=== PATIENT | female | born 1940 | race Caucasian/White ===

== ENCOUNTER 2017-03-20 12:05 | Inpatient (IN) | payer MEDICARE ==
[2017-03-20] MEDS ORDERED: Sodium Chloride 0.9% 1,000 ML IV ONE (12:59)
[2017-03-20] MEDS ORDERED: Albuterol/Ipratropium 3.0-0.5 MG/3 ML Neb Soln NEB ONE ×2 (13:05→16:12)
--- NOTE | 2017-03-20 13:38 | EDM.PDOC ---
ED HPI GENERAL MEDICAL PROBLEM - General Chief Complaint: Respiratory Problem Stated Complaint: SHORTNESS OF BREATH Time Seen by Provider: 03/20/17 12:21 Source of Information: Reports: Patient, Family History Limitations: Reports: No Limitations - History of Present Illness INITIAL COMMENTS - FREE TEXT/NARRATIVE: HISTORY AND PHYSICAL: History of present illness: 76-year-old female with a history of advanced COPD after a long history of tobacco abuse, baseline for the half liters of home oxygen use daily, now presents emergency department complaining of exertional intolerance and feeling generally weak. Patient states she is getting more short of breath than usual with activity. She states this typically happens when she gets very anemic. Patient has a history of iron deficiency anemia for which she takes iron supplementation and for which she has previously been transfused twice, most recently a year ago. Patient states that she does not have a productive cough other than her chronic nonproductive cough. Denies fevers chills sweats or shaking chills. She does not feel that she is wheezing but as mentioned she does have exertional shortness of breath beyond her baseline. Patient denies any chest pain. No abdominal pain vomiting or diarrhea. Normal bowel and bladder habits. Patient has no history of congestive heart failure and she has not had any leg swelling or edema. Review of systems: As per history of present illness and below otherwise all systems reviewed and negative. Past medical history: As per history of present illness and as reviewed below otherwise noncontributory. Surgical history: As per history of present illness and as reviewed below otherwise noncontributory. Social history: No reported history of drug or alcohol abuse. Family history: As per history of present illness and as reviewed below otherwise noncontributory. Physical exam: Alert well-appearing female no acute distress no tachypnea. Patient does have some pallor. No tachycardia. Prolonged expirations bilaterally but no angela wheezing. No rhonchi rails or rubs. Dental exam is benign and extremities are normal with no edema HEENT: Atraumatic, normocephalic, pupils reactive, positive conjunctival pallor , no scleral icterus, mucous membranes moist, throat clear, neck supple, nontender, trachea midline. Lungs: Clear to auscultation, breath sounds equal bilaterally, chest nontender. Heart: S1S2, regular, negative for clicks, rubs, or JVD. Abdomen: Soft, nondistended, nontender. Negative for masses or hepatosplenomegaly. Negative for costovertebral tenderness. Pelvis: Stable nontender. Genitourinary: Deferred. Rectal: Deferred. Extremities: Atraumatic, negative for cords or calf pain. Neurovascular unremarkable. Neuro: Awake, alert, oriented. Cranial nerves grossly unremarkable. Cerebellum unremarkable. Motor and sensory unremarkable throughout. Exam nonfocal. Diagnostics: [EKG] Chest x-ray Therapeutics: [DuoNeb administered as well as IV fluid bolus] Impression: [] Plan: [Patient with generalized weakness and exertional intolerance. History of intermittent severe anemia requiring transfusion. Prolonged expirations bilaterally but no angela bronchospasm and findings not consistent with significant COPD exacerbation. Full workup pending] Patient's hemoglobin consistent with mild anemia at 9.0. Chest x-ray and EKG unremarkable. On reevaluation patient with increased shortness of breath with wheezing. Additional DuoNeb ordered and IV steroids will be administered. Ordered ABG to rule out significant hypercarbia. Given patient's persistent symptoms and exertional intolerance will do inpatient admission for further workup and treatment as needed. Case discussed with Dr. Anil Mosley hospitalist switchboard receptionist who is aware of history and findings and agrees with inpatient admission to his service. Definitive disposition and diagnosis as appropriate pending reevaluation and review of above. - Related Data Allergies Allergy/AdvReac Type Severity Reaction Status Date / Time codeine Allergy Rash Verified 03/20/17 12:48 morphine Allergy Rash Verified 03/20/17 12:48 Sulfa (Sulfonamide Allergy Rash Verified 03/20/17 12:48 Antibiotics) Home Meds: Home Meds LORazepam 0.5 mg PO DAILY PRN 03/20/17 [History] Losartan Potassium 25 mg PO DAILY 03/20/17 [History] guaiFENesin [Mucinex] 0 mg PO Q12HR 03/20/17 [History] Past Medical History HEENT History: Reports: Impaired Vision Other HEENT History: wears glasses Cardiovascular History: Reports: High Cholesterol, Hypertension Respiratory History: Reports: COPD, Other (See Below) Other Respiratory History: empysema Gastrointestinal History: Reports: GERD CONCR[employer]E [employer] History: Reports: Psychiatric History: Reports: Anxiety, Depression - Past Surgical History GI Surgical History: Reports: Hernia, Abdominal Social & Family History - Family History Family Medical History: Noncontributory - Tobacco Use Smoking Status *Q: Current Every Day Smoker Years of Tobacco use: 40 Packs/Tins Daily: 1 - Caffeine Use Caffeine Use: Reports: Coffee - Recreational Drug Use Recreational Drug Use: No ED ROS GENERAL - Review of Systems Review Of Systems: See Below (Per history of present illness) ED EXAM, GENERAL - Physical Exam Exam: See Below (Per history of present illness) Course - Vital Signs Last Recorded V/S: Last Vital Signs Temp 36.1 C 03/20/17 12:22 Pulse 109 H 03/20/17 12:22 Resp 28 H 03/20/17 12:22 BP 143/59 H 03/20/17 12:22 Pulse Ox 92 L 03/20/17 12:22 - Orders/Labs/Meds Orders: Active Orders 24 hr Category Date Time Status Admission Status [Patient Status] [ADT] Stat ADT 03/20/17 16:11 Ordered EKG Documentation Completion [RC] STAT Care 03/20/17 12:59 Active Peripheral IV Care [RC] . DIRECTED Care 03/20/17 12:59 Active RT Aerosol Therapy [RC] ASDIRECTED Care 03/20/17 13:05 Active RT Aerosol Therapy [RC] ASDIRECTED Care 03/20/17 16:12 Active Chest 1V Frontal [CR] Stat Exams 03/20/17 12:59 Taken ABG [BLOOD GAS ARTERIAL] [BG] Stat Lab 03/20/17 16:05 Ordered UA W/MICROSCOPIC [URIN] Stat Lab 03/20/17 14:34 Ordered Peripheral IV Insertion Adult [OM.PC] Stat Oth 03/20/17 12:59 Ordered Labs: Laboratory Tests 03/20/17 03/20/17 03/20/17 Range/Units 13:20 13:20 13:20 WBC 6.94 (4.0-11.0) K/uL RBC 3.13 L (4.30-5.90) M/uL Hgb 9.0 L (12.0-16.0) g/dL Hct 29.8 L (36.0-46.0) % MCV 95.2 (80.0-98.0) fL MCH 28.8 (27.0-32.0) pg MCHC 30.2 L (31.0-37.0) g/dL RDW Std Deviation 44.3 (28.0-62.0) fl RDW Coeff of Marck 13 (11.0-15.0) % Plt Count 186 (150-400) K/uL MPV 9.60 (7.40-12.00) fL Neut % (Auto) 78.9 (48.0-80.0) % Lymph % (Auto) 10.7 L (16.0-40.0) % [place] % (Auto) 9.5 (0.0-15.0) % Eos % (Auto) 0.6 (0.0-7.0) % Baso % (Auto) 0.3 (0.0-1.5) % Neut # (Auto) 5.5 (1.4-5.7) K/uL Lymph # (Auto) 0.7 (0.6-2.4) K/uL [place] # (Auto) 0.7 (0.0-0.8) K/uL Eos # (Auto) 0.0 (0.0-0.7) K/uL Baso # (Auto) 0.0 (0.0-0.1) K/uL Nucleated RBC % 0.0 /100WBC Nucleated RBCs # 0 K/uL Sodium 137 (136-146) mmol/L Potassium 4.6 (3.5-5.1) mmol/L Chloride 86 L (98-110) mmol/L Carbon Dioxide 42 H (21-31) mmol/L BUN 9 (6.0-23.0) mg/dL Creatinine 0.6 (0.6-1.5) mg/dL Est Cr Clr Drug Dosing TNP Estimated GFR (MDRD) > 60.0 ml/min Glucose 96 (60-110) mg/dL Calcium 9.4 (8.8-10.8) mg/dL Total Bilirubin 0.6 (0.1-1.5) mg/dL AST 15 (5-40) IU/L ALT 9 (8-54) IU/L Alkaline Phosphatase 74 (40-150) Troponin I < 0.10 (0.0-0.29) NG/ML Total Protein 6.9 (6.0-8.0) g/dL Albumin 3.5 (3.4-4.8) g/dL Globulin 3.4 (2.0-3.5) g/dL Albumin/Globulin Ratio 1.0 L (1.3-2.8) TSH 3rd Generation 1.14 (0.47-5.0) uIU/mL Meds: Medications Discontinued Medications Generic Name Dose Route Start Last Admin Trade Name Simon PRN Reason Stop Dose Admin Albuterol/Ipratropium 3 ml 03/20/17 13:05 03/20/17 13:13 Duoneb 3.0-0.5 Mg/3 Ml NEB 03/20/17 13:06 3 ml ONETIME ONE Administration Albuterol/Ipratropium 3 ml 03/20/17 16:12 Duoneb 3.0-0.5 Mg/3 Ml NEB 03/20/17 16:13 ONETIME ONE Sodium Chloride 1,000 mls @ 999 mls/hr 03/20/17 12:59 03/20/17 13:22 Normal Saline IV 03/20/17 13:59 999 mls/hr .Bolus ONE Administration Methylprednisolone Sodium Succinate 125 mg 03/20/17 16:06 Solu-Medrol IVPUSH 03/20/17 16:07 ONETIME ONE Departure - Departure Time of Disposition: 16:02 Disposition: Admitted As Inpatient 65 Condition: Fair Clinical Impression: COPD exacerbation, Anemia, Acute dyspnea, Hypoxia - Discharge Information Referrals: Fernando Garcia MD [Primary Care Provider] - Forms: ED Department Discharge - My Orders Last 24 Hours: My Active Orders 03/20/17 12:59 EKG Documentation Completion [RC] STAT Peripheral IV Care [RC] . DIRECTED Chest 1V Frontal [CR] Stat Peripheral IV Insertion Adult [OM.PC] Stat 03/20/17 14:34 UA W/MICROSCOPIC [URIN] Stat 03/20/17 16:05 ABG [BLOOD GAS ARTERIAL] [BG] Stat 03/20/17 16:11 Admission Status [Patient Status] [ADT] Stat 03/20/17 16:12 RT Aerosol Therapy [RC] ASDIRECTED - Assessment/Plan Last 24 Hours: My Active Orders 03/20/17 12:59 EKG Documentation Completion [RC] STAT Peripheral IV Care [RC] . DIRECTED Chest 1V Frontal [CR] Stat Peripheral IV Insertion Adult [OM.PC] Stat 03/20/17 14:34 UA W/MICROSCOPIC [URIN] Stat 03/20/17 16:05 ABG [BLOOD GAS ARTERIAL] [BG] Stat 03/20/17 16:11 Admission Status [Patient Status] [ADT] Stat 03/20/17 16:12 RT Aerosol Therapy [RC] ASDIRECTED
[2017-03-20 14:02] LABS: CHLORIDE,CL 86 mmol/L (98-110); SODIUM,NA 137 mmol/L (136-146)
[2017-03-20] MEDS ORDERED: methylPREDNISolone Sodium Succinate 125 MG/2 ML SDV IVPUSH ONE (16:06)
[2017-03-20] MEDS ORDERED: Ondansetron 4 MG/2 ML SDV IVPUSH ONE (16:38)
[2017-03-20] MEDS ORDERED: Iopamidol 755 MG/ML 500 ML Multipack Bottle IVPUSH STA (17:13)
[2017-03-20] MEDS ORDERED: cefTRIAXone 1 GM in Premix Bag 1 BAG IV ONE (17:25)
[2017-03-20] MEDS ORDERED: Sodium Chloride 0.9% 1,000 ML IV SCH (17:45)
[2017-03-20] MEDS ORDERED: Acetaminophen 325 MG Tab PO PRN (19:19)
--- NOTE | 2017-03-20 19:43 | PCM.HP ---
H&P History of Present Illness - General Admit Problem/Dx: Admission Diagnosis/Problem Admission Diagnosis/Problem COPD, Moderate chronic obstructive pulmonary disease - History of Present Illness Initial Comments - Free Text/Narative: 76 yo female with pmh of oxygen dependent COPD and anxiety who presents with shortness of breath. Patient reports over past few days increase in her exertional dyspnea. She has chronic stable cough. Denies any fever or chest pain. She believes she feels ill due to a worsening of her COPD. In the ED she has a CT scan which was negative for PE, bibasilar atelectasis, bronchiectasis, emphysematous changes, and ground glass opacification of the lung parenchyma. - Related Data Allergies/Adverse Reactions: Allergies Allergy/AdvReac Type Severity Reaction Status Date / Time codeine Allergy Rash Verified 03/23/17 07:39 morphine Allergy Rash Verified 03/23/17 07:39 Sulfa (Sulfonamide Allergy Rash Verified 03/23/17 07:39 Antibiotics) lisinopril Allergy Cough Uncoded 03/23/17 07:39 Home Medications: Home Meds Aspirin 81 mg PO DAILY 03/20/17 [History] Cetirizine [ZyrTEC] 0 mg PO DAILY 03/20/17 [History] Cholecalciferol (Vitamin D3) [Vitamin D] 2,000 unit PO DAILY 03/20/17 [History] [facility] Iron 03/20/17 [History] Fluticasone/Salmeterol [Advair Diskus 500-50] 1 puff INH BID 03/20/17 [History] LORazepam 0.5 mg PO DAILY PRN 03/20/17 [History] Lactobacillus Combo No.11 [Probiotic] 1 each PO DAILY 03/20/17 [History] Losartan Potassium 25 mg PO DAILY 03/20/17 [History] Pantoprazole Sodium [Protonix] 20 mg PO DAILY 03/20/17 [History] Pravastatin Sodium 20 mg PO DAILY 03/20/17 [History] Roflumilast [Daliresp] 500 mcg PO DAILY 03/20/17 [History] Tiotropium [place] [Spiriva Respimat] 2 mcg IH DAILY 03/20/17 [History] Ubidecarenone/Vitamin E Mixed [[id number] E 200 mg-20 Unit Sfg] 1 tab PO DAILY [History] guaiFENesin [Mucinex] 0 mg PO Q12HR 03/20/17 [History] Escitalopram [Lexapro] 10 mg PO DAILY 03/21/17 [History] Albuterol/Ipratropium [DuoNeb 3.0-0.5 MG/3 ML] 3 ml NEB Q6HRRT neb 03/22/17 [Rx ] Levofloxacin [Levaquin] 500 mg PO Q24H 7 Days 03/22/17 [Rx] Ondansetron [Zofran] 4 mg PO Q4H PRN #14 tab 03/22/17 [Rx] Prednisone [IMW: predniSONE] 40 mg PO WITHBREAKFAST #10 tab 03/22/17 [Rx] Past Medical History HEENT History: Reports: Impaired Vision Other HEENT History: wears glasses Cardiovascular History: Reports: High Cholesterol, Hypertension Respiratory History: Reports: Bronchitis, Recurrent, COPD, Pneumonia, Recurrent , Other (See Below) Other Respiratory History: empysema Gastrointestinal History: Reports: GERD, Hiatal Hernia Other Gastrointestinal History: Hiatal hernia since X "2-3 years ago" 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: Musculoskeletal History: Reports: Arthritis Other Musculoskeletal History: Right knee arthritis Psychiatric History: Reports: Anxiety, Depression Hematologic History: Reports: Anemia Other Hematologic History: Blood transfusion X one year ago Dermatologic History: Reports: Eczema - Past Surgical History Other Cardiovascular Surgeries/Procedures: Femoral artery stent placed to left Respiratory Surgical History: Reports: None GI Surgical History: Reports: Hernia, Inguinal Musculoskeletal Surgical History: Reports: None Social & Family History - Family History Family Medical History: Noncontributory - Tobacco Use Smoking Status *Q: Former Smoker Years of Tobacco use: 40 Packs/Tins Daily: 1 Used Tobacco, but Quit: Yes Month Tobacco Last Used: 2005 Second Hand Smoke Exposure: No - Caffeine Use Caffeine Use: Reports: Coffee, Soda, Tea - Recreational Drug Use Recreational Drug Use: No H&P Review of Systems - Review of Systems: Review Of Systems: ROS reveals no pertinent complaints other than HPI. Exam - Exam Exam: See Below - Vital Signs Vital Signs: Last Vital Signs Temp 35.9 C 03/20/17 17:45 Pulse 116 H 03/20/17 17:45 Resp 16 03/20/17 17:45 BP 131/58 L 03/20/17 17:45 Pulse Ox 100 03/20/17 17:45 Weight: 84.1 kg - Exam General: Alert, Oriented, 4 HEENT: Mucosa Moist & [place] Lungs: Normal Respiratory Effort, Decreased Breath Sounds, Rhonchi Cardiovascular: Regular Rhythm, Tachycardia GI/Abdominal Exam: Normal Bowel Sounds, Soft, Non-Tender, No Organomegaly, No Distention, No Abnormal Bruit, No Mass, Pelvis Stable Back Exam: Normal Inspection, Full Range of Motion, NT Extremities: No Pedal Edema Skin: Warm, Dry, Intact - Patient Data Lab Results Last 24 hrs: Laboratory Results - last 24 hr 03/20/17 03/20/17 Range/Units 16:20 16:48 ABG pH 7.372 (7.35-7.45) ABG pCO2 73 H (35-45) mmHG ABG pO2 36 L* (75-100) mmHG ABG HCO3 42 H (22-26) mEq/L ABG Total CO2 40.7 ABG Base Excess 15.8 H (-2.0-2.0) Urine Color YELLOW Urine Appearance CLOUDY Urine pH 6.0 (5.0-8.0) Ur Specific [place] 1.015 (1.001-1.035) Urine Protein 30 (NEGATIVE) mg/dL Urine Glucose (UA) NEGATIVE (NEGATIVE) mg/dL Urine Ketones 40 H (NEGATIVE) mg/dL Urine Occult Blood LARGE H (NEGATIVE) Urine Nitrite NEGATIVE (NEGATIVE) Urine Bilirubin NEGATIVE (NEGATIVE) Urine Urobilinogen 0.2 (<2.0) EU/dL Ur Leukocyte Esterase LARGE (NEGATIVE) Urine RBC 15-20 (0-2/HPF) Urine WBC 10-15 (0-5/HPF) Ur Epithelial Cells RARE (NONE-FEW) Urine Bacteria FEW (NEGATIVE) Result Diagrams: 03/22/17 04:36 03/22/17 04:36 *Q Meaningful Use (ADM) - VTE *Q VTE Criteria *Q: - Stroke *Q Stroke Criteria *Q: - AMI *Q AMI Criteria *Q: Problem List Initiated/Reviewed/Updated: Yes Orders Last 24hrs: Active Orders 24 hr Category Date Time Status Antiembolic Devices [RC] PER UNIT ROUTINE Care 03/20/17 19:20 Active BIPAP Adult [RT BiPAP/CPAP] [RC] ASDIRECTED Care 03/20/17 17:31 Active Intake and Output [RC] QSHIFT Care 03/20/17 19:19 Active Oxygen Therapy [RC] PRN Care 03/20/17 19:19 Active Pulse Oximetry [RC] CONTINUOUS Care 03/20/17 19:19 Active RT Aerosol Therapy [RC] ASDIRECTED Care 03/20/17 19:35 Ordered Up ad Yvette [RC] ASDIRECTED Care 03/20/17 19:19 Active VTE/DVT Education [RC] PER UNIT ROUTINE Care 03/20/17 19:19 Active Vital Signs [RC] Q4H Care 03/20/17 19:19 Active Regular Diet [DIET] Diet 03/20/17 Breakfast Active CTA Chest W WO Contrast [Ang Chest] [CT] Stat Exams 03/20/17 16:24 Taken BASIC METABOLIC PANEL,BMP [CHEM] AM Lab 03/21/17 05:11 Ordered BASIC METABOLIC PANEL,BMP [CHEM] AM Lab 03/22/17 05:11 Ordered CBC WITH AUTO DIFF [HEME] AM Lab 03/21/17 05:11 Ordered CBC WITH AUTO DIFF [HEME] AM Lab 03/22/17 05:11 Ordered CULTURE URINE [RM] Routine Lab 03/20/17 16:48 Received Acetaminophen [Tylenol] Med 03/20/17 19:19 Active 650 mg PO Q4H PRN Albuterol/Ipratropium [DuoNeb 3.0-0.5 MG/3 ML] Med 03/21/17 00:00 Ordered 3 ml NEB Q6HRRT Aspirin Med 03/21/17 09:00 Ordered 81 mg PO DAILY Enoxaparin [Lovenox] Med 03/21/17 09:00 Active 40 mg SUBCUT DAILY Fluticasone/Salmeterol [Advair Diskus 500-50] Med 03/20/17 21:00 Ordered 1 puff INH BID Losartan Potassium Med 03/21/17 09:00 Ordered 25 mg PO DAILY Ondansetron [Zofran] Med 03/20/17 19:19 Active 4 mg IVPUSH Q4H PRN Pantoprazole Sodium [Protonix] Med 03/21/17 09:00 Ordered 20 mg PO DAILY Pravastatin Sodium Med 03/21/17 09:00 Ordered 20 mg PO DAILY Roflumilast Med 03/21/17 09:00 Ordered 500 mcg PO DAILY Sodium Chloride 0.9% [Normal Saline] 1,000 ml Med 03/20/17 17:45 Active IV ASDIRECTED Tiotropium [place] [Spiriva Respimat] Med 03/21/17 09:00 Ordered 2 mcg IH DAILY cefTRIAXone [Rocephin] Med 03/20/17 19:45 Ordered 1,000 mg IVPUSH Q24H methylPREDNISolone Sod Succ [Solu-MEDROL] Med 03/20/17 19:45 Ordered 125 mg IVPUSH Q8H Sequential Compression Device [OM.PC] Per Unit Routine Oth 03/20/17 19:19 Ordered Resuscitation Status Routine Resus Stat 03/20/17 19:19 Ordered Medication Orders Acetaminophen (Tylenol) 650 mg PO Q4H PRN PRN Reason: Pain (Mild 1-3)/fever Albuterol/Ipratropium (Duoneb 3.0-0.5 Mg/3 Ml) 3 ml NEB Q6HRRT [facility] Aspirin (Aspirin) 81 mg PO DAILY [place] Ceftriaxone Sodium (Rocephin) 1,000 mg IVPUSH Q24H [place] Enoxaparin Sodium (Lovenox) 40 mg SUBCUT DAILY [facility] Sodium Chloride (Normal Saline) 1,000 mls @ 125 mls/hr IV ASDIRECTED [facility] Last Admin: 03/20/17 17:45 Dose: 125 mls/hr Methylprednisolone Sodium Succinate (Solu-Medrol) 125 mg IVPUSH Q8H [facility] Non-Formulary Medication (Losartan Potassium) 25 mg PO DAILY [facility] Non-Formulary Medication (Pantoprazole Sodium [Protonix]) 20 mg PO DAILY [facility] Non-Formulary Medication (Pravastatin Sodium) 20 mg PO DAILY [facility] Non-Formulary Medication (Roflumilast) 500 mcg PO DAILY [facility] Non-Formulary Medication (Tiotropium [place] [Spiriva Respimat]) 2 mcg IH DAILY [place] Ondansetron HCl (Zofran) 4 mg IVPUSH Q4H PRN PRN Reason: Nausea Fluticasone/Salmeterol (Advair Diskus 500-50) 1 puff INH BID [facility] Assessment/Plan Comment:: 76 yo female admitted for COPD exacerbation with UTI. Treating with solumedrol , dounebs, and Rocephin.
[2017-03-20] MEDS: Fluticasone/Salmeterol 500-50 MCG Inhalation Powder 14/Diskus INH SCH (21:08)
[2017-03-20] MEDS: Ondansetron 4 MG/2 ML SDV IVPUSH PRN (21:46)
[2017-03-20] MEDS: Albuterol/Ipratropium 3.0-0.5 MG/3 ML Neb Soln NEB SCH (23:46)
[2017-03-20] MEDS: methylPREDNISolone Sodium Succinate 125 MG/2 ML SDV IVPUSH SCH (23:46)
[2017-03-21 05:16] LABS: CHLORIDE,CL 89 mmol/L (98-110); SODIUM,NA 135 mmol/L (136-146)
[2017-03-21] MEDS: Albuterol/Ipratropium 3.0-0.5 MG/3 ML Neb Soln NEB SCH ×3 (05:47→18:15)
[2017-03-21] MEDS: Fluticasone/Salmeterol 500-50 MCG Inhalation Powder 14/Diskus INH SCH ×2 (08:04→21:02)
[2017-03-21] MEDS: Losartan 50 MG Tab PO SCH (08:04)
[2017-03-21] MEDS: Pravastatin 40 MG Tab PO SCH (08:08)
[2017-03-21] MEDS: Pantoprazole 40 MG Tab.CR PO SCH (08:10)
[2017-03-21] MEDS: methylPREDNISolone Sodium Succinate 125 MG/2 ML SDV IVPUSH SCH ×2 (08:11→16:18)
[2017-03-21] MEDS: Ondansetron 4 MG/2 ML SDV IVPUSH PRN (08:43)
[2017-03-21] MEDS: ROFLUMILAST 500 MCG PO SCH ×2 (09:43→19:12)
[2017-03-21] MEDS: TIOTROPIUM INH SCH ×2 (09:43→11:18)
[2017-03-21] MEDS ORDERED: Magnesium Sulfate/Water 2 GM in Premix Bag 1 BAG IV ONE (10:15)
[2017-03-21] MEDS: Aspirin 81 MG Tab.Chew PO SCH (10:53)
[2017-03-21] MEDS: Enoxaparin 40 MG/0.4 ML Syringe SUBCUT SCH (10:53)
--- NOTE | 2017-03-21 11:16 | PCM.PN ---
- Review of Systems Systems Review Comment:: reports nausea, slow improvement in breathing. - Patient Data Vitals - Most Recent: Last Vital Signs Temp 36.1 C 03/21/17 08:00 Pulse 120 H 03/21/17 08:00 Resp 24 H 03/21/17 08:00 BP 160/73 H 03/21/17 08:04 Pulse Ox 96 03/21/17 08:00 Weight - Most Recent: 84.1 kg I&O - Last 24 Hours: Intake & Output 03/20/17 03/21/17 03/21/17 22:59 06:59 14:59 Intake Total 468 300 Output Total 350 Balance 468 -50 Lab Results Last 24 Hours: Laboratory Results - last 24 hr 03/20/17 03/20/17 03/21/17 Range/Units 16:20 16:48 04:55 WBC 3.29 L (4.0-11.0) K/uL RBC 3.02 L (4.30-5.90) M/uL Hgb 8.6 L (12.0-16.0) g/dL Hct 28.9 L (36.0-46.0) % MCV 95.7 (80.0-98.0) fL MCH 28.5 (27.0-32.0) pg MCHC 29.8 L (31.0-37.0) g/dL RDW Std Deviation 44.4 (28.0-62.0) fl RDW Coeff of Marck 13 (11.0-15.0) % Plt Count 164 (150-400) K/uL MPV 9.30 (7.40-12.00) fL Neut % (Auto) 93.6 H (48.0-80.0) % Lymph % (Auto) 5.8 L (16.0-40.0) % [place] % (Auto) 0.6 (0.0-15.0) % Eos % (Auto) 0.0 (0.0-7.0) % Baso % (Auto) 0.0 (0.0-1.5) % Neut # (Auto) 3.1 (1.4-5.7) K/uL Lymph # (Auto) 0.2 L (0.6-2.4) K/uL [place] # (Auto) 0.0 (0.0-0.8) K/uL Eos # (Auto) 0.0 (0.0-0.7) K/uL Baso # (Auto) 0.0 (0.0-0.1) K/uL Nucleated RBC % 0.0 /100WBC Nucleated RBCs # 0 K/uL ABG pH 7.372 (7.35-7.45) ABG pCO2 73 H (35-45) mmHG ABG pO2 36 L* (75-100) mmHG ABG HCO3 42 H (22-26) mEq/L ABG Total CO2 40.7 ABG Base Excess 15.8 H (-2.0-2.0) Sodium (136-146) mmol/L Potassium (3.5-5.1) mmol/L Chloride (98-110) mmol/L Carbon Dioxide (21-31) mmol/L BUN (6.0-23.0) mg/dL Creatinine (0.6-1.5) mg/dL Est Cr Clr Drug Dosing mL/min Estimated GFR (MDRD) ml/min Glucose (60-110) mg/dL Calcium (8.8-10.8) mg/dL Magnesium (1.5-2.3) mEq/L Urine Color YELLOW Urine Appearance CLOUDY Urine pH 6.0 (5.0-8.0) Ur Specific [place] 1.015 (1.001-1.035) Urine Protein 30 (NEGATIVE) mg/dL Urine Glucose (UA) NEGATIVE (NEGATIVE) mg/dL Urine Ketones 40 H (NEGATIVE) mg/dL Urine Occult Blood LARGE H (NEGATIVE) Urine Nitrite NEGATIVE (NEGATIVE) Urine Bilirubin NEGATIVE (NEGATIVE) Urine Urobilinogen 0.2 (<2.0) EU/dL Ur Leukocyte Esterase LARGE (NEGATIVE) Urine RBC 15-20 (0-2/HPF) Urine WBC 10-15 (0-5/HPF) Ur Epithelial Cells RARE (NONE-FEW) Urine Bacteria FEW (NEGATIVE) 03/21/17 03/21/17 Range/Units 04:55 04:55 WBC (4.0-11.0) K/uL RBC (4.30-5.90) M/uL Hgb (12.0-16.0) g/dL Hct (36.0-46.0) % MCV (80.0-98.0) fL MCH (27.0-32.0) pg MCHC (31.0-37.0) g/dL RDW Std Deviation (28.0-62.0) fl RDW Coeff of Marck (11.0-15.0) % Plt Count (150-400) K/uL MPV (7.40-12.00) fL Neut % (Auto) (48.0-80.0) % Lymph % (Auto) (16.0-40.0) % [place] % (Auto) (0.0-15.0) % Eos % (Auto) (0.0-7.0) % Baso % (Auto) (0.0-1.5) % Neut # (Auto) (1.4-5.7) K/uL Lymph # (Auto) (0.6-2.4) K/uL [place] # (Auto) (0.0-0.8) K/uL Eos # (Auto) (0.0-0.7) K/uL Baso # (Auto) (0.0-0.1) K/uL Nucleated RBC % /100WBC Nucleated RBCs # K/uL ABG pH (7.35-7.45) ABG pCO2 (35-45) mmHG ABG pO2 (75-100) mmHG ABG HCO3 (22-26) mEq/L ABG Total CO2 ABG Base Excess (-2.0-2.0) Sodium 135 L (136-146) mmol/L Potassium 4.7 (3.5-5.1) mmol/L Chloride 89 L (98-110) mmol/L Carbon Dioxide 40 H (21-31) mmol/L BUN 8 (6.0-23.0) mg/dL Creatinine 0.6 (0.6-1.5) mg/dL Est Cr Clr Drug Dosing 73.51 mL/min Estimated GFR (MDRD) > 60.0 ml/min Glucose 161 H (60-110) mg/dL Calcium 8.8 (8.8-10.8) mg/dL Magnesium 1.3 L (1.5-2.3) mEq/L Urine Color Urine Appearance Urine pH (5.0-8.0) Ur Specific [place] (1.001-1.035) Urine Protein (NEGATIVE) mg/dL Urine Glucose (UA) (NEGATIVE) mg/dL Urine Ketones (NEGATIVE) mg/dL Urine Occult Blood (NEGATIVE) Urine Nitrite (NEGATIVE) Urine Bilirubin (NEGATIVE) Urine Urobilinogen (<2.0) EU/dL Ur Leukocyte Esterase (NEGATIVE) Urine RBC (0-2/HPF) Urine WBC (0-5/HPF) Ur Epithelial Cells (NONE-FEW) Urine Bacteria (NEGATIVE) Med Orders - Current: Current Medications Acetaminophen (Tylenol) 650 mg PO Q4H PRN PRN Reason: Pain (Mild 1-3)/fever Albuterol/Ipratropium (Duoneb 3.0-0.5 Mg/3 Ml) 3 ml NEB Q6HRRT [facility] Last Admin: 03/21/17 05:47 Dose: 3 ml Aspirin (Aspirin) 81 mg PO DAILY [facility] Last Admin: 03/21/17 10:53 Dose: 81 mg Enoxaparin Sodium (Lovenox) 40 mg SUBCUT DAILY [facility] Last Admin: 03/21/17 10:53 Dose: 40 mg Ceftriaxone Sodium/Dextrose 1 (gm/ Premix) 50 mls @ 100 mls/hr IV Q24H [facility] Magnesium Sulfate 2 gm/ Premix 50 mls @ 50 mls/hr IV ONETIME ONE Stop: 03/21/17 11:14 Last Admin: 03/21/17 10:57 Dose: 50 mls/hr Losartan Potassium (Cozaar) 25 mg PO DAILY [facility] Last Admin: 03/21/17 08:04 Dose: 25 mg Methylprednisolone Sodium Succinate (Solu-Medrol) 125 mg IVPUSH Q8H [facility] Last Admin: 03/21/17 08:11 Dose: 125 mg Ondansetron HCl (Zofran) 4 mg IVPUSH Q4H PRN PRN Reason: Nausea Last Admin: 03/21/17 08:43 Dose: 4 mg Pantoprazole Sodium (Protonix) 40 mg PO DAILY [facility] Last Admin: 03/21/17 08:10 Dose: 40 mg Roflumilast 500mcg 1 each PO DAILY [facility] Last Admin: 03/21/17 09:43 Dose: Not Given Tiotropium [place] [ Spiriva Respimat] 2mcg 1 each INH DAILY [facility] Pravastatin Sodium (Pravachol) 20 mg PO DAILY [facility] Last Admin: 03/21/17 08:08 Dose: 20 mg Fluticasone/Salmeterol (Advair Diskus 500-50) 1 puff INH BID [place] Last Admin: 03/21/17 08:04 Dose: 1 puff Discontinued Medications Albuterol/Ipratropium (Duoneb 3.0-0.5 Mg/3 Ml) 3 ml NEB ONETIME ONE Stop: 03/20/17 13:06 Last Admin: 03/20/17 13:13 Dose: 3 ml Albuterol/Ipratropium (Duoneb 3.0-0.5 Mg/3 Ml) 3 ml NEB ONETIME ONE Stop: 03/20/17 16:13 Last Admin: 03/20/17 16:30 Dose: 3 ml Ceftriaxone Sodium (Rocephin) 1,000 mg IVPUSH Q24H [place] Sodium Chloride (Normal Saline) 1,000 mls @ 999 mls/hr IV .Bolus ONE Stop: 03/20/17 13:59 Last Admin: 03/20/17 13:22 Dose: 999 mls/hr Ceftriaxone Sodium/Dextrose 1 (gm/ Premix) 50 mls @ 100 mls/hr IV ONETIME ONE Stop: 03/20/17 17:54 Last Admin: 03/20/17 17:45 Dose: 100 mls/hr Sodium Chloride (Normal Saline) 1,000 mls @ 125 mls/hr IV ASDIRECTED [facility] Last Admin: 03/20/17 17:45 Dose: 125 mls/hr Iopamidol (Isovue Multipack-370 (76%)) 50 ml IVPUSH ONETIME STA Stop: 03/20/17 17:14 Last Admin: 03/20/17 17:14 Dose: 50 ml Methylprednisolone Sodium Succinate (Solu-Medrol) 125 mg IVPUSH ONETIME ONE Stop: 03/20/17 16:07 Last Admin: 03/20/17 17:35 Dose: 125 mg Ondansetron HCl (Zofran) 4 mg IVPUSH ONETIME ONE Stop: 03/20/17 16:39 Last Admin: 03/20/17 16:49 Dose: 4 mg - Exam General: Alert, Oriented Lungs: Normal Respiratory Effort, Rhonchi Cardiovascular: Regular Rhythm, Tachycardia GI/Abdominal Exam: Normal Bowel Sounds, Soft, Non-Tender, No Organomegaly, No Distention, No Abnormal Bruit, No Mass, Pelvis Stable Extremities: Normal Inspection, Non-Tender, No Pedal Edema, Normal Capillary Refill Skin: Warm, Dry, Intact - Problem List Review Problem List Initiated/Reviewed/Updated: Yes - My Orders Last 24 Hours: My Active Orders 03/20/17 16:22 Telemetry Monitoring [Cardiac Monitoring] [RC] . DIRECTED 03/20/17 19:19 Intake and Output [RC] Q12H Oxygen Therapy [RC] PRN Pulse Oximetry [RC] CONTINUOUS Up ad Yvette [RC] ASDIRECTED VTE/DVT Education [RC] PER UNIT ROUTINE Vital Signs [RC] Q4H Acetaminophen [Tylenol] 650 mg PO Q4H PRN Ondansetron [Zofran] 4 mg IVPUSH Q4H PRN Sequential Compression Device [OM.PC] Per Unit Routine Resuscitation Status Routine 03/20/17 19:20 Antiembolic Devices [RC] PER UNIT ROUTINE 03/20/17 19:35 RT Aerosol Therapy [RC] ASDIRECTED 03/20/17 21:00 Fluticasone/Salmeterol [Advair Diskus 500-50] 1 puff INH BID 03/21/17 00:00 Albuterol/Ipratropium [DuoNeb 3.0-0.5 MG/3 ML] 3 ml NEB Q6HRRT methylPREDNISolone Sod Succ [Solu-MEDROL] 125 mg IVPUSH Q8H 03/21/17 09:00 Aspirin 81 mg PO DAILY Enoxaparin [Lovenox] 40 mg SUBCUT DAILY Losartan [Cozaar] 25 mg PO DAILY Pantoprazole [ProTONIX] 40 mg PO DAILY Patient's Own Medication [Ptom] 1 each INH DAILY Patient's Own Medication [Ptom] 1 each PO DAILY Pravastatin [Pravachol] 20 mg PO DAILY 03/21/17 10:15 Magnesium Sulfate/Water [Magnesium Sulfate 2 GM in Water 50 ML] 2 gm Premix Bag 1 bag IV ONETIME 03/21/17 11:14 Hemoccult [Fecal Occult Blood Collection] [RC] ASDIRECTED Hemoccult [OCCULT BLOOD DIAGNOSTIC] [OP] Routine 03/21/17 17:00 cefTRIAXone [Rocephin in Dextrose,Iso-Osm 1 GM/50 ML] 1 gm Premix Bag 1 bag IV Q24H 03/22/17 05:11 BASIC METABOLIC PANEL,BMP [CHEM] AM CBC WITH AUTO DIFF [HEME] AM - Plan Plan:: 76 yo female admitted for COPD exacerbation with UTI. COPD: continue solumedrol, dounebs, UTI: continue Rocephin. Dispo: possible discharge home tomorrow.
[2017-03-21] MEDS: Escitalopram 10 MG Tab PO SCH (16:16)
[2017-03-21] MEDS ORDERED: cefTRIAXone 1 GM in Premix Bag 1 BAG IV SCH (17:00)
[2017-03-21] MEDS ORDERED: cefTRIAXone 1,000 MG VIAL IVPUSH SCH (17:00)
[2017-03-22] MEDS: Albuterol/Ipratropium 3.0-0.5 MG/3 ML Neb Soln NEB SCH ×3 (00:17→11:13)
[2017-03-22] MEDS: methylPREDNISolone Sodium Succinate 125 MG/2 ML SDV IVPUSH SCH ×3 (00:18→16:42)
[2017-03-22 05:18] LABS: CHLORIDE,CL 86 mmol/L (98-110); SODIUM,NA 131 mmol/L (136-146)
[2017-03-22] MEDS: Ondansetron 4 MG/2 ML SDV IVPUSH PRN ×2 (06:05→12:41)
[2017-03-22] MEDS: Pravastatin 40 MG Tab PO SCH (08:17)
[2017-03-22] MEDS: Pantoprazole 40 MG Tab.CR PO SCH (08:17)
[2017-03-22] MEDS: Escitalopram 10 MG Tab PO SCH (08:17)
[2017-03-22] MEDS: Aspirin 81 MG Tab.Chew PO SCH (08:17)
[2017-03-22] MEDS: Losartan 50 MG Tab PO SCH (08:18)
[2017-03-22] MEDS: Enoxaparin 40 MG/0.4 ML Syringe SUBCUT SCH (08:19)
[2017-03-22] MEDS: ROFLUMILAST 500 MCG PO SCH (08:20)
[2017-03-22] MEDS: Fluticasone/Salmeterol 500-50 MCG Inhalation Powder 14/Diskus INH SCH (09:07)
[2017-03-22] MEDS: TIOTROPIUM INH SCH (09:08)
--- NOTE | 2017-03-22 11:35 | CR ---
EXAM DATE: 03/20/17 PATIENT'S AGE: 76 Patient: GRACIELA SHIN Facility: [place], [place] Site . Site : [id number] Study: XRay Chest [id number]/29/2017 1:42:37 PM Ordering Physician: Torres Harrison Final Report: INDICATION: Chest evaluation. Technique: Single-view chest. Findings: Heart and mediastinum are normal in size. Pulmonary vessels normal. Lungs are clear. No pleural fluid. No acute bony abnormality. Impression: No acute chest disease. Dictated by Betty Olsen MD @ Mar 20 2017 2:17PM (Electronic Signature) Report Signed by Proxy. [facility] [place]
[2017-03-22 12:02] VITALS: BP 139/71
--- NOTE | 2017-03-22 13:07 | PCM.DCSUM1 ---
Addendum entered and electronically signed by Doug Glaser MD 03/22/17 19:40 : Discharge Summary - Hospital Course Free Text/Narrative:: For home health: #1 homebound: Patient is able to ambulate less than 20 feet before becoming short of breath and needing to stop for a rest break. #2. Need for skilled services: Physical therapy: Strengthening due to weakness from recent hospitalization deconditioning due to COPD disease process gait instability and high fall risk. Occupational therapy: Home safety evaluation for functional safety in home, assess/initiate plan for improvement of cognition issues. RN to monitor medications effectiveness of medications and assessment and education for patient's exacerbation of COPD symptoms. #3. Primary M.D. who will be following the client at home is Dr. Garcia who well continue to follow the client for home health once DC'd from the hospital. - Discharge Data Discharge Date: 03/22/17 Discharge Disposition: Home, W Home Health Agency 06 Condition: Stable - Discharge Diagnosis/Problem(s) (1) Acute dyspnea SNOMED Code(s): 055228735 ICD Code: R06.00 - DYSPNEA, UNSPECIFIED Status: Acute Priority: High (2) Anemia SNOMED Code(s): 998935184 ICD Code: D64.9 - ANEMIA, UNSPECIFIED Status: Acute Priority: High Qualifiers: Anemia type: iron deficiency Iron deficiency anemia type: inadequate dietary iron intake Qualified Code(s): D50.8 - Other iron deficiency anemias (3) COPD exacerbation SNOMED Code(s): 590179651, 409410804 ICD Code: J44.1 - CHRONIC OBSTRUCTIVE PULMONARY DISEASE W (ACUTE) EXACERBATION Status: Acute Priority: High (4) Hypoxia SNOMED Code(s): 024652376, 634229838 ICD Code: R09.02 - HYPOXEMIA Status: Acute Priority: High - Patient Summary/Data Consults: Consultations 03/22/17 14:07 Consult to Home Health [CONS] Routine - Patient Instructions Diet: Heart Healthy Diet Activity: As Tolerated, No Lifting Over 25 Pounds Driving: Do Not Drive Showering/Bathing: May Shower Notify Provider of: Fever, Increased Pain, Swelling and Redness, Nausea and/or Vomiting Other/Special Instructions: Please make your followup appt with Naeem Respiratory specialist - Discharge Plan Prescriptions/Med Rec: Levofloxacin [Levaquin] 500 mg PO Q24H 7 Days Ondansetron [Zofran] 4 mg PO Q4H PRN #14 tab PRN Reason: Nausea/Vomiting Prednisone [IMW: predniSONE] 40 mg PO WITHBREAKFAST #10 tab Home Medications: Home Meds Aspirin 81 mg PO DAILY 03/20/17 [History] Cetirizine [ZyrTEC] 0 mg PO DAILY 03/20/17 [History] Cholecalciferol (Vitamin D3) [Vitamin D] 2,000 unit PO DAILY 03/20/17 [History] [facility] 03/20/17 [History] Fluticasone/Salmeterol [Advair Diskus 500-50] 1 puff INH BID 03/20/17 [History] LORazepam 0.5 mg PO DAILY PRN 03/20/17 [History] Lactobacillus Combo No.11 [Probiotic] 1 each PO DAILY 03/20/17 [History] Losartan Potassium 25 mg PO DAILY 03/20/17 [History] Pantoprazole Sodium [Protonix] 20 mg PO DAILY 03/20/17 [History] Pravastatin Sodium 20 mg PO DAILY 03/20/17 [History] Roflumilast [Daliresp] 500 mcg PO DAILY 03/20/17 [History] Tiotropium Brooks [Spiriva Respimat] 2 mcg IH DAILY 03/20/17 [History] Ubidecarenone/Vitamin E Mixed [Rza71-Lcf E 200 mg-20 Unit Sfg] 1 tab PO DAILY [History] guaiFENesin [Mucinex] 0 mg PO Q12HR 03/20/17 [History] Escitalopram [Lexapro] 10 mg PO DAILY 03/21/17 [History] Albuterol/Ipratropium [DuoNeb 3.0-0.5 MG/3 ML] 3 ml NEB Q6HRRT neb 03/22/17 [Rx ] Levofloxacin [Levaquin] 500 mg PO Q24H 7 Days 03/22/17 [Rx] Ondansetron [Zofran] 4 mg PO Q4H PRN #14 tab 03/22/17 [Rx] Prednisone [IMW: predniSONE] 40 mg PO WITHBREAKFAST #10 tab 03/22/17 [Rx] Patient Handouts: Chronic Obstructive Pulmonary Disease Exacerbation, Easy-to- Read, Ondansetron tablets, Levofloxacin tablets, Prednisone tablets Referrals: Fernando Garcia MD [Primary Care Provider] - 03/30/17 8:30 am - Patient Data Vitals - Most Recent: Last Vital Signs Temp 36.2 C 03/22/17 12:00 Pulse 122 H 03/22/17 12:00 Resp 20 03/22/17 12:00 BP 139/71 03/22/17 12:00 Pulse Ox 94 L 03/22/17 12:00 Weight - Most Recent: 85.502 kg I&O - Last 24 hours: Intake & Output 03/22/17 03/22/17 03/22/17 06:59 14:59 22:59 Intake Total 750 980 Output Total 900 1100 Balance -150 -120 Lab Results - Last 24 hrs: Laboratory Results - last 24 hr 03/22/17 03/22/17 Range/Units 04:36 04:36 WBC 5.37 (4.0-11.0) K/uL RBC 2.94 L (4.30-5.90) M/uL Hgb 8.5 L (12.0-16.0) g/dL Hct 28.0 L (36.0-46.0) % MCV 95.2 (80.0-98.0) fL MCH 28.9 (27.0-32.0) pg MCHC 30.4 L (31.0-37.0) g/dL RDW Std Deviation 44.5 (28.0-62.0) fl RDW Coeff of Marck 13 (11.0-15.0) % Plt Count 171 (150-400) K/uL MPV 10.00 (7.40-12.00) fL Neut % (Auto) 94.0 H (48.0-80.0) % Lymph % (Auto) 4.3 L (16.0-40.0) % [place] % (Auto) 1.7 (0.0-15.0) % Eos % (Auto) 0.0 (0.0-7.0) % Baso % (Auto) 0.0 (0.0-1.5) % Neut # (Auto) 5.1 (1.4-5.7) K/uL Lymph # (Auto) 0.2 L (0.6-2.4) K/uL [place] # (Auto) 0.1 (0.0-0.8) K/uL Eos # (Auto) 0.0 (0.0-0.7) K/uL Baso # (Auto) 0.0 (0.0-0.1) K/uL Nucleated RBC % 0.0 /100WBC Nucleated RBCs # 0 K/uL Sodium 131 L (136-146) mmol/L Potassium 5.2 H (3.5-5.1) mmol/L Chloride 86 L (98-110) mmol/L Carbon Dioxide 42 H (21-31) mmol/L BUN 13 (6.0-23.0) mg/dL Creatinine 0.7 (0.6-1.5) mg/dL Est Cr Clr Drug Dosing 63.01 mL/min Estimated GFR (MDRD) > 60.0 ml/min Glucose 155 H (60-110) mg/dL Calcium 8.7 L (8.8-10.8) mg/dL REX Results - Last 24 hrs: Microbiology 03/20/17 16:48 Urine Culture - Final Urine, Clean Catch MIXED MARIA D >100,000 CFU/ML 03/22/17 07:00 Stool Occult Blood (REX) - Final Stool / Feces Med Orders - Current: Current Medications Discontinued Medications Acetaminophen (Tylenol) 650 mg PO Q4H PRN PRN Reason: Pain (Mild 1-3)/fever Albuterol/Ipratropium (Duoneb 3.0-0.5 Mg/3 Ml) 3 ml NEB ONETIME ONE Stop: 03/20/17 13:06 Last Admin: 03/20/17 13:13 Dose: 3 ml Albuterol/Ipratropium (Duoneb 3.0-0.5 Mg/3 Ml) 3 ml NEB ONETIME ONE Stop: 03/20/17 16:13 Last Admin: 03/20/17 16:30 Dose: 3 ml Albuterol/Ipratropium (Duoneb 3.0-0.5 Mg/3 Ml) 3 ml NEB Q6HRRT [facility] Last Admin: 03/22/17 11:13 Dose: 3 ml Aspirin (Aspirin) 81 mg PO DAILY [facility] Last Admin: 03/22/17 08:17 Dose: 81 mg Ceftriaxone Sodium (Rocephin) 1,000 mg IVPUSH Q24H [facility] Enoxaparin Sodium (Lovenox) 40 mg SUBCUT DAILY [facility] Last Admin: 03/22/17 08:19 Dose: 40 mg Escitalopram Oxalate (Lexapro) 10 mg PO DAILY [facility] Last Admin: 03/22/17 08:17 Dose: 10 mg Sodium Chloride (Normal Saline) 1,000 mls @ 999 mls/hr IV .Bolus ONE Stop: 03/20/17 13:59 Last Admin: 03/20/17 13:22 Dose: 999 mls/hr Ceftriaxone Sodium/Dextrose 1 (gm/ Premix) 50 mls @ 100 mls/hr IV ONETIME ONE Stop: 03/20/17 17:54 Last Admin: 03/20/17 17:45 Dose: 100 mls/hr Sodium Chloride (Normal Saline) 1,000 mls @ 125 mls/hr IV ASDIRECTED [facility] Last Admin: 03/20/17 17:45 Dose: 125 mls/hr Ceftriaxone Sodium/Dextrose 1 (gm/ Premix) 50 mls @ 100 mls/hr IV Q24H [facility] Last Admin: 03/21/17 16:25 Dose: 100 mls/hr Magnesium Sulfate 2 gm/ Premix 50 mls @ 50 mls/hr IV ONETIME ONE Stop: 03/21/17 11:14 Last Admin: 03/21/17 10:57 Dose: 50 mls/hr Iopamidol (Isovue Multipack-370 (76%)) 50 ml IVPUSH ONETIME STA Stop: 03/20/17 17:14 Last Admin: 03/20/17 17:14 Dose: 50 ml Losartan Potassium (Cozaar) 25 mg PO DAILY [facility] Last Admin: 03/22/17 08:18 Dose: 25 mg Methylprednisolone Sodium Succinate (Solu-Medrol) 125 mg IVPUSH ONETIME ONE Stop: 03/20/17 16:07 Last Admin: 03/20/17 17:35 Dose: 125 mg Methylprednisolone Sodium Succinate (Solu-Medrol) 125 mg IVPUSH Q8H [facility] Last Admin: 03/22/17 16:42 Dose: Not Given Ondansetron HCl (Zofran) 4 mg IVPUSH ONETIME ONE Stop: 03/20/17 16:39 Last Admin: 03/20/17 16:49 Dose: 4 mg Ondansetron HCl (Zofran) 4 mg IVPUSH Q4H PRN PRN Reason: Nausea Last Admin: 03/22/17 12:41 Dose: 4 mg Pantoprazole Sodium (Protonix) 40 mg PO DAILY [facility] Last Admin: 03/22/17 08:17 Dose: 40 mg Roflumilast 500mcg 1 each PO DAILY [facility] Last Admin: 03/22/17 08:20 Dose: 1 each Tiotropium Brooks [ Spiriva Respimat] 2mcg 1 each INH DAILY [facility] Last Admin: 03/22/17 09:08 Dose: 1 each Pravastatin Sodium (Pravachol) 20 mg PO DAILY [facility] Last Admin: 03/22/17 08:17 Dose: 20 mg Fluticasone/Salmeterol (Advair Diskus 500-50) 1 puff INH BID [facility] Last Admin: 03/22/17 09:07 Dose: 1 puff Original Note: Discharge Summary - Hospital Course Free Text/Narrative:: Admitting diagnosis: #1. 76-year-old female with pmhx of oxygen dependent COPD exacerbation here secondary to hypoxia and shortness of breath secondary to acute COPD exacerbation. #2 febrile secondary to UTI. Discharge diagnoses: #1. 76-year-old female with hypercapnic hypoxic respiratory insufficiency secondary to acute COPD exacerbation now resolved. #2. O2 dependent end stage COPD #3. Chronic iron deficiency anemia #4. Mild hyponatremia and mild hyperkalemia resolving. #5. Mild hypocalcemia Consultations: None Procedures: None Hospitalization course: Patient was admitted to inpatient status secondary to hypoxemia hypercapnia acute shortness of breath all secondary to acute COPD exacerbation. The patient was right away put on dual nebs along with methylprednisolone. Patient continued to still feel unwell A UA revealed that the patient also had a likely UTI as such the patient was also started on Rocephin for treatment of her UTI. Patient was continued to be monitored over the course of her hospitalization began to do better with the IV steroids duo nebs and antibiotics that were given. Patient's oxygenation requirement also came down to baseline of between 3-4 L nasal cannula. Patient did start to develop some constipation related issues however by 03/22/2017 the patient did have a bowel movement and as such did not require any intervention from a constipation standpoint. On 03/22/2017 after discussing with the patient and explaining to the patient that she was likely heading towards end-stage COPD there was not much in terms of intervention that we can do during this inpatient stay. And that the patient would be sent home on oral prednisone along with Levaquin and with the recommendation of seeing her primary care physician along with her respiratory physician in [place]. The decision was then made to send the patient home with a home health consultation. Condition on discharge: Patient was afebrile and normotensive, mildly tachycardic secondary to anxiety. Able to ambulate appropriately and able to take an appropriate by mouth and did not have any further constipation or urinary related issues. Disposition on discharge: Patient was discharged home with home health consult. Medications on discharge: #1 prednisone 40 mg for 5 days #2. Levaquin 500 mg every 24 hours for 7 days #3. Zofran 4 mg by mouth when necessary as needed for nausea/vomiting #4. Continuation of home medication Follow-up instructions: Patient was told to follow-up with her primary care physician as well as her respiratory physician in [place]. Discharge instructions: Patient was told to either see her primary care physician right away or go to the walk-in clinic or to an ER if she continued to have any further fevers/chills, shortness of breath or other systemic findings. - Discharge Data Discharge Date: 03/22/17 Discharge Disposition: Home, W Home Health Agency 06 Condition: Stable - Discharge Diagnosis/Problem(s) (1) Acute dyspnea SNOMED Code(s): 876523637 ICD Code: R06.00 - DYSPNEA, UNSPECIFIED Status: Acute Priority: High (2) Anemia SNOMED Code(s): 212793695 ICD Code: D64.9 - ANEMIA, UNSPECIFIED Status: Acute Priority: High Qualifiers: Anemia type: iron deficiency Iron deficiency anemia type: inadequate dietary iron intake Qualified Code(s): D50.8 - Other iron deficiency anemias (3) COPD exacerbation SNOMED Code(s): 594759041, 744337048 ICD Code: J44.1 - CHRONIC OBSTRUCTIVE PULMONARY DISEASE W (ACUTE) EXACERBATION Status: Acute Priority: High (4) Hypoxia SNOMED Code(s): 587144451, 849018062 ICD Code: R09.02 - HYPOXEMIA Status: Acute Priority: High - Patient Instructions Diet: Heart Healthy Diet Activity: As Tolerated, No Lifting Over 25 Pounds Driving: Do Not Drive Showering/Bathing: May Shower Notify Provider of: Fever, Increased Pain, Swelling and Redness, Nausea and/or Vomiting Other/Special Instructions: Please make your followup appt with Naeem Respiratory specialist - Discharge Plan Prescriptions/Med Rec: Levofloxacin [Levaquin] 500 mg PO Q24H 7 Days Ondansetron [Zofran] 4 mg PO Q4H PRN #14 tab PRN Reason: Nausea/Vomiting Prednisone [IMW: predniSONE] 40 mg PO WITHBREAKFAST #10 tab Home Medications: Home Meds Aspirin 81 mg PO DAILY 03/20/17 [History] Cetirizine [ZyrTEC] 0 mg PO DAILY 03/20/17 [History] Cholecalciferol (Vitamin D3) [Vitamin D] 2,000 unit PO DAILY 03/20/17 [History] [facility] Iron 03/20/17 [History] Fluticasone/Salmeterol [Advair Diskus 500-50] 1 puff INH BID 03/20/17 [History] LORazepam 0.5 mg PO DAILY PRN 03/20/17 [History] Lactobacillus Combo No.11 [Probiotic] 1 each PO DAILY 03/20/17 [History] Losartan Potassium 25 mg PO DAILY 03/20/17 [History] Pantoprazole Sodium [Protonix] 20 mg PO DAILY 03/20/17 [History] Pravastatin Sodium 20 mg PO DAILY 03/20/17 [History] Roflumilast [Daliresp] 500 mcg PO DAILY 03/20/17 [History] Tiotropium Brooks [Spiriva Respimat] 2 mcg IH DAILY 03/20/17 [History] Ubidecarenone/Vitamin E Mixed [Tdu54-Ijm E 200 mg-20 Unit Sfg] 1 tab PO DAILY [History] guaiFENesin [Mucinex] 0 mg PO Q12HR 03/20/17 [History] Escitalopram [Lexapro] 10 mg PO DAILY 03/21/17 [History] Albuterol/Ipratropium [DuoNeb 3.0-0.5 MG/3 ML] 3 ml NEB Q6HRRT neb 03/22/17 [Rx ] Levofloxacin [Levaquin] 500 mg PO Q24H 7 Days 03/22/17 [Rx] Ondansetron [Zofran] 4 mg PO Q4H PRN #14 tab 03/22/17 [Rx] Prednisone [IMW: predniSONE] 40 mg PO WITHBREAKFAST #10 tab 03/22/17 [Rx] Patient Handouts: Chronic Obstructive Pulmonary Disease Exacerbation, Easy-to- Read, Ondansetron tablets, Levofloxacin tablets, Prednisone tablets Referrals: Fernando Garcia MD [Primary Care Provider] - 03/30/17 8:30 am - Discharge Summary/Plan Comment DC Time >30 min.: No - Patient Data Vitals - Most Recent: Last Vital Signs Temp 36.2 C 03/22/17 12:00 Pulse 122 H 03/22/17 12:00 Resp 20 03/22/17 12:00 BP 139/71 03/22/17 12:00 Pulse Ox 94 L 03/22/17 12:00 Weight - Most Recent: 85.502 kg I&O - Last 24 hours: Intake & Output 03/21/17 03/22/17 03/22/17 22:59 06:59 14:59 Intake Total 770 750 Output Total 680 900 Balance 90 -150 Lab Results - Last 24 hrs: Laboratory Results - last 24 hr 03/22/17 03/22/17 Range/Units 04:36 04:36 WBC 5.37 (4.0-11.0) K/uL RBC 2.94 L (4.30-5.90) M/uL Hgb 8.5 L (12.0-16.0) g/dL Hct 28.0 L (36.0-46.0) % MCV 95.2 (80.0-98.0) fL MCH 28.9 (27.0-32.0) pg MCHC 30.4 L (31.0-37.0) g/dL RDW Std Deviation 44.5 (28.0-62.0) fl RDW Coeff of Marck 13 (11.0-15.0) % Plt Count 171 (150-400) K/uL MPV 10.00 (7.40-12.00) fL Neut % (Auto) 94.0 H (48.0-80.0) % Lymph % (Auto) 4.3 L (16.0-40.0) % [place] % (Auto) 1.7 (0.0-15.0) % Eos % (Auto) 0.0 (0.0-7.0) % Baso % (Auto) 0.0 (0.0-1.5) % Neut # (Auto) 5.1 (1.4-5.7) K/uL Lymph # (Auto) 0.2 L (0.6-2.4) K/uL [place] # (Auto) 0.1 (0.0-0.8) K/uL Eos # (Auto) 0.0 (0.0-0.7) K/uL Baso # (Auto) 0.0 (0.0-0.1) K/uL Nucleated RBC % 0.0 /100WBC Nucleated RBCs # 0 K/uL Sodium 131 L (136-146) mmol/L Potassium 5.2 H (3.5-5.1) mmol/L Chloride 86 L (98-110) mmol/L Carbon Dioxide 42 H (21-31) mmol/L BUN 13 (6.0-23.0) mg/dL Creatinine 0.7 (0.6-1.5) mg/dL Est Cr Clr Drug Dosing 63.01 mL/min Estimated GFR (MDRD) > 60.0 ml/min Glucose 155 H (60-110) mg/dL Calcium 8.7 L (8.8-10.8) mg/dL REX Results - Last 24 hrs: Microbiology 03/20/17 16:48 Urine Culture - Final Urine, Clean Catch MIXED MARIA D >100,000 CFU/ML 03/22/17 07:00 Stool Occult Blood (REX) - Final Stool / Feces Med Orders - Current: Current Medications Acetaminophen (Tylenol) 650 mg PO Q4H PRN PRN Reason: Pain (Mild 1-3)/fever Albuterol/Ipratropium (Duoneb 3.0-0.5 Mg/3 Ml) 3 ml NEB Q6HRRT [facility] Last Admin: 03/22/17 11:13 Dose: 3 ml Aspirin (Aspirin) 81 mg PO DAILY [facility] Last Admin: 03/22/17 08:17 Dose: 81 mg Enoxaparin Sodium (Lovenox) 40 mg SUBCUT DAILY [facility] Last Admin: 03/22/17 08:19 Dose: 40 mg Escitalopram Oxalate (Lexapro) 10 mg PO DAILY [facility] Last Admin: 03/22/17 08:17 Dose: 10 mg Ceftriaxone Sodium/Dextrose 1 (gm/ Premix) 50 mls @ 100 mls/hr IV Q24H [facility] Last Admin: 03/21/17 16:25 Dose: 100 mls/hr Losartan Potassium (Cozaar) 25 mg PO DAILY [facility] Last Admin: 03/22/17 08:18 Dose: 25 mg Methylprednisolone Sodium Succinate (Solu-Medrol) 125 mg IVPUSH Q8H [facility] Last Admin: 03/22/17 08:18 Dose: 125 mg Ondansetron HCl (Zofran) 4 mg IVPUSH Q4H PRN PRN Reason: Nausea Last Admin: 03/22/17 12:41 Dose: 4 mg Pantoprazole Sodium (Protonix) 40 mg PO DAILY [facility] Last Admin: 03/22/17 08:17 Dose: 40 mg Roflumilast 500mcg 1 each PO DAILY [facility] Last Admin: 03/22/17 08:20 Dose: 1 each Tiotropium Brooks [ Spiriva Respimat] 2mcg 1 each INH DAILY [facility] Last Admin: 03/22/17 09:08 Dose: 1 each Pravastatin Sodium (Pravachol) 20 mg PO DAILY [facility] Last Admin: 03/22/17 08:17 Dose: 20 mg Fluticasone/Salmeterol (Advair Diskus 500-50) 1 puff INH BID [facility] Last Admin: 03/22/17 09:07 Dose: 1 puff Discontinued Medications Albuterol/Ipratropium (Duoneb 3.0-0.5 Mg/3 Ml) 3 ml NEB ONETIME ONE Stop: 03/20/17 13:06 Last Admin: 03/20/17 13:13 Dose: 3 ml Albuterol/Ipratropium (Duoneb 3.0-0.5 Mg/3 Ml) 3 ml NEB ONETIME ONE Stop: 03/20/17 16:13 Last Admin: 03/20/17 16:30 Dose: 3 ml Ceftriaxone Sodium (Rocephin) 1,000 mg IVPUSH Q24H [facility] Sodium Chloride (Normal Saline) 1,000 mls @ 999 mls/hr IV .Bolus ONE Stop: 03/20/17 13:59 Last Admin: 03/20/17 13:22 Dose: 999 mls/hr Ceftriaxone Sodium/Dextrose 1 (gm/ Premix) 50 mls @ 100 mls/hr IV ONETIME ONE Stop: 03/20/17 17:54 Last Admin: 03/20/17 17:45 Dose: 100 mls/hr Sodium Chloride (Normal Saline) 1,000 mls @ 125 mls/hr IV ASDIRECTED [facility] Last Admin: 03/20/17 17:45 Dose: 125 mls/hr Magnesium Sulfate 2 gm/ Premix 50 mls @ 50 mls/hr IV ONETIME ONE Stop: 03/21/17 11:14 Last Admin: 03/21/17 10:57 Dose: 50 mls/hr Iopamidol (Isovue Multipack-370 (76%)) 50 ml IVPUSH ONETIME STA Stop: 03/20/17 17:14 Last Admin: 03/20/17 17:14 Dose: 50 ml Methylprednisolone Sodium Succinate (Solu-Medrol) 125 mg IVPUSH ONETIME ONE Stop: 03/20/17 16:07 Last Admin: 03/20/17 17:35 Dose: 125 mg Ondansetron HCl (Zofran) 4 mg IVPUSH ONETIME ONE Stop: 03/20/17 16:39 Last Admin: 03/20/17 16:49 Dose: 4 mg *Q Meaningful Use (DIS) - VTE *Q VTE Criteria *Q: - Stroke *Q Stroke Criteria *Q: - AMI *Q AMI Criteria *Q:
--- NOTE | 2017-03-22 13:25 | CT ---
EXAM DATE: 03/20/17 PATIENT'S AGE: 76 Patient: GRACIELA SHIN Facility: [place], [place] Site . Site : [id number] Study: CT Chest Angio [id number]/29/2017 5:30:37 PM Ordering Physician: Dimitri Ma Final Report: INDICATION: Shortness of breath. Technique: CT pulmonary angiogram following administration of 50 mL Isovue-370 intravenous contrast. Multiplanar reconstruction. Findings: The study is technically adequate. There are no pulmonary emboli. The thoracic lymph nodes are normal by size criteria. Changes of atherosclerosis in the thoracic aorta. The vessel is normal in caliber. Trachea and mainstem bronchi are patent. Cystic emphysematous changes are identified in both lungs. The lungs are mildly hyperaerated. Mild bronchiectasis in the lower lobes bilaterally. Bibasilar atelectasis. Areas of ground-glass opacification of the lung parenchyma reflect a nonspecific inflammatory process. No focal airspace consolidation, nodules, or masses. Small bilateral pleural effusions. No abnormal pericardial fluid. Thoracic spondylosis. Impression: 1. Examination is negative for pulmonary emboli. 2. Emphysematous changes and hyperaeration. 3. Bibasilar atelectasis and small bilateral pleural effusions. Bronchiectasis in both lower lobes. 4. Ground glass opacification of the lung parenchyma reflects a nonspecific inflammatory processes. Please note that all CT scans at this facility use dose modulation, iterative reconstruction, and/or weight-based dosing when appropriate to reduce radiation dose to as low as reasonably achievable. Dictated by Betty Olsen MD @ Mar 20 2017 5:47PM (Electronic Signature) Report Signed by Proxy. [facility]rick
== END 2017-03-22 16:00 | disposition home health service (06) | DRG 191 ==
LOC: MW.ED 12:05 → MW.MS 16:13
PROVIDERS: ADMIT Internal Medicine; ATTEND Internal Medicine
DX: J44.1 Chronic obstructive pulmonary disease with (acute) exacerbation (principal); N39.0 Urinary tract infection, site not specified; D64.9 Anemia, unspecified; E87.1 Hypo-osmolality and hyponatremia; R09.02 Hypoxemia; R06.00 Dyspnea, unspecified; D50.8 Other iron deficiency anemias; E87.5 Hyperkalemia; E83.51 Hypocalcemia; F17.200 Nicotine dependence, unspecified, uncomplicated; F41.8 Other specified anxiety disorders; E78.00 Pure hypercholesterolemia, unspecified; I10 Essential (primary) hypertension; K21.9 Gastro-esophageal reflux disease without esophagitis; Z99.81 Dependence on supplemental oxygen; Z79.899 Other long term (current) drug therapy; Z88.8 Allergy status to other drugs, medicaments and biological substances
CPT/HCPCS: 36415; 36600; 71010; 80053; 84443; 84484; 85025; 94664; 96361; 99285; J7040; 71275; 71275-26; 80048; 81001; 82272; 82803; 83735; 87086; 93005; 94640; 96360; 96374; 96375; 99284; A9270-GY; J0696; J1650; J2405; J2930; J3475; Q9967

== ENCOUNTER 2017-03-23 07:26 | Inpatient (IN) | payer MEDICARE ==
[2017-03-23] MEDS ORDERED: LORazepam 2 MG/ML MDV IVPUSH ONE (07:43)
[2017-03-23 08:20] LABS: CHLORIDE,CL 83 mmol/L (98-110); SODIUM,NA 127 mmol/L (136-146)
[2017-03-23] MEDS ORDERED: Sodium Chloride 0.9% 1,000 ML IV ONE (08:24)
--- NOTE | 2017-03-23 08:27 | EDM.PDOC ---
ED HPI GENERAL MEDICAL PROBLEM - General Chief Complaint: Respiratory Problem Stated Complaint: SHORTNESS OF BREATH Time Seen by Provider: 03/23/17 07:36 Source of Information: Reports: EMS, Family History Limitations: Reports: No Limitations - History of Present Illness INITIAL COMMENTS - FREE TEXT/NARRATIVE: steroids IVHISTORY AND PHYSICAL: History of present illness: 76-year-old female with a history of end-stage COPD daughter states 15% lung function, just discharged from the hospital after refusing BiPAP during her stay , now returns to the emergency department because of intermittent mild confusion and worsening shortness of breath. Patient without fevers chills sweats or shaking chills. She's been compliant with her for a half liters of baseline home O2 however she does not use any positive pressure ventilation at home. Her PCO2 was 75 in the hospital upon my previous evaluation in the emergency department. CPAP was initiated in the ED however patient subsequently refused it on the floor as she was too anxious to tolerate it by her daughter's description. No productive cough or chest pain. Brought in by EMS having received a DuoNeb in route as well as IV Solu-Medrol. Daughter feels a DNR status is appropriate at this point and is interested in hospice status. Review of systems: As per history of present illness and below otherwise all systems reviewed and negative. Past medical history: As per history of present illness and as reviewed below otherwise noncontributory. Surgical history: As per history of present illness and as reviewed below otherwise noncontributory. Social history: No reported history of drug or alcohol abuse. Family history: As per history of present illness and as reviewed below otherwise noncontributory. Physical exam: Chronically weak and fatigued appearing confused mild tachypnea and mild bilateral wheezing. No rhonchi or asymmetry. Patient is 95% pulse ox on 4 and half liters home O2 HEENT: Atraumatic, normocephalic, pupils reactive, negative for conjunctival pallor or scleral icterus, mucous membranes moist, throat clear, neck supple, nontender, trachea midline. Lungs: Bilateral wheezing, breath sounds equal bilaterally, chest nontender. Heart: S1S2, regular, negative for clicks, rubs, or JVD. Abdomen: Soft, nondistended, nontender. Negative for masses or hepatosplenomegaly. Negative for costovertebral tenderness. Pelvis: Stable nontender. Genitourinary: Deferred. Rectal: Deferred. Extremities: Atraumatic, negative for cords or calf pain. Neurovascular unremarkable. Neuro: Awake, alert, oriented. Cranial nerves grossly unremarkable. Cerebellum unremarkable. Motor and sensory unremarkable throughout. Exam nonfocal. Diagnostics: [ABG with PCO2 greater than 100 and consistent with respiratory acidosis, interpreted by me Chest x-ray interpreted by me cannot rule out infiltrate left base otherwise chronic changes EKG with normal sinus tachycardia at 139 normal axis no STEMI interpreted by me Therapeutics: [IV Solu-Medrol and DuoNeb given in route. IV fluids administered in ED to address presumed significant insensible losses from persistent tachypnea times many hours with decreased by mouth intake.] Impression: [Severe COPD exacerbation Hypoxia Hypercarbia Respiratory acidosis Altered mental status Pneumonia] Plan: [Signs and symptoms consistent with COPD exacerbation in an elderly patient with end-stage pulmonary disease on 4-1/2 L baseline home O2. Previously patient has been too anxious to tolerate BiPAP given her history of anxiety and depression. She was alert and communicative but confused. After Ativan administration she is more confused however she is able to tolerate BiPAP administration. Daughter feels that her mother and her family would want a DNR status at this point and she is interested in establishing hospice care but that 's not currently in place. Severe hypertension on arrival improved on reevaluation at 217/95. Will follow closely given anxiety lysis achieved with Ativan administration and administer further treatment as needed. Suspect extensive insensible fluid losses from patient's persistent tachypnea for days. IV fluids being administered. Chest x-ray with infiltrate left base. Patient's white blood cell count 5.37 yesterday now 20.79 today. Blood cultures will be drawn as well as lactic acid. And by treatment for HCHP initiated. ABG consistent with severe respiratory acidosis with PCO2 greater than 108 and pH 7.15. Case discussed with Dr. Anil Mosley, hospitalist precision agriculture technician, who is aware of history and findings and agrees with inpatient admission to the ICU to his service. Critical care 75 minutes Definitive disposition and diagnosis as appropriate pending reevaluation and review of above. - Related Data Allergies Allergy/AdvReac Type Severity Reaction Status Date / Time codeine Allergy Rash Verified 03/23/17 07:39 morphine Allergy Rash Verified 03/23/17 07:39 Sulfa (Sulfonamide Allergy Rash Verified 03/23/17 07:39 Antibiotics) lisinopril Allergy Cough Uncoded 03/23/17 07:39 Home Meds: Home Meds Aspirin 81 mg PO DAILY 03/20/17 [History] Cetirizine [ZyrTEC] 0 mg PO DAILY 03/20/17 [History] Cholecalciferol (Vitamin D3) [Vitamin D] 2,000 unit PO DAILY 03/20/17 [History] Cvs Iron 03/20/17 [History] Fluticasone/Salmeterol [Advair Diskus 500-50] 1 puff INH BID 03/20/17 [History] LORazepam 0.5 mg PO DAILY PRN 03/20/17 [History] Lactobacillus Combo No.11 [Probiotic] 1 each PO DAILY 03/20/17 [History] Losartan Potassium 25 mg PO DAILY 03/20/17 [History] Pantoprazole Sodium [Protonix] 20 mg PO DAILY 03/20/17 [History] Pravastatin Sodium 20 mg PO DAILY 03/20/17 [History] Roflumilast [Daliresp] 500 mcg PO DAILY 03/20/17 [History] Tiotropium [place] [Spiriva Respimat] 2 mcg IH DAILY 03/20/17 [History] Ubidecarenone/Vitamin E Mixed [Rzj22-Jug E 200 mg-20 Unit Sfg] 1 tab PO DAILY [History] guaiFENesin [Mucinex] 0 mg PO Q12HR 03/20/17 [History] Escitalopram [Lexapro] 10 mg PO DAILY 03/21/17 [History] Albuterol/Ipratropium [DuoNeb 3.0-0.5 MG/3 ML] 3 ml NEB Q6HRRT neb 03/22/17 [Rx ] Levofloxacin [Levaquin] 500 mg PO Q24H 7 Days 03/22/17 [Rx] Ondansetron [Zofran] 4 mg PO Q4H PRN #14 tab 03/22/17 [Rx] Prednisone [IMW: predniSONE] 40 mg PO WITHBREAKFAST #10 tab 03/22/17 [Rx] Past Medical History HEENT History: Reports: Impaired Vision Other HEENT History: wears glasses Cardiovascular History: Reports: High Cholesterol, Hypertension Respiratory History: Reports: Bronchitis, Recurrent, COPD, Pneumonia, Recurrent , Other (See Below) Other Respiratory History: empysema Gastrointestinal History: Reports: GERD, Hiatal Hernia Other Gastrointestinal History: Hiatal hernia since X "2-3 years ago" Genitourinary History: Reports: UTI, Recurrent 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: Musculoskeletal History: Reports: Arthritis Other Musculoskeletal History: Right knee arthritis Psychiatric History: Reports: Anxiety, Depression Hematologic History: Reports: Anemia Other Hematologic History: Blood transfusion X one year ago Dermatologic History: Reports: Eczema - Past Surgical History Other Cardiovascular Surgeries/Procedures: Femoral artery stent placed to left Respiratory Surgical History: Reports: None GI Surgical History: Reports: Hernia, Inguinal Musculoskeletal Surgical History: Reports: None Social & Family History - Family History Family Medical History: Noncontributory - Tobacco Use Smoking Status *Q: Current Every Day Smoker Years of Tobacco use: 40 Packs/Tins Daily: 1 Used Tobacco, but Quit: Yes Month Tobacco Last Used: 2005 Second Hand Smoke Exposure: No - Caffeine Use Caffeine Use: Reports: Coffee Caffeine Use Comment: 2 cups daily - Recreational Drug Use Recreational Drug Use: No ED ROS GENERAL - Review of Systems Review Of Systems: See Below (History of present illness) ED EXAM, GENERAL - Physical Exam Exam: See Below (History of present illness) Course - Vital Signs Last Recorded V/S: Last Vital Signs Temp 36.1 C 03/23/17 07:30 Pulse 120 H 03/23/17 08:45 Resp 24 H 03/23/17 08:45 BP 172/64 H 03/23/17 08:45 Pulse Ox 98 03/23/17 08:45 - Orders/Labs/Meds Orders: Active Orders 24 hr Category Date Time Status Admission Status [Patient Status] [ADT] Stat ADT 03/23/17 08:50 Ordered EKG Documentation Completion [RC] STAT Care 03/23/17 08:01 Active Oxygen Therapy [RC] ASDIRECTED Care 03/23/17 08:01 Active RT BiPAP/CPAP [RC] ASDIRECTED Care 03/23/17 08:15 Active CULTURE BLOOD [BC] Stat Lab 03/23/17 08:54 Ordered CULTURE BLOOD [BC] Stat Lab 03/23/17 08:54 Ordered LACTIC ACID,WHOLE BLOOD [BG] Stat Lab 03/23/17 08:54 Ordered Cefepime [Maxipime in D5W 1 GM/50 ML] 1 gm Med 03/23/17 08:55 Ordered Premix Bag 1 bag IV ONETIME Sodium Chloride 0.9% [Normal Saline] 1,000 ml Med 03/23/17 08:24 Active IV .Bolus Vancomycin [Vancocin] 1 gm Med 03/23/17 08:55 Ordered Sodium Chloride 0.9% [Normal Saline] 250 ml IV ONETIME Blood Culture x2 Reflex Set [OM.PC] Stat Oth 03/23/17 08:53 Ordered Medication Orders Sodium Chloride (Normal Saline) 1,000 mls @ 999 mls/hr IV .Bolus ONE Stop: 03/23/17 09:24 Last Admin: 03/23/17 08:25 Dose: 999 mls/hr Cefepime HCl 1 gm/ Premix 50 mls @ 100 mls/hr IV ONETIME ONE Stop: 03/23/17 09:24 Vancomycin HCl 1 gm/ Sodium (Chloride) 250 mls @ 250 mls/hr IV ONETIME ONE Stop: 03/23/17 09:54 Labs: Laboratory Tests 03/23/17 03/23/17 03/23/17 Range/Units 07:37 07:37 07:37 WBC 20.79 H (4.0-11.0) K/uL RBC 3.46 L (4.30-5.90) M/uL Hgb 9.8 L (12.0-16.0) g/dL Hct 33.2 L (36.0-46.0) % MCV 96.0 (80.0-98.0) fL MCH 28.3 (27.0-32.0) pg MCHC 29.5 L (31.0-37.0) g/dL RDW Std Deviation 46.1 (28.0-62.0) fl RDW Coeff of Marck 13 (11.0-15.0) % Plt Count 348 (150-400) K/uL MPV 10.20 (7.40-12.00) fL Add Manual Diff YES Neutrophils % (Manual) 75 (48.0-80.0) % Band Neutrophils % 6 % Lymphocytes % (Manual) 12 L (16.0-40.0) % Monocytes % (Manual) 6 (0.0-15.0) % Metamyelocytes % 1 % Nucleated RBC % 0.2 /100WBC Absolute Seg Neuts 15.6 Band Neutrophils # 1.2 Lymphocytes # (Manual) 2.5 Monocytes # (Manual) 1.2 Absolute Metamyelocyte 0.2 Nucleated RBCs # 0 K/uL ABG pH (7.35-7.45) ABG pCO2 (35-45) mmHG ABG pO2 (75-100) mmHG ABG HCO3 (22-26) mEq/L ABG Total CO2 ABG Base Excess (-2.0-2.0) Sodium 127 L (136-146) mmol/L Potassium 4.8 (3.5-5.1) mmol/L Chloride 83 L (98-110) mmol/L Carbon Dioxide 37 H (21-31) mmol/L BUN 20 (6.0-23.0) mg/dL Creatinine 0.8 (0.6-1.5) mg/dL Est Cr Clr Drug Dosing 55.13 mL/min Estimated GFR (MDRD) > 60.0 ml/min Glucose 295 H (60-110) mg/dL Calcium 9.2 (8.8-10.8) mg/dL Total Bilirubin 0.5 (0.1-1.5) mg/dL AST 23 (5-40) IU/L ALT 15 (8-54) IU/L Alkaline Phosphatase 71 (40-150) Troponin I < 0.10 (0.0-0.29) NG/ML Total Protein 7.4 (6.0-8.0) g/dL Albumin 3.9 (3.4-4.8) g/dL Globulin 3.5 (2.0-3.5) g/dL Albumin/Globulin Ratio 1.1 L (1.3-2.8) 03/23/17 Range/Units 08:11 WBC (4.0-11.0) K/uL RBC (4.30-5.90) M/uL Hgb (12.0-16.0) g/dL Hct (36.0-46.0) % MCV (80.0-98.0) fL MCH (27.0-32.0) pg MCHC (31.0-37.0) g/dL RDW Std Deviation (28.0-62.0) fl RDW Coeff of Marck (11.0-15.0) % Plt Count (150-400) K/uL MPV (7.40-12.00) fL Add Manual Diff Neutrophils % (Manual) (48.0-80.0) % Band Neutrophils % % Lymphocytes % (Manual) (16.0-40.0) % Monocytes % (Manual) (0.0-15.0) % Metamyelocytes % % Nucleated RBC % /100WBC Absolute Seg Neuts Band Neutrophils # Lymphocytes # (Manual) Monocytes # (Manual) Absolute Metamyelocyte Nucleated RBCs # K/uL ABG pH 7.156 L* (7.35-7.45) ABG pCO2 > 108 H (35-45) mmHG ABG pO2 79 (75-100) mmHG ABG HCO3 (22-26) mEq/L ABG Total CO2 ABG Base Excess (-2.0-2.0) Sodium (136-146) mmol/L Potassium (3.5-5.1) mmol/L Chloride (98-110) mmol/L Carbon Dioxide (21-31) mmol/L BUN (6.0-23.0) mg/dL Creatinine (0.6-1.5) mg/dL Est Cr Clr Drug Dosing mL/min Estimated GFR (MDRD) ml/min Glucose (60-110) mg/dL Calcium (8.8-10.8) mg/dL Total Bilirubin (0.1-1.5) mg/dL AST (5-40) IU/L ALT (8-54) IU/L Alkaline Phosphatase (40-150) Troponin I (0.0-0.29) NG/ML Total Protein (6.0-8.0) g/dL Albumin (3.4-4.8) g/dL Globulin (2.0-3.5) g/dL Albumin/Globulin Ratio (1.3-2.8) Meds: Medications Generic Name Dose Route Start Last Admin Trade Name Freq PRN Reason Stop Dose Admin Sodium Chloride 1,000 mls @ 999 mls/hr 03/23/17 08:24 03/23/17 08:25 Normal Saline IV 03/23/17 09:24 999 mls/hr .Bolus ONE Administration Cefepime HCl 1 gm/ Premix 50 mls @ 100 mls/hr 03/23/17 08:55 IV 03/23/17 09:24 ONETIME ONE Vancomycin HCl 1 gm/ Sodium 250 mls @ 250 mls/hr 03/23/17 08:55 Chloride IV 03/23/17 09:54 ONETIME ONE Discontinued Medications Generic Name Dose Route Start Last Admin Trade Name Freq PRN Reason Stop Dose Admin Lorazepam 1 mg 03/23/17 07:43 03/23/17 07:49 Ativan IVPUSH 03/23/17 07:44 1 mg ONETIME ONE Administration Departure - Departure Time of Disposition: 08:27 Disposition: Admitted As Inpatient 65 Condition: Critical Clinical Impression: COPD exacerbation, Hypercarbia, Altered mental status, Uncontrolled hypertension, Respiratory acidosis, SIRS (systemic inflammatory response syndrome), Sepsis - Discharge Information Referrals: Fernando Garcia MD [Primary Care Provider] - - My Orders Last 24 Hours: My Active Orders 03/23/17 08:01 EKG Documentation Completion [RC] STAT Oxygen Therapy [RC] ASDIRECTED 03/23/17 08:15 RT BiPAP/CPAP [RC] ASDIRECTED 03/23/17 08:24 Sodium Chloride 0.9% [Normal Saline] 1,000 ml IV .Bolus 03/23/17 08:50 Admission Status [Patient Status] [ADT] Stat 03/23/17 08:53 Blood Culture x2 Reflex Set [OM.PC] Stat 03/23/17 08:54 CULTURE BLOOD [BC] Stat CULTURE BLOOD [BC] Stat LACTIC ACID,WHOLE BLOOD [BG] Stat 03/23/17 08:55 Cefepime [Maxipime in D5W 1 GM/50 ML] 1 gm Premix Bag 1 bag IV ONETIME Vancomycin [Vancocin] 1 gm Sodium Chloride 0.9% [Normal Saline] 250 ml IV ONETIME - Assessment/Plan Last 24 Hours: My Active Orders 03/23/17 08:01 EKG Documentation Completion [RC] STAT Oxygen Therapy [RC] ASDIRECTED 03/23/17 08:15 RT BiPAP/CPAP [RC] ASDIRECTED 03/23/17 08:24 Sodium Chloride 0.9% [Normal Saline] 1,000 ml IV .Bolus 03/23/17 08:50 Admission Status [Patient Status] [ADT] Stat 03/23/17 08:53 Blood Culture x2 Reflex Set [OM.PC] Stat 03/23/17 08:54 CULTURE BLOOD [BC] Stat CULTURE BLOOD [BC] Stat LACTIC ACID,WHOLE BLOOD [BG] Stat 03/23/17 08:55 Cefepime [Maxipime in D5W 1 GM/50 ML] 1 gm Premix Bag 1 bag IV ONETIME Vancomycin [Vancocin] 1 gm Sodium Chloride 0.9% [Normal Saline] 250 ml IV ONETIME
[2017-03-23] MEDS ORDERED: Cefepime 1 GM in Premix Bag 1 BAG IV ONE (08:55)
--- NOTE | 2017-03-23 08:58 | CR ---
EXAMINATION: Portable chest radiograph. HISTORY: COPD. FINDINGS: The trachea is midline. Motion artifact is noted. The cardiomediastinal silhouette is within normal limits. There is a chronic interstitial prominence and biapical scarring. Osseous structures appear unremarkable. IMPRESSION: No acute cardiopulmonary process.
[2017-03-23] MEDS ORDERED: Piperacillin/Tazobactam 4.5 GM in Sodium Chloride 0.9% 100 ML IV SCH (10:45)
[2017-03-23] MEDS: Sodium Chloride 0.9% 1,000 ML IV SCH (10:55)
[2017-03-23] MEDS: Levofloxacin/Dextrose 5%-Water 750 MG in Premix Bag 1 BAG IV SCH (10:58)
[2017-03-23] MEDS: Enoxaparin 40 MG/0.4 ML Syringe SUBCUT SCH (10:59)
--- NOTE | 2017-03-23 11:10 | PCM.HP ---
H&P History of Present Illness - General Date of Service: 03/23/17 Admit Problem/Dx: Admission Diagnosis/Problem Admission Diagnosis/Problem Pneumonia Source of Information: Provider, Other (daughter) History Limitations: Reports: Other (Patient on BiPAP secondary to respiratory failure and is unable to answer questions and has diminished capacity to answer questions.) - History of Present Illness Initial Comments - Free Text/Narative: 76-year-old female that is being admitted with a severe COPD exacerbation and possible left lower lobe pneumonia. Patient was discharged from the hospital yesterday after being treated over a number of days for a COPD exacerbation and a urinary tract infection. Patient was on IV antibiotics and also receiving IV steroids and at the time of discharge had returned to her baseline oxygen requirement of 4.5L via nasal cannula. Patient was discharged home on a five- day course of prednisone as well as Levaquin and Zofran. According to the patient's daughter, upon returning home the patient became very anxious and worried about her breathing. The daughter stayed with the patient overnight and frequently checked on the patient and noted that she was sitting on the edge of her bed with shallow breathing and somewhat increased anxiety for most of the night. She did use her Proventil inhaler but saw no improvement in her breathing. The daughter became concerned as the patient became confused and disoriented and continued to have increased work of breathing. She subsequently called EMS who brought the patient to the emergency room. While in the emergency room an ABG was done showing a pH of 7.1 and a CO2 level of 103. Patient was given a one-time dose of IV Solu-Medrol, a DuoNeb treatment and IV fluids. She was also started on BiPAP while in the emergency room. EKG showed normal sinus rhythm with tachycardia of 139 but no evidence of a STEMI. Her white blood cell count is elevated at 20.81 while 6at discharge yesterday was 5.37. She also has hyponatremia with a sodium level of 127 and a bicarbonate level of 37. Troponins are negative. Chest x-ray was read as negative but upon looking at it it seems as though she might have a consolidation at the lower portion of the left lung. The daughter of the patient states that she has not noted any cough in the patient and the patient was not complaining of any chest pain after discharge or prior to being brought to the emergency room. The emergency room physician made note that the daughter that accompanied the patient to the emergency room made mention of having the patient be a DO NOT RESUSCITATE/DO NOT INTUBATE. She is unsure if she wants to make this the patient 's status and is waiting for her sister to arrive from [place] Before making that decision. - Related Data Allergies/Adverse Reactions: Allergies Allergy/AdvReac Type Severity Reaction Status Date / Time codeine Allergy Rash Verified 03/23/17 07:39 morphine Allergy Rash Verified 03/23/17 07:39 Sulfa (Sulfonamide Allergy Rash Verified 03/23/17 07:39 Antibiotics) lisinopril Allergy Cough Uncoded 03/23/17 07:39 Home Medications: Home Meds Aspirin 81 mg PO DAILY 03/20/17 [History] Cetirizine [ZyrTEC] 0 mg PO DAILY 03/20/17 [History] Cholecalciferol (Vitamin D3) [Vitamin D] 2,000 unit PO DAILY 03/20/17 [History] [facility] Iron 03/20/17 [History] Fluticasone/Salmeterol [Advair Diskus 500-50] 1 puff INH BID 03/20/17 [History] LORazepam 0.5 mg PO DAILY PRN 03/20/17 [History] Lactobacillus Combo No.11 [Probiotic] 1 each PO DAILY 03/20/17 [History] Losartan Potassium 25 mg PO DAILY 03/20/17 [History] Pantoprazole Sodium [Protonix] 20 mg PO DAILY 03/20/17 [History] Pravastatin Sodium 20 mg PO DAILY 03/20/17 [History] Roflumilast [Daliresp] 500 mcg PO DAILY 03/20/17 [History] Tiotropium [place] [Spiriva Respimat] 2 mcg IH DAILY 03/20/17 [History] Ubidecarenone/Vitamin E Mixed [Srk58-Mhc E 200 mg-20 Unit Sfg] 1 tab PO DAILY [History] guaiFENesin [Mucinex] 0 mg PO Q12HR 03/20/17 [History] Escitalopram [Lexapro] 10 mg PO DAILY 03/21/17 [History] Albuterol/Ipratropium [DuoNeb 3.0-0.5 MG/3 ML] 3 ml NEB Q6HRRT neb 03/22/17 [Rx ] Levofloxacin [Levaquin] 500 mg PO Q24H 7 Days 03/22/17 [Rx] Ondansetron [Zofran] 4 mg PO Q4H PRN #14 tab 03/22/17 [Rx] Prednisone [IMW: predniSONE] 40 mg PO WITHBREAKFAST #10 tab 03/22/17 [Rx] Past Medical History HEENT History: Reports: Impaired Vision Other HEENT History: wears glasses Cardiovascular History: Reports: High Cholesterol, Hypertension Respiratory History: Reports: Bronchitis, Recurrent, COPD, Pneumonia, Recurrent , Other (See Below) Other Respiratory History: empysema Gastrointestinal History: Reports: GERD, Hiatal Hernia Other Gastrointestinal History: Hiatal hernia since X "2-3 years ago" Genitourinary History: Reports: UTI, Recurrent [employer] History: Reports: Musculoskeletal History: Reports: Arthritis Other Musculoskeletal History: Right knee arthritis Psychiatric History: Reports: Anxiety, Depression Hematologic History: Reports: Anemia Other Hematologic History: Blood transfusion X one year ago Dermatologic History: Reports: Eczema - Past Surgical History Other Cardiovascular Surgeries/Procedures: Femoral artery stent placed to left Respiratory Surgical History: Reports: None GI Surgical History: Reports: Hernia, Inguinal Musculoskeletal Surgical History: Reports: None Social & Family History - Family History Family Medical History: Noncontributory - Tobacco Use Smoking Status *Q: Current Every Day Smoker Years of Tobacco use: 40 Packs/Tins Daily: 1 Used Tobacco, but Quit: Yes Month Tobacco Last Used: 2005 Second Hand Smoke Exposure: No - Caffeine Use Caffeine Use: Reports: Coffee Caffeine Use Comment: 2 cups daily - Recreational Drug Use Recreational Drug Use: No H&P Review of Systems - Review of Systems: Review Of Systems: See Below Free Text/Narrative: Patient is unable to answer questions but does respond when asked to open her eyes or squeeze her fingers. She is currently on BiPAP. Some of the information for review of systems is provided by the patient's daughter. Pulmonary: Reports: Shortness of Breath Psychiatric: Reports: Confusion, Anxiety Neurological: Reports: Confusion Exam - Exam Exam: See Below - Vital Signs Vital Signs: Last Vital Signs Temp 97 F 03/23/17 07:30 Pulse 113 H 03/23/17 09:50 Resp 24 H 03/23/17 09:50 BP 149/69 H 03/23/17 09:50 Pulse Ox 100 03/23/17 09:50 Weight: 188 lb 7.924 oz - Exam Quality Assessment: Supplemental Oxygen (BiPAP that is being managed by respiratory therapy), Urinary Catheter, DVT Prophylaxis (SCD's, Lovenox) General: Alert (Patient will open her eyes when asked and seizure fingers when asked.), Moderate Distress HEENT: Conjunctiva Clear, Hearing Intact Neck: Supple, Trachea Midline, 2 Lungs: Clear to Auscultation, Other (Increased respiratory effort requiring BiPAP. Patient is to tachypneic) Cardiovascular: Regular Rhythm, Tachycardia GI/Abdominal Exam: Normal Bowel Sounds, Soft, Non-Tender, No Organomegaly, No Distention, No Abnormal Bruit, No Mass Extremities: Normal Inspection, Non-Tender, No Pedal Edema, Normal Capillary Refill Peripheral Pulses: 2+: Radial (L), Radial (R), Posterior Tibial (L), Posterior Tibial (R) Skin: Warm, Dry, Intact Neuro Extensive - Mental Status: Opens Eyes to Commands Neuro Extensive - Motor, Sensory, Reflexes: Normal Reflexes - Patient Data Lab Results Last 24 hrs: Laboratory Results - last 24 hr 03/23/17 03/23/17 Range/Units 09:17 10:33 ABG pH 7.217 L (7.35-7.45) ABG pCO2 102 H (35-45) mmHG ABG pO2 88 (75-100) mmHG ABG HCO3 42 H (22-26) mEq/L ABG Total CO2 40.5 ABG Base Excess 12.6 H (-2.0-2.0) Lactate 1.2 (0.20-2.00) mmol/L Result Diagrams: 03/23/17 07:37 03/23/17 07:37 *Q Meaningful Use (ADM) - VTE *Q VTE Criteria *Q: - Stroke *Q Stroke Criteria *Q: - AMI *Q AMI Criteria *Q: - Problem List (1) Hyponatremia SNOMED Code(s): 03161882 ICD Code: E87.1 - HYPO-OSMOLALITY AND HYPONATREMIA Status: Acute Current Visit: Yes (2) COPD exacerbation SNOMED Code(s): 832046868, 419374470 ICD Code: J44.1 - CHRONIC OBSTRUCTIVE PULMONARY DISEASE W (ACUTE) EXACERBATION Status: Acute Current Visit: Yes (3) Hypercarbia SNOMED Code(s): 41449743 ICD Code: R06.89 - OTHER ABNORMALITIES OF BREATHING Status: Acute Current Visit: Yes (4) Respiratory acidosis SNOMED Code(s): 89699759 ICD Code: E87.2 - ACIDOSIS Status: Acute Current Visit: Yes (5) Hypoxia SNOMED Code(s): 724268239, 447834466 ICD Code: R09.02 - HYPOXEMIA Status: Acute Priority: High Current Visit : No Problem List Initiated/Reviewed/Updated: Yes Orders Last 24hrs: Active Orders 24 hr Category Date Time Status Patient Status [ADT] Routine ADT 03/23/17 10:31 Ordered Antiembolic Devices [RC] PER UNIT ROUTINE Care 03/23/17 10:38 Ordered Cardiac Monitoring [RC] CONTINUOUS Care 03/23/17 10:36 Ordered Height and Weight [RC] DAILY Care 03/23/17 10:31 Ordered Insert Urinary Catheter [OM.PC] Q24H Care 03/23/17 11:00 Ordered Intake and Output [RC] QSHIFT Care 03/23/17 10:36 Ordered Notify Provider Vital Signs [RC] ASDIRECTED Care 03/23/17 10:36 Ordered Oxygen Therapy [RC] PRN Care 03/23/17 10:31 Ordered Pulse Oximetry [RC] CONTINUOUS Care 03/23/17 10:36 Ordered RT Aerosol Therapy [RC] ASDIRECTED Care 03/23/17 10:41 Ordered Urinary Catheter Assessment [RC] ASDIRECTED Care 03/23/17 10:48 Ordered VTE/DVT Education [RC] PER UNIT ROUTINE Care 03/23/17 10:31 Ordered Vital Signs [RC] Q4H Care 03/23/17 10:31 Ordered CBC WITH AUTO DIFF [HEME] AM Lab 03/24/17 05:11 Ordered CBC WITH AUTO DIFF [HEME] AM Lab 03/25/17 05:11 Ordered CBC WITH AUTO DIFF [HEME] AM Lab 03/26/17 05:11 Ordered CULTURE BLOOD [BC] Stat Lab 03/23/17 09:06 Received CULTURE BLOOD [BC] Stat Lab 03/23/17 09:17 Received VANCOMYCIN TROUGH [CHEM] Routine Lab 03/24/17 20:00 Ordered Albuterol/Ipratropium [DuoNeb 3.0-0.5 MG/3 ML] Med 03/23/17 14:00 Ordered 3 ml NEB Q4HRRT Enoxaparin [Lovenox] Med 03/23/17 11:00 Ordered 40 mg SUBCUT Q24H Levofloxacin/Dextrose 5%-Water [Levaquin in D5W 750 MG/ Med 03/23/17 10:45 Ordered 150 ML] 750 mg Premix Bag 1 bag IV Q24H Ondansetron [Zofran] Med 03/23/17 10:31 Ordered 4 mg IVPUSH Q4H PRN Piperacillin/Tazobactam [Piperacil-Tazobact] 4.5 gm Med 03/23/17 12:30 Active Sodium Chloride 0.9% [Normal Saline] 100 ml IV Q6H Sodium Chloride 0.9% [Normal Saline] 1,000 ml Med 03/23/17 10:45 Ordered IV ASDIRECTED Vancomycin Pharmacy to Dose [Pharmacy to Dose - Med 03/23/17 11:00 Ordered Vancomycin] 1 dose .XX ASDIRECTED Vancomycin [Vancocin] 1 gm Med 03/23/17 21:00 Active Sodium Chloride 0.9% [Normal Saline] 250 ml IV Q12H methylPREDNISolone Sod Succ [Solu-MEDROL] Med 03/23/17 11:00 Ordered 125 mg IVPUSH Q6H Blood Culture x2 Reflex Set [OM.PC] Stat Oth 03/23/17 08:53 Ordered Sequential Compression Device [OM.PC] Per Unit Routine Oth 03/23/17 10:37 Ordered Medication Orders Albuterol/Ipratropium (Duoneb 3.0-0.5 Mg/3 Ml) 3 ml NEB Q4HRRT COUNT INCLUDES THE [facility] Enoxaparin Sodium (Lovenox) 40 mg SUBCUT Q24H COUNT INCLUDES THE [facility] Last Admin: 03/23/17 10:59 Dose: 40 mg Sodium Chloride (Normal Saline) 1,000 mls @ 75 mls/hr IV ASDIRECTED [place] Last Admin: 03/23/17 10:55 Dose: 75 mls/hr Levofloxacin/Dextrose 750 mg/ (Premix) 150 mls @ 100 mls/hr IV Q24H COUNT INCLUDES THE [facility] Last Admin: 03/23/17 10:58 Dose: 100 mls/hr Piperacillin Sod/Tazobactam (Sod 4.5 gm/ Sodium Chloride) 100 mls @ 100 mls/hr IV Q6H COUNT INCLUDES THE [facility] Vancomycin HCl 1 gm/ Sodium (Chloride) 250 mls @ 166.667 mls/hr IV Q12H COUNT INCLUDES THE [facility] Methylprednisolone Sodium Succinate (Solu-Medrol) 125 mg IVPUSH Q6H COUNT INCLUDES THE [facility] Ondansetron HCl (Zofran) 4 mg IVPUSH Q4H PRN PRN Reason: Nausea Vancomycin HCl (Pharmacy To Dose - Vancomycin) 1 dose .XX ASDIRECTED COUNT INCLUDES THE [facility] Assessment/Plan Comment:: 76-year-old female admitted with a severe COPD exacerbation as well as left lower lobe pneumonia with resultant respiratory acidosis requiring BIPAP. #1. COPD exacerbation with resultant respiratory acidosis and hypoxia requiring BiPAP: -Patient started on broad-spectrum antibiotics including vancomycin, Levaquin, Zosyn. -Patient will receive DuoNeb treatment every 4 hours scheduled -Patient received IV Solu-Medrol every 6 hours. -Patient currently on BiPAP. Being managed by respiratory therapy. -Initial ABG showed pH of 7.1 and CO2 of 103. Repeat ABG is pending. #2. Left lower lobe pneumonia: -Patient start on broad-spectrum antibiotics -White blood cell count is 20.8. #3. Hyponatremia: -Sodium is 127. Patient started on normal saline at 75 cc/hour. Daughter is at bedside with the patient. She is waiting for her sister to arrive from [place] before deciding upon CODE STATUS of the patient. We did explain that if the patient does need intubation that she'll most likely need to be transferred to another facility for a higher level of care.
[2017-03-23] MEDS: methylPREDNISolone Sodium Succinate 125 MG/2 ML SDV IVPUSH SCH ×3 (11:55→22:45)
[2017-03-23] MEDS ORDERED: Albuterol/Ipratropium 3.0-0.5 MG/3 ML Neb Soln NEB SCH (12:00)
[2017-03-23] MEDS: Piperacillin/Tazobactam 4.5 GM in Sodium Chloride 0.9% 100 ML IV SCH ×3 (12:32→23:55)
[2017-03-23] MEDS: Albuterol/Ipratropium 3.0-0.5 MG/3 ML Neb Soln NEB SCH ×3 (14:19→21:58)
[2017-03-23] MEDS: Famotidine 20 MG/2 ML SDV IVPUSH SCH (15:39)
[2017-03-23] MEDS ORDERED: Lidocaine 2% 5 ML SDV ONE (17:46)
--- NOTE | 2017-03-23 18:36 | PCM.SN ---
- Free Text/Narrative Note: requested artline for serial ABGs. Patient and family gives verbal consent. Right radial artery palpated 2% lidocaine skin wheel. Sterile technique 20 ga arrow catheter placed x 1 attempt with appropriate waveform. Dressing applied and secured with tape. Artline zeroed at phlebostatic axis.
[2017-03-24] MEDS: Albuterol/Ipratropium 3.0-0.5 MG/3 ML Neb Soln NEB SCH ×6 (01:45→21:44)
[2017-03-24] MEDS: Sodium Chloride 0.9% 1,000 ML IV SCH ×2 (01:45→19:24)
[2017-03-24] MEDS: methylPREDNISolone Sodium Succinate 125 MG/2 ML SDV IVPUSH SCH ×3 (05:23→16:38)
[2017-03-24] MEDS: Piperacillin/Tazobactam 4.5 GM in Sodium Chloride 0.9% 100 ML IV SCH ×3 (06:31→17:30)
[2017-03-24 06:37] LABS: CHLORIDE,CL 88 mmol/L (98-110); SODIUM,NA 133 mmol/L (136-146)
[2017-03-24] MEDS: Famotidine 20 MG/2 ML SDV IVPUSH SCH (08:29)
[2017-03-24] MEDS: Losartan 50 MG Tab PO SCH (10:45)
[2017-03-24] MEDS: Enoxaparin 40 MG/0.4 ML Syringe SUBCUT SCH (10:46)
[2017-03-24] MEDS: Levofloxacin/Dextrose 5%-Water 750 MG in Premix Bag 1 BAG IV SCH (10:46)
--- NOTE | 2017-03-24 12:29 | PCM.PN ---
- General Info Date of Service: 03/24/17 Subjective Update: Neema has improved significantly since being admitted to the ICU initially. She was taken off her BiPAP around 5 AM this morning and has been on 3 L nasal cannula oxygen humidified without any further compromise. Exercise she was quite hungry this morning and wanted to eat. She is fully alert coherent still complaining a little bit of difficulty in terms of being able to take a full breath. And minimal complaints of pain along the insertion sites of the IV. No dominant pain or any other concerns at the present moment. No headaches no dizziness. There is still some concern for hypertension and she is quite hypertensive and does have an elevated heart rate. - Review of Systems General: Reports: Weakness HEENT: Reports: No Symptoms Pulmonary: Reports: Shortness of Breath, Other (difficulty taking a full breath) Cardiovascular: Reports: Palpitations Gastrointestinal: Reports: No Symptoms Genitourinary: Reports: No Symptoms Musculoskeletal: Reports: No Symptoms, Arm Pain Skin: Reports: No Symptoms Neurological: Reports: No Symptoms Psychiatric: Reports: No Symptoms - Patient Data Vitals - Most Recent: Last Vital Signs Temp 36.8 C 03/24/17 08:00 Pulse 113 H 03/23/17 09:50 Resp 21 H 03/24/17 11:00 BP 174/66 H 03/24/17 11:00 Pulse Ox 98 03/24/17 11:00 Weight - Most Recent: 89.3 kg I&O - Last 24 Hours: Intake & Output 03/23/17 03/24/17 03/24/17 22:59 06:59 14:59 Intake Total 400 170 100 Output Total 650 1200 Balance -250 -1030 100 Lab Results Last 24 Hours: Laboratory Results - last 24 hr 03/23/17 03/23/17 03/23/17 Range/Units 11:58 18:08 21:39 WBC (4.0-11.0) K/uL RBC (4.30-5.90) M/uL Hgb (12.0-16.0) g/dL Hct (36.0-46.0) % MCV (80.0-98.0) fL MCH (27.0-32.0) pg MCHC (31.0-37.0) g/dL RDW Std Deviation (28.0-62.0) fl RDW Coeff of [place] (11.0-15.0) % Plt Count (150-400) K/uL MPV (7.40-12.00) fL Neut % (Auto) (48.0-80.0) % Lymph % (Auto) (16.0-40.0) % [place] % (Auto) (0.0-15.0) % Eos % (Auto) (0.0-7.0) % Baso % (Auto) (0.0-1.5) % Neut # (Auto) (1.4-5.7) K/uL Lymph # (Auto) (0.6-2.4) K/uL [place] # (Auto) (0.0-0.8) K/uL Eos # (Auto) (0.0-0.7) K/uL Baso # (Auto) (0.0-0.1) K/uL Nucleated RBC % /100WBC Nucleated RBCs # K/uL ABG pH 7.336 L 7.296 L (7.35-7.45) ABG pCO2 73 H 84 H (35-45) mmHG ABG pO2 109 H 98 (75-100) mmHG ABG HCO3 39 H 41 H (22-26) mEq/L ABG Total CO2 37.7 39.8 ABG Base Excess 12.4 H 13.4 H (-2.0-2.0) Sodium (136-146) mmol/L Potassium (3.5-5.1) mmol/L Chloride (98-110) mmol/L Carbon Dioxide (21-31) mmol/L BUN (6.0-23.0) mg/dL Creatinine (0.6-1.5) mg/dL Est Cr Clr Drug Dosing mL/min Estimated GFR (MDRD) ml/min Glucose (60-110) mg/dL Calcium (8.8-10.8) mg/dL Urine Color YELLOW Urine Appearance CLEAR Urine pH 6.0 (5.0-8.0) Ur Specific [place] 1.025 (1.001-1.035) Urine Protein 100 (NEGATIVE) mg/dL Urine Glucose (UA) NEGATIVE (NEGATIVE) mg/dL Urine Ketones NEGATIVE (NEGATIVE) mg/dL Urine Occult Blood LARGE H (NEGATIVE) Urine Nitrite NEGATIVE (NEGATIVE) Urine Bilirubin NEGATIVE (NEGATIVE) Urine Urobilinogen 0.2 (<2.0) EU/dL Ur Leukocyte Esterase NEGATIVE (NEGATIVE) Urine RBC 12-15 (0-2/HPF) Urine WBC 0-1 (0-5/HPF) Ur Epithelial Cells RARE (NONE-FEW) Urine Bacteria FEW (NEGATIVE) 03/24/17 03/24/17 03/24/17 Range/Units 05:08 06:12 06:12 WBC 3.61 L (4.0-11.0) K/uL RBC 2.87 L (4.30-5.90) M/uL Hgb 8.2 L (12.0-16.0) g/dL Hct 27.2 L (36.0-46.0) % MCV 94.8 (80.0-98.0) fL MCH 28.6 (27.0-32.0) pg MCHC 30.1 L (31.0-37.0) g/dL RDW Std Deviation 44.8 (28.0-62.0) fl RDW Coeff of [place] 13 (11.0-15.0) % Plt Count 139 L (150-400) K/uL MPV 9.70 (7.40-12.00) fL Neut % (Auto) 91.2 H (48.0-80.0) % Lymph % (Auto) 5.5 L (16.0-40.0) % [place] % (Auto) 3.3 (0.0-15.0) % Eos % (Auto) 0.0 (0.0-7.0) % Baso % (Auto) 0.0 (0.0-1.5) % Neut # (Auto) 3.3 (1.4-5.7) K/uL Lymph # (Auto) 0.2 L (0.6-2.4) K/uL [place] # (Auto) 0.1 (0.0-0.8) K/uL Eos # (Auto) 0.0 (0.0-0.7) K/uL Baso # (Auto) 0.0 (0.0-0.1) K/uL Nucleated RBC % 0.0 /100WBC Nucleated RBCs # 0 K/uL ABG pH 7.369 (7.35-7.45) ABG pCO2 67 H (35-45) mmHG ABG pO2 73 L (75-100) mmHG ABG HCO3 39 H (22-26) mEq/L ABG Total CO2 37.4 ABG Base Excess 12.5 H (-2.0-2.0) Sodium 133 L (136-146) mmol/L Potassium 4.6 (3.5-5.1) mmol/L Chloride 88 L (98-110) mmol/L Carbon Dioxide 38 H (21-31) mmol/L BUN 16 (6.0-23.0) mg/dL Creatinine 0.7 (0.6-1.5) mg/dL Est Cr Clr Drug Dosing 63.35 mL/min Estimated GFR (MDRD) > 60.0 ml/min Glucose 129 H (60-110) mg/dL Calcium 8.7 L (8.8-10.8) mg/dL Urine Color Urine Appearance Urine pH (5.0-8.0) Ur Specific [place] (1.001-1.035) Urine Protein (NEGATIVE) mg/dL Urine Glucose (UA) (NEGATIVE) mg/dL Urine Ketones (NEGATIVE) mg/dL Urine Occult Blood (NEGATIVE) Urine Nitrite (NEGATIVE) Urine Bilirubin (NEGATIVE) Urine Urobilinogen (<2.0) EU/dL Ur Leukocyte Esterase (NEGATIVE) Urine RBC (0-2/HPF) Urine WBC (0-5/HPF) Ur Epithelial Cells (NONE-FEW) Urine Bacteria (NEGATIVE) [place] Results Last 24 Hours: Microbiology 03/24/17 10:00 Streptococcus pneumoniae Ag Screen - Final Urine - Indwelling Catheter 03/24/17 10:00 Legionella Antigen - Final Urine, Nunez Cath (Indwelling) 03/23/17 09:17 Aerobic Blood Culture - Preliminary Blood - Venous - Lab Draw NO GROWTH AFTER 1 DAY Anaerobic Blood Culture - Preliminary NO GROWTH AFTER 1 DAY 03/23/17 09:06 Aerobic Blood Culture - Preliminary Blood - Venous NO GROWTH AFTER 1 DAY Anaerobic Blood Culture - Preliminary NO GROWTH AFTER 1 DAY Med Orders - Current: Current Medications Acetaminophen (Tylenol) 650 mg PO Q4H PRN PRN Reason: Pain Albuterol/Ipratropium (Duoneb 3.0-0.5 Mg/3 Ml) 3 ml NEB Q4HRRT [facility] Last Admin: 03/24/17 10:49 Dose: 3 ml Enoxaparin Sodium (Lovenox) 40 mg SUBCUT Q24H [facility] Last Admin: 03/24/17 10:46 Dose: 40 mg Famotidine (Pepcid) 20 mg IVPUSH DAILY [facility] Last Admin: 03/24/17 08:29 Dose: 20 mg Sodium Chloride (Normal Saline) 1,000 mls @ 75 mls/hr IV ASDIRECTED [facility] Last Admin: 03/24/17 01:45 Dose: 75 mls/hr Levofloxacin/Dextrose 750 mg/ (Premix) 150 mls @ 100 mls/hr IV Q24H [facility] Last Admin: 03/24/17 10:46 Dose: 100 mls/hr Piperacillin Sod/Tazobactam (Sod 4.5 gm/ Sodium Chloride) 100 mls @ 100 mls/hr IV Q6H [facility] Last Admin: 03/24/17 06:31 Dose: 100 mls/hr Vancomycin HCl 1 gm/ Sodium (Chloride) 250 mls @ 166.667 mls/hr IV Q12H [facility] Last Admin: 03/24/17 08:27 Dose: 166.667 mls/hr Losartan Potassium (Cozaar) 25 mg PO DAILY [facility] Last Admin: 03/24/17 10:45 Dose: 25 mg Methylprednisolone Sodium Succinate (Solu-Medrol) 125 mg IVPUSH Q6H [facility] Last Admin: 03/24/17 10:47 Dose: 125 mg Metoprolol Tartrate (Lopressor) 25 mg PO Q12HR [facility] Ondansetron HCl (Zofran) 4 mg IVPUSH Q4H PRN PRN Reason: Nausea Fluticasone/Salmeterol (Advair Diskus 500-50) 1 puff INH BID [facility] Sodium Chloride ([place] Nasal [place]) 0 ml SIGIFREDO Q2H PRN PRN Reason: Congestion Vancomycin HCl (Pharmacy To Dose - Vancomycin) 1 dose .XX ASDIRECTED [facility] Discontinued Medications Albuterol/Ipratropium (Duoneb 3.0-0.5 Mg/3 Ml) 3 ml NEB Q6HRRT [facility] Sodium Chloride (Normal Saline) 1,000 mls @ 999 mls/hr IV .[place] ONE Stop: 03/23/17 09:24 Last Admin: 03/23/17 08:25 Dose: 999 mls/hr Cefepime HCl 1 gm/ Premix 50 mls @ 100 mls/hr IV ONETIME ONE Stop: 03/23/17 09:24 Last Admin: 03/23/17 09:07 Dose: 100 mls/hr Vancomycin HCl 1 gm/ Sodium (Chloride) 250 mls @ 250 mls/hr IV ONETIME ONE Stop: 03/23/17 09:54 Last Admin: 03/23/17 09:07 Dose: 250 mls/hr Piperacillin Sod/Tazobactam (Sod 4.5 gm/ Sodium Chloride) 100 mls @ 100 mls/hr IV Q6H [place] Last Admin: 03/23/17 11:26 Dose: Not Given Lidocaine (Xylocaine-Mpf 2%) Confirm Administered Dose 5 ml .ROUTE .STK-MED ONE Stop: 03/23/17 17:47 Last Admin: 03/23/17 19:23 Dose: Not Given Lorazepam (Ativan) 1 mg IVPUSH ONETIME ONE Stop: 03/23/17 07:44 Last Admin: 03/23/17 07:49 Dose: 1 mg - Exam Quality Assessment: Supplemental Oxygen General: Alert, Oriented, Cooperative HEENT: Pupils Equal Neck: Supple Lungs: Clear to Auscultation, Decreased Breath Sounds, Other Cardiovascular: Regular Rhythm, Tachycardia. No: Regular Rate GI/Abdominal Exam: Normal Bowel Sounds, No Distention Skin: Warm Psy/Mental Status: Alert, Normal Affect - Problem List Review Problem List Initiated/Reviewed/Updated: Yes - My Orders Last 24 Hours: My Active Orders 03/24/17 09:36 CULTURE SPUTUM + SMEAR [RM] Routine 03/24/17 09:38 STREP PNEUMONIAE ANTIGEN [MREF] Routine 03/24/17 10:25 RT Post Treatment Assessment [RC] Click To Edit RT Pre-Treatment Assessment [RC] Click To Edit 03/24/17 10:30 Losartan [Cozaar] 25 mg PO DAILY 03/24/17 10:53 Incentive Spirometry [RT Incentive Spirometry] [RC] ASDIRECTED 03/24/17 12:14 Sodium Chloride 0.65% [[place] Nasal [place]] See Dose Instructions SIGIFREDO Q2H PRN 03/24/17 21:00 Fluticasone/Salmeterol [Advair Diskus 500-50] 1 puff INH BID 03/24/17 Lunch Advance Diet Instructions [DIET] - Plan Plan:: 76-year-old female admitted with a severe COPD exacerbation as well as left lower lobe pneumonia with resultant respiratory acidosis requiring BIPAP. #1. acute on chronic hypoxemic hypercapnic respiratory failure in the setting of acute COPD exacerbationwhich is now improving patient no longer requiring BiPAP: -we shall continue the patient on broad-spectrum antibiotics including vancomycin, Levaquin, Zosyn. -Patient will receive DuoNeb treatment every 4 hours scheduled -Patient received IV Solu-Medrol every 6 hours. -Patient currently on nasal cannula humidified 3 L.if required we can put her back on the BiPAP. Likely she will need to go back on BiPAP during the night -Initial ABG showed pH of 7.1 and CO2 of 103. Repeat ABG is shows improvement in terms of her pH which is now within normal reference range improvement of her PCO2 it is still however high. She is also considering with an increase in her bicarbonate. 2. Left lower lobe pneumonia: -Patient started on broad-specum antibiotics; Her WBC count has come down. we should get a sputum culture a urine Legionella antigen and a urine strep antigen. And then decide upon narrowing her broad-spectrum antibiotic as needed. #3. Hyponatremia -Sodium is now improving still mild hyponatremia likely secondary to dilution; Patient still on normal saline at 75 cc/hour. #4. anxiety - Wishes start the patient's home medication of Advair. #5. Advance diet as tolerated
[2017-03-24] MEDS: Sodium Chloride 0.65% Nasal Spray 45 ML Bottle NAS PRN ×2 (12:36→19:26)
[2017-03-24] MEDS: Ondansetron 4 MG/2 ML SDV IVPUSH PRN ×2 (16:38→22:04)
[2017-03-24] MEDS ORDERED: Metoprolol Tartrate 5 MG/5 ML SDV IVPUSH ONE (17:12)
[2017-03-24] MEDS: Metoprolol Tartrate 25 MG Tab PO SCH (20:16)
[2017-03-24] MEDS ORDERED: Hydrocolloid Dressing 4x4 Bandage ONE (20:51)
[2017-03-24] MEDS: Fluticasone/Salmeterol 500-50 MCG Inhalation Powder 14/Diskus INH SCH (21:41)
[2017-03-24] MEDS ORDERED: LORazepam 2 MG/ML MDV IVPUSH PRN (22:04)
[2017-03-25] MEDS: Piperacillin/Tazobactam 4.5 GM in Sodium Chloride 0.9% 100 ML IV SCH ×5 (00:04→23:54)
[2017-03-25] MEDS: Albuterol/Ipratropium 3.0-0.5 MG/3 ML Neb Soln NEB SCH ×6 (02:30→22:00)
[2017-03-25 05:29] LABS: CHLORIDE,CL 94 mmol/L (98-110); SODIUM,NA 134 mmol/L (136-146)
[2017-03-25] MEDS: Losartan 50 MG Tab PO SCH (08:20)
[2017-03-25] MEDS: predniSONE 20 MG Tab PO SCH (08:20)
[2017-03-25] MEDS: Metoprolol Tartrate 25 MG Tab PO SCH ×2 (08:21→20:33)
[2017-03-25] MEDS: Escitalopram 10 MG Tab PO SCH (08:21)
[2017-03-25] MEDS: Famotidine 20 MG/2 ML SDV IVPUSH SCH (08:22)
[2017-03-25] MEDS: Sodium Chloride 0.65% Nasal Spray 45 ML Bottle NAS PRN ×2 (08:23→19:10)
[2017-03-25] MEDS: Fluticasone/Salmeterol 500-50 MCG Inhalation Powder 14/Diskus INH SCH ×2 (09:39→21:06)
[2017-03-25] MEDS ORDERED: Levofloxacin/Dextrose 5%-Water 150 ML IV ONE (10:10)
[2017-03-25] MEDS: Levofloxacin/Dextrose 5%-Water 750 MG in Premix Bag 1 BAG IV SCH (10:12)
[2017-03-25] MEDS: Enoxaparin 40 MG/0.4 ML Syringe SUBCUT SCH (11:02)
[2017-03-25] MEDS ORDERED: Pantoprazole 40 MG in Sodium Chloride 0.9% 10 ML IVPUSH SCH (13:00)
[2017-03-25] MEDS: Acetaminophen 325 MG Tab PO PRN (18:45)
--- NOTE | 2017-03-25 18:54 | PCM.PN ---
- General Info Date of Service: 03/25/17 Subjective Update: Patient has done well overnight she tolerated her BiPAP that her than she did previously. Also requiring less supportive terms of her BiPAP machine. Patient was sitting up when I saw her on her bed still tachypneic and tachycardic. She was able to tolerate solid food with slight nausea and vomiting. We will have PT work with the patient today to make sure that she gets up and walking. She is right now on nasal cannula 3 L and doing fairly well. Functional Status: Reports: Pain Controlled - Review of Systems General: Reports: No Symptoms, Weakness, Fatigue Pulmonary: Reports: Shortness of Breath Cardiovascular: Reports: Dyspnea on Exertion Musculoskeletal: Reports: No Symptoms - Patient Data Vitals - Most Recent: Last Vital Signs Temp 36.7 C 03/25/17 16:00 Pulse 117 H 03/25/17 08:21 Resp 20 03/25/17 18:00 BP 131/54 L 03/25/17 18:00 Pulse Ox 98 03/25/17 18:00 Weight - Most Recent: 88.4 kg I&O - Last 24 Hours: Intake & Output 03/25/17 03/25/17 03/25/17 06:59 14:59 22:59 Intake Total 300 600 Output Total 850 Balance -550 600 Lab Results Last 24 Hours: Laboratory Results - last 24 hr 03/24/17 03/25/17 03/25/17 Range/Units 19:52 04:53 04:53 WBC 3.82 L (4.0-11.0) K/uL RBC 2.76 L (4.30-5.90) M/uL Hgb 7.8 L (12.0-16.0) g/dL Hct 26.3 L (36.0-46.0) % MCV 95.3 (80.0-98.0) fL MCH 28.3 (27.0-32.0) pg MCHC 29.7 L (31.0-37.0) g/dL RDW Std Deviation 46.0 (28.0-62.0) fl RDW Coeff of Marck 13 (11.0-15.0) % Plt Count 142 L (150-400) K/uL MPV 8.70 (7.40-12.00) fL Neut % (Auto) 89.0 H (48.0-80.0) % Lymph % (Auto) 5.8 L (16.0-40.0) % Hinds % (Auto) 5.2 (0.0-15.0) % Eos % (Auto) 0.0 (0.0-7.0) % Baso % (Auto) 0.0 (0.0-1.5) % Neut # (Auto) 3.4 (1.4-5.7) K/uL Lymph # (Auto) 0.2 L (0.6-2.4) K/uL Hinds # (Auto) 0.2 (0.0-0.8) K/uL Eos # (Auto) 0.0 (0.0-0.7) K/uL Baso # (Auto) 0.0 (0.0-0.1) K/uL Nucleated RBC % 0.0 /100WBC Nucleated RBCs # 0 K/uL Absolute Retic (20-80) K/uL Percent Retic (0.5-1.5) % Immature Retic Fraction % Sodium 134 L (136-146) mmol/L Potassium 4.5 (3.5-5.1) mmol/L Chloride 94 L (98-110) mmol/L Carbon Dioxide 36 H (21-31) mmol/L BUN 13 (6.0-23.0) mg/dL Creatinine 0.7 (0.6-1.5) mg/dL Est Cr Clr Drug Dosing 63.35 mL/min Estimated GFR (MDRD) > 60.0 ml/min Glucose 141 H (60-110) mg/dL Calcium 8.1 L (8.8-10.8) mg/dL Iron (50-170) ug/dL TIBC (273-456) ug/dL % Saturation (20-55) % Vancomycin Trough 10.3 (5-15) ug/mL 03/25/17 03/25/17 03/25/17 Range/Units 04:53 12:26 12:26 WBC (4.0-11.0) K/uL RBC (4.30-5.90) M/uL Hgb 8.3 L (12.0-16.0) g/dL Hct 27.5 L (36.0-46.0) % MCV (80.0-98.0) fL MCH (27.0-32.0) pg MCHC (31.0-37.0) g/dL RDW Std Deviation (28.0-62.0) fl RDW Coeff of Marck (11.0-15.0) % Plt Count (150-400) K/uL MPV (7.40-12.00) fL Neut % (Auto) (48.0-80.0) % Lymph % (Auto) (16.0-40.0) % Hinds % (Auto) (0.0-15.0) % Eos % (Auto) (0.0-7.0) % Baso % (Auto) (0.0-1.5) % Neut # (Auto) (1.4-5.7) K/uL Lymph # (Auto) (0.6-2.4) K/uL Hinds # (Auto) (0.0-0.8) K/uL Eos # (Auto) (0.0-0.7) K/uL Baso # (Auto) (0.0-0.1) K/uL Nucleated RBC % /100WBC Nucleated RBCs # K/uL Absolute Retic (20-80) K/uL Percent Retic (0.5-1.5) % Immature Retic Fraction % Sodium (136-146) mmol/L Potassium (3.5-5.1) mmol/L Chloride (98-110) mmol/L Carbon Dioxide (21-31) mmol/L BUN (6.0-23.0) mg/dL Creatinine (0.6-1.5) mg/dL Est Cr Clr Drug Dosing mL/min Estimated GFR (MDRD) ml/min Glucose (60-110) mg/dL Calcium (8.8-10.8) mg/dL Iron 30 L 37 L (50-170) ug/dL TIBC 255 L 271 L (273-456) ug/dL % Saturation 11.76 L 13.65 L (20-55) % Vancomycin Trough (5-15) ug/mL 03/25/17 Range/Units 12:26 WBC (4.0-11.0) K/uL RBC 2.87 L (4.30-5.90) M/uL Hgb (12.0-16.0) g/dL Hct (36.0-46.0) % MCV (80.0-98.0) fL MCH (27.0-32.0) pg MCHC (31.0-37.0) g/dL RDW Std Deviation (28.0-62.0) fl RDW Coeff of Marck (11.0-15.0) % Plt Count (150-400) K/uL MPV (7.40-12.00) fL Neut % (Auto) (48.0-80.0) % Lymph % (Auto) (16.0-40.0) % Hinds % (Auto) (0.0-15.0) % Eos % (Auto) (0.0-7.0) % Baso % (Auto) (0.0-1.5) % Neut # (Auto) (1.4-5.7) K/uL Lymph # (Auto) (0.6-2.4) K/uL Hinds # (Auto) (0.0-0.8) K/uL Eos # (Auto) (0.0-0.7) K/uL Baso # (Auto) (0.0-0.1) K/uL Nucleated RBC % /100WBC Nucleated RBCs # K/uL Absolute Retic 46.50 (20-80) K/uL Percent Retic 1.6 H (0.5-1.5) % Immature Retic Fraction 12 % Sodium (136-146) mmol/L Potassium (3.5-5.1) mmol/L Chloride (98-110) mmol/L Carbon Dioxide (21-31) mmol/L BUN (6.0-23.0) mg/dL Creatinine (0.6-1.5) mg/dL Est Cr Clr Drug Dosing mL/min Estimated GFR (MDRD) ml/min Glucose (60-110) mg/dL Calcium (8.8-10.8) mg/dL Iron (50-170) ug/dL TIBC (273-456) ug/dL % Saturation (20-55) % Vancomycin Trough (5-15) ug/mL [facility] Results Last 24 Hours: Microbiology 03/23/17 15:24 Aerobic Blood Culture - Preliminary Blood - Venous - Lab Draw NO GROWTH AFTER 2 DAYS Anaerobic Blood Culture - Preliminary NO GROWTH AFTER 1 DAY 03/23/17 15:17 Aerobic Blood Culture - Preliminary Blood - Venous NO GROWTH AFTER 2 DAYS Anaerobic Blood Culture - Preliminary NO GROWTH AFTER 2 DAYS 03/25/17 11:20 Stool Occult Blood (BOAZ) - Final Stool / Feces - Stool, Formed 03/23/17 09:17 Aerobic Blood Culture - Preliminary Blood - Venous - Lab Draw NO GROWTH AFTER 2 DAYS Anaerobic Blood Culture - Preliminary NO GROWTH AFTER 2 DAYS 03/23/17 09:06 Aerobic Blood Culture - Preliminary Blood - Venous NO GROWTH AFTER 2 DAYS Anaerobic Blood Culture - Preliminary NO GROWTH AFTER 2 DAYS 03/24/17 13:30 Gram Stain - Final Sputum - Expectorated Med Orders - Current: Current Medications Acetaminophen (Tylenol) 650 mg PO Q4H PRN PRN Reason: Pain Last Admin: 03/25/17 18:45 Dose: 650 mg Albuterol/Ipratropium (Duoneb 3.0-0.5 Mg/3 Ml) 3 ml NEB Q4HRRT [facility] Last Admin: 03/25/17 18:37 Dose: 3 ml Escitalopram Oxalate (Lexapro) 10 mg PO DAILY [facility] Last Admin: 03/25/17 08:21 Dose: 10 mg Famotidine (Pepcid) 20 mg IVPUSH DAILY [facility] Last Admin: 03/25/17 08:22 Dose: 20 mg Levofloxacin/Dextrose 750 mg/ (Premix) 150 mls @ 100 mls/hr IV Q24H [facility] Last Admin: 03/25/17 10:12 Dose: 100 mls/hr Piperacillin Sod/Tazobactam (Sod 4.5 gm/ Sodium Chloride) 100 mls @ 100 mls/hr IV Q6H [facility] Last Admin: 03/25/17 18:36 Dose: 100 mls/hr Vancomycin HCl 1 gm/ Sodium (Chloride) 250 mls @ 166.667 mls/hr IV Q12H [facility] Last Admin: 03/25/17 08:22 Dose: 166.667 mls/hr Pantoprazole Sodium 40 mg/ (Sodium Chloride) 10 mls @ 300 mls/hr IVPUSH DAILY [facility] Last Admin: 03/25/17 13:29 Dose: 300 mls/hr Lorazepam (Ativan) 0.5 mg IVPUSH Q8H PRN PRN Reason: Anxiety Last Admin: 03/24/17 22:27 Dose: 0.5 mg Losartan Potassium (Cozaar) 25 mg PO DAILY [facility] Last Admin: 03/25/17 08:20 Dose: 25 mg Metoprolol Tartrate (Lopressor) 25 mg PO Q12HR [facility] Last Admin: 03/25/17 08:21 Dose: 25 mg Ondansetron HCl (Zofran) 4 mg IVPUSH Q4H PRN PRN Reason: Nausea Last Admin: 03/24/17 22:04 Dose: 4 mg Prednisone (Prednisone) 40 mg PO WITHBREAKFAST [facility] Stop: 03/28/17 23:59 Last Admin: 03/25/17 08:20 Dose: 40 mg Fluticasone/Salmeterol (Advair Diskus 500-50) 1 puff INH BID [facility] Last Admin: 03/25/17 09:39 Dose: 1 puff Sodium Chloride ([place] Nasal [place]) 0 ml SIGIFREDO Q2H PRN PRN Reason: Congestion Last Admin: 03/25/17 08:23 Dose: 1 spray Vancomycin HCl (Pharmacy To Dose - Vancomycin) 1 dose .XX ASDIRECTED [facility] Discontinued Medications Albuterol/Ipratropium (Duoneb 3.0-0.5 Mg/3 Ml) 3 ml NEB Q6HRRT [facility] Enoxaparin Sodium (Lovenox) 40 mg SUBCUT Q24H [facility] Last Admin: 03/25/17 11:02 Dose: 40 mg Sodium Chloride (Normal Saline) 1,000 mls @ 999 mls/hr IV .Bolus ONE Stop: 03/23/17 09:24 Last Admin: 03/23/17 08:25 Dose: 999 mls/hr Cefepime HCl 1 gm/ Premix 50 mls @ 100 mls/hr IV ONETIME ONE Stop: 03/23/17 09:24 Last Admin: 03/23/17 09:07 Dose: 100 mls/hr Vancomycin HCl 1 gm/ Sodium (Chloride) 250 mls @ 250 mls/hr IV ONETIME ONE Stop: 03/23/17 09:54 Last Admin: 03/23/17 09:07 Dose: 250 mls/hr Sodium Chloride (Normal Saline) 1,000 mls @ 75 mls/hr IV ASDIRECTED [facility] Last Admin: 03/24/17 19:24 Dose: 75 mls/hr Piperacillin Sod/Tazobactam (Sod 4.5 gm/ Sodium Chloride) 100 mls @ 100 mls/hr IV Q6H [facility] Last Admin: 03/23/17 11:26 Dose: Not Given Levofloxacin/Dextrose (Levaquin In D5w 750 Mg/150 Ml) Confirm Administered Dose 150 mls @ as directed IV .STK-MED ONE Stop: 03/25/17 10:11 Last Admin: 03/25/17 10:18 Dose: Not Given Lidocaine (Xylocaine-Mpf 2%) Confirm Administered Dose 5 ml .ROUTE .STK-MED ONE Stop: 03/23/17 17:47 Last Admin: 03/23/17 19:23 Dose: Not Given Lorazepam (Ativan) 1 mg IVPUSH ONETIME ONE Stop: 03/23/17 07:44 Last Admin: 03/23/17 07:49 Dose: 1 mg Methylprednisolone Sodium Succinate (Solu-Medrol) 125 mg IVPUSH Q6H [place] Last Admin: 03/24/17 16:38 Dose: 125 mg Metoprolol Tartrate (Lopressor) 5 mg IVPUSH ONETIME ONE Stop: 03/24/17 17:13 Last Admin: 03/24/17 17:21 Dose: 5 mg Wound Care/Dressing Products (Duoderm Cgf) Confirm Administered Dose 1 each .ROUTE .STK-MED ONE Stop: 03/24/17 20:52 Last Admin: 03/24/17 22:10 Dose: 1 each - Exam General: Alert, Oriented, Cooperative HEENT: Pupils Equal Neck: Supple Lungs: Decreased Breath Sounds Cardiovascular: Regular Rhythm, No Murmurs, Tachycardia GI/Abdominal Exam: Normal Bowel Sounds Skin: Warm, Dry, Intact - Problem List Review Problem List Initiated/Reviewed/Updated: Yes - My Orders Last 24 Hours: My Active Orders 03/24/17 21:00 Fluticasone/Salmeterol [Advair Diskus 500-50] 1 puff INH BID 03/25/17 09:00 Escitalopram [Lexapro] 10 mg PO DAILY 03/25/17 10:08 Urinary Catheter Removal [RC] Per Unit Routine PT Evaluation and Treatment [CONS] Routine Echo Comp wo Cont [US] Urgent 03/25/17 Lunch Regular Diet [DIET] - Plan Plan:: 76-year-old female admitted with a severe COPD exacerbation as well as left lower lobe pneumonia with resultant respiratory acidosis requiring BIPAP. #1. acute on chronic hypoxemic hypercapnic respiratory failure in the setting of acute COPD exacerbationwhich is now improving patient no longer requiring BiPAP: -we shall continue the patient on broad-spectrum antibiotics including vancomycin, Levaquin, Zosyn. -Patient will receive DuoNeb treatment every 4 hours scheduled -Patient has been switched over to prednisone 40 mg by mouth -Patient currently on nasal cannula humidified 3 L.if required we can put her back on the BiPAP. Likely she will need to go back on BiPAP during the night 2. Left lower lobe pneumonia: -Patient started on broad-specum antibiotics; Her WBC count has come down. we should get a sputum culture a urine Legionella antigen and a urine strep antigen. And then decide upon narrowing her broad-spectrum antibiotic as needed. 3. Hyponatremia -Sodium is now improving still mild hyponatremia likely secondary to dilution; Patient still on normal saline at 75 cc/hour. 4. Anemia with a hemoglobin of 7.8 - We'll be getting a repeat H&H in the afternoon to see if the patient requires a transfusion as well getting a stool occult, and iron studies. 5. anxiety - Wishes start the patient's home medication of Advair. 6. Advance diet as tolerated 7. Tachycardia -Patient shall get an echo
[2017-03-26] MEDS: Albuterol/Ipratropium 3.0-0.5 MG/3 ML Neb Soln NEB SCH ×6 (01:59→21:29)
[2017-03-26] MEDS: Piperacillin/Tazobactam 4.5 GM in Sodium Chloride 0.9% 100 ML IV SCH ×3 (05:49→18:32)
[2017-03-26 06:00] LABS: CHLORIDE,CL 96 mmol/L (98-110); SODIUM,NA 137 mmol/L (136-146)
[2017-03-26] MEDS: Metoprolol Tartrate 25 MG Tab PO SCH ×2 (09:13→20:35)
[2017-03-26] MEDS: Losartan 50 MG Tab PO SCH ×2 (09:20→20:35)
[2017-03-26] MEDS: Famotidine 20 MG/2 ML SDV IVPUSH SCH (09:20)
[2017-03-26] MEDS: predniSONE 20 MG Tab PO SCH (09:20)
[2017-03-26] MEDS: Escitalopram 10 MG Tab PO SCH (09:21)
[2017-03-26] MEDS: Fluticasone/Salmeterol 500-50 MCG Inhalation Powder 14/Diskus INH SCH ×2 (09:39→21:28)
[2017-03-26] MEDS: Levofloxacin/Dextrose 5%-Water 750 MG in Premix Bag 1 BAG IV SCH (11:52)
[2017-03-26] MEDS: Iron Polysaccharides Complex 150 MG Cap PO SCH (12:19)
--- NOTE | 2017-03-26 18:50 | PCM.PN ---
- General Info Date of Service: 03/26/17 Subjective Update: Overall Neema has been doing quite well from the standpoint of her COPD excerbation. Patient did not require Bipap over night. She is presently on 3 L nasal cannula. She is having shortness of breath in particular with exertion. However overall quite stable. She is on oral prednisone at the moment along with broad spectrum antibiotics. She is taking adequate amount of by mouth as well as appropriately urinating and having normal bowel movements. Present surgery of any headaches nausea, vomiting, diarrhea, constipation. Functional Status: Reports: Pain Controlled - Review of Systems General: Reports: Weakness, Fatigue HEENT: Reports: No Symptoms Pulmonary: Reports: Shortness of Breath Cardiovascular: Reports: No Symptoms Gastrointestinal: Reports: No Symptoms Musculoskeletal: Reports: No Symptoms Skin: Reports: No Symptoms, Cyanosis - Patient Data Vitals - Most Recent: Last Vital Signs Temp 36.9 C 03/26/17 18:26 Pulse 105 H 03/26/17 18:26 Resp 18 03/26/17 18:26 BP 174/80 H 03/26/17 18:35 Pulse Ox 99 03/26/17 18:26 Weight - Most Recent: 89.9 kg I&O - Last 24 Hours: Intake & Output 03/26/17 03/26/17 03/26/17 06:59 14:59 22:59 Intake Total 900 250 866 Output Total 750 600 Balance 150 250 266 Lab Results Last 24 Hours: Laboratory Results - last 24 hr 03/25/17 03/25/17 03/26/17 Range/Units 12:26 22:00 05:28 WBC 6.17 (4.0-11.0) K/uL RBC 2.83 L (4.30-5.90) M/uL Hgb 8.1 L (12.0-16.0) g/dL Hct 27.2 L (36.0-46.0) % MCV 96.1 (80.0-98.0) fL MCH 28.6 (27.0-32.0) pg MCHC 29.8 L (31.0-37.0) g/dL RDW Std Deviation 47.2 (28.0-62.0) fl RDW Coeff of Marck 14 (11.0-15.0) % Plt Count 150 (150-400) K/uL MPV 9.00 (7.40-12.00) fL Neut % (Auto) 71.6 (48.0-80.0) % Lymph % (Auto) 14.3 L (16.0-40.0) % [place] % (Auto) 13.9 (0.0-15.0) % Eos % (Auto) 0.2 (0.0-7.0) % Baso % (Auto) 0.0 (0.0-1.5) % Neut # (Auto) 4.4 (1.4-5.7) K/uL Lymph # (Auto) 0.9 (0.6-2.4) K/uL [place] # (Auto) 0.9 H (0.0-0.8) K/uL Eos # (Auto) 0.0 (0.0-0.7) K/uL Baso # (Auto) 0.0 (0.0-0.1) K/uL Nucleated RBC % 0.0 /100WBC Nucleated RBCs # 0 K/uL ABG pH 7.337 L (7.35-7.45) ABG pCO2 68 H (35-45) mmHG ABG pO2 105 H (75-100) mmHG ABG HCO3 36 H (22-26) mEq/L ABG Total CO2 34.9 ABG Base Excess 9.6 H (-2.0-2.0) Sodium (136-146) mmol/L Potassium (3.5-5.1) mmol/L Chloride (98-110) mmol/L Carbon Dioxide (21-31) mmol/L BUN (6.0-23.0) mg/dL Creatinine (0.6-1.5) mg/dL Est Cr Clr Drug Dosing mL/min Estimated GFR (MDRD) ml/min Glucose (60-110) mg/dL Calcium (8.8-10.8) mg/dL Ferritin 64 (11-307) ng/mL Vancomycin Trough (5-15) ug/mL Blood Type Antibody Screen Crossmatch 03/26/17 03/26/17 03/26/17 Range/Units 05:28 08:05 12:13 WBC (4.0-11.0) K/uL RBC (4.30-5.90) M/uL Hgb (12.0-16.0) g/dL Hct (36.0-46.0) % MCV (80.0-98.0) fL MCH (27.0-32.0) pg MCHC (31.0-37.0) g/dL RDW Std Deviation (28.0-62.0) fl RDW Coeff of Marck (11.0-15.0) % Plt Count (150-400) K/uL MPV (7.40-12.00) fL Neut % (Auto) (48.0-80.0) % Lymph % (Auto) (16.0-40.0) % [place] % (Auto) (0.0-15.0) % Eos % (Auto) (0.0-7.0) % Baso % (Auto) (0.0-1.5) % Neut # (Auto) (1.4-5.7) K/uL Lymph # (Auto) (0.6-2.4) K/uL [place] # (Auto) (0.0-0.8) K/uL Eos # (Auto) (0.0-0.7) K/uL Baso # (Auto) (0.0-0.1) K/uL Nucleated RBC % /100WBC Nucleated RBCs # K/uL ABG pH (7.35-7.45) ABG pCO2 (35-45) mmHG ABG pO2 (75-100) mmHG ABG HCO3 (22-26) mEq/L ABG Total CO2 ABG Base Excess (-2.0-2.0) Sodium 137 (136-146) mmol/L Potassium 3.9 (3.5-5.1) mmol/L Chloride 96 L (98-110) mmol/L Carbon Dioxide 36 H (21-31) mmol/L BUN 12 (6.0-23.0) mg/dL Creatinine 0.7 (0.6-1.5) mg/dL Est Cr Clr Drug Dosing 63.35 mL/min Estimated GFR (MDRD) > 60.0 ml/min Glucose 94 (60-110) mg/dL Calcium 8.2 L (8.8-10.8) mg/dL Ferritin (11-307) ng/mL Vancomycin Trough 12.2 (5-15) ug/mL Blood Type O POSITIVE Antibody Screen NEGATIVE Crossmatch See Detail [facility] Results Last 24 Hours: Microbiology 03/23/17 15:24 Aerobic Blood Culture - Preliminary Blood - Venous - Lab Draw NO GROWTH AFTER 3 DAYS Anaerobic Blood Culture - Preliminary NO GROWTH AFTER 3 DAYS 03/23/17 15:17 Aerobic Blood Culture - Preliminary Blood - Venous NO GROWTH AFTER 3 DAYS Anaerobic Blood Culture - Preliminary NO GROWTH AFTER 3 DAYS 03/24/17 13:30 Gram Stain - Final Sputum - Expectorated Sputum Culture - Final Normal Respiratory [place] 03/23/17 09:17 Aerobic Blood Culture - Preliminary Blood - Venous - Lab Draw NO GROWTH AFTER 3 DAYS Anaerobic Blood Culture - Preliminary NO GROWTH AFTER 3 DAYS 03/23/17 09:06 Aerobic Blood Culture - Preliminary Blood - Venous NO GROWTH AFTER 3 DAYS Anaerobic Blood Culture - Preliminary NO GROWTH AFTER 3 DAYS Med Orders - Current: Current Medications Acetaminophen (Tylenol) 650 mg PO Q4H PRN PRN Reason: Pain Last Admin: 03/25/17 18:45 Dose: 650 mg Albuterol/Ipratropium (Duoneb 3.0-0.5 Mg/3 Ml) 3 ml NEB Q4HRRT [facility] Last Admin: 03/26/17 18:13 Dose: 3 ml Escitalopram Oxalate (Lexapro) 10 mg PO DAILY [facility] Last Admin: 03/26/17 09:21 Dose: 10 mg Famotidine (Pepcid) 20 mg IVPUSH DAILY [facility] Last Admin: 03/26/17 09:20 Dose: 20 mg Levofloxacin/Dextrose 750 mg/ (Premix) 150 mls @ 100 mls/hr IV Q24H [facility] Last Admin: 03/26/17 11:52 Dose: 100 mls/hr Piperacillin Sod/Tazobactam (Sod 4.5 gm/ Sodium Chloride) 100 mls @ 100 mls/hr IV Q6H [facility] Last Admin: 03/26/17 18:32 Dose: 100 mls/hr Vancomycin HCl 1 gm/ Sodium (Chloride) 250 mls @ 166.667 mls/hr IV Q12H [facility] Last Admin: 03/26/17 09:27 Dose: 166.667 mls/hr Lorazepam (Ativan) 0.5 mg IVPUSH Q8H PRN PRN Reason: Anxiety Last Admin: 03/24/17 22:27 Dose: 0.5 mg Losartan Potassium (Cozaar) 25 mg PO DAILY [facility] Last Admin: 03/26/17 09:20 Dose: 25 mg Metoprolol Tartrate (Lopressor) 25 mg PO Q12HR [facility] Last Admin: 03/26/17 09:13 Dose: 25 mg Ondansetron HCl (Zofran) 4 mg IVPUSH Q4H PRN PRN Reason: Nausea Last Admin: 03/24/17 22:04 Dose: 4 mg Polysaccharide Iron Complex (Ferrex 150) 150 mg PO DAILY [facility] Last Admin: 03/26/17 12:19 Dose: 150 mg Prednisone (Prednisone) 40 mg PO WITHBREAKFAST [facility] Stop: 03/28/17 23:59 Last Admin: 03/26/17 09:20 Dose: 40 mg Fluticasone/Salmeterol (Advair Diskus 500-50) 1 puff INH BID [facility] Last Admin: 03/26/17 09:39 Dose: 1 puff Sodium Chloride ([place] Nasal [place]) 0 ml SIGIFREDO Q2H PRN PRN Reason: Congestion Last Admin: 03/25/17 19:10 Dose: 1 spray Vancomycin HCl (Pharmacy To Dose - Vancomycin) 1 dose .XX ASDIRECTED [facility] Discontinued Medications Albuterol/Ipratropium (Duoneb 3.0-0.5 Mg/3 Ml) 3 ml NEB Q6HRRT [facility] Enoxaparin Sodium (Lovenox) 40 mg SUBCUT Q24H [facility] Last Admin: 03/25/17 11:02 Dose: 40 mg Sodium Chloride (Normal Saline) 1,000 mls @ 999 mls/hr IV .Bolus ONE Stop: 03/23/17 09:24 Last Admin: 03/23/17 08:25 Dose: 999 mls/hr Cefepime HCl 1 gm/ Premix 50 mls @ 100 mls/hr IV ONETIME ONE Stop: 03/23/17 09:24 Last Admin: 03/23/17 09:07 Dose: 100 mls/hr Vancomycin HCl 1 gm/ Sodium (Chloride) 250 mls @ 250 mls/hr IV ONETIME ONE Stop: 03/23/17 09:54 Last Admin: 03/23/17 09:07 Dose: 250 mls/hr Sodium Chloride (Normal Saline) 1,000 mls @ 75 mls/hr IV ASDIRECTED [facility] Last Admin: 03/24/17 19:24 Dose: 75 mls/hr Piperacillin Sod/Tazobactam (Sod 4.5 gm/ Sodium Chloride) 100 mls @ 100 mls/hr IV Q6H [facility] Last Admin: 03/23/17 11:26 Dose: Not Given Levofloxacin/Dextrose (Levaquin In D5w 750 Mg/150 Ml) Confirm Administered Dose 150 mls @ as directed IV .STK-MED ONE Stop: 03/25/17 10:11 Last Admin: 03/25/17 10:18 Dose: Not Given Pantoprazole Sodium 40 mg/ (Sodium Chloride) 10 mls @ 300 mls/hr IVPUSH DAILY [facility] Last Admin: 03/25/17 13:29 Dose: 300 mls/hr Lidocaine (Xylocaine-Mpf 2%) Confirm Administered Dose 5 ml .ROUTE .STK-MED ONE Stop: 03/23/17 17:47 Last Admin: 03/23/17 19:23 Dose: Not Given Lorazepam (Ativan) 1 mg IVPUSH ONETIME ONE Stop: 03/23/17 07:44 Last Admin: 03/23/17 07:49 Dose: 1 mg Methylprednisolone Sodium Succinate (Solu-Medrol) 125 mg IVPUSH Q6H [facility] Last Admin: 03/24/17 16:38 Dose: 125 mg Metoprolol Tartrate (Lopressor) 5 mg IVPUSH ONETIME ONE Stop: 03/24/17 17:13 Last Admin: 03/24/17 17:21 Dose: 5 mg Wound Care/Dressing Products (Duoderm Cgf) Confirm Administered Dose 1 each .ROUTE .STK-MED ONE Stop: 03/24/17 20:52 Last Admin: 03/24/17 22:10 Dose: 1 each - Exam General: Alert, Oriented, Cooperative HEENT: Pupils Equal, Pupils Reactive Neck: Supple, Trachea Midline Lungs: Decreased Breath Sounds Cardiovascular: Regular Rhythm, No Murmurs GI/Abdominal Exam: Normal Bowel Sounds, Soft Extremities: Normal Inspection, No Pedal Edema Skin: Warm, Dry Psy/Mental Status: Alert, Normal Affect - Problem List Review Problem List Initiated/Reviewed/Updated: Yes - My Orders Last 24 Hours: My Active Orders 03/26/17 11:59 Transfuse Red Blood Cells [COMM] Routine 03/26/17 12:15 Iron Polysaccharides Complex [Ferrex 150] 150 mg PO DAILY - Plan Plan:: Impressions :76-year-old female admitted with a acute hypoxemic hypercapnic respiratory failure in the setting acute COPD exacerbation as well as left lower lobe pneumonia with resultant respiratory acidosis initially requiring noninvasive mechanical support now doing well on nasal cannula, prednisone, broad-spectrum antibiotics. #1. acute on chronic hypoxemic hypercapnic respiratory failure in the setting of acute COPD exacerbationwhich is now improving patient no longer requiring BiPAP: -we shall continue the patient on broad-spectrum antibiotics including vancomycin, Levaquin, Zosyn. -Patient will receive DuoNeb treatment every 4 hours scheduled -Patient has been switched over to prednisone 40 mg by mouth -Patient currently on nasal cannula humidified 3 L. If required we can put her back on the BiPAP. Patient did not require BiPAP overnight not likely to require BiPAP tonight. - Sensory respiratory status has improved we shall move the patient to the general floor. As well as removing the art line and should reduce possible infections 2. Left lower lobe pneumonia: -Patient started on broad-specum antibiotics; Her WBC count has come down. we should get a sputum culture a urine Legionella antigen and a urine strep antigen. And then decide upon narrowing her broad-spectrum antibiotic as needed. 3. Hyponatremia -Sodium is now improving still mild hyponatremia likely secondary to dilution; Patient still on normal saline at 75 cc/hour. 4. Anemia with a hemoglobin of 8.1 - Patient to receive 1 unit of red blood cells because the patient is beginning to dip once again with her hemoglobin, her past recent medical history the patient did require blood transfusion, the patient still is tachycardic likely secondary to the anemia, and with her sepsis/infectious-type picture the blood transfusion is deemed to be beneficial for this patient at this point in time. - We'll be getting a repeat H&H in the morning to see if the patient improved status post transfusion. 5. anxiety - Wishes start the patient's home medication of Advair. 6. Advance diet as tolerated 7. Hypertension -We will restart losartan 25 mg by mouth daily.
[2017-03-26] MEDS ORDERED: Losartan 50 MG Tab PO SCH (19:22)
[2017-03-26] MEDS ORDERED: Furosemide 40 MG/4 ML VIAL IVPUSH ONE (20:22)
[2017-03-26] MEDS ORDERED: Furosemide 40 MG/4 ML VIAL ONE (20:30)
[2017-03-27] MEDS: Piperacillin/Tazobactam 4.5 GM in Sodium Chloride 0.9% 100 ML IV SCH ×4 (00:48→18:13)
[2017-03-27] MEDS: Albuterol/Ipratropium 3.0-0.5 MG/3 ML Neb Soln NEB SCH ×6 (02:22→21:19)
[2017-03-27 07:01] LABS: CHLORIDE,CL 86 mmol/L (98-110); SODIUM,NA 139 mmol/L (136-146)
[2017-03-27] MEDS: Famotidine 20 MG/2 ML SDV IVPUSH SCH (08:53)
[2017-03-27] MEDS: predniSONE 20 MG Tab PO SCH (08:58)
[2017-03-27] MEDS: Escitalopram 10 MG Tab PO SCH (08:58)
[2017-03-27] MEDS: Potassium Chloride 20 MEQ Tab.ER PO SCH (08:58)
[2017-03-27] MEDS: Losartan 50 MG Tab PO SCH (08:59)
[2017-03-27] MEDS: Iron Polysaccharides Complex 150 MG Cap PO SCH (08:59)
[2017-03-27] MEDS: Metoprolol Tartrate 25 MG Tab PO SCH ×2 (09:00→21:12)
[2017-03-27] MEDS: Fluticasone/Salmeterol 500-50 MCG Inhalation Powder 14/Diskus INH SCH ×2 (09:24→21:17)
[2017-03-27] MEDS: Levofloxacin/Dextrose 5%-Water 750 MG in Premix Bag 1 BAG IV SCH (10:31)
--- NOTE | 2017-03-27 11:38 | PCM.PN ---
<Carlitos Bonilla - Last Filed: 03/27/17 11:29> - General Info Date of Service: 03/27/17 Admission Dx/Problem (Free Text): Admission Diagnosis/Problem Admission Diagnosis/Problem Pneumonia Subjective Update: Neema continues to do well. She tolerated the one unit red blood cell transfusion yesterday which was followed by a dose of Lasix. She states that she has been urinating a lot since receiving the Lasix. She also notes a dark stool this morning but attributes this to the home medication of iron that was restarted yesterday. She had no pain with her bowel movement. Patient denies any active bleeding noted elsewhere. Although the patient is significantly improved from admission, she continues to be quite anxious about her lung capacity and overall health. She is receiving constant reassurance from nursing and hospital staff. She is back to her baseline of 3 L nasal cannula with her O2 saturation being greater than 90%. Patient has been up ambulating with nursing staff and is doing well. She denies any acute concerns including headaches, dizziness, chest pain, palpitations, cough, wheezing, abdominal pain , nausea, vomiting, constipation, diarrhea. Functional Status: Reports: Tolerating Diet, Ambulating, Urinating - Review of Systems General: Reports: Weakness, Fatigue HEENT: Reports: No Symptoms Pulmonary: Reports: Shortness of Breath Cardiovascular: Reports: No Symptoms Gastrointestinal: Reports: Other (Dark stool) Genitourinary: Reports: No Symptoms Musculoskeletal: Reports: No Symptoms Skin: Reports: No Symptoms Neurological: Reports: No Symptoms Psychiatric: Reports: Anxiety - Patient Data Vitals - Most Recent: Last Vital Signs Temp 97.6 F 03/27/17 09:35 Pulse 107 H 03/27/17 09:35 Resp 20 03/27/17 09:35 BP 138/73 03/27/17 09:35 Pulse Ox 99 03/27/17 09:35 Weight - Most Recent: 87 kg I&O - Last 24 Hours: Intake & Output 03/26/17 03/27/17 03/27/17 22:59 06:59 14:59 Intake Total 1116 700 Output Total 600 5750 Balance 516 -9430 Lab Results Last 24 Hours: Laboratory Results - last 24 hr 03/26/17 03/26/17 03/27/17 Range/Units 12:13 20:37 05:55 WBC 8.39 (4.0-11.0) K/uL RBC 3.48 L (4.30-5.90) M/uL Hgb 10.3 L 10.2 L (12.0-16.0) g/dL Hct 33.7 L 32.6 L (36.0-46.0) % MCV 93.7 (80.0-98.0) fL MCH 29.3 (27.0-32.0) pg MCHC 31.3 (31.0-37.0) g/dL RDW Std Deviation 50.6 (28.0-62.0) fl RDW Coeff of Marck 15 (11.0-15.0) % Plt Count 191 (150-400) K/uL MPV 9.60 (7.40-12.00) fL Neut % (Auto) 68.5 (48.0-80.0) % Lymph % (Auto) 15.3 L (16.0-40.0) % Mclennan % (Auto) 15.5 H (0.0-15.0) % Eos % (Auto) 0.6 (0.0-7.0) % Baso % (Auto) 0.1 (0.0-1.5) % Neut # (Auto) 5.8 H (1.4-5.7) K/uL Lymph # (Auto) 1.3 (0.6-2.4) K/uL Mclennan # (Auto) 1.3 H (0.0-0.8) K/uL Eos # (Auto) 0.1 (0.0-0.7) K/uL Baso # (Auto) 0.0 (0.0-0.1) K/uL Nucleated RBC % 0.0 /100WBC Nucleated RBCs # 0 K/uL Sodium (136-146) mmol/L Potassium (3.5-5.1) mmol/L Chloride (98-110) mmol/L Carbon Dioxide (21-31) mmol/L BUN (6.0-23.0) mg/dL Creatinine (0.6-1.5) mg/dL Est Cr Clr Drug Dosing mL/min Estimated GFR (MDRD) ml/min Glucose (60-110) mg/dL Calcium (8.8-10.8) mg/dL Blood Type O POSITIVE Antibody Screen NEGATIVE Crossmatch See Detail 03/27/17 Range/Units 05:55 WBC (4.0-11.0) K/uL RBC (4.30-5.90) M/uL Hgb (12.0-16.0) g/dL Hct (36.0-46.0) % MCV (80.0-98.0) fL MCH (27.0-32.0) pg MCHC (31.0-37.0) g/dL RDW Std Deviation (28.0-62.0) fl RDW Coeff of Marck (11.0-15.0) % Plt Count (150-400) K/uL MPV (7.40-12.00) fL Neut % (Auto) (48.0-80.0) % Lymph % (Auto) (16.0-40.0) % Mclennan % (Auto) (0.0-15.0) % Eos % (Auto) (0.0-7.0) % Baso % (Auto) (0.0-1.5) % Neut # (Auto) (1.4-5.7) K/uL Lymph # (Auto) (0.6-2.4) K/uL Mclennan # (Auto) (0.0-0.8) K/uL Eos # (Auto) (0.0-0.7) K/uL Baso # (Auto) (0.0-0.1) K/uL Nucleated RBC % /100WBC Nucleated RBCs # K/uL Sodium 139 (136-146) mmol/L Potassium 3.2 L (3.5-5.1) mmol/L Chloride 86 L (98-110) mmol/L Carbon Dioxide 47 H (21-31) mmol/L BUN 8 (6.0-23.0) mg/dL Creatinine 0.8 (0.6-1.5) mg/dL Est Cr Clr Drug Dosing 55.43 mL/min Estimated GFR (MDRD) > 60.0 ml/min Glucose 90 (60-110) mg/dL Calcium 8.5 L (8.8-10.8) mg/dL Blood Type Antibody Screen Crossmatch Boaz Results Last 24 Hours: Microbiology 03/23/17 09:17 Aerobic Blood Culture - Preliminary Blood - Venous - Lab Draw NO GROWTH AFTER 4 DAYS Anaerobic Blood Culture - Preliminary NO GROWTH AFTER 4 DAYS 03/23/17 09:06 Aerobic Blood Culture - Preliminary Blood - Venous NO GROWTH AFTER 4 DAYS Anaerobic Blood Culture - Preliminary NO GROWTH AFTER 4 DAYS 03/23/17 15:24 Aerobic Blood Culture - Preliminary Blood - Venous - Lab Draw NO GROWTH AFTER 3 DAYS Anaerobic Blood Culture - Preliminary NO GROWTH AFTER 3 DAYS 03/23/17 15:17 Aerobic Blood Culture - Preliminary Blood - Venous NO GROWTH AFTER 3 DAYS Anaerobic Blood Culture - Preliminary NO GROWTH AFTER 3 DAYS 03/24/17 13:30 Gram Stain - Final Sputum - Expectorated Sputum Culture - Final Normal Respiratory Amanda Med Orders - Current: Current Medications Acetaminophen (Tylenol) 650 mg PO Q4H PRN PRN Reason: Pain Last Admin: 03/25/17 18:45 Dose: 650 mg Albuterol/Ipratropium (Duoneb 3.0-0.5 Mg/3 Ml) 3 ml NEB Q4HRRT [facility] Last Admin: 03/27/17 09:24 Dose: 3 ml Escitalopram Oxalate (Lexapro) 10 mg PO DAILY [facility] Last Admin: 03/27/17 08:58 Dose: 10 mg Famotidine (Pepcid) 20 mg IVPUSH DAILY [facility] Last Admin: 03/27/17 08:53 Dose: 20 mg Levofloxacin/Dextrose 750 mg/ (Premix) 150 mls @ 100 mls/hr IV Q24H [facility] Last Admin: 03/27/17 10:31 Dose: 100 mls/hr Piperacillin Sod/Tazobactam (Sod 4.5 gm/ Sodium Chloride) 100 mls @ 100 mls/hr IV Q6H [facility] Last Admin: 03/27/17 06:40 Dose: 100 mls/hr Vancomycin HCl 1 gm/ Sodium (Chloride) 250 mls @ 166.667 mls/hr IV Q12H [facility] Last Admin: 03/27/17 08:53 Dose: 166.667 mls/hr Lorazepam (Ativan) 0.25 mg PO Q8H PRN PRN Reason: Anxiety Losartan Potassium (Cozaar) 25 mg PO DAILY [facility] Last Admin: 03/27/17 08:59 Dose: 25 mg Metoprolol Tartrate (Lopressor) 25 mg PO Q12HR [facility] Last Admin: 03/27/17 09:00 Dose: 25 mg Ondansetron HCl (Zofran) 4 mg IVPUSH Q4H PRN PRN Reason: Nausea Last Admin: 03/24/17 22:04 Dose: 4 mg Polysaccharide Iron Complex (Ferrex 150) 150 mg PO DAILY [facility] Last Admin: 03/27/17 08:59 Dose: 150 mg Potassium Chloride (Klor-Con M20) 40 meq PO DAILY [facility] Last Admin: 03/27/17 08:58 Dose: 40 meq Prednisone (Prednisone) 40 mg PO WITHBREAKFAST [facility] Stop: 03/28/17 23:59 Last Admin: 03/27/17 08:58 Dose: 40 mg Fluticasone/Salmeterol (Advair Diskus 500-50) 1 puff INH BID [facility] Last Admin: 03/27/17 09:24 Dose: 1 puff Sodium Chloride ([place] Nasal [employer]) 0 ml SIGIFREDO Q2H PRN PRN Reason: Congestion Last Admin: 03/25/17 19:10 Dose: 1 spray Vancomycin HCl (Pharmacy To Dose - Vancomycin) 1 dose .XX ASDIRECTED [facility] Discontinued Medications Albuterol/Ipratropium (Duoneb 3.0-0.5 Mg/3 Ml) 3 ml NEB Q6HRRT [facility] Enoxaparin Sodium (Lovenox) 40 mg SUBCUT Q24H [facility] Last Admin: 03/25/17 11:02 Dose: 40 mg Furosemide (Lasix) 40 mg IVPUSH ONETIME ONE Stop: 03/26/17 20:23 Last Admin: 03/26/17 20:36 Dose: 40 mg Furosemide (Lasix) Confirm Administered Dose 40 mg .ROUTE .STK-MED ONE Stop: 03/26/17 20:31 Last Admin: 03/26/17 20:37 Dose: Not Given Sodium Chloride (Normal Saline) 1,000 mls @ 999 mls/hr IV .Bolus ONE Stop: 03/23/17 09:24 Last Admin: 03/23/17 08:25 Dose: 999 mls/hr Cefepime HCl 1 gm/ Premix 50 mls @ 100 mls/hr IV ONETIME ONE Stop: 03/23/17 09:24 Last Admin: 03/23/17 09:07 Dose: 100 mls/hr Vancomycin HCl 1 gm/ Sodium (Chloride) 250 mls @ 250 mls/hr IV ONETIME ONE Stop: 03/23/17 09:54 Last Admin: 03/23/17 09:07 Dose: 250 mls/hr Sodium Chloride (Normal Saline) 1,000 mls @ 75 mls/hr IV ASDIRECTED [facility] Last Admin: 03/24/17 19:24 Dose: 75 mls/hr Piperacillin Sod/Tazobactam (Sod 4.5 gm/ Sodium Chloride) 100 mls @ 100 mls/hr IV Q6H [facility] Last Admin: 03/23/17 11:26 Dose: Not Given Levofloxacin/Dextrose (Levaquin In D5w 750 Mg/150 Ml) Confirm Administered Dose 150 mls @ as directed IV .STK-MED ONE Stop: 03/25/17 10:11 Last Admin: 03/25/17 10:18 Dose: Not Given Pantoprazole Sodium 40 mg/ (Sodium Chloride) 10 mls @ 300 mls/hr IVPUSH DAILY [facility] Last Admin: 03/25/17 13:29 Dose: 300 mls/hr Lidocaine (Xylocaine-Mpf 2%) Confirm Administered Dose 5 ml .ROUTE .STK-MED ONE Stop: 03/23/17 17:47 Last Admin: 03/23/17 19:23 Dose: Not Given Lorazepam (Ativan) 1 mg IVPUSH ONETIME ONE Stop: 03/23/17 07:44 Last Admin: 03/23/17 07:49 Dose: 1 mg Lorazepam (Ativan) 0.5 mg IVPUSH Q8H PRN PRN Reason: Anxiety Last Admin: 03/24/17 22:27 Dose: 0.5 mg Losartan Potassium (Cozaar) 25 mg PO DAILY [facility] Last Admin: 03/26/17 09:20 Dose: 25 mg Losartan Potassium (Cozaar) 25 mg PO DAILY [facility] Methylprednisolone Sodium Succinate (Solu-Medrol) 125 mg IVPUSH Q6H [facility] Last Admin: 03/24/17 16:38 Dose: 125 mg Metoprolol Tartrate (Lopressor) 5 mg IVPUSH ONETIME ONE Stop: 03/24/17 17:13 Last Admin: 03/24/17 17:21 Dose: 5 mg Wound Care/Dressing Products (Duoderm Cgf) Confirm Administered Dose 1 each .ROUTE .STK-MED ONE Stop: 03/24/17 20:52 Last Admin: 03/24/17 22:10 Dose: 1 each - Exam Quality Assessment: Supplemental Oxygen (scds), DVT Prophylaxis General: Alert, Oriented, Cooperative, Other (Patient is anxious) Neck: Supple, Trachea Midline Lungs: Clear to Auscultation, Normal Respiratory Effort Cardiovascular: Regular Rate, Regular Rhythm GI/Abdominal Exam: Normal Bowel Sounds, Soft, Non-Tender, No Organomegaly, No Distention, No Abnormal Bruit, No Mass, Pelvis Stable Extremities: Normal Inspection, Normal Range of Motion, Non-Tender, Normal Capillary Refill, Pedal Edema (+1 pitting edema in the lower extremities bilaterally.) Peripheral Pulses: 2+: Radial (L), Radial (R), Posterior Tibial (L), Posterior Tibial (R) Skin: Warm, Dry, Intact Wound/Incisions: Healing Well Neurological: No New Focal Deficit Psy/Mental Status: Alert, Anxious - Problem List & Annotations (1) Hyponatremia SNOMED Code(s): 84469699 Code(s): E87.1 - HYPO-OSMOLALITY AND HYPONATREMIA Status: Acute Current Visit: Yes (2) COPD exacerbation SNOMED Code(s): 528281465, 149871247 Code(s): J44.1 - CHRONIC OBSTRUCTIVE PULMONARY DISEASE W (ACUTE) EXACERBATION Status: Acute Current Visit: Yes (3) Hypercarbia SNOMED Code(s): 51349549 Code(s): R06.89 - OTHER ABNORMALITIES OF BREATHING Status: Acute Current Visit: Yes (4) Respiratory acidosis SNOMED Code(s): 43998825 Code(s): E87.2 - ACIDOSIS Status: Acute Current Visit: Yes (5) Hypoxia SNOMED Code(s): 287359770, 232943884 Code(s): R09.02 - HYPOXEMIA Status: Acute Priority: High Current Visit : No - Problem List Review Problem List Initiated/Reviewed/Updated: Yes - My Orders Last 24 Hours: My Active Orders 03/27/17 09:00 Potassium Chloride [Klor-Con M20] 40 meq PO DAILY 03/27/17 11:20 LORazepam [Ativan] 0.25 mg PO Q8H PRN 03/28/17 05:11 BASIC METABOLIC PANEL,BMP [CHEM] AM CBC WITH AUTO DIFF [HEME] AM 03/29/17 05:11 BASIC METABOLIC PANEL,BMP [CHEM] AM CBC WITH AUTO DIFF [HEME] AM - Plan Plan:: Impressions :76-year-old female admitted with a acute hypoxemic hypercapnic respiratory failure in the setting acute COPD exacerbation as well as left lower lobe pneumonia with resultant respiratory acidosis initially requiring noninvasive mechanical support now doing well on nasal cannula, prednisone, broad-spectrum antibiotics. #1. acute on chronic hypoxemic hypercapnic respiratory failure in the setting of acute COPD exacerbation which is now improving patient no longer requiring BiPAP: -Continue broad-spectrum antibiotics. Sputum culture showed normal respiratory amanda and blood cultures are negative x3 days. Consider transitioning over to by mouth Levaquin tomorrow. -Continue scheduled duo nebs treatment for shortness of breath -Continue by mouth prednisone 2. Left lower lobe pneumonia: -Continue broad-spectrum antibiotics. Consider switching patient over to by mouth Levaquin tomorrow. 3. Hyponatremia -Sodium is within normal limits. IV fluids have been discontinued as the patient is tolerating oral intake. 4. anemia most likely secondary to chronic disease - Hemoglobin is 10.2 after receiving one unit of packed red blood cells yesterday. Previous hemoglobin was 8.1. Patient tolerated transfusion well. 5. anxiety -Patient typically takes Ativan at home but there is concern that this will depress her respiratory status. I will give her one dose of 0.25 mg Ativan to see how she responds and we can consider discharging her home on this dose. 7. Hypertension -Continue losartan 25 mg daily. Blood pressure is better controlled and within normal limits. #8 Hypokalemia: -Patient started on 40 mEq of potassium chloride by mouth daily. Potassium today was 3.2. We will recheck this in the morning. Daughter of the patient is inquiring about having the patient start on BiPAP after being discharged. We will have social work look into this on Wednesday. <Alvaro Ramsey - Last Filed: 03/27/17 13:09> - Patient Data Vitals - Most Recent: Last Vital Signs Temp 36.4 C 03/27/17 09:35 Pulse 107 H 03/27/17 09:35 Resp 20 03/27/17 09:35 BP 138/73 03/27/17 09:35 Pulse Ox 99 03/27/17 09:35 I&O - Last 24 Hours: Intake & Output 03/26/17 03/27/17 03/27/17 22:59 06:59 14:59 Intake Total 1116 700 Output Total 600 5750 Balance 516 -0530 Lab Results Last 24 Hours: Laboratory Results - last 24 hr 03/26/17 03/26/17 03/27/17 Range/Units 12:13 20:37 05:55 WBC 8.39 (4.0-11.0) K/uL RBC 3.48 L (4.30-5.90) M/uL Hgb 10.3 L 10.2 L (12.0-16.0) g/dL Hct 33.7 L 32.6 L (36.0-46.0) % MCV 93.7 (80.0-98.0) fL MCH 29.3 (27.0-32.0) pg MCHC 31.3 (31.0-37.0) g/dL RDW Std Deviation 50.6 (28.0-62.0) fl RDW Coeff of Marck 15 (11.0-15.0) % Plt Count 191 (150-400) K/uL MPV 9.60 (7.40-12.00) fL Neut % (Auto) 68.5 (48.0-80.0) % Lymph % (Auto) 15.3 L (16.0-40.0) % Mclennan % (Auto) 15.5 H (0.0-15.0) % Eos % (Auto) 0.6 (0.0-7.0) % Baso % (Auto) 0.1 (0.0-1.5) % Neut # (Auto) 5.8 H (1.4-5.7) K/uL Lymph # (Auto) 1.3 (0.6-2.4) K/uL Mclennan # (Auto) 1.3 H (0.0-0.8) K/uL Eos # (Auto) 0.1 (0.0-0.7) K/uL Baso # (Auto) 0.0 (0.0-0.1) K/uL Nucleated RBC % 0.0 /100WBC Nucleated RBCs # 0 K/uL Sodium (136-146) mmol/L Potassium (3.5-5.1) mmol/L Chloride (98-110) mmol/L Carbon Dioxide (21-31) mmol/L BUN (6.0-23.0) mg/dL Creatinine (0.6-1.5) mg/dL Est Cr Clr Drug Dosing mL/min Estimated GFR (MDRD) ml/min Glucose (60-110) mg/dL Calcium (8.8-10.8) mg/dL Blood Type O POSITIVE Antibody Screen NEGATIVE Crossmatch See Detail 03/27/17 Range/Units 05:55 WBC (4.0-11.0) K/uL RBC (4.30-5.90) M/uL Hgb (12.0-16.0) g/dL Hct (36.0-46.0) % MCV (80.0-98.0) fL MCH (27.0-32.0) pg MCHC (31.0-37.0) g/dL RDW Std Deviation (28.0-62.0) fl RDW Coeff of Marck (11.0-15.0) % Plt Count (150-400) K/uL MPV (7.40-12.00) fL Neut % (Auto) (48.0-80.0) % Lymph % (Auto) (16.0-40.0) % Mclennan % (Auto) (0.0-15.0) % Eos % (Auto) (0.0-7.0) % Baso % (Auto) (0.0-1.5) % Neut # (Auto) (1.4-5.7) K/uL Lymph # (Auto) (0.6-2.4) K/uL Mclennan # (Auto) (0.0-0.8) K/uL Eos # (Auto) (0.0-0.7) K/uL Baso # (Auto) (0.0-0.1) K/uL Nucleated RBC % /100WBC Nucleated RBCs # K/uL Sodium 139 (136-146) mmol/L Potassium 3.2 L (3.5-5.1) mmol/L Chloride 86 L (98-110) mmol/L Carbon Dioxide 47 H (21-31) mmol/L BUN 8 (6.0-23.0) mg/dL Creatinine 0.8 (0.6-1.5) mg/dL Est Cr Clr Drug Dosing 55.43 mL/min Estimated GFR (MDRD) > 60.0 ml/min Glucose 90 (60-110) mg/dL Calcium 8.5 L (8.8-10.8) mg/dL Blood Type Antibody Screen Crossmatch Boaz Results Last 24 Hours: Microbiology 03/23/17 09:17 Aerobic Blood Culture - Preliminary Blood - Venous - Lab Draw NO GROWTH AFTER 4 DAYS Anaerobic Blood Culture - Preliminary NO GROWTH AFTER 4 DAYS 03/23/17 09:06 Aerobic Blood Culture - Preliminary Blood - Venous NO GROWTH AFTER 4 DAYS Anaerobic Blood Culture - Preliminary NO GROWTH AFTER 4 DAYS 03/23/17 15:24 Aerobic Blood Culture - Preliminary Blood - Venous - Lab Draw NO GROWTH AFTER 3 DAYS Anaerobic Blood Culture - Preliminary NO GROWTH AFTER 3 DAYS 03/23/17 15:17 Aerobic Blood Culture - Preliminary Blood - Venous NO GROWTH AFTER 3 DAYS Anaerobic Blood Culture - Preliminary NO GROWTH AFTER 3 DAYS 03/24/17 13:30 Gram Stain - Final Sputum - Expectorated Sputum Culture - Final Normal Respiratory Amanda Med Orders - Current: Current Medications Acetaminophen (Tylenol) 650 mg PO Q4H PRN PRN Reason: Pain Last Admin: 03/25/17 18:45 Dose: 650 mg Albuterol/Ipratropium (Duoneb 3.0-0.5 Mg/3 Ml) 3 ml NEB Q4HRRT [facility] Last Admin: 03/27/17 09:24 Dose: 3 ml Escitalopram Oxalate (Lexapro) 10 mg PO DAILY [facility] Last Admin: 03/27/17 08:58 Dose: 10 mg Famotidine (Pepcid) 20 mg IVPUSH DAILY [facility] Last Admin: 03/27/17 08:53 Dose: 20 mg Levofloxacin/Dextrose 750 mg/ (Premix) 150 mls @ 100 mls/hr IV Q24H [facility] Last Admin: 03/27/17 10:31 Dose: 100 mls/hr Piperacillin Sod/Tazobactam (Sod 4.5 gm/ Sodium Chloride) 100 mls @ 100 mls/hr IV Q6H [facility] Last Admin: 03/27/17 12:20 Dose: 100 mls/hr Vancomycin HCl 1 gm/ Sodium (Chloride) 250 mls @ 166.667 mls/hr IV Q12H [facility] Last Admin: 03/27/17 08:53 Dose: 166.667 mls/hr Lorazepam (Ativan) 0.25 mg PO Q8H PRN PRN Reason: Anxiety Last Admin: 03/27/17 12:20 Dose: 0.25 mg Losartan Potassium (Cozaar) 25 mg PO DAILY [facility] Last Admin: 03/27/17 08:59 Dose: 25 mg Metoprolol Tartrate (Lopressor) 25 mg PO Q12HR [facility] Last Admin: 03/27/17 09:00 Dose: 25 mg Ondansetron HCl (Zofran) 4 mg IVPUSH Q4H PRN PRN Reason: Nausea Last Admin: 03/24/17 22:04 Dose: 4 mg Polysaccharide Iron Complex (Ferrex 150) 150 mg PO DAILY [facility] Last Admin: 03/27/17 08:59 Dose: 150 mg Potassium Chloride (Klor-Con M20) 40 meq PO DAILY [facility] Last Admin: 03/27/17 08:58 Dose: 40 meq Prednisone (Prednisone) 40 mg PO WITHBREAKFAST [facility] Stop: 03/28/17 23:59 Last Admin: 03/27/17 08:58 Dose: 40 mg Fluticasone/Salmeterol (Advair Diskus 500-50) 1 puff INH BID [facility] Last Admin: 03/27/17 09:24 Dose: 1 puff Sodium Chloride ([place] Nasal [employer]) 0 ml SIGIFREDO Q2H PRN PRN Reason: Congestion Last Admin: 03/25/17 19:10 Dose: 1 spray Vancomycin HCl (Pharmacy To Dose - Vancomycin) 1 dose .XX ASDIRECTED [facility] Discontinued Medications Albuterol/Ipratropium (Duoneb 3.0-0.5 Mg/3 Ml) 3 ml NEB Q6HRRT [facility] Enoxaparin Sodium (Lovenox) 40 mg SUBCUT Q24H [facility] Last Admin: 03/25/17 11:02 Dose: 40 mg Furosemide (Lasix) 40 mg IVPUSH ONETIME ONE Stop: 03/26/17 20:23 Last Admin: 03/26/17 20:36 Dose: 40 mg Furosemide (Lasix) Confirm Administered Dose 40 mg .ROUTE .STK-MED ONE Stop: 03/26/17 20:31 Last Admin: 03/26/17 20:37 Dose: Not Given Sodium Chloride (Normal Saline) 1,000 mls @ 999 mls/hr IV .Bolus ONE Stop: 03/23/17 09:24 Last Admin: 03/23/17 08:25 Dose: 999 mls/hr Cefepime HCl 1 gm/ Premix 50 mls @ 100 mls/hr IV ONETIME ONE Stop: 03/23/17 09:24 Last Admin: 03/23/17 09:07 Dose: 100 mls/hr Vancomycin HCl 1 gm/ Sodium (Chloride) 250 mls @ 250 mls/hr IV ONETIME ONE Stop: 03/23/17 09:54 Last Admin: 03/23/17 09:07 Dose: 250 mls/hr Sodium Chloride (Normal Saline) 1,000 mls @ 75 mls/hr IV ASDIRECTED [facility] Last Admin: 03/24/17 19:24 Dose: 75 mls/hr Piperacillin Sod/Tazobactam (Sod 4.5 gm/ Sodium Chloride) 100 mls @ 100 mls/hr IV Q6H [facility] Last Admin: 03/23/17 11:26 Dose: Not Given Levofloxacin/Dextrose (Levaquin In D5w 750 Mg/150 Ml) Confirm Administered Dose 150 mls @ as directed IV .STK-MED ONE Stop: 03/25/17 10:11 Last Admin: 03/25/17 10:18 Dose: Not Given Pantoprazole Sodium 40 mg/ (Sodium Chloride) 10 mls @ 300 mls/hr IVPUSH DAILY [facility] Last Admin: 03/25/17 13:29 Dose: 300 mls/hr Lidocaine (Xylocaine-Mpf 2%) Confirm Administered Dose 5 ml .ROUTE .STK-MED ONE Stop: 03/23/17 17:47 Last Admin: 03/23/17 19:23 Dose: Not Given Lorazepam (Ativan) 1 mg IVPUSH ONETIME ONE Stop: 03/23/17 07:44 Last Admin: 03/23/17 07:49 Dose: 1 mg Lorazepam (Ativan) 0.5 mg IVPUSH Q8H PRN PRN Reason: Anxiety Last Admin: 03/24/17 22:27 Dose: 0.5 mg Losartan Potassium (Cozaar) 25 mg PO DAILY [facility] Last Admin: 03/26/17 09:20 Dose: 25 mg Losartan Potassium (Cozaar) 25 mg PO DAILY [facility] Methylprednisolone Sodium Succinate (Solu-Medrol) 125 mg IVPUSH Q6H [facility] Last Admin: 03/24/17 16:38 Dose: 125 mg Metoprolol Tartrate (Lopressor) 5 mg IVPUSH ONETIME ONE Stop: 03/24/17 17:13 Last Admin: 03/24/17 17:21 Dose: 5 mg Wound Care/Dressing Products (Duoderm Cgf) Confirm Administered Dose 1 each .ROUTE .STK-MED ONE Stop: 03/24/17 20:52 Last Admin: 03/24/17 22:10 Dose: 1 each
[2017-03-27] MEDS: LORazepam 0.5 MG Tab PO PRN ×2 (12:20→21:13)
[2017-03-28] MEDS: Piperacillin/Tazobactam 4.5 GM in Sodium Chloride 0.9% 100 ML IV SCH ×5 (00:18→23:40)
[2017-03-28] MEDS: Albuterol/Ipratropium 3.0-0.5 MG/3 ML Neb Soln NEB SCH ×6 (01:27→21:24)
[2017-03-28 06:28] LABS: CHLORIDE,CL 87 mmol/L (98-110); SODIUM,NA 139 mmol/L (136-146)
[2017-03-28] MEDS: Metoprolol Tartrate 25 MG Tab PO SCH ×2 (08:22→21:43)
[2017-03-28] MEDS: Losartan 50 MG Tab PO SCH (08:23)
[2017-03-28] MEDS: Escitalopram 10 MG Tab PO SCH (08:23)
[2017-03-28] MEDS: predniSONE 20 MG Tab PO SCH (08:23)
[2017-03-28] MEDS: Potassium Chloride 20 MEQ Tab.ER PO SCH (08:23)
[2017-03-28] MEDS: Famotidine 20 MG/2 ML SDV IVPUSH SCH (08:24)
[2017-03-28] MEDS: Iron Polysaccharides Complex 150 MG Cap PO SCH (08:24)
[2017-03-28] MEDS: Fluticasone/Salmeterol 500-50 MCG Inhalation Powder 14/Diskus INH SCH ×2 (09:27→21:24)
[2017-03-28] MEDS: Levofloxacin/Dextrose 5%-Water 750 MG in Premix Bag 1 BAG IV SCH (10:22)
[2017-03-28] MEDS: Acetaminophen 325 MG Tab PO PRN (12:30)
--- NOTE | 2017-03-28 17:07 | PCM.PN ---
<Doug Glaser Z - Last Filed: 03/28/17 17:02> - General Info Date of Service: 03/28/17 Admission Dx/Problem (Free Text): Neema had a fairly good night overnight she looks significantly better than when I saw her on Wednesday. She is only on 3 L in terms of her nasal cannula, not requiring any non-invasive mechanical ventilatory support. No nausea no vomiting she is tolerating oral feeds well. Afebrile no diarrhea or constipation , difficulty better terms of shortness of breath. - Review of Systems General: Reports: Fatigue Pulmonary: Reports: Shortness of Breath (minimal shortness of breath) Skin: Reports: Cyanosis - Patient Data Vitals - Most Recent: Last Vital Signs Temp 36.8 C 03/28/17 16:00 Pulse 105 H 03/28/17 16:00 Resp 24 H 03/28/17 16:00 BP 163/68 H 03/28/17 16:00 Pulse Ox 97 03/28/17 16:00 Weight - Most Recent: 86.8 kg I&O - Last 24 Hours: Intake & Output 03/28/17 03/28/17 03/28/17 06:59 14:59 22:59 Intake Total 695 350 Output Total 530 Balance 165 350 Lab Results Last 24 Hours: Laboratory Results - last 24 hr 03/28/17 03/28/17 Range/Units 05:48 05:48 WBC 8.13 (4.0-11.0) K/uL RBC 3.42 L (4.30-5.90) M/uL Hgb 9.8 L (12.0-16.0) g/dL Hct 32.4 L (36.0-46.0) % MCV 94.7 (80.0-98.0) fL MCH 28.7 (27.0-32.0) pg MCHC 30.2 L (31.0-37.0) g/dL RDW Std Deviation 50.0 (28.0-62.0) fl RDW Coeff of Marck 15 (11.0-15.0) % Plt Count 176 (150-400) K/uL MPV 9.00 (7.40-12.00) fL Neut % (Auto) 70.9 (48.0-80.0) % Lymph % (Auto) 15.5 L (16.0-40.0) % [place] % (Auto) 12.1 (0.0-15.0) % Eos % (Auto) 1.5 (0.0-7.0) % Baso % (Auto) 0.0 (0.0-1.5) % Neut # (Auto) 5.8 H (1.4-5.7) K/uL Lymph # (Auto) 1.3 (0.6-2.4) K/uL [place] # (Auto) 1.0 H (0.0-0.8) K/uL Eos # (Auto) 0.1 (0.0-0.7) K/uL Baso # (Auto) 0.0 (0.0-0.1) K/uL Nucleated RBC % 0.0 /100WBC Nucleated RBCs # 0 K/uL Sodium 139 (136-146) mmol/L Potassium 3.5 (3.5-5.1) mmol/L Chloride 87 L (98-110) mmol/L Carbon Dioxide 46 H (21-31) mmol/L BUN 7 (6.0-23.0) mg/dL Creatinine 0.7 (0.6-1.5) mg/dL Est Cr Clr Drug Dosing 63.35 mL/min Estimated GFR (MDRD) > 60.0 ml/min Glucose 93 (60-110) mg/dL Calcium 8.4 L (8.8-10.8) mg/dL Boaz Results Last 24 Hours: Microbiology 03/23/17 15:24 Aerobic Blood Culture - Final Blood - Venous - Lab Draw NO GROWTH AFTER 5 DAYS Anaerobic Blood Culture - Final NO GROWTH AFTER 5 DAYS 03/23/17 15:17 Aerobic Blood Culture - Final Blood - Venous NO GROWTH AFTER 5 DAYS Anaerobic Blood Culture - Final NO GROWTH AFTER 5 DAYS 03/23/17 09:17 Aerobic Blood Culture - Final Blood - Venous - Lab Draw NO GROWTH AFTER 5 DAYS Anaerobic Blood Culture - Final NO GROWTH AFTER 5 DAYS 03/23/17 09:06 Aerobic Blood Culture - Final Blood - Venous NO GROWTH AFTER 5 DAYS Anaerobic Blood Culture - Final NO GROWTH AFTER 5 DAYS Med Orders - Current: Current Medications Acetaminophen (Tylenol) 650 mg PO Q4H PRN PRN Reason: Pain Last Admin: 03/28/17 12:30 Dose: 650 mg Albuterol/Ipratropium (Duoneb 3.0-0.5 Mg/3 Ml) 3 ml NEB Q4HRRT [facility] Last Admin: 03/28/17 13:31 Dose: 3 ml Escitalopram Oxalate (Lexapro) 10 mg PO DAILY [facility] Last Admin: 03/28/17 08:23 Dose: 10 mg Famotidine (Pepcid) 20 mg IVPUSH DAILY [facility] Last Admin: 03/28/17 08:24 Dose: 20 mg Levofloxacin/Dextrose 750 mg/ (Premix) 150 mls @ 100 mls/hr IV Q24H [facility] Last Admin: 03/28/17 10:22 Dose: 100 mls/hr Piperacillin Sod/Tazobactam (Sod 4.5 gm/ Sodium Chloride) 100 mls @ 100 mls/hr IV Q6H [facility] Last Admin: 03/28/17 11:59 Dose: 100 mls/hr Vancomycin HCl 1 gm/ Sodium (Chloride) 250 mls @ 166.667 mls/hr IV Q12H [facility] Last Admin: 03/28/17 08:27 Dose: 166.667 mls/hr Lorazepam (Ativan) 0.25 mg PO Q8H PRN PRN Reason: Anxiety Last Admin: 03/27/17 21:13 Dose: 0.25 mg Losartan Potassium (Cozaar) 25 mg PO DAILY [facility] Last Admin: 03/28/17 08:23 Dose: 25 mg Metoprolol Tartrate (Lopressor) 25 mg PO Q12HR [facility] Last Admin: 03/28/17 08:22 Dose: 25 mg Ondansetron HCl (Zofran) 4 mg IVPUSH Q4H PRN PRN Reason: Nausea Last Admin: 03/24/17 22:04 Dose: 4 mg Polysaccharide Iron Complex (Ferrex 150) 150 mg PO DAILY [facility] Last Admin: 03/28/17 08:24 Dose: 150 mg Potassium Chloride (Klor-Con M20) 40 meq PO DAILY [facility] Last Admin: 03/28/17 08:23 Dose: 40 meq Prednisone (Prednisone) 40 mg PO WITHBREAKFAST [facility] Stop: 03/28/17 23:59 Last Admin: 03/28/17 08:23 Dose: 40 mg Fluticasone/Salmeterol (Advair Diskus 500-50) 1 puff INH BID [facility] Last Admin: 03/28/17 09:27 Dose: 1 ampule Sodium Chloride ([place] Nasal [place]) 0 ml SIGIFREDO Q2H PRN PRN Reason: Congestion Last Admin: 03/25/17 19:10 Dose: 1 spray Vancomycin HCl (Pharmacy To Dose - Vancomycin) 1 dose .XX ASDIRECTED [facility] Discontinued Medications Albuterol/Ipratropium (Duoneb 3.0-0.5 Mg/3 Ml) 3 ml NEB Q6HRRT [facility] Enoxaparin Sodium (Lovenox) 40 mg SUBCUT Q24H [facility] Last Admin: 03/25/17 11:02 Dose: 40 mg Furosemide (Lasix) 40 mg IVPUSH ONETIME ONE Stop: 03/26/17 20:23 Last Admin: 03/26/17 20:36 Dose: 40 mg Furosemide (Lasix) Confirm Administered Dose 40 mg .ROUTE .STK-MED ONE Stop: 03/26/17 20:31 Last Admin: 03/26/17 20:37 Dose: Not Given Sodium Chloride (Normal Saline) 1,000 mls @ 999 mls/hr IV .Bolus ONE Stop: 03/23/17 09:24 Last Admin: 03/23/17 08:25 Dose: 999 mls/hr Cefepime HCl 1 gm/ Premix 50 mls @ 100 mls/hr IV ONETIME ONE Stop: 03/23/17 09:24 Last Admin: 03/23/17 09:07 Dose: 100 mls/hr Vancomycin HCl 1 gm/ Sodium (Chloride) 250 mls @ 250 mls/hr IV ONETIME ONE Stop: 03/23/17 09:54 Last Admin: 03/23/17 09:07 Dose: 250 mls/hr Sodium Chloride (Normal Saline) 1,000 mls @ 75 mls/hr IV ASDIRECTED [facility] Last Admin: 03/24/17 19:24 Dose: 75 mls/hr Piperacillin Sod/Tazobactam (Sod 4.5 gm/ Sodium Chloride) 100 mls @ 100 mls/hr IV Q6H [facility] Last Admin: 03/23/17 11:26 Dose: Not Given Levofloxacin/Dextrose (Levaquin In D5w 750 Mg/150 Ml) Confirm Administered Dose 150 mls @ as directed IV .STK-MED ONE Stop: 03/25/17 10:11 Last Admin: 03/25/17 10:18 Dose: Not Given Pantoprazole Sodium 40 mg/ (Sodium Chloride) 10 mls @ 300 mls/hr IVPUSH DAILY [facility] Last Admin: 03/25/17 13:29 Dose: 300 mls/hr Lidocaine (Xylocaine-Mpf 2%) Confirm Administered Dose 5 ml .ROUTE .STK-MED ONE Stop: 03/23/17 17:47 Last Admin: 03/23/17 19:23 Dose: Not Given Lorazepam (Ativan) 1 mg IVPUSH ONETIME ONE Stop: 03/23/17 07:44 Last Admin: 03/23/17 07:49 Dose: 1 mg Lorazepam (Ativan) 0.5 mg IVPUSH Q8H PRN PRN Reason: Anxiety Last Admin: 03/24/17 22:27 Dose: 0.5 mg Losartan Potassium (Cozaar) 25 mg PO DAILY [facility] Last Admin: 03/26/17 09:20 Dose: 25 mg Losartan Potassium (Cozaar) 25 mg PO DAILY [facility] Methylprednisolone Sodium Succinate (Solu-Medrol) 125 mg IVPUSH Q6H [facility] Last Admin: 03/24/17 16:38 Dose: 125 mg Metoprolol Tartrate (Lopressor) 5 mg IVPUSH ONETIME ONE Stop: 03/24/17 17:13 Last Admin: 03/24/17 17:21 Dose: 5 mg Wound Care/Dressing Products (Duoderm Cgf) Confirm Administered Dose 1 each .ROUTE .STK-MED ONE Stop: 03/24/17 20:52 Last Admin: 03/24/17 22:10 Dose: 1 each - Exam Quality Assessment: Supplemental Oxygen General: Alert, Oriented HEENT: Pupils Equal Neck: Supple Lungs: Clear to Auscultation, Decreased Breath Sounds Cardiovascular: Regular Rate GI/Abdominal Exam: Normal Bowel Sounds Extremities: Normal Inspection - Problem List Review Problem List Initiated/Reviewed/Updated: Yes - Plan Plan:: Impressions :76-year-old female admitted with a acute hypoxemic hypercapnic respiratory failure in the setting acute COPD exacerbation as well as left lower lobe pneumonia with resultant respiratory acidosis initially requiring noninvasive mechanical support now doing well on nasal cannula, prednisone, broad-spectrum antibiotics. #1. acute on chronic hypoxemic hypercapnic respiratory failure in the setting of acute COPD exacerbation which is now improving patient no longer requiring BiPAP: -Continue broad-spectrum antibiotics. Sputum culture showed normal respiratory amanda and blood cultures are negative x3 days. Consider transitioning over to by mouth Levaquin tomorrow. -Continue scheduled duo nebs treatment for shortness of breath -Continue by mouth prednisone 2. Left lower lobe pneumonia: -Continue broad-spectrum antibiotics. Consider switching patient over to by mouth Levaquin tomorrow. 3. Hyponatremia -Sodium is within normal limits. IV fluids have been discontinued as the patient is tolerating oral intake. 4. anemia most likely secondary to chronic disease - Hemoglobin is stable after receiving one unit of packed red blood cells yesterday. Previous hemoglobin was 8.1. Patient tolerated transfusion well. 5. anxiety -Patient typically takes Ativan at home but there is concern that this will depress her respiratory status. I will give her one dose of 0.25 mg Ativan to see how she responds and we can consider discharging her home on this dose. 7. Hypertension -Continue losartan 25 mg daily. Blood pressure is better controlled and within normal limits. #8 Hypokalemia: -Patient started on 40 mEq of potassium chloride by mouth daily. Potassium today was 3.2. We will recheck this in the morning. Daughter of the patient is inquiring about having the patient start on BiPAP after being discharged. We will have social work look into this on Wednesday, likely the patient is currently require a sleep study prior to being able to receive BiPAP. Which may take an extensive period of time. <Alvaro Ramsey - Last Filed: 03/28/17 17:24> - Patient Data Vitals - Most Recent: Last Vital Signs Temp 36.8 C 03/28/17 16:00 Pulse 105 H 03/28/17 16:00 Resp 24 H 03/28/17 16:00 BP 163/68 H 03/28/17 16:00 Pulse Ox 97 03/28/17 16:00 I&O - Last 24 Hours: Intake & Output 03/28/17 03/28/17 03/28/17 06:59 14:59 22:59 Intake Total 695 350 Output Total 530 Balance 165 350 Lab Results Last 24 Hours: Laboratory Results - last 24 hr 03/28/17 03/28/17 Range/Units 05:48 05:48 WBC 8.13 (4.0-11.0) K/uL RBC 3.42 L (4.30-5.90) M/uL Hgb 9.8 L (12.0-16.0) g/dL Hct 32.4 L (36.0-46.0) % MCV 94.7 (80.0-98.0) fL MCH 28.7 (27.0-32.0) pg MCHC 30.2 L (31.0-37.0) g/dL RDW Std Deviation 50.0 (28.0-62.0) fl RDW Coeff of Marck 15 (11.0-15.0) % Plt Count 176 (150-400) K/uL MPV 9.00 (7.40-12.00) fL Neut % (Auto) 70.9 (48.0-80.0) % Lymph % (Auto) 15.5 L (16.0-40.0) % [place] % (Auto) 12.1 (0.0-15.0) % Eos % (Auto) 1.5 (0.0-7.0) % Baso % (Auto) 0.0 (0.0-1.5) % Neut # (Auto) 5.8 H (1.4-5.7) K/uL Lymph # (Auto) 1.3 (0.6-2.4) K/uL [place] # (Auto) 1.0 H (0.0-0.8) K/uL Eos # (Auto) 0.1 (0.0-0.7) K/uL Baso # (Auto) 0.0 (0.0-0.1) K/uL Nucleated RBC % 0.0 /100WBC Nucleated RBCs # 0 K/uL Sodium 139 (136-146) mmol/L Potassium 3.5 (3.5-5.1) mmol/L Chloride 87 L (98-110) mmol/L Carbon Dioxide 46 H (21-31) mmol/L BUN 7 (6.0-23.0) mg/dL Creatinine 0.7 (0.6-1.5) mg/dL Est Cr Clr Drug Dosing 63.35 mL/min Estimated GFR (MDRD) > 60.0 ml/min Glucose 93 (60-110) mg/dL Calcium 8.4 L (8.8-10.8) mg/dL Boaz Results Last 24 Hours: Microbiology 03/23/17 15:24 Aerobic Blood Culture - Final Blood - Venous - Lab Draw NO GROWTH AFTER 5 DAYS Anaerobic Blood Culture - Final NO GROWTH AFTER 5 DAYS 03/23/17 15:17 Aerobic Blood Culture - Final Blood - Venous NO GROWTH AFTER 5 DAYS Anaerobic Blood Culture - Final NO GROWTH AFTER 5 DAYS 03/23/17 09:17 Aerobic Blood Culture - Final Blood - Venous - Lab Draw NO GROWTH AFTER 5 DAYS Anaerobic Blood Culture - Final NO GROWTH AFTER 5 DAYS 03/23/17 09:06 Aerobic Blood Culture - Final Blood - Venous NO GROWTH AFTER 5 DAYS Anaerobic Blood Culture - Final NO GROWTH AFTER 5 DAYS Med Orders - Current: Current Medications Acetaminophen (Tylenol) 650 mg PO Q4H PRN PRN Reason: Pain Last Admin: 03/28/17 12:30 Dose: 650 mg Albuterol/Ipratropium (Duoneb 3.0-0.5 Mg/3 Ml) 3 ml NEB Q4HRRT [facility] Last Admin: 03/28/17 13:31 Dose: 3 ml Escitalopram Oxalate (Lexapro) 10 mg PO DAILY [facility] Last Admin: 03/28/17 08:23 Dose: 10 mg Famotidine (Pepcid) 20 mg IVPUSH DAILY [facility] Last Admin: 03/28/17 08:24 Dose: 20 mg Levofloxacin/Dextrose 750 mg/ (Premix) 150 mls @ 100 mls/hr IV Q24H [facility] Last Admin: 03/28/17 10:22 Dose: 100 mls/hr Piperacillin Sod/Tazobactam (Sod 4.5 gm/ Sodium Chloride) 100 mls @ 100 mls/hr IV Q6H [facility] Last Admin: 03/28/17 11:59 Dose: 100 mls/hr Vancomycin HCl 1 gm/ Sodium (Chloride) 250 mls @ 166.667 mls/hr IV Q12H [facility] Last Admin: 03/28/17 08:27 Dose: 166.667 mls/hr Lorazepam (Ativan) 0.25 mg PO Q8H PRN PRN Reason: Anxiety Last Admin: 03/27/17 21:13 Dose: 0.25 mg Losartan Potassium (Cozaar) 25 mg PO DAILY [facility] Last Admin: 03/28/17 08:23 Dose: 25 mg Metoprolol Tartrate (Lopressor) 25 mg PO Q12HR [facility] Last Admin: 03/28/17 08:22 Dose: 25 mg Ondansetron HCl (Zofran) 4 mg IVPUSH Q4H PRN PRN Reason: Nausea Last Admin: 03/24/17 22:04 Dose: 4 mg Polysaccharide Iron Complex (Ferrex 150) 150 mg PO DAILY [facility] Last Admin: 03/28/17 08:24 Dose: 150 mg Potassium Chloride (Klor-Con M20) 40 meq PO DAILY [facility] Last Admin: 03/28/17 08:23 Dose: 40 meq Prednisone (Prednisone) 40 mg PO WITHBREAKFAST [facility] Stop: 03/28/17 23:59 Last Admin: 03/28/17 08:23 Dose: 40 mg Fluticasone/Salmeterol (Advair Diskus 500-50) 1 puff INH BID [facility] Last Admin: 03/28/17 09:27 Dose: 1 ampule Sodium Chloride ([place] Nasal [place]) 0 ml SIGIFREDO Q2H PRN PRN Reason: Congestion Last Admin: 03/25/17 19:10 Dose: 1 spray Vancomycin HCl (Pharmacy To Dose - Vancomycin) 1 dose .XX ASDIRECTED [facility] Discontinued Medications Albuterol/Ipratropium (Duoneb 3.0-0.5 Mg/3 Ml) 3 ml NEB Q6HRRT [facility] Enoxaparin Sodium (Lovenox) 40 mg SUBCUT Q24H [facility] Last Admin: 03/25/17 11:02 Dose: 40 mg Furosemide (Lasix) 40 mg IVPUSH ONETIME ONE Stop: 03/26/17 20:23 Last Admin: 03/26/17 20:36 Dose: 40 mg Furosemide (Lasix) Confirm Administered Dose 40 mg .ROUTE .STK-MED ONE Stop: 03/26/17 20:31 Last Admin: 03/26/17 20:37 Dose: Not Given Sodium Chloride (Normal Saline) 1,000 mls @ 999 mls/hr IV .Bolus ONE Stop: 03/23/17 09:24 Last Admin: 03/23/17 08:25 Dose: 999 mls/hr Cefepime HCl 1 gm/ Premix 50 mls @ 100 mls/hr IV ONETIME ONE Stop: 03/23/17 09:24 Last Admin: 03/23/17 09:07 Dose: 100 mls/hr Vancomycin HCl 1 gm/ Sodium (Chloride) 250 mls @ 250 mls/hr IV ONETIME ONE Stop: 03/23/17 09:54 Last Admin: 03/23/17 09:07 Dose: 250 mls/hr Sodium Chloride (Normal Saline) 1,000 mls @ 75 mls/hr IV ASDIRECTED [facility] Last Admin: 03/24/17 19:24 Dose: 75 mls/hr Piperacillin Sod/Tazobactam (Sod 4.5 gm/ Sodium Chloride) 100 mls @ 100 mls/hr IV Q6H [facility] Last Admin: 03/23/17 11:26 Dose: Not Given Levofloxacin/Dextrose (Levaquin In D5w 750 Mg/150 Ml) Confirm Administered Dose 150 mls @ as directed IV .STK-MED ONE Stop: 03/25/17 10:11 Last Admin: 03/25/17 10:18 Dose: Not Given Pantoprazole Sodium 40 mg/ (Sodium Chloride) 10 mls @ 300 mls/hr IVPUSH DAILY [facility] Last Admin: 03/25/17 13:29 Dose: 300 mls/hr Lidocaine (Xylocaine-Mpf 2%) Confirm Administered Dose 5 ml .ROUTE .STK-MED ONE Stop: 03/23/17 17:47 Last Admin: 03/23/17 19:23 Dose: Not Given Lorazepam (Ativan) 1 mg IVPUSH ONETIME ONE Stop: 03/23/17 07:44 Last Admin: 03/23/17 07:49 Dose: 1 mg Lorazepam (Ativan) 0.5 mg IVPUSH Q8H PRN PRN Reason: Anxiety Last Admin: 03/24/17 22:27 Dose: 0.5 mg Losartan Potassium (Cozaar) 25 mg PO DAILY [facility] Last Admin: 03/26/17 09:20 Dose: 25 mg Losartan Potassium (Cozaar) 25 mg PO DAILY [facility] Methylprednisolone Sodium Succinate (Solu-Medrol) 125 mg IVPUSH Q6H [facility] Last Admin: 03/24/17 16:38 Dose: 125 mg Metoprolol Tartrate (Lopressor) 5 mg IVPUSH ONETIME ONE Stop: 03/24/17 17:13 Last Admin: 03/24/17 17:21 Dose: 5 mg Wound Care/Dressing Products (Duoderm Cgf) Confirm Administered Dose 1 each .ROUTE .STK-MED ONE Stop: 03/24/17 20:52 Last Admin: 03/24/17 22:10 Dose: 1 each - Free Text/Narrative Note: Dr. Wilfredo Ramsey MD notes: I have examined this patient today. We have had a long discussion with her also. I have evaluated her data, I have discussed her in detail with Dr. Glaser. I agree with his assessment and his plan for her care.
[2017-03-28] MEDS: LORazepam 0.5 MG Tab PO PRN (21:38)
[2017-03-29] MEDS: Albuterol/Ipratropium 3.0-0.5 MG/3 ML Neb Soln NEB SCH ×4 (01:51→15:11)
[2017-03-29 05:26] LABS: CHLORIDE,CL 88 mmol/L (98-110); SODIUM,NA 137 mmol/L (136-146)
[2017-03-29] MEDS: Piperacillin/Tazobactam 4.5 GM in Sodium Chloride 0.9% 100 ML IV SCH ×2 (06:01→11:49)
[2017-03-29 08:17] VITALS: BP 165/79
[2017-03-29] MEDS: Iron Polysaccharides Complex 150 MG Cap PO SCH (08:17)
[2017-03-29] MEDS: Losartan 50 MG Tab PO SCH (08:17)
[2017-03-29] MEDS: Potassium Chloride 20 MEQ Tab.ER PO SCH (08:17)
[2017-03-29] MEDS: Metoprolol Tartrate 25 MG Tab PO SCH (08:18)
[2017-03-29] MEDS: Famotidine 20 MG/2 ML SDV IVPUSH SCH (08:18)
[2017-03-29] MEDS: Escitalopram 10 MG Tab PO SCH (08:18)
[2017-03-29] MEDS: Fluticasone/Salmeterol 500-50 MCG Inhalation Powder 14/Diskus INH SCH (09:40)
[2017-03-29] MEDS: Levofloxacin/Dextrose 5%-Water 750 MG in Premix Bag 1 BAG IV SCH (10:08)
--- NOTE | 2017-03-30 14:19 | ECHO ---
EXAM DATE: 03/23/17 PATIENT'S AGE: 76 The echocardiogram report can be seen in this patient's EMR (Electronic Medical Record) in the Reports section. The report has also been scanned into PACS. [facility]
--- NOTE | 2017-04-01 19:12 | PCM.DCSUM1 ---
Discharge Summary - Hospital Course Free Text/Narrative:: Discharge Summary Date of admission: 03/23/2017 Date of discharge: 03/29/2017 Admitting diagnosis: #1. Acute hypercapnic hypoxic respiratory failure secondary to acute COPD exacerbation requiring BiPAP #2. Left lower lobe pneumonia secondary to community-acquired pneumonia versus hospital-acquired pneumonia #3. Hyponatremia #4. Leukocytosis with WBC of 20.8 #5. Discharge diagnoses: #1. Acute hypercapnic hypoxic respiratory failure in the setting of acute COPD exacerbation now resolved patient on oxygen #2. Left lower lobe pneumonia secondary to community-acquired pneumonia now resolved sent home on Levaquin by mouth #3. Leukocytosis now resolved #4. Anemia requiring RBC and iron now improving #5. Anxiety Consultations: None Procedures: None Hospitalization course: Patient was readmitted on 03/23/2017 secondary to being discharged the day prior due to her low pneumonia. Patient came in with respiratory failure due to acute hypercapnic hypoxic respiratory failure secondary to her acute COPD exacerbation. Upon initially discussing with patient 's daughter there was a consideration of putting the patient on BiPAP up until the patient's other daughter from [place] came in at which point in time the decision would be made to put the patient on hospice. As such the patient was a DO NOT RESUSCITATE but intubation allowed. Patient was put on BiPAP broad- spectrum antibiotics were started IV prednisone along with dual nebs were started and patient was given fluid resuscitation. Over the course of the next couple of days the patient responded quite well recovering a lot of her respiratory dysfunction that she initially presented with requiring BiPAP less and less to the point in which the patient only required BiPAP at night and near the end of her hospitalization course the patient no longer required BiPAP. The patient was towards the end of her hospitalization on oxygen 3 L which is how much oxygen requirement she required at home. Patient was maintained on broad-spectrum antibiotics due to her sepsis picture that she had initially presented with with an elevated lactate acid level. However upon discharge the patient's broad-spectrum IV antibiotics including Levaquin and Zosyn and vancomycin were de-escalated to Levaquin for 7 days at home. The patient's IV prednisone was switched over to oral prednisone and the patient went discharge at home was sent home on a long-term prednisone taper which was 40 mg for 5 days then 30 mg for 5 days then 20 mg for 5 days then 10 mg for 10 days. Patient was to then follow-up with her primary care physician. Patient was also sent home on continuation of home home medications along with dual nebs. She did have an echocardiogram which showed an ejection fraction of about 60%. Patient was made aware that she is end stage COPD with pulmonary function less than 15% and that the likelihood of her being readmitted was to increase. Disposition on discharge: Home Condition on discharge: On oxygen stable afebrile normotensive with regular respiratory rate and heart rate. Discharge medications: Prednisone taper, continuation of home medication, Levaquin oral 7 days Follow-up instructions: Patient was told to follow-up with her primary care physician within the next couple of days. - Discharge Data Discharge Date: 03/29/17 Discharge Disposition: Home, Self-Care 01 Condition: Stable - Discharge Diagnosis/Problem(s) (1) COPD exacerbation SNOMED Code(s): 966221561, 849097074 ICD Code: J44.1 - CHRONIC OBSTRUCTIVE PULMONARY DISEASE W (ACUTE) EXACERBATION Status: Acute Priority: High (2) COPD exacerbation SNOMED Code(s): 264917601, [id number] ICD Code: J44.1 - CHRONIC OBSTRUCTIVE PULMONARY DISEASE W (ACUTE) EXACERBATION Status: Acute Priority: High (3) Hypoxia SNOMED Code(s): 616371036, 298957144 ICD Code: R09.02 - HYPOXEMIA Status: Acute Priority: High - Patient Summary/Data Consults: Consultations 03/25/17 10:08 PT Evaluation and Treatment [CONS] Routine - Patient Instructions Diet: Usual Diet as Tolerated Activity: As Tolerated, Rest and Relax Today Driving: Do Not Drive Showering/Bathing: May Shower Notify Provider of: Fever, Increased Pain, Swelling and Redness, Drainage, Nausea and/or Vomiting - Discharge Plan Prescriptions/Med Rec: Albuterol/Ipratropium [DuoNeb 3.0-0.5 MG/3 ML] 3 ml NEB Q4HRRT #1 box Levofloxacin [Levaquin] 500 mg PO Q24H #7 tablet Potassium Chloride [Klor-Con M20] 40 meq PO DAILY #30 tab.er predniSONE [Prednisone] 20 mg PO DAILY #30 tablet Home Medications: Home Meds Aspirin 81 mg PO DAILY 03/20/17 [History] Cetirizine [ZyrTEC] 0 mg PO DAILY 03/20/17 [History] Cholecalciferol (Vitamin D3) [Vitamin D] 2,000 unit PO DAILY 03/20/17 [History] [facility] Iron 03/20/17 [History] Fluticasone/Salmeterol [Advair Diskus 500-50] 1 puff INH BID 03/20/17 [History] LORazepam 0.5 mg PO DAILY PRN 03/20/17 [History] Lactobacillus Combo No.11 [Probiotic] 1 each PO DAILY 03/20/17 [History] Losartan Potassium 25 mg PO DAILY 03/20/17 [History] Pantoprazole Sodium [Protonix] 20 mg PO DAILY 03/20/17 [History] Pravastatin Sodium 20 mg PO DAILY 03/20/17 [History] Roflumilast [Daliresp] 500 mcg PO DAILY 03/20/17 [History] Tiotropium [place] [Spiriva Respimat] 2 mcg IH DAILY 03/20/17 [History] Ubidecarenone/Vitamin E Mixed [Agi64-Nzb E 200 mg-20 Unit Sfg] 1 tab PO DAILY [History] guaiFENesin [Mucinex] 0 mg PO Q12HR 03/20/17 [History] Escitalopram [Lexapro] 10 mg PO DAILY 03/21/17 [History] Albuterol/Ipratropium [DuoNeb 3.0-0.5 MG/3 ML] 3 ml NEB Q6HRRT neb 03/22/17 [Rx ] Ondansetron [Zofran] 4 mg PO Q4H PRN #14 tab 03/22/17 [Rx] Albuterol/Ipratropium [DuoNeb 3.0-0.5 MG/3 ML] 3 ml NEB Q4HRRT #1 box 03/29/17 [ Rx] Fluticasone/Salmeterol [Advair Diskus 500-50] 1 puff INH BID diskus 03/29/17 [ Rx] Iron Polysaccharides Complex [Ferrex 150] 150 mg PO DAILY cap 03/29/17 [Rx] Levofloxacin [Levaquin] 500 mg PO Q24H #7 tablet 03/29/17 [Rx] Potassium Chloride [Klor-Con M20] 40 meq PO DAILY #30 tab.er 03/29/17 [Rx] predniSONE [Prednisone] 20 mg PO DAILY #30 tablet 03/29/17 [Rx] Patient Handouts: Levofloxacin tablets, Potassium phosphate; Sodium Phosphate oral tablet, Prednisone tablets, Community-Acquired Pneumonia, Adult, Easy-to- Read Referrals: Fernando Garcia MD [Primary Care Provider] - 03/30/17 8:30 am - Patient Data Vitals - Most Recent: Last Vital Signs Temp 36.6 C 03/29/17 12:00 Pulse 99 03/29/17 12:00 Resp 20 03/29/17 12:00 BP 165/79 H 03/29/17 08:18 Pulse Ox 97 03/29/17 12:00 Weight - Most Recent: 87.5 kg Med Orders - Current: Current Medications Discontinued Medications Acetaminophen (Tylenol) 650 mg PO Q4H PRN PRN Reason: Pain Last Admin: 03/28/17 12:30 Dose: 650 mg Albuterol/Ipratropium (Duoneb 3.0-0.5 Mg/3 Ml) 3 ml NEB Q4HRRT [facility] Last Admin: 03/29/17 15:11 Dose: 3 ml Albuterol/Ipratropium (Duoneb 3.0-0.5 Mg/3 Ml) 3 ml NEB Q6HRRT [facility] Enoxaparin Sodium (Lovenox) 40 mg SUBCUT Q24H [facility] Last Admin: 03/25/17 11:02 Dose: 40 mg Escitalopram Oxalate (Lexapro) 10 mg PO DAILY [facility] Last Admin: 03/29/17 08:18 Dose: 10 mg Famotidine (Pepcid) 20 mg IVPUSH DAILY [facility] Last Admin: 03/29/17 08:18 Dose: 20 mg Furosemide (Lasix) 40 mg IVPUSH ONETIME ONE Stop: 03/26/17 20:23 Last Admin: 03/26/17 20:36 Dose: 40 mg Furosemide (Lasix) Confirm Administered Dose 40 mg .ROUTE .STK-MED ONE Stop: 03/26/17 20:31 Last Admin: 03/26/17 20:37 Dose: Not Given Sodium Chloride (Normal Saline) 1,000 mls @ 999 mls/hr IV .Bolus ONE Stop: 03/23/17 09:24 Last Admin: 03/23/17 08:25 Dose: 999 mls/hr Cefepime HCl 1 gm/ Premix 50 mls @ 100 mls/hr IV ONETIME ONE Stop: 03/23/17 09:24 Last Admin: 03/23/17 09:07 Dose: 100 mls/hr Vancomycin HCl 1 gm/ Sodium (Chloride) 250 mls @ 250 mls/hr IV ONETIME ONE Stop: 03/23/17 09:54 Last Admin: 03/23/17 09:07 Dose: 250 mls/hr Sodium Chloride (Normal Saline) 1,000 mls @ 75 mls/hr IV ASDIRECTED [facility] Last Admin: 03/24/17 19:24 Dose: 75 mls/hr Levofloxacin/Dextrose 750 mg/ (Premix) 150 mls @ 100 mls/hr IV Q24H [facility] Last Admin: 03/29/17 10:08 Dose: 100 mls/hr Piperacillin Sod/Tazobactam (Sod 4.5 gm/ Sodium Chloride) 100 mls @ 100 mls/hr IV Q6H [facility] Last Admin: 03/23/17 11:26 Dose: Not Given Piperacillin Sod/Tazobactam (Sod 4.5 gm/ Sodium Chloride) 100 mls @ 100 mls/hr IV Q6H [facility] Last Admin: 03/29/17 11:49 Dose: 100 mls/hr Vancomycin HCl 1 gm/ Sodium (Chloride) 250 mls @ 166.667 mls/hr IV Q12H [facility] Last Admin: 03/29/17 08:23 Dose: 166.667 mls/hr Levofloxacin/Dextrose (Levaquin In D5w 750 Mg/150 Ml) Confirm Administered Dose 150 mls @ as directed IV .STK-MED ONE Stop: 03/25/17 10:11 Last Admin: 03/25/17 10:18 Dose: Not Given Pantoprazole Sodium 40 mg/ (Sodium Chloride) 10 mls @ 300 mls/hr IVPUSH DAILY [facility] Last Admin: 03/25/17 13:29 Dose: 300 mls/hr Lidocaine (Xylocaine-Mpf 2%) Confirm Administered Dose 5 ml .ROUTE .STK-MED ONE Stop: 03/23/17 17:47 Last Admin: 03/23/17 19:23 Dose: Not Given Lorazepam (Ativan) 1 mg IVPUSH ONETIME ONE Stop: 03/23/17 07:44 Last Admin: 03/23/17 07:49 Dose: 1 mg Lorazepam (Ativan) 0.5 mg IVPUSH Q8H PRN PRN Reason: Anxiety Last Admin: 03/24/17 22:27 Dose: 0.5 mg Lorazepam (Ativan) 0.25 mg PO Q8H PRN PRN Reason: Anxiety Last Admin: 03/28/17 21:38 Dose: 0.25 mg Losartan Potassium (Cozaar) 25 mg PO DAILY [facility] Last Admin: 03/26/17 09:20 Dose: 25 mg Losartan Potassium (Cozaar) 25 mg PO DAILY [facility] Losartan Potassium (Cozaar) 25 mg PO DAILY [facility] Last Admin: 03/29/17 08:17 Dose: 25 mg Methylprednisolone Sodium Succinate (Solu-Medrol) 125 mg IVPUSH Q6H [facility] Last Admin: 03/24/17 16:38 Dose: 125 mg Metoprolol Tartrate (Lopressor) 25 mg PO Q12HR [facility] Last Admin: 03/29/17 08:18 Dose: 25 mg Metoprolol Tartrate (Lopressor) 5 mg IVPUSH ONETIME ONE Stop: 03/24/17 17:13 Last Admin: 03/24/17 17:21 Dose: 5 mg Ondansetron HCl (Zofran) 4 mg IVPUSH Q4H PRN PRN Reason: Nausea Last Admin: 03/24/17 22:04 Dose: 4 mg Polysaccharide Iron Complex (Ferrex 150) 150 mg PO DAILY [facility] Last Admin: 03/29/17 08:17 Dose: 150 mg Potassium Chloride (Klor-Con M20) 40 meq PO DAILY [facility] Last Admin: 03/29/17 08:17 Dose: 40 meq Prednisone (Prednisone) 40 mg PO WITHBREAKFAST [facility] Stop: 03/28/17 23:59 Last Admin: 03/28/17 08:23 Dose: 40 mg Fluticasone/Salmeterol (Advair Diskus 500-50) 1 puff INH BID [facility] Last Admin: 03/29/17 09:40 Dose: 1 ampule Sodium Chloride ([place] Nasal [place]) 0 ml SIGIFREDO Q2H PRN PRN Reason: Congestion Last Admin: 03/25/17 19:10 Dose: 1 spray Vancomycin HCl (Pharmacy To Dose - Vancomycin) 1 dose .XX ASDIRECTED [facility] Wound Care/Dressing Products ([facility]) Confirm Administered Dose 1 each .ROUTE .STK-MED ONE Stop: 03/24/17 20:52 Last Admin: 03/24/17 22:10 Dose: 1 each *Q Meaningful Use (DIS) - VTE *Q VTE Criteria *Q: - Stroke *Q Stroke Criteria *Q: - AMI *Q AMI Criteria *Q:
== END 2017-03-29 16:30 | disposition home or self-care (01) | DRG 190 ==
LOC: MW.ED 07:26 → MW.ICU 08:50 → MW.MS 03-26 10:29
PROVIDERS: ADMIT Internal Medicine; ATTEND Internal Medicine
DX: J44.0 Chronic obstructive pulmonary disease with (acute) lower respiratory infection (principal); J18.9 Pneumonia, unspecified organism; J96.21 Acute and chronic respiratory failure with hypoxia; E87.2 Acidosis; R09.02 Hypoxemia; E87.1 Hypo-osmolality and hyponatremia; J44.1 Chronic obstructive pulmonary disease with (acute) exacerbation; R41.82 Altered mental status, unspecified; D64.9 Anemia, unspecified; I10 Essential (primary) hypertension; F41.8 Other specified anxiety disorders; Z99.81 Dependence on supplemental oxygen; E87.6 Hypokalemia; D72.829 Elevated white blood cell count, unspecified; F41.9 Anxiety disorder, unspecified; E78.00 Pure hypercholesterolemia, unspecified; F17.200 Nicotine dependence, unspecified, uncomplicated; Z66 Do not resuscitate; Z51.5 Encounter for palliative care; Z88.8 Allergy status to other drugs, medicaments and biological substances; Z79.899 Other long term (current) drug therapy
CPT/HCPCS: 36415; 36600; 71010; 80053; 82803; 84484; 85025; 93005; 94660; 96361; 96375; 99285; J2060; J7040; 36430; 36620; 51703; 80048; 80202; 81001; 82272; 82728; 83550; 83605; 85014; 85018; 85045; 86850; 86900; 86901; 86920; 86921; 86922; 87040; 87070; 87205; 93306; 94640; 96365; 96374; 97161-GP; 99291; A9270-GY; C9113; J0692; J1650; J1940; J1956; J2405; J2543; J2930; J3370; J7030; J7050; P9016

== ENCOUNTER 2017-04-29 19:39 | Inpatient (IN) | payer MEDICARE ==
--- NOTE | 2017-04-29 19:49 | EDM.PDOC ---
ED HPI GENERAL MEDICAL PROBLEM - General Stated Complaint: SHORTNESS OF BREATH Time Seen by Provider: 04/29/17 19:47 - History of Present Illness INITIAL COMMENTS - FREE TEXT/NARRATIVE: HISTORY AND PHYSICAL: History of present illness: Patient is 76-year-old white female with history of COPD who was recently hospitalized for pneumonia presents with a concern of increasing shortness of breath she denies chest pain she has had nausea but no vomiting she denies diaphoresis palpitations or other concern. She is on home oxygen and states she' s had increase her O2 to 3 and half liters she has had a history of hypercarbia in the past Review of systems: As per history of present illness and below otherwise all systems reviewed and negative. Past medical history: As per history of present illness and as reviewed below otherwise noncontributory. Surgical history: As per history of present illness and as reviewed below otherwise noncontributory. Social history: No reported history of drug or alcohol abuse. Family history: As per history of present illness and as reviewed below otherwise noncontributory. Physical exam: HEENT: Atraumatic, normocephalic, pupils reactive, negative for conjunctival pallor or scleral icterus, mucous membranes moist, throat clear, neck supple, nontender, trachea midline. Lungs: Markedly diminished slightly coarse, breath sounds equal bilaterally, chest nontender. Heart: S1S2, regular, negative for clicks, rubs, or JVD. Abdomen: Soft, nondistended, nontender. Negative for masses or hepatosplenomegaly. Negative for costovertebral tenderness. Pelvis: Stable nontender. Genitourinary: Deferred. Rectal: Deferred. Extremities: Atraumatic, negative for cords or calf pain. Neurovascular unremarkable. Neuro: Awake, alert, oriented. Cranial nerves II through XII unremarkable. Cerebellum unremarkable. Motor and sensory unremarkable throughout. Exam nonfocal. Diagnostics: CBC CMP PT/INR troponin BNP blood culture 2 lactic acid ABG chest x-ray EKG Therapeutics: IV O2 monitor albuterol ipratropium nebulizer Impression: #1 acute dyspnea #2 history of COPD #3 history of pneumonia Definitive disposition and diagnosis as appropriate pending reevaluation and review of above. - Related Data Allergies Allergy/AdvReac Type Severity Reaction Status Date / Time codeine Allergy Rash Verified 04/29/17 19:51 morphine Allergy Rash Verified 04/29/17 19:51 Sulfa (Sulfonamide Allergy Rash Verified 04/29/17 19:51 Antibiotics) lisinopril Allergy Cough Uncoded 04/29/17 19:51 Home Meds: Home Meds Aspirin 81 mg PO DAILY 03/20/17 [History] Cetirizine [ZyrTEC] 0 mg PO ASDIRECTED PRN 03/20/17 [History] Cholecalciferol (Vitamin D3) [Vitamin D] 2,000 unit PO DAILY 03/20/17 [History] LORazepam 0.5 mg PO BID PRN 03/20/17 [History] Lactobacillus Combo No.11 [Probiotic] 1 each PO DAILY 03/20/17 [History] Losartan Potassium 25 mg PO DAILY 03/20/17 [History] Pantoprazole Sodium [Protonix] 40 mg PO DAILY 03/20/17 [History] Pravastatin Sodium 20 mg PO DAILY 03/20/17 [History] Roflumilast [Daliresp] 500 mcg PO DAILY 03/20/17 [History] Tiotropium [place] [Spiriva Respimat] 2 puff IH DAILY 03/20/17 [History] Ubidecarenone/Vitamin E Mixed [Miu94-Lgv E 200 mg-20 Unit Sfg] 1 tab PO DAILY [History] Escitalopram [Lexapro] 10 mg PO DAILY 03/21/17 [History] Albuterol/Ipratropium [DuoNeb 3.0-0.5 MG/3 ML] 3 ml NEB Q6HRRT neb 03/22/17 [Rx ] Ondansetron [Zofran] 4 mg PO Q4H PRN #14 tab 03/22/17 [Rx] Fluticasone/Salmeterol [Advair Diskus 500-50] 1 puff INH BID diskus 03/29/17 [ Rx] Iron Polysaccharides Complex [Ferrex 150] 150 mg PO DAILY cap 03/29/17 [Rx] predniSONE [Prednisone] 10 mg PO DAILY 04/29/17 [History] Past Medical History HEENT History: Reports: Impaired Vision Other HEENT History: wears glasses Cardiovascular History: Reports: High Cholesterol, Hypertension Respiratory History: Reports: Bronchitis, Recurrent, COPD, Pneumonia, Recurrent , Other (See Below) Other Respiratory History: empysema Gastrointestinal History: Reports: GERD, Hiatal Hernia Other Gastrointestinal History: Hiatal hernia since X "2-3 years ago" Genitourinary History: Reports: UTI, Recurrent FIRER LOW PRESSURE History: Reports: Musculoskeletal History: Reports: Arthritis Other Musculoskeletal History: Right knee arthritis Psychiatric History: Reports: Anxiety, Depression Hematologic History: Reports: Anemia Other Hematologic History: Blood transfusion X one year ago Dermatologic History: Reports: Eczema - Past Surgical History Other Cardiovascular Surgeries/Procedures: Femoral artery stent placed to left Respiratory Surgical History: Reports: None GI Surgical History: Reports: Hernia, Inguinal Musculoskeletal Surgical History: Reports: None Social & Family History - Family History Family Medical History: Noncontributory - Tobacco Use Smoking Status *Q: Current Every Day Smoker Years of Tobacco use: 40 Packs/Tins Daily: 1 Used Tobacco, but Quit: Yes Month Tobacco Last Used: 2005 Second Hand Smoke Exposure: No - Caffeine Use Caffeine Use: Reports: Coffee Caffeine Use Comment: 2 cups daily - Recreational Drug Use Recreational Drug Use: No ED ROS GENERAL - Review of Systems Review Of Systems: ROS reveals no pertinent complaints other than HPI. ED EXAM, GENERAL - Physical Exam Exam: See Below (See dictation) Course - Vital Signs Last Recorded V/S: Last Vital Signs Temp 36.3 C 04/29/17 19:51 Pulse 118 H 04/29/17 20:00 Resp 28 H 04/29/17 20:00 BP 157/72 H 04/29/17 20:00 Pulse Ox 97 04/29/17 20:00 - Orders/Labs/Meds Orders: Active Orders 24 hr Category Date Time Status EKG Documentation Completion [RC] STAT Care 04/29/17 19:52 Active RT Aerosol Therapy [RC] ASDIRECTED Care 04/29/17 19:54 Active Chest 1V Frontal [CR] Stat Exams 04/29/17 19:52 Taken B-TYPE NATRIURETIC PEPTIDE,BNP [CHEM] Stat Lab 04/29/17 20:57 Ordered CULTURE BLOOD [BC] Stat Lab 04/29/17 19:50 Received CULTURE BLOOD [BC] Stat Lab 04/29/17 20:06 Received Blood Culture x2 Reflex Set [OM.PC] Stat Oth 04/29/17 20:43 Ordered Labs: Laboratory Tests 04/29/17 04/29/17 04/29/17 Range/Units 19:50 19:50 19:50 WBC 10.05 (4.0-11.0) K/uL RBC 2.87 L (4.30-5.90) M/uL Hgb 8.4 L (12.0-16.0) g/dL Hct 27.6 L (36.0-46.0) % MCV 96.2 (80.0-98.0) fL MCH 29.3 (27.0-32.0) pg MCHC 30.4 L (31.0-37.0) g/dL RDW Std Deviation 50.9 (28.0-62.0) fl RDW Coeff of Marck 15 (11.0-15.0) % Plt Count 267 (150-400) K/uL MPV 9.80 (7.40-12.00) fL Neut % (Auto) 71.5 (48.0-80.0) % Lymph % (Auto) 16.3 (16.0-40.0) % [place] % (Auto) 11.5 (0.0-15.0) % Eos % (Auto) 0.5 (0.0-7.0) % Baso % (Auto) 0.2 (0.0-1.5) % Neut # (Auto) 7.2 H (1.4-5.7) K/uL Lymph # (Auto) 1.6 (0.6-2.4) K/uL [place] # (Auto) 1.2 H (0.0-0.8) K/uL Eos # (Auto) 0.1 (0.0-0.7) K/uL Baso # (Auto) 0.0 (0.0-0.1) K/uL Nucleated RBC % 0.0 /100WBC Nucleated RBCs # 0 K/uL ABG pH (7.35-7.45) ABG pCO2 (35-45) mmHG ABG pO2 (75-100) mmHG ABG HCO3 (22-26) mEq/L ABG Total CO2 ABG Base Excess (-2.0-2.0) Sodium 138 (136-146) mmol/L Potassium 4.3 (3.5-5.1) mmol/L Chloride 89 L (98-110) mmol/L Carbon Dioxide 40 H (21-31) mmol/L BUN 12 (6.0-23.0) mg/dL Creatinine 0.7 (0.6-1.5) mg/dL Est Cr Clr Drug Dosing 63.35 mL/min Estimated GFR (MDRD) > 60.0 ml/min Glucose 152 H (60-110) mg/dL Calcium 9.8 (8.8-10.8) mg/dL Total Bilirubin 0.6 (0.1-1.5) mg/dL AST 15 (5-40) IU/L ALT 13 (8-54) IU/L Alkaline Phosphatase 58 (40-150) Lactate Dehydrogenase 227 H (125-220) IU/L Creatine Kinase 15 (9-236) IU/L Troponin I < 0.10 (0.0-0.29) NG/ML Total Protein 6.6 (6.0-8.0) g/dL Albumin 3.3 L (3.4-4.8) g/dL Globulin 3.3 (2.0-3.5) g/dL Albumin/Globulin Ratio 1.0 L (1.3-2.8) 04/29/17 Range/Units 20:01 WBC (4.0-11.0) K/uL RBC (4.30-5.90) M/uL Hgb (12.0-16.0) g/dL Hct (36.0-46.0) % MCV (80.0-98.0) fL MCH (27.0-32.0) pg MCHC (31.0-37.0) g/dL RDW Std Deviation (28.0-62.0) fl RDW Coeff of [place]ck (11.0-15.0) % Plt Count (150-400) K/uL MPV (7.40-12.00) fL Neut % (Auto) (48.0-80.0) % Lymph % (Auto) (16.0-40.0) % [place] % (Auto) (0.0-15.0) % Eos % (Auto) (0.0-7.0) % Baso % (Auto) (0.0-1.5) % Neut # (Auto) (1.4-5.7) K/uL Lymph # (Auto) (0.6-2.4) K/uL [place] # (Auto) (0.0-0.8) K/uL Eos # (Auto) (0.0-0.7) K/uL Baso # (Auto) (0.0-0.1) K/uL Nucleated RBC % /100WBC Nucleated RBCs # K/uL ABG pH 7.412 (7.35-7.45) ABG pCO2 69 H (35-45) mmHG ABG pO2 96 (75-100) mmHG ABG HCO3 44 H (22-26) mEq/L ABG Total CO2 41.9 ABG Base Excess 17.1 H (-2.0-2.0) Sodium (136-146) mmol/L Potassium (3.5-5.1) mmol/L Chloride (98-110) mmol/L Carbon Dioxide (21-31) mmol/L BUN (6.0-23.0) mg/dL Creatinine (0.6-1.5) mg/dL Est Cr Clr Drug Dosing mL/min Estimated GFR (MDRD) ml/min Glucose (60-110) mg/dL Calcium (8.8-10.8) mg/dL Total Bilirubin (0.1-1.5) mg/dL AST (5-40) IU/L ALT (8-54) IU/L Alkaline Phosphatase (40-150) Lactate Dehydrogenase (125-220) IU/L Creatine Kinase (9-236) IU/L Troponin I (0.0-0.29) NG/ML Total Protein (6.0-8.0) g/dL Albumin (3.4-4.8) g/dL Globulin (2.0-3.5) g/dL Albumin/Globulin Ratio (1.3-2.8) Meds: Medications Discontinued Medications Generic Name Dose Route Start Last Admin Trade Name Freq PRN Reason Stop Dose Admin Albuterol/Ipratropium 3 ml 04/29/17 19:54 04/29/17 19:58 Duoneb 3.0-0.5 Mg/3 Ml NEB 04/29/17 19:55 3 ml ONETIME ONE Administration Methylprednisolone Sodium Succinate 125 mg 04/29/17 19:54 04/29/17 19:56 Solu-Medrol IVPUSH 04/29/17 19:55 125 mg ONETIME ONE Administration Methylprednisolone Sodium Succinate Confirm 04/29/17 19:53 04/29/17 19:56 Solu-Medrol Administered 04/29/17 19:54 Not Given Dose 125 mg .ROUTE .STK-MED ONE Departure - Departure Time of Disposition: 20:59 Disposition: Refer to Observation Condition: Fair Clinical Impression: Dyspnea, COPD (chronic obstructive pulmonary disease), History of pneumonia - Discharge Information Referrals: Fernando Garcai MD [Primary Care Provider] - - My Orders Last 24 Hours: My Active Orders 04/29/17 19:50 CULTURE BLOOD [BC] Stat 04/29/17 19:52 EKG Documentation Completion [RC] STAT Chest 1V Frontal [CR] Stat 04/29/17 19:54 RT Aerosol Therapy [RC] ASDIRECTED 04/29/17 20:06 CULTURE BLOOD [BC] Stat 04/29/17 20:43 Blood Culture x2 Reflex Set [OM.PC] Stat 04/29/17 20:57 B-TYPE NATRIURETIC PEPTIDE,BNP [CHEM] Stat - Assessment/Plan Last 24 Hours: My Active Orders 04/29/17 19:50 CULTURE BLOOD [BC] Stat 04/29/17 19:52 EKG Documentation Completion [RC] STAT Chest 1V Frontal [CR] Stat 04/29/17 19:54 RT Aerosol Therapy [RC] ASDIRECTED 04/29/17 20:06 CULTURE BLOOD [BC] Stat 04/29/17 20:43 Blood Culture x2 Reflex Set [OM.PC] Stat 04/29/17 20:57 B-TYPE NATRIURETIC PEPTIDE,BNP [CHEM] Stat
[2017-04-29] MEDS ORDERED: methylPREDNISolone Sodium Succinate 125 MG/2 ML SDV ONE (19:53)
[2017-04-29] MEDS ORDERED: Albuterol/Ipratropium 3.0-0.5 MG/3 ML Neb Soln NEB ONE (19:54)
[2017-04-29] MEDS ORDERED: methylPREDNISolone Sodium Succinate 125 MG/2 ML SDV IVPUSH ONE (19:54)
[2017-04-29 20:42] LABS: CHLORIDE,CL 89 mmol/L (98-110); SODIUM,NA 138 mmol/L (136-146)
[2017-04-29] MEDS ORDERED: Acetaminophen 325 MG Tab PO PRN (22:07)
[2017-04-29] MEDS ORDERED: Morphine 2 MG/ML Syringe IVPUSH PRN (22:07)
[2017-04-29] MEDS ORDERED: Albuterol/Ipratropium 3.0-0.5 MG/3 ML Neb Soln NEB PRN (22:07)
[2017-04-29] MEDS ORDERED: Azithromycin 500 MG in Sodium Chloride 0.9% 250 ML IV SCH (22:15)
[2017-04-29] MEDS: Ondansetron 4 MG Tab PO PRN (23:34)
[2017-04-30] MEDS: Albuterol/Ipratropium 3.0-0.5 MG/3 ML Neb Soln NEB SCH ×6 (01:20→21:45)
[2017-04-30] MEDS: methylPREDNISolone Sodium Succinate 125 MG/2 ML SDV IVPUSH SCH ×3 (03:36→20:03)
[2017-04-30 06:17] LABS: CHLORIDE,CL 90 mmol/L (98-110); SODIUM,NA 138 mmol/L (136-146)
[2017-04-30] MEDS: LORazepam 0.5 MG Tab PO PRN ×3 (08:15→22:05)
[2017-04-30] MEDS: Piperacillin/Tazobactam 4.5 GM in Sodium Chloride 0.9% 100 ML IV SCH ×3 (08:17→20:06)
--- NOTE | 2017-04-30 08:52 | PCM.HP ---
H&P History of Present Illness - General Date of Service: 04/30/17 Admit Problem/Dx: Admission Diagnosis/Problem Admission Diagnosis/Problem Dyspnea Source of Information: Patient History Limitations: Reports: No Limitations - History of Present Illness Initial Comments - Free Text/Narative: The patient is a 76-year-old lady who presented to the emergency department with severe shortness of breath. 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 The patient also previously had pneumonia and was admitted to [facility] for treatment. The patient was discharged less than a week ago. Patient was at home and she started to develop increasing shortness of breath as well as demand increase of her oxygen. The patient reports that she had to increase her oxygen consumption to 3-1/2 L. The patient also had been participating in pulmonary rehabilitation. The patient is also very anxious and she does have a history of anemia. The patient's primary concern is her shortness of breath presently. She has had no increasing cough or sputum production. The patient also has denied any fever or chills. The patient has been in declining health over the past year. The patient also has denied any chest pain. No abdominal pain. She has had some dizziness and lightheadedness. Onset of Symptoms: Reports: Sudden Duration of Symptoms: Reports: Day(s):, Getting Worse Location: Reports: Chest Quality: Reports: Same as Previous Episode Severity: Moderate Improves with: Reports: Rest Worsens with: Reports: Breathing Associated Symptoms: Reports: Weakness Epigastric Pain Score (Numeric/FACES): 7 - Related Data Allergies/Adverse Reactions: Allergies Allergy/AdvReac Type Severity Reaction Status Date / Time aspirin [From Percodan] Allergy Vomiting Verified 04/29/17 22:06 codeine Allergy Rash Verified 04/29/17 19:51 morphine Allergy Rash Verified 04/29/17 19:51 oxycodone [From Percodan] Allergy Vomiting Verified 04/29/17 22:06 Sulfa (Sulfonamide Allergy Rash Verified 04/29/17 19:51 Antibiotics) lisinopril Allergy Cough Uncoded 04/29/17 19:51 Home Medications: Home Meds Aspirin 81 mg PO DAILY 03/20/17 [History] Cetirizine [ZyrTEC] 0 mg PO ASDIRECTED PRN 03/20/17 [History] Cholecalciferol (Vitamin D3) [Vitamin D] 2,000 unit PO DAILY 03/20/17 [History] LORazepam 0.5 mg PO QID PRN 03/20/17 [History] Lactobacillus Combo No.11 [Probiotic] 1 each PO DAILY 03/20/17 [History] Losartan Potassium 25 mg PO DAILY 03/20/17 [History] Pantoprazole Sodium [Protonix] 40 mg PO DAILY 03/20/17 [History] Pravastatin Sodium 20 mg PO DAILY 03/20/17 [History] Roflumilast [Daliresp] 500 mcg PO DAILY 03/20/17 [History] Tiotropium [place] [Spiriva Respimat] 2 puff IH DAILY 03/20/17 [History] Ubidecarenone/Vitamin E Mixed [Vnw82-Bwz E 200 mg-20 Unit Sfg] 1 tab PO DAILY [History] Escitalopram [Lexapro] 10 mg PO DAILY 03/21/17 [History] Albuterol/Ipratropium [DuoNeb 3.0-0.5 MG/3 ML] 3 ml NEB Q6HRRT neb 03/22/17 [Rx ] Ondansetron [Zofran] 4 mg PO Q4H PRN #14 tab 03/22/17 [Rx] Fluticasone/Salmeterol [Advair Diskus 500-50] 1 puff INH BID diskus 03/29/17 [ Rx] Iron Polysaccharides Complex [Ferrex 150] 150 mg PO DAILY cap 03/29/17 [Rx] predniSONE [Prednisone] 10 mg PO DAILY 04/29/17 [History] Past Medical History HEENT History: Reports: Impaired Vision Other HEENT History: wears glasses Cardiovascular History: Reports: High Cholesterol, Hypertension Respiratory History: Reports: Bronchitis, Recurrent, COPD, Pneumonia, Recurrent , Other (See Below) Other Respiratory History: empysema Gastrointestinal History: Reports: GERD, Hiatal Hernia Other Gastrointestinal History: Hiatal hernia since X "2-3 years ago" Genitourinary History: Reports: UTI, Recurrent [employer] History: Reports: Musculoskeletal History: Reports: Arthritis Other Musculoskeletal History: Right knee arthritis Psychiatric History: Reports: Anxiety, Depression Hematologic History: Reports: Anemia Other Hematologic History: Blood transfusion X one year ago Dermatologic History: Reports: Eczema - Past Surgical History Cardiovascular Surgical History: Reports: Carotid Endarterectomy Other Cardiovascular Surgeries/Procedures: Femoral artery stent placed to left Respiratory Surgical History: Reports: None GI Surgical History: Reports: Hernia, Inguinal Musculoskeletal Surgical History: Reports: None Social & Family History - Family History Family Medical History: Noncontributory - Tobacco Use Smoking Status *Q: Former Smoker Years of Tobacco use: 40 Packs/Tins Daily: 1.5 Used Tobacco, but Quit: Yes Month Tobacco Last Used: 08/2006 Second Hand Smoke Exposure: No - Caffeine Use Caffeine Use: Reports: None Caffeine Use Comment: 2 cups daily - Alcohol Use Alcohol Use History: No - Recreational Drug Use Recreational Drug Use: No H&P Review of Systems - Review of Systems: Review Of Systems: See Below General: Reports: Weakness, Decreased Appetite HEENT: Reports: No Symptoms Pulmonary: Reports: Shortness of Breath, Cough Cardiovascular: Reports: Dyspnea on Exertion, Other (Rapid heart beat) Gastrointestinal: Reports: No Symptoms Genitourinary: Reports: No Symptoms Musculoskeletal: Reports: No Symptoms Skin: Reports: No Symptoms Psychiatric: Reports: Anxiety Neurological: Reports: No Symptoms Hematologic/Lymphatic: Reports: No Symptoms Immunologic: Reports: No Symptoms Exam - Exam Exam: See Below - Vital Signs Vital Signs: Last Vital Signs Temp 36.4 C 04/30/17 05:46 Pulse 137 H 04/30/17 05:46 Resp 20 04/30/17 05:46 BP 158/82 H 04/30/17 04:00 Pulse Ox 93 L 04/30/17 05:46 Weight: 79.2 kg - Exam Quality Assessment: Supplemental Oxygen General: Alert, Oriented, Moderate Distress HEENT: Conjunctiva Clear, EOMI, Nares Patent Neck: Supple, Trachea Midline Lungs: Decreased Breath Sounds, Crackles, Rhonchi Cardiovascular: Regular Rhythm, Tachycardia GI/Abdominal Exam: Normal Bowel Sounds, Soft, Non-Tender, No Distention Back Exam: Decreased Range of Motion Extremities: Normal Inspection, No Pedal Edema Skin: Warm, Dry Neurological: Cranial Nerves Intact Neuro Extensive - Mental Status: Alert, Oriented x3 Neuro Extensive - Motor, Sensory, Reflexes: CN II-XII Intact Psychiatric: Alert, Anxious - Patient Data Lab Results Last 24 hrs: Laboratory Results - last 24 hr 04/29/17 04/30/17 04/30/17 Range/Units 22:45 05:45 05:45 WBC 6.50 (4.0-11.0) K/uL RBC 3.03 L (4.30-5.90) M/uL Hgb 8.7 L (12.0-16.0) g/dL Hct 28.8 L (36.0-46.0) % MCV 95.0 (80.0-98.0) fL MCH 28.7 (27.0-32.0) pg MCHC 30.2 L (31.0-37.0) g/dL RDW Std Deviation 50.0 (28.0-62.0) fl RDW Coeff of Marck 14 (11.0-15.0) % Plt Count 261 (150-400) K/uL MPV 9.30 (7.40-12.00) fL Neut % (Auto) 92.6 H (48.0-80.0) % Lymph % (Auto) 6.0 L (16.0-40.0) % [place] % (Auto) 1.2 (0.0-15.0) % Eos % (Auto) 0.0 (0.0-7.0) % Baso % (Auto) 0.2 (0.0-1.5) % Neut # (Auto) 6.0 H (1.4-5.7) K/uL Lymph # (Auto) 0.4 L (0.6-2.4) K/uL [place] # (Auto) 0.1 (0.0-0.8) K/uL Eos # (Auto) 0.0 (0.0-0.7) K/uL Baso # (Auto) 0.0 (0.0-0.1) K/uL Nucleated RBC % 0.0 /100WBC Nucleated RBCs # 0 K/uL Sodium 138 (136-146) mmol/L Potassium 5.0 (3.5-5.1) mmol/L Chloride 90 L (98-110) mmol/L Carbon Dioxide 39 H (21-31) mmol/L BUN 11 (6.0-23.0) mg/dL Creatinine 0.7 (0.6-1.5) mg/dL Est Cr Clr Drug Dosing 63.35 mL/min Estimated GFR (MDRD) > 60.0 ml/min Glucose 175 H (60-110) mg/dL Calcium 9.3 (8.8-10.8) mg/dL Urine Color YELLOW Urine Appearance CLEAR Urine pH 7.0 (5.0-8.0) Ur Specific [place] <= 1.005 (1.001-1.035) Urine Protein NEGATIVE (NEGATIVE) mg/dL Urine Glucose (UA) NEGATIVE (NEGATIVE) mg/dL Urine Ketones NEGATIVE (NEGATIVE) mg/dL Urine Occult Blood NEGATIVE (NEGATIVE) Urine Nitrite NEGATIVE (NEGATIVE) Urine Bilirubin NEGATIVE (NEGATIVE) Urine Urobilinogen 0.2 (<2.0) EU/dL Ur Leukocyte Esterase NEGATIVE (NEGATIVE) Urine RBC 0-1 (0-2/HPF) Urine WBC 0-2 (0-5/HPF) Ur Epithelial Cells OCCASIONAL (NONE-FEW) Urine Bacteria RARE (NEGATIVE) Result Diagrams: 05/01/17 05:45 05/01/17 05:45 *Q Meaningful Use (ADM) - VTE *Q VTE Criteria *Q: VTE Mechanical Contraindications *Q: At Risk for Falls - VTE Risk Assess *Q Each Risk Factor Represents 1 Point: Serious Lung Disease Including Pneumonia, Less than 1 Month, Abnormal Pulmonary Function (COPD), Blood Transfusion, Less than 1 Month Total Score 1 Point Risk Factors: 3 Each Risk Factor Represents 3 Points: Age 75 Years or Greater Total Score 3 Point Risk Factors: 3 - Stroke *Q Stroke Criteria *Q: - AMI *Q AMI Criteria *Q: - Problem List (1) COPD (chronic obstructive pulmonary disease) SNOMED Code(s): 72892400 ICD Code: J44.9 - CHRONIC OBSTRUCTIVE PULMONARY DISEASE, UNSPECIFIED Status : Chronic Priority: High Current Visit: Yes Qualifiers: COPD type: COPD with acute exacerbation Qualified Code(s): J44.1 - Chronic obstructive pulmonary disease with (acute) exacerbation (2) Acute and chronic respiratory failure ([id number]) SNOMED Code(s): 70431459 ICD Code: J96.20 - ACUTE AND CHR RESP FAILURE, UNSP W HYPOXIA OR HYPERCAPNIA Status: Acute Priority: High Current Visit: Yes Qualifiers: Respiratory failure complication: hypoxia Qualified Code(s): J96.21 - Acute and chronic respiratory failure with hypoxia (3) Anxiety SNOMED Code(s): 69106182 ICD Code: F41.9 - ANXIETY DISORDER, UNSPECIFIED Status: Chronic Priority : High Current Visit: Yes (4) Oxygen dependent SNOMED Code(s): 467848175101 ICD Code: Z99.81 - DEPENDENCE ON SUPPLEMENTAL OXYGEN Status: Chronic Priority: High Current Visit: Yes (5) History of pneumonia SNOMED Code(s): 849664041 ICD Code: Z87.01 - PERSONAL HISTORY OF PNEUMONIA (RECURRENT) Status: Chronic Priority: High Current Visit: Yes Problem List Initiated/Reviewed/Updated: Yes Orders Last 24hrs: Active Orders 24 hr Category Date Time Status Oxygen Therapy [RC] ASDIRECTED Care 04/29/17 22:11 Active RT Aerosol Therapy [RC] ASDIRECTED Care 04/29/17 22:08 Active RT Aerosol Therapy [RC] ASDIRECTED Care 04/29/17 23:07 Active Telemetry Monitoring [Cardiac Monitoring] [RC] Q8H Care 04/29/17 22:12 Active Regular Diet [DIET] Diet 04/30/17 Breakfast Active VANCOMYCIN TROUGH [CHEM] Routine Lab 05/01/17 19:30 Ordered Acetaminophen [Tylenol] Med 04/29/17 22:07 Active 650 mg PO Q6H PRN Albuterol/Ipratropium [DuoNeb 3.0-0.5 MG/3 ML] Med 04/30/17 02:00 Active 3 ml NEB Q4HRRT Albuterol/Ipratropium [DuoNeb 3.0-0.5 MG/3 ML] Med 04/29/17 22:07 Active 3 ml NEB Q4HRRT PRN Escitalopram [Lexapro] Med 04/30/17 09:00 Active 10 mg PO DAILY Fluticasone/Salmeterol [Advair Diskus 500-50] Med 04/30/17 09:00 Active 1 puff INH BID LORazepam [Ativan] Med 04/29/17 22:10 Active 0.5 mg PO QID PRN Losartan [Cozaar] Med 04/30/17 09:00 Active 25 mg PO DAILY Ondansetron [Zofran] Med 04/29/17 23:03 Active 4 mg PO Q6H PRN Pantoprazole Sodium [Protonix] Med 04/30/17 09:00 Ordered 40 mg PO DAILY Piperacillin/Tazobactam [Piperacil-Tazobact] 4.5 gm Med 04/30/17 08:15 Active Sodium Chloride 0.9% [Normal Saline] 100 ml IV Q6H Pravastatin Sodium Med 04/30/17 09:00 Ordered 20 mg PO DAILY Roflumilast Med 04/30/17 09:00 Ordered 500 mcg PO DAILY Tiotropium [place] [Spiriva Respimat] Med 04/30/17 09:00 Ordered 2 puff IH DAILY Vancomycin Pharmacy to Dose [Pharmacy to Dose - Med 04/30/17 08:15 Active Vancomycin] 1 dose .XX ASDIRECTED Vancomycin [Vancocin] 1 gm Med 04/30/17 08:30 Active Sodium Chloride 0.9% [Normal Saline] 250 ml IV Q12H methylPREDNISolone Sod Succ [Solu-MEDROL] Med 04/30/17 04:00 Active 125 mg IVPUSH Q8H Resuscitation Status Routine Resus Stat 04/30/17 08:47 Ordered Medication Orders Acetaminophen (Tylenol) 650 mg PO Q6H PRN PRN Reason: Pain (mild 1-3) Albuterol/Ipratropium (Duoneb 3.0-0.5 Mg/3 Ml) 3 ml NEB Q4HRRT PRN PRN Reason: Shortness of Breath Albuterol/Ipratropium (Duoneb 3.0-0.5 Mg/3 Ml) 3 ml NEB Q4HRRT [facility] Last Admin: 04/30/17 05:59 Dose: 3 ml Admin: 04/30/17 01:20 Dose: 3 ml Escitalopram Oxalate (Lexapro) 10 mg PO DAILY [facility] Piperacillin Sod/Tazobactam (Sod 4.5 gm/ Sodium Chloride) 100 mls @ 100 mls/hr IV Q6H [facility] Last Admin: 04/30/17 08:17 Dose: 100 mls/hr Vancomycin HCl 1 gm/ Sodium (Chloride) 250 mls @ 166.667 mls/hr IV Q12H [place] Lorazepam (Ativan) 0.5 mg PO QID PRN PRN Reason: Anxiety Last Admin: 04/30/17 08:15 Dose: 0.5 mg Losartan Potassium (Cozaar) 25 mg PO DAILY [facility] Methylprednisolone Sodium Succinate (Solu-Medrol) 125 mg IVPUSH Q8H [facility] Last Admin: 04/30/17 03:36 Dose: 125 mg Non-Formulary Medication (Pantoprazole Sodium [Protonix]) 40 mg PO DAILY [facility] Non-Formulary Medication (Pravastatin Sodium) 20 mg PO DAILY [facility] Non-Formulary Medication (Roflumilast) 500 mcg PO DAILY [facility] Non-Formulary Medication (Tiotropium [place] [Spiriva Respimat]) 2 puff IH DAILY [place] Ondansetron HCl (Zofran) 4 mg PO Q6H PRN PRN Reason: Nausea/Vomiting Last Admin: 04/29/17 23:34 Dose: 4 mg Fluticasone/Salmeterol (Advair Diskus 500-50) 1 puff INH BID [place] Vancomycin HCl (Pharmacy To Dose - Vancomycin) 1 dose .XX ASDIRECTED [facility] Assessment/Plan Comment:: The patient is a 76-year-old lady who will be admitted observation secondary to her COPD. This may likely change. Because of the patient's recent hospitalization as well as her end-stage COPD to be treated for hospital- acquired infection. No see any evidence of pneumonia at this time although she does have decreased breath sounds which would be consistent with COPD exacerbation. She'll be started on Zosyn 4.5 g every 6 hours IV and IV vancomycin with pharmacy to dose. The patient will also be offered SVN treatment DuoNeb's for the COPD. Patient also be kept on IV steroids Solu- Medrol 125 mg every 8 hours. Patient also has a history of anemia and her CBC will be monitored. She also had a transfusion recently. The patient's overall treatment plan will be adjusted as information indicates. She is otherwise to continue with her home medications and these have been reconciled. The patient will also be kept on supplemental oxygen. She is also considered and I had a long discussion with her as a DO NOT INTUBATE DO NOT RESUSCITATE individual.
[2017-04-30] MEDS: Pravastatin 40 MG Tab PO SCH (09:06)
[2017-04-30] MEDS: Pantoprazole 40 MG Tab.CR PO SCH (09:09)
[2017-04-30] MEDS: Escitalopram 10 MG Tab PO SCH (09:12)
[2017-04-30] MEDS: Losartan 50 MG Tab PO SCH (09:13)
[2017-04-30] MEDS: Fluticasone/Salmeterol 500-50 MCG Inhalation Powder 14/Diskus INH SCH ×2 (09:55→21:45)
--- NOTE | 2017-04-30 10:37 | CR ---
EXAM DATE: 04/29/17 PATIENT'S AGE: 76 Patient: GRACIELA SHIN Facility: [place], [place] Site . Site : [id number] Study: XRay Chest [id number]/7/2017 8:25:28 PM Ordering Physician: Coby Harrison Final Report: HISTORY: CHF. FINDINGS: AP portable chest radiograph is compared with 23 March 2017. The cardiac silhouette is at the upper limits of normal. Pulmonary vasculature is ill- defined and plump. There is new blunting of the right lateral costophrenic angle. No consolidation is seen. IMPRESSION: 1. While the cardiac silhouette is normal in size, the pulmonary vasculature appears plump and ill-defined suggesting pulmonary venous congestion. 2. New small right pleural effusion. Dictated by Shantel Bueno MD @ 04/29/2017 8:54:15 PM Dictated by: Shantel Bueno MD @ 04/29/2017 20:55:04 (Electronic Signature) Report Signed by Proxy. [facility]OSPITALRodrick
[2017-04-30] MEDS: Tiotropium Bromide [Spiriva Respimat] 2 PUFF INH SCH (13:51)
[2017-04-30] MEDS: Ondansetron 4 MG Tab PO PRN (20:03)
[2017-05-01] MEDS: Albuterol/Ipratropium 3.0-0.5 MG/3 ML Neb Soln NEB SCH ×6 (02:21→20:59)
[2017-05-01] MEDS: Piperacillin/Tazobactam 4.5 GM in Sodium Chloride 0.9% 100 ML IV SCH ×4 (02:21→20:48)
[2017-05-01] MEDS: methylPREDNISolone Sodium Succinate 125 MG/2 ML SDV IVPUSH SCH ×3 (03:44→20:48)
[2017-05-01 06:22] LABS: CHLORIDE,CL 91 mmol/L (98-110); SODIUM,NA 137 mmol/L (136-146)
[2017-05-01] MEDS: Pantoprazole 40 MG Tab.CR PO SCH (08:28)
[2017-05-01] MEDS: Pravastatin 40 MG Tab PO SCH (08:29)
[2017-05-01] MEDS: Losartan 50 MG Tab PO SCH (08:29)
[2017-05-01] MEDS: Escitalopram 10 MG Tab PO SCH (08:30)
[2017-05-01] MEDS: LORazepam 0.5 MG Tab PO PRN ×2 (08:30→17:25)
[2017-05-01] MEDS: Fluticasone/Salmeterol 500-50 MCG Inhalation Powder 14/Diskus INH SCH ×2 (08:34→20:59)
[2017-05-01] MEDS: Tiotropium Bromide [Spiriva Respimat] 2 PUFF INH SCH (08:35)
[2017-05-01] MEDS ORDERED: Acetaminophen 325 MG Tab PO ONE ×2 (09:25→14:50)
[2017-05-01] MEDS ORDERED: diphenhydrAMINE 50 MG Cap PO ONE ×2 (10:00→15:00)
--- NOTE | 2017-05-01 10:15 | PCM.PN ---
- General Info Admission Dx/Problem (Free Text): COPD exacerbation, hypoxia, anxiety, history of pneumonia with recent hospitalization Functional Status: Reports: Pain Controlled, Tolerating Diet - Review of Systems General: Reports: Weakness HEENT: Reports: No Symptoms Pulmonary: Reports: Shortness of Breath, Wheezing Cardiovascular: Reports: Dyspnea on Exertion Gastrointestinal: Reports: No Symptoms Genitourinary: Reports: No Symptoms Musculoskeletal: Reports: No Symptoms Skin: Reports: Dryness Neurological: Reports: No Symptoms Psychiatric: Reports: Anxiety - Patient Data Vitals - Most Recent: Last Vital Signs Temp 36.6 C 05/01/17 08:00 Pulse 126 H 05/01/17 08:00 Resp 24 H 05/01/17 08:00 BP 152/76 H 05/01/17 08:29 Pulse Ox 94 L 05/01/17 08:00 Weight - Most Recent: 79.2 kg I&O - Last 24 Hours: Intake & Output 04/30/17 05/01/17 05/01/17 22:59 06:59 14:59 Intake Total 1100 1000 Output Total 300 900 Balance 800 100 Lab Results Last 24 Hours: Laboratory Results - last 24 hr 05/01/17 05/01/17 Range/Units 05:45 05:45 WBC 8.90 (4.0-11.0) K/uL RBC 2.67 L (4.30-5.90) M/uL Hgb 7.7 L (12.0-16.0) g/dL Hct 25.6 L (36.0-46.0) % MCV 95.9 (80.0-98.0) fL MCH 28.8 (27.0-32.0) pg MCHC 30.1 L (31.0-37.0) g/dL RDW Std Deviation 50.5 (28.0-62.0) fl RDW Coeff of Marck 15 (11.0-15.0) % Plt Count 237 (150-400) K/uL MPV 9.60 (7.40-12.00) fL Neut % (Auto) 93.2 H (48.0-80.0) % Lymph % (Auto) 3.8 L (16.0-40.0) % [place] % (Auto) 3.0 (0.0-15.0) % Eos % (Auto) 0.0 (0.0-7.0) % Baso % (Auto) 0.0 (0.0-1.5) % Neut # (Auto) 8.3 H (1.4-5.7) K/uL Lymph # (Auto) 0.3 L (0.6-2.4) K/uL Baxter # (Auto) 0.3 (0.0-0.8) K/uL Eos # (Auto) 0.0 (0.0-0.7) K/uL Baso # (Auto) 0.0 (0.0-0.1) K/uL Nucleated RBC % 0.0 /100WBC Nucleated RBCs # 0 K/uL Sodium 137 (136-146) mmol/L Potassium 4.2 (3.5-5.1) mmol/L Chloride 91 L (98-110) mmol/L Carbon Dioxide 38 H (21-31) mmol/L BUN 12 (6.0-23.0) mg/dL Creatinine 0.7 (0.6-1.5) mg/dL Est Cr Clr Drug Dosing 63.35 mL/min Estimated GFR (MDRD) > 60.0 ml/min Glucose 181 H (60-110) mg/dL Calcium 9.4 (8.8-10.8) mg/dL Total Bilirubin 0.6 (0.1-1.5) mg/dL AST 13 (5-40) IU/L ALT 12 (8-54) IU/L Alkaline Phosphatase 50 (40-150) Total Protein 6.1 (6.0-8.0) g/dL Albumin 3.2 L (3.4-4.8) g/dL Globulin 2.9 (2.0-3.5) g/dL Albumin/Globulin Ratio 1.1 L (1.3-2.8) Med Orders - Current: Current Medications Acetaminophen (Tylenol) 650 mg PO Q6H PRN PRN Reason: Pain (mild 1-3) Albuterol/Ipratropium (Duoneb 3.0-0.5 Mg/3 Ml) 3 ml NEB Q4HRRT PRN PRN Reason: Shortness of Breath Albuterol/Ipratropium (Duoneb 3.0-0.5 Mg/3 Ml) 3 ml NEB Q4HRRT [place] Last Admin: 05/01/17 06:02 Dose: 3 ml Escitalopram Oxalate (Lexapro) 10 mg PO DAILY [facility] Last Admin: 05/01/17 08:30 Dose: 10 mg Piperacillin Sod/Tazobactam (Sod 4.5 gm/ Sodium Chloride) 100 mls @ 100 mls/hr IV Q6H [facility] Last Admin: 05/01/17 07:37 Dose: 100 mls/hr Vancomycin HCl 1 gm/ Sodium (Chloride) 250 mls @ 166.667 mls/hr IV Q12H [place] Last Admin: 05/01/17 09:02 Dose: 166.667 mls/hr Lorazepam (Ativan) 0.5 mg PO QID PRN PRN Reason: Anxiety Last Admin: 05/01/17 08:30 Dose: 0.5 mg Losartan Potassium (Cozaar) 25 mg PO DAILY [facility] Last Admin: 05/01/17 08:29 Dose: 25 mg Methylprednisolone Sodium Succinate (Solu-Medrol) 125 mg IVPUSH Q8H [facility] Last Admin: 05/01/17 03:44 Dose: 125 mg Ondansetron HCl (Zofran) 4 mg PO Q6H PRN PRN Reason: Nausea/Vomiting Last Admin: 04/30/17 20:03 Dose: 4 mg Pantoprazole Sodium (Protonix) 40 mg PO DAILY [facility] Last Admin: 05/01/17 08:28 Dose: 40 mg Roflumilast 500 Mcg 1 each PO DAILY [facility] Last Admin: 05/01/17 08:32 Dose: 1 each Tiotropium [place] [ Spiriva Respimat] 2 Puff 1 each INH DAILY [facility] Last Admin: 05/01/17 08:35 Dose: 1 each Pravastatin Sodium (Pravachol) 20 mg PO DAILY [facility] Last Admin: 05/01/17 08:29 Dose: 20 mg Fluticasone/Salmeterol (Advair Diskus 500-50) 1 puff INH BID [facility] Last Admin: 05/01/17 08:34 Dose: 1 inhalation Vancomycin HCl (Pharmacy To Dose - Vancomycin) 1 dose .XX ASDIRECTED [facility] Discontinued Medications Acetaminophen (Tylenol) 650 mg PO ONETIME ONE Stop: 05/01/17 09:26 Albuterol/Ipratropium (Duoneb 3.0-0.5 Mg/3 Ml) 3 ml NEB ONETIME ONE Stop: 04/29/17 19:55 Last Admin: 04/29/17 19:58 Dose: 3 ml Diphenhydramine HCl (Benadryl) 50 mg PO ONETIME ONE Stop: 05/01/17 10:01 Azithromycin 500 mg/ Sodium (Chloride) 250 mls @ 250 mls/hr IV Q24H [place] Last Admin: 04/29/17 22:36 Dose: 250 mls/hr Methylprednisolone Sodium Succinate (Solu-Medrol) 125 mg IVPUSH ONETIME ONE Stop: 04/29/17 19:55 Last Admin: 04/29/17 19:56 Dose: 125 mg Methylprednisolone Sodium Succinate (Solu-Medrol) Confirm Administered Dose 125 mg .ROUTE .STK-MED ONE Stop: 04/29/17 19:54 Last Admin: 04/29/17 19:56 Dose: Not Given Morphine Sulfate (Morphine) 2 mg IVPUSH Q4H PRN PRN Reason: Pain (severe 7-10) - Exam Quality Assessment: Supplemental Oxygen General: Alert, Oriented, Mild Distress HEENT: Pupils Equal, Pupils Reactive Neck: Supple, Trachea Midline Lungs: Decreased Breath Sounds, Rhonchi Cardiovascular: Regular Rhythm, Tachycardia GI/Abdominal Exam: Normal Bowel Sounds, Soft, Non-Tender Back Exam: Decreased Range of Motion Extremities: No Pedal Edema Skin: Warm, Dry Neurological: No New Focal Deficit Psy/Mental Status: Alert, Normal Affect - Problem List & Annotations (1) COPD (chronic obstructive pulmonary disease) SNOMED Code(s): 47424511 Code(s): J44.9 - CHRONIC OBSTRUCTIVE PULMONARY DISEASE, UNSPECIFIED Status : Chronic Priority: High Current Visit: Yes Qualifiers: COPD type: COPD with acute exacerbation Qualified Code(s): J44.1 - Chronic obstructive pulmonary disease with (acute) exacerbation (2) Anemia SNOMED Code(s): 842882430 Code(s): D64.9 - ANEMIA, UNSPECIFIED Status: Chronic Priority: High Current Visit: Yes Qualifiers: Anemia type: iron deficiency Iron deficiency anemia type: inadequate dietary iron intake Qualified Code(s): D50.8 - Other iron deficiency anemias (3) Acute and chronic respiratory failure ([id number]) SNOMED Code(s): 06716689 Code(s): J96.20 - ACUTE AND CHR RESP FAILURE, UNSP W HYPOXIA OR HYPERCAPNIA Status: Acute Priority: High Current Visit: Yes Qualifiers: Respiratory failure complication: hypoxia Qualified Code(s): J96.21 - Acute and chronic respiratory failure with hypoxia (4) Anxiety SNOMED Code(s): 50556072 Code(s): F41.9 - ANXIETY DISORDER, UNSPECIFIED Status: Chronic Priority: High Current Visit: Yes (5) Oxygen dependent SNOMED Code(s): 068248254415 Code(s): Z99.81 - DEPENDENCE ON SUPPLEMENTAL OXYGEN Status: Chronic Priority: High Current Visit: Yes (6) History of pneumonia SNOMED Code(s): 884483008 Code(s): Z87.01 - PERSONAL HISTORY OF PNEUMONIA (RECURRENT) Status: Chronic Priority: High Current Visit: Yes - Problem List Review Problem List Initiated/Reviewed/Updated: Yes - My Orders Last 24 Hours: My Active Orders 05/01/17 09:11 Communication Order [RC] ROUTINE 05/01/17 09:23 RED BLOOD CELLS LP [BBK] Routine TYPE AND SCREEN [BBK] Routine 05/01/17 09:48 Patient Status [ADT] Routine 05/01/17 19:30 VANCOMYCIN TROUGH [CHEM] Routine - Assessment Assessment:: The patient was seen today and she is still anxious and currently on medication for her anxiety as well as her COPD. The patient was also tachycardic and has been around 120 bpm. The patient's hemoglobin had dropped from 8.7 g/dL to 7.7 g /dL. Because of the patient's shortness of breath, tachycardia and her anxiety up elected to transfuse the patient with 2 units packed red blood cells. The patient will have 50 mg Benadryl +650 mg of Tylenol by mouth prior to each unit and 20 mg IV Lasix after each unit. I have advised the patient of the risk, alternatives and benefits of blood transfusion and blood products. For now the patient will be continued on her oxygen and IV antibiotics. I have also changed the patient from observation to inpatient status. The patient's overall status at this time remains somewhat guarded. She may be appropriate for discharge after 2 more days of IV antibiotics and IV steroids. Will consider her safe for discharge when her oxygen demands have decreased and her shortness of breath has returned to baseline. The patient also has been encouraged for ambulation. - Plan Plan:: The patient is a 76-year-old lady who will be admitted observation secondary to her COPD. This may likely change. Because of the patient's recent hospitalization as well as her end-stage COPD to be treated for hospital- acquired infection. No see any evidence of pneumonia at this time although she does have decreased breath sounds which would be consistent with COPD exacerbation. She'll be started on Zosyn 4.5 g every 6 hours IV and IV vancomycin with pharmacy to dose. The patient will also be offered SVN treatment DuoNeb's for the COPD. Patient also be kept on IV steroids Solu- Medrol 125 mg every 8 hours. Patient also has a history of anemia and her CBC will be monitored. She also had a transfusion recently. The patient's overall treatment plan will be adjusted as information indicates. She is otherwise to continue with her home medications and these have been reconciled. The patient will also be kept on supplemental oxygen. She is also considered and I had a long discussion with her as a DO NOT INTUBATE DO NOT RESUSCITATE individual.
[2017-05-01] MEDS: Ondansetron 4 MG Tab PO PRN ×2 (10:39→18:27)
[2017-05-01] MEDS ORDERED: Furosemide 20 MG/2 ML VIAL IVPUSH ONE ×2 (15:00→17:00)
[2017-05-02] MEDS: Piperacillin/Tazobactam 4.5 GM in Sodium Chloride 0.9% 100 ML IV SCH ×4 (01:57→20:09)
[2017-05-02] MEDS: Albuterol/Ipratropium 3.0-0.5 MG/3 ML Neb Soln NEB SCH ×6 (01:57→21:13)
[2017-05-02] MEDS: methylPREDNISolone Sodium Succinate 125 MG/2 ML SDV IVPUSH SCH ×3 (03:13→20:09)
[2017-05-02 07:27] LABS: CHLORIDE,CL 87 mmol/L (98-110); SODIUM,NA 140 mmol/L (136-146)
[2017-05-02] MEDS: Pravastatin 40 MG Tab PO SCH (08:08)
[2017-05-02] MEDS: Pantoprazole 40 MG Tab.CR PO SCH (08:08)
[2017-05-02] MEDS: Escitalopram 10 MG Tab PO SCH (08:09)
[2017-05-02] MEDS: Losartan 50 MG Tab PO SCH (08:09)
[2017-05-02] MEDS: LORazepam 0.5 MG Tab PO PRN ×2 (08:23→22:52)
[2017-05-02] MEDS: Fluticasone/Salmeterol 500-50 MCG Inhalation Powder 14/Diskus INH SCH ×2 (09:00→21:14)
[2017-05-02] MEDS: Tiotropium Bromide [Spiriva Respimat] 2 PUFF INH SCH (09:01)
--- NOTE | 2017-05-02 09:31 | PCM.PN ---
- General Info Date of Service: 05/02/17 Admission Dx/Problem (Free Text): COPD exacerbation, hypoxia, anxiety, history of pneumonia with recent hospitalization Subjective Update: The patient slept better last night. She did not need anxiety medication last night. She is tolerating diet. Functional Status: Reports: Pain Controlled, Tolerating Diet - Review of Systems General: Reports: No Symptoms HEENT: Reports: No Symptoms Pulmonary: Reports: Shortness of Breath, Cough Cardiovascular: Reports: No Symptoms Gastrointestinal: Reports: No Symptoms Genitourinary: Reports: No Symptoms Musculoskeletal: Reports: No Symptoms Skin: Reports: No Symptoms Neurological: Reports: No Symptoms Psychiatric: Reports: Anxiety - Patient Data Vitals - Most Recent: Last Vital Signs Temp 37.0 C 05/02/17 04:55 Pulse 120 H 05/02/17 04:55 Resp 22 H 05/02/17 04:55 BP 196/82 H 05/02/17 08:09 Pulse Ox 96 05/02/17 04:55 Weight - Most Recent: 78.9 kg I&O - Last 24 Hours: Intake & Output 05/01/17 05/02/17 05/02/17 22:59 06:59 14:59 Intake Total 1145 850 Output Total 1300 2600 Balance -155 -1750 Lab Results Last 24 Hours: Laboratory Results - last 24 hr 05/01/17 05/02/17 05/02/17 Range/Units 19:27 06:47 06:47 WBC 9.42 (4.0-11.0) K/uL RBC 3.53 L (4.30-5.90) M/uL Hgb 10.6 L (12.0-16.0) g/dL Hct 33.6 L (36.0-46.0) % MCV 95.2 (80.0-98.0) fL MCH 30.0 (27.0-32.0) pg MCHC 31.5 (31.0-37.0) g/dL RDW Std Deviation 50.7 (28.0-62.0) fl RDW Coeff of Marck 15 (11.0-15.0) % Plt Count 245 (150-400) K/uL MPV 9.40 (7.40-12.00) fL Neut % (Auto) 92.1 H (48.0-80.0) % Lymph % (Auto) 5.1 L (16.0-40.0) % [place] % (Auto) 2.7 (0.0-15.0) % Eos % (Auto) 0.0 (0.0-7.0) % Baso % (Auto) 0.1 (0.0-1.5) % Neut # (Auto) 8.7 H (1.4-5.7) K/uL Lymph # (Auto) 0.5 L (0.6-2.4) K/uL [place] # (Auto) 0.3 (0.0-0.8) K/uL Eos # (Auto) 0.0 (0.0-0.7) K/uL Baso # (Auto) 0.0 (0.0-0.1) K/uL Nucleated RBC % 0.0 /100WBC Nucleated RBCs # 0 K/uL Sodium 140 (136-146) mmol/L Potassium 4.1 (3.5-5.1) mmol/L Chloride 87 L (98-110) mmol/L Carbon Dioxide 40 H (21-31) mmol/L BUN 16 (6.0-23.0) mg/dL Creatinine 0.8 (0.6-1.5) mg/dL Est Cr Clr Drug Dosing 55.43 mL/min Estimated GFR (MDRD) > 60.0 ml/min Glucose 170 H (60-110) mg/dL Calcium 9.3 (8.8-10.8) mg/dL Vancomycin Trough 15.6 H (5-15) ug/mL Med Orders - Current: Current Medications Acetaminophen (Tylenol) 650 mg PO Q6H PRN PRN Reason: Pain (mild 1-3) Albuterol/Ipratropium (Duoneb 3.0-0.5 Mg/3 Ml) 3 ml NEB Q4HRRT PRN PRN Reason: Shortness of Breath Albuterol/Ipratropium (Duoneb 3.0-0.5 Mg/3 Ml) 3 ml NEB Q4HRRT [facility] Last Admin: 05/02/17 05:55 Dose: 3 ml Escitalopram Oxalate (Lexapro) 10 mg PO DAILY [facility] Last Admin: 05/02/17 08:09 Dose: 10 mg Piperacillin Sod/Tazobactam (Sod 4.5 gm/ Sodium Chloride) 100 mls @ 100 mls/hr IV Q6H [facility] Last Admin: 05/02/17 08:03 Dose: 100 mls/hr Vancomycin HCl 1 gm/ Sodium (Chloride) 250 mls @ 166.667 mls/hr IV Q12H [facility] Last Admin: 05/01/17 21:52 Dose: 166.667 mls/hr Lorazepam (Ativan) 0.5 mg PO QID PRN PRN Reason: Anxiety Last Admin: 05/02/17 08:23 Dose: 0.5 mg Losartan Potassium (Cozaar) 25 mg PO DAILY [facility] Last Admin: 05/02/17 08:09 Dose: 25 mg Methylprednisolone Sodium Succinate (Solu-Medrol) 125 mg IVPUSH Q8H [facility] Last Admin: 05/02/17 03:13 Dose: 125 mg Ondansetron HCl (Zofran) 4 mg PO Q6H PRN PRN Reason: Nausea/Vomiting Last Admin: 05/01/17 18:27 Dose: 4 mg Pantoprazole Sodium (Protonix) 40 mg PO DAILY [facility] Last Admin: 05/02/17 08:08 Dose: 40 mg Roflumilast 500 Mcg 1 each PO DAILY [facility] Last Admin: 05/02/17 08:11 Dose: 1 each Tiotropium [place] [ Spiriva Respimat] 2 Puff 1 each INH DAILY [facility] Last Admin: 05/02/17 09:01 Dose: 1 each Pravastatin Sodium (Pravachol) 20 mg PO DAILY [facility] Last Admin: 05/02/17 08:08 Dose: 20 mg Fluticasone/Salmeterol (Advair Diskus 500-50) 1 puff INH BID [facility] Last Admin: 05/02/17 09:00 Dose: 1 inhalation Vancomycin HCl (Pharmacy To Dose - Vancomycin) 1 dose .XX ASDIRECTED [facility] Discontinued Medications Acetaminophen (Tylenol) 650 mg PO ONETIME ONE Stop: 05/01/17 09:26 Last Admin: 05/01/17 11:09 Dose: 650 mg Acetaminophen (Tylenol) 650 mg PO NOW ONE Stop: 05/01/17 14:51 Last Admin: 05/01/17 14:01 Dose: 650 mg Albuterol/Ipratropium (Duoneb 3.0-0.5 Mg/3 Ml) 3 ml NEB ONETIME ONE Stop: 04/29/17 19:55 Last Admin: 04/29/17 19:58 Dose: 3 ml Diphenhydramine HCl (Benadryl) 50 mg PO ONETIME ONE Stop: 05/01/17 10:01 Last Admin: 05/01/17 11:09 Dose: 50 mg Diphenhydramine HCl (Benadryl) 50 mg PO ONETIME ONE Stop: 05/01/17 15:01 Last Admin: 05/01/17 14:02 Dose: 50 mg Furosemide (Lasix) 20 mg IVPUSH ONETIME ONE Stop: 05/01/17 15:01 Last Admin: 05/01/17 14:02 Dose: 20 mg Furosemide (Lasix) 20 mg IVPUSH ONETIME ONE Stop: 05/01/17 17:01 Last Admin: 05/01/17 17:22 Dose: 20 mg Azithromycin 500 mg/ Sodium (Chloride) 250 mls @ 250 mls/hr IV Q24H [place] Last Admin: 04/29/17 22:36 Dose: 250 mls/hr Methylprednisolone Sodium Succinate (Solu-Medrol) 125 mg IVPUSH ONETIME ONE Stop: 04/29/17 19:55 Last Admin: 04/29/17 19:56 Dose: 125 mg Methylprednisolone Sodium Succinate (Solu-Medrol) Confirm Administered Dose 125 mg .ROUTE .STK-MED ONE Stop: 04/29/17 19:54 Last Admin: 04/29/17 19:56 Dose: Not Given Morphine Sulfate (Morphine) 2 mg IVPUSH Q4H PRN PRN Reason: Pain (severe 7-10) Comments:: Physically she appears better - Exam Quality Assessment: Supplemental Oxygen General: Alert, Oriented, Cooperative, No Acute Distress HEENT: Pupils Equal, Pupils Reactive Neck: Supple, Trachea Midline Lungs: Decreased Breath Sounds (Globally) Cardiovascular: Regular Rhythm, Tachycardia GI/Abdominal Exam: Normal Bowel Sounds, Soft, No Distention Back Exam: Decreased Range of Motion Extremities: No Pedal Edema Skin: Warm, Dry Neurological: No New Focal Deficit Psy/Mental Status: Alert, Normal Affect - Problem List & Annotations (1) Gram-positive cocci bacteremia SNOMED Code(s): 335007272120, 378526637406 Code(s): R78.81 - BACTEREMIA Status: Acute Priority: High Current Visit : Yes Annotation/Comment:: Aerobic blood cultures positive (2) COPD (chronic obstructive pulmonary disease) SNOMED Code(s): 20333747 Code(s): J44.9 - CHRONIC OBSTRUCTIVE PULMONARY DISEASE, UNSPECIFIED Status : Chronic Priority: High Current Visit: Yes Qualifiers: COPD type: COPD with acute exacerbation Qualified Code(s): J44.1 - Chronic obstructive pulmonary disease with (acute) exacerbation (3) Anemia SNOMED Code(s): 329827486 Code(s): D64.9 - ANEMIA, UNSPECIFIED Status: Chronic Priority: High Current Visit: Yes Qualifiers: Anemia type: iron deficiency Iron deficiency anemia type: inadequate dietary iron intake Qualified Code(s): D50.8 - Other iron deficiency anemias (4) Acute and chronic respiratory failure ([id number]) SNOMED Code(s): 35809102 Code(s): J96.20 - ACUTE AND CHR RESP FAILURE, UNSP W HYPOXIA OR HYPERCAPNIA Status: Acute Priority: High Current Visit: Yes Qualifiers: Respiratory failure complication: hypoxia Qualified Code(s): J96.21 - Acute and chronic respiratory failure with hypoxia (5) Anxiety SNOMED Code(s): 55785404 Code(s): F41.9 - ANXIETY DISORDER, UNSPECIFIED Status: Chronic Priority: High Current Visit: Yes (6) Oxygen dependent SNOMED Code(s): 996654982979 Code(s): Z99.81 - DEPENDENCE ON SUPPLEMENTAL OXYGEN Status: Chronic Priority: High Current Visit: Yes (7) History of pneumonia SNOMED Code(s): 704577933 Code(s): Z87.01 - PERSONAL HISTORY OF PNEUMONIA (RECURRENT) Status: Chronic Priority: High Current Visit: Yes - Problem List Review Problem List Initiated/Reviewed/Updated: Yes - My Orders Last 24 Hours: My Active Orders 05/02/17 09:23 CDIFF TOX A+B [OP] Routine - Assessment Assessment:: The patient was seen today and she is still anxious and currently on medication for her anxiety as well as her COPD. The patient was also tachycardic and has been around 120 bpm. The patient's hemoglobin had dropped from 8.7 g/dL to 7.7 g /dL. Because of the patient's shortness of breath, tachycardia and her anxiety up elected to transfuse the patient with 2 units packed red blood cells. The patient will have 50 mg Benadryl +650 mg of Tylenol by mouth prior to each unit and 20 mg IV Lasix after each unit. I have advised the patient of the risk, alternatives and benefits of blood transfusion and blood products. For now the patient will be continued on her oxygen and IV antibiotics. I have also changed the patient from observation to inpatient status. The patient's overall status at this time remains somewhat guarded. She may be appropriate for discharge after 2 more days of IV antibiotics and IV steroids. Will consider her safe for discharge when her oxygen demands have decreased and her shortness of breath has returned to baseline. The patient also has been encouraged for ambulation. - Plan Plan:: Subjectively, the patient feels better today. Her hemoglobin has improved to 10.6 as per deciliter. CBC will need to be monitored very closely for further drops in her hemoglobin. The patient likely will need to have complete workup as an outpatient for this. The patient has received 2 more units of packed red blood cells yesterday evening. She tolerated this well. The patient is also on vancomycin and Zosyn for hospital-acquired infection. Blood cultures being positive for anaerobic gram-positive cocci in clusters indicate that this is a good choice. The patient will be de-escalated on her antibiotics once speciation and sensitivity is completed. I recommended that the patient continue to ambulate as tolerated and will continue the patient on her steroids and SVNs. With regards to her anxiety this is somewhat improved and she'll be continued on the medication as needed. 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 The patient will have a CBC, comprehensive metabolic panel for the morning and I suspect that the patient will be appropriate for discharge in 1-2 days. Depending upon the blood cultures the patient may have to have IV antibiotics for 2-3 weeks after discharge.
[2017-05-02] MEDS: metroNIDAZOLE/Normal Saline 500 MG in Premix Bag 1 BAG IV SCH (21:17)
[2017-05-03] MEDS: metroNIDAZOLE/Normal Saline 500 MG in Premix Bag 1 BAG IV SCH ×4 (02:17→20:13)
[2017-05-03] MEDS: Albuterol/Ipratropium 3.0-0.5 MG/3 ML Neb Soln NEB SCH ×6 (02:23→21:41)
[2017-05-03] MEDS: Piperacillin/Tazobactam 4.5 GM in Sodium Chloride 0.9% 100 ML IV SCH ×4 (03:26→21:15)
[2017-05-03] MEDS: methylPREDNISolone Sodium Succinate 125 MG/2 ML SDV IVPUSH SCH ×3 (03:26→20:12)
[2017-05-03 07:37] LABS: CHLORIDE,CL 89 mmol/L (98-110); SODIUM,NA 141 mmol/L (136-146)
[2017-05-03] MEDS: Pantoprazole 40 MG Tab.CR PO SCH (08:22)
[2017-05-03] MEDS: LORazepam 0.5 MG Tab PO PRN (08:22)
[2017-05-03] MEDS: Escitalopram 10 MG Tab PO SCH (08:22)
[2017-05-03] MEDS: Pravastatin 40 MG Tab PO SCH (08:23)
[2017-05-03] MEDS: Losartan 50 MG Tab PO SCH (08:27)
[2017-05-03] MEDS: Tiotropium Bromide [Spiriva Respimat] 2 PUFF INH SCH (09:29)
[2017-05-03] MEDS: Fluticasone/Salmeterol 500-50 MCG Inhalation Powder 14/Diskus INH SCH ×2 (09:30→21:40)
[2017-05-03] MEDS: Ondansetron 4 MG Tab PO PRN (15:01)
--- NOTE | 2017-05-03 18:34 | PCM.PN ---
- General Info Date of Service: 05/03/17 Admission Dx/Problem (Free Text): COPD exacerbation, hypoxia, anxiety, history of pneumonia with recent hospitalization Functional Status: Reports: Pain Controlled, Tolerating Diet - Review of Systems General: Reports: Weakness HEENT: Reports: No Symptoms Pulmonary: Reports: Shortness of Breath Cardiovascular: Reports: No Symptoms Gastrointestinal: Reports: No Symptoms Genitourinary: Reports: No Symptoms Musculoskeletal: Reports: No Symptoms Skin: Reports: No Symptoms Neurological: Reports: No Symptoms Psychiatric: Reports: No Symptoms - Patient Data Vitals - Most Recent: Last Vital Signs Temp 36.7 C 05/03/17 17:00 Pulse 119 H 05/03/17 17:00 Resp 20 05/03/17 17:00 BP 160/82 H 05/03/17 17:00 Pulse Ox 92 L 05/03/17 17:00 Weight - Most Recent: 79.5 kg I&O - Last 24 Hours: Intake & Output 05/03/17 05/03/17 05/03/17 06:59 14:59 22:59 Intake Total 550 550 420 Output Total 850 550 Balance -300 550 -130 Lab Results Last 24 Hours: Laboratory Results - last 24 hr 05/03/17 05/03/17 05/03/17 Range/Units 07:08 07:08 07:08 WBC 8.03 (4.0-11.0) K/uL RBC 3.51 L (4.30-5.90) M/uL Hgb 10.6 L (12.0-16.0) g/dL Hct 34.1 L (36.0-46.0) % MCV 97.2 (80.0-98.0) fL MCH 30.2 (27.0-32.0) pg MCHC 31.1 (31.0-37.0) g/dL RDW Std Deviation 50.9 (28.0-62.0) fl RDW Coeff of Marck 14 (11.0-15.0) % Plt Count 235 (150-400) K/uL MPV 9.10 (7.40-12.00) fL Neut % (Auto) 84.8 H (48.0-80.0) % Lymph % (Auto) 6.5 L (16.0-40.0) % [place] % (Auto) 8.7 (0.0-15.0) % Eos % (Auto) 0.0 (0.0-7.0) % Baso % (Auto) 0.0 (0.0-1.5) % Neut # (Auto) 6.8 H (1.4-5.7) K/uL Lymph # (Auto) 0.5 L (0.6-2.4) K/uL [place] # (Auto) 0.7 (0.0-0.8) K/uL Eos # (Auto) 0.0 (0.0-0.7) K/uL Baso # (Auto) 0.0 (0.0-0.1) K/uL Nucleated RBC % 0.0 /100WBC Nucleated RBCs # 0 K/uL Sodium 141 (136-146) mmol/L Potassium 3.9 (3.5-5.1) mmol/L Chloride 89 L (98-110) mmol/L Carbon Dioxide 42 H (21-31) mmol/L BUN 17 (6.0-23.0) mg/dL Creatinine 0.8 (0.6-1.5) mg/dL Est Cr Clr Drug Dosing 55.43 mL/min Estimated GFR (MDRD) > 60.0 ml/min Glucose 147 H (60-110) mg/dL Calcium 9.2 (8.8-10.8) mg/dL Total Bilirubin 0.6 (0.1-1.5) mg/dL AST 16 (5-40) IU/L ALT 21 (8-54) IU/L Alkaline Phosphatase 45 (40-150) Total Protein 5.8 L (6.0-8.0) g/dL Albumin 3.2 L (3.4-4.8) g/dL Globulin 2.6 (2.0-3.5) g/dL Albumin/Globulin Ratio 1.2 L (1.3-2.8) Vancomycin Trough 18.5 H (5-15) ug/mL [place] Results Last 24 Hours: Microbiology 05/02/17 18:20 Clostridium difficile Toxin A&B (M) - Final Stool / Feces Positive C. Diff Antigen Med Orders - Current: Current Medications Acetaminophen (Tylenol) 650 mg PO Q6H PRN PRN Reason: Pain (mild 1-3) Albuterol/Ipratropium (Duoneb 3.0-0.5 Mg/3 Ml) 3 ml NEB Q4HRRT PRN PRN Reason: Shortness of Breath Albuterol/Ipratropium (Duoneb 3.0-0.5 Mg/3 Ml) 3 ml NEB Q4HRRT [facility] Last Admin: 05/03/17 18:23 Dose: 3 ml Escitalopram Oxalate (Lexapro) 10 mg PO DAILY [facility] Last Admin: 05/03/17 08:22 Dose: 10 mg Piperacillin Sod/Tazobactam (Sod 4.5 gm/ Sodium Chloride) 100 mls @ 100 mls/hr IV Q6H [facility] Last Admin: 05/03/17 14:52 Dose: 100 mls/hr Metronidazole 500 mg/ Premix 100 mls @ 100 mls/hr IV Q6H [facility] Last Admin: 05/03/17 13:38 Dose: 100 mls/hr Vancomycin HCl 1 gm/ Sodium (Chloride) 250 mls @ 166.667 mls/hr IV Q12H [facility] Last Admin: 05/03/17 11:42 Dose: 166.667 mls/hr Lorazepam (Ativan) 0.5 mg PO QID PRN PRN Reason: Anxiety Last Admin: 05/03/17 08:22 Dose: 0.5 mg Losartan Potassium (Cozaar) 25 mg PO DAILY [facility] Last Admin: 05/03/17 08:27 Dose: 25 mg Methylprednisolone Sodium Succinate (Solu-Medrol) 125 mg IVPUSH Q8H [facility] Last Admin: 05/03/17 12:18 Dose: 125 mg Ondansetron HCl (Zofran) 4 mg PO Q6H PRN PRN Reason: Nausea/Vomiting Last Admin: 05/03/17 15:01 Dose: 4 mg Pantoprazole Sodium (Protonix) 40 mg PO DAILY [facility] Last Admin: 05/03/17 08:22 Dose: 40 mg Roflumilast 500 Mcg 1 each PO DAILY [facility] Last Admin: 05/03/17 10:19 Dose: 1 each Tiotropium [place] [ Spiriva Respimat] 2 Puff 1 each INH DAILY [facility] Last Admin: 05/03/17 09:29 Dose: 1 each Pravastatin Sodium (Pravachol) 20 mg PO DAILY [facility] Last Admin: 05/03/17 08:23 Dose: 20 mg Fluticasone/Salmeterol (Advair Diskus 500-50) 1 puff INH BID [place] Last Admin: 05/03/17 09:30 Dose: 1 inhalation Vancomycin HCl (Pharmacy To Dose - Vancomycin) 1 dose .XX ASDIRECTED [facility] Discontinued Medications Acetaminophen (Tylenol) 650 mg PO ONETIME ONE Stop: 05/01/17 09:26 Last Admin: 05/01/17 11:09 Dose: 650 mg Acetaminophen (Tylenol) 650 mg PO NOW ONE Stop: 05/01/17 14:51 Last Admin: 05/01/17 14:01 Dose: 650 mg Albuterol/Ipratropium (Duoneb 3.0-0.5 Mg/3 Ml) 3 ml NEB ONETIME ONE Stop: 04/29/17 19:55 Last Admin: 04/29/17 19:58 Dose: 3 ml Diphenhydramine HCl (Benadryl) 50 mg PO ONETIME ONE Stop: 05/01/17 10:01 Last Admin: 05/01/17 11:09 Dose: 50 mg Diphenhydramine HCl (Benadryl) 50 mg PO ONETIME ONE Stop: 05/01/17 15:01 Last Admin: 05/01/17 14:02 Dose: 50 mg Furosemide (Lasix) 20 mg IVPUSH ONETIME ONE Stop: 05/01/17 15:01 Last Admin: 05/01/17 14:02 Dose: 20 mg Furosemide (Lasix) 20 mg IVPUSH ONETIME ONE Stop: 05/01/17 17:01 Last Admin: 05/01/17 17:22 Dose: 20 mg Azithromycin 500 mg/ Sodium (Chloride) 250 mls @ 250 mls/hr IV Q24H [facility] Last Admin: 04/29/17 22:36 Dose: 250 mls/hr Vancomycin HCl 1 gm/ Sodium (Chloride) 250 mls @ 166.667 mls/hr IV Q12H [facility] Last Admin: 05/03/17 10:23 Dose: Not Given Methylprednisolone Sodium Succinate (Solu-Medrol) 125 mg IVPUSH ONETIME ONE Stop: 04/29/17 19:55 Last Admin: 04/29/17 19:56 Dose: 125 mg Methylprednisolone Sodium Succinate (Solu-Medrol) Confirm Administered Dose 125 mg .ROUTE .STK-MED ONE Stop: 04/29/17 19:54 Last Admin: 04/29/17 19:56 Dose: Not Given Morphine Sulfate (Morphine) 2 mg IVPUSH Q4H PRN PRN Reason: Pain (severe 7-10) - Exam Quality Assessment: Supplemental Oxygen General: Alert, Oriented, No Acute Distress HEENT: Pupils Equal, Pupils Reactive Neck: Supple, Trachea Midline Lungs: Decreased Breath Sounds, Crackles Cardiovascular: Regular Rhythm, Tachycardia Back Exam: Decreased Range of Motion Extremities: No Pedal Edema Skin: Warm, Dry Neurological: No New Focal Deficit Psy/Mental Status: Alert, Normal Affect, Anxious - Problem List & Annotations (1) Gram-positive cocci bacteremia SNOMED Code(s): 875178450040, 095821283778 Code(s): R78.81 - BACTEREMIA Status: Acute Priority: High Current Visit : Yes Annotation/Comment:: Aerobic blood cultures positive (2) COPD (chronic obstructive pulmonary disease) SNOMED Code(s): 08979132 Code(s): J44.9 - CHRONIC OBSTRUCTIVE PULMONARY DISEASE, UNSPECIFIED Status : Chronic Priority: High Current Visit: Yes Qualifiers: COPD type: COPD with acute exacerbation Qualified Code(s): J44.1 - Chronic obstructive pulmonary disease with (acute) exacerbation (3) Anemia SNOMED Code(s): 872936820 Code(s): D64.9 - ANEMIA, UNSPECIFIED Status: Chronic Priority: High Current Visit: Yes Qualifiers: Anemia type: iron deficiency Iron deficiency anemia type: inadequate dietary iron intake Qualified Code(s): D50.8 - Other iron deficiency anemias (4) Acute and chronic respiratory failure ([id number]) SNOMED Code(s): 98908146 Code(s): J96.20 - ACUTE AND CHR RESP FAILURE, UNSP W HYPOXIA OR HYPERCAPNIA Status: Acute Priority: High Current Visit: Yes Qualifiers: Respiratory failure complication: hypoxia Qualified Code(s): J96.21 - Acute and chronic respiratory failure with hypoxia (5) Anxiety SNOMED Code(s): 81563894 Code(s): F41.9 - ANXIETY DISORDER, UNSPECIFIED Status: Chronic Priority: High Current Visit: Yes (6) Oxygen dependent SNOMED Code(s): 957541096364 Code(s): Z99.81 - DEPENDENCE ON SUPPLEMENTAL OXYGEN Status: Chronic Priority: High Current Visit: Yes (7) History of pneumonia SNOMED Code(s): 270043543 Code(s): Z87.01 - PERSONAL HISTORY OF PNEUMONIA (RECURRENT) Status: Chronic Priority: High Current Visit: Yes - Problem List Review Problem List Initiated/Reviewed/Updated: Yes - My Orders Last 24 Hours: My Active Orders 05/02/17 20:00 metroNIDAZOLE/Normal Saline [Flagyl 500 MG in NS 100 ML] 500 mg Premix Bag 1 bag IV Q6H 05/03/17 11:00 Vancomycin [Vancocin] 1 gm Sodium Chloride 0.9% [Normal Saline] 250 ml IV Q12H 05/04/17 05:00 CBC WITH AUTO DIFF [HEME] Routine COMPREHENSIVE METABOLIC PN,CMP [CHEM] Routine 05/05/17 10:00 VANCOMYCIN TROUGH [CHEM] Routine - Assessment Assessment:: The patient was seen today and she is still anxious and currently on medication for her anxiety as well as her COPD. The patient was also tachycardic and has been around 120 bpm. The patient's hemoglobin had dropped from 8.7 g/dL to 7.7 g /dL. Because of the patient's shortness of breath, tachycardia and her anxiety up elected to transfuse the patient with 2 units packed red blood cells. The patient will have 50 mg Benadryl +650 mg of Tylenol by mouth prior to each unit and 20 mg IV Lasix after each unit. I have advised the patient of the risk, alternatives and benefits of blood transfusion and blood products. For now the patient will be continued on her oxygen and IV antibiotics. I have also changed the patient from observation to inpatient status. The patient's overall status at this time remains somewhat guarded. She may be appropriate for discharge after 2 more days of IV antibiotics and IV steroids. Will consider her safe for discharge when her oxygen demands have decreased and her shortness of breath has returned to baseline. The patient also has been encouraged for ambulation. - Plan Plan:: Subjectively, the patient feels better today. Her hemoglobin has improved to 10.6 as per deciliter. CBC will need to be monitored very closely for further drops in her hemoglobin. The patient likely will need to have complete workup as an outpatient for this. The patient has received 2 more units of packed red blood cells yesterday evening. She tolerated this well. The patient is also on vancomycin and Zosyn for hospital-acquired infection. Blood cultures being positive for anaerobic gram-positive cocci in clusters indicate that this is a good choice. The patient will be de-escalated on her antibiotics once speciation and sensitivity is completed. I recommended that the patient continue to ambulate as tolerated and will continue the patient on her steroids and SVNs. With regards to her anxiety this is somewhat improved and she'll be continued on the medication as needed. 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 The patient will have a CBC, comprehensive metabolic panel for the morning and I suspect that the patient will be appropriate for discharge in 1-2 days. Depending upon the blood cultures the patient may have to have IV antibiotics for 2-3 weeks after discharge.
[2017-05-04] MEDS: metroNIDAZOLE/Normal Saline 500 MG in Premix Bag 1 BAG IV SCH ×4 (01:28→21:56)
[2017-05-04] MEDS: Albuterol/Ipratropium 3.0-0.5 MG/3 ML Neb Soln NEB SCH ×6 (01:28→21:31)
[2017-05-04] MEDS: Piperacillin/Tazobactam 4.5 GM in Sodium Chloride 0.9% 100 ML IV SCH ×4 (04:06→20:14)
[2017-05-04] MEDS: methylPREDNISolone Sodium Succinate 125 MG/2 ML SDV IVPUSH SCH ×3 (04:08→20:14)
[2017-05-04 06:33] LABS: CHLORIDE,CL 91 mmol/L (98-110); SODIUM,NA 141 mmol/L (136-146)
[2017-05-04] MEDS: Pravastatin 40 MG Tab PO SCH (08:08)
[2017-05-04] MEDS: Pantoprazole 40 MG Tab.CR PO SCH (08:09)
[2017-05-04] MEDS: Escitalopram 10 MG Tab PO SCH (08:09)
[2017-05-04] MEDS: Losartan 50 MG Tab PO SCH (08:14)
[2017-05-04] MEDS: LORazepam 0.5 MG Tab PO PRN ×3 (08:38→23:47)
[2017-05-04] MEDS: Tiotropium Bromide [Spiriva Respimat] 2 PUFF INH SCH (08:59)
[2017-05-04] MEDS: Fluticasone/Salmeterol 500-50 MCG Inhalation Powder 14/Diskus INH SCH ×2 (09:00→21:31)
--- NOTE | 2017-05-04 09:10 | PCM.PN ---
- General Info Date of Service: 05/04/17 Admission Dx/Problem (Free Text): COPD exacerbation, hypoxia, anxiety, history of pneumonia with recent hospitalization Subjective Update: Feeling a little tired this morning. Breathing is a little fast today, but no chest pain or palpitations. She is slightly anxious regarding going home, doesn' t feel ready today. Functional Status: Reports: Pain Controlled, Tolerating Diet, Ambulating, Urinating - Review of Systems Pulmonary: Reports: Shortness of Breath (worsens with anxiety), Cough. Denies: Sputum Cardiovascular: Reports: Dyspnea on Exertion. Denies: Chest Pain, Palpitations , Edema Gastrointestinal: Reports: Diarrhea (scant amount of loose stools, ). Denies: Abdominal Pain, Nausea, Vomiting Genitourinary: Reports: No Symptoms. Denies: Dysuria, Frequency, Burning Musculoskeletal: Reports: No Symptoms Skin: Reports: No Symptoms Neurological: Reports: No Symptoms Psychiatric: Reports: Anxiety - Patient Data Vitals - Most Recent: Last Vital Signs Temp 96.8 F 05/04/17 04:00 Pulse 106 H 05/04/17 06:23 Resp 24 H 05/04/17 06:23 BP 175/99 H 05/04/17 08:14 Pulse Ox 98 05/04/17 06:23 Weight - Most Recent: 82.5 kg I&O - Last 24 Hours: Intake & Output 05/03/17 05/04/17 05/04/17 22:59 06:59 14:59 Intake Total 620 1340 Output Total 550 820 Balance 70 520 Lab Results Last 24 Hours: Laboratory Results - last 24 hr 05/04/17 05/04/17 Range/Units 05:57 05:57 WBC 7.32 (4.0-11.0) K/uL RBC 3.69 L (4.30-5.90) M/uL Hgb 11.0 L (12.0-16.0) g/dL Hct 35.8 L (36.0-46.0) % MCV 97.0 (80.0-98.0) fL MCH 29.8 (27.0-32.0) pg MCHC 30.7 L (31.0-37.0) g/dL RDW Std Deviation 50.5 (28.0-62.0) fl RDW Coeff of Marck 14 (11.0-15.0) % Plt Count 250 (150-400) K/uL MPV 9.40 (7.40-12.00) fL Neut % (Auto) 93.8 H (48.0-80.0) % Lymph % (Auto) 3.1 L (16.0-40.0) % [place] % (Auto) 3.0 (0.0-15.0) % Eos % (Auto) 0.0 (0.0-7.0) % Baso % (Auto) 0.1 (0.0-1.5) % Neut # (Auto) 6.9 H (1.4-5.7) K/uL Lymph # (Auto) 0.2 L (0.6-2.4) K/uL [place] # (Auto) 0.2 (0.0-0.8) K/uL Eos # (Auto) 0.0 (0.0-0.7) K/uL Baso # (Auto) 0.0 (0.0-0.1) K/uL Nucleated RBC % 0.0 /100WBC Nucleated RBCs # 0 K/uL Sodium 141 (136-146) mmol/L Potassium 4.9 (3.5-5.1) mmol/L Chloride 91 L (98-110) mmol/L Carbon Dioxide 40 H (21-31) mmol/L BUN 16 (6.0-23.0) mg/dL Creatinine 0.8 (0.6-1.5) mg/dL Est Cr Clr Drug Dosing 55.43 mL/min Estimated GFR (MDRD) > 60.0 ml/min Glucose 166 H (60-110) mg/dL Calcium 9.2 (8.8-10.8) mg/dL Total Bilirubin 0.7 (0.1-1.5) mg/dL AST 16 (5-40) IU/L ALT 24 (8-54) IU/L Alkaline Phosphatase 45 (40-150) Total Protein 5.9 L (6.0-8.0) g/dL Albumin 3.3 L (3.4-4.8) g/dL Globulin 2.6 (2.0-3.5) g/dL Albumin/Globulin Ratio 1.3 (1.3-2.8) Med Orders - Current: Current Medications Acetaminophen (Tylenol) 650 mg PO Q6H PRN PRN Reason: Pain (mild 1-3) Albuterol/Ipratropium (Duoneb 3.0-0.5 Mg/3 Ml) 3 ml NEB Q4HRRT PRN PRN Reason: Shortness of Breath Albuterol/Ipratropium (Duoneb 3.0-0.5 Mg/3 Ml) 3 ml NEB Q4HRRT [facility] Last Admin: 05/04/17 09:00 Dose: 3 ml Escitalopram Oxalate (Lexapro) 10 mg PO DAILY [facility] Last Admin: 05/04/17 08:09 Dose: 10 mg Piperacillin Sod/Tazobactam (Sod 4.5 gm/ Sodium Chloride) 100 mls @ 100 mls/hr IV Q6H [facility] Last Admin: 05/04/17 08:27 Dose: 100 mls/hr Metronidazole 500 mg/ Premix 100 mls @ 100 mls/hr IV Q6H [facility] Last Admin: 05/04/17 08:02 Dose: 100 mls/hr Vancomycin HCl 1 gm/ Sodium (Chloride) 250 mls @ 166.667 mls/hr IV Q12H [facility] Last Admin: 05/03/17 22:24 Dose: 166.667 mls/hr Lorazepam (Ativan) 0.5 mg PO QID PRN PRN Reason: Anxiety Last Admin: 05/04/17 08:38 Dose: 0.5 mg Losartan Potassium (Cozaar) 25 mg PO DAILY [facility] Last Admin: 05/04/17 08:14 Dose: 25 mg Methylprednisolone Sodium Succinate (Solu-Medrol) 125 mg IVPUSH Q8H [facility] Last Admin: 05/04/17 04:08 Dose: Not Given Ondansetron HCl (Zofran) 4 mg PO Q6H PRN PRN Reason: Nausea/Vomiting Last Admin: 05/03/17 15:01 Dose: 4 mg Pantoprazole Sodium (Protonix) 40 mg PO DAILY [facility] Last Admin: 05/04/17 08:09 Dose: 40 mg Roflumilast 500 Mcg 1 each PO DAILY [facility] Last Admin: 05/04/17 08:08 Dose: 1 each Tiotropium [place] [ Spiriva Respimat] 2 Puff 1 each INH DAILY [facility] Last Admin: 05/04/17 08:59 Dose: 1 each Pravastatin Sodium (Pravachol) 20 mg PO DAILY [facility] Last Admin: 05/04/17 08:08 Dose: 20 mg Fluticasone/Salmeterol (Advair Diskus 500-50) 1 puff INH BID [facility] Last Admin: 05/04/17 09:00 Dose: 1 inhalation Vancomycin HCl (Pharmacy To Dose - Vancomycin) 1 dose .XX ASDIRECTED [facility] Discontinued Medications Acetaminophen (Tylenol) 650 mg PO ONETIME ONE Stop: 05/01/17 09:26 Last Admin: 05/01/17 11:09 Dose: 650 mg Acetaminophen (Tylenol) 650 mg PO NOW ONE Stop: 05/01/17 14:51 Last Admin: 05/01/17 14:01 Dose: 650 mg Albuterol/Ipratropium (Duoneb 3.0-0.5 Mg/3 Ml) 3 ml NEB ONETIME ONE Stop: 04/29/17 19:55 Last Admin: 04/29/17 19:58 Dose: 3 ml Diphenhydramine HCl (Benadryl) 50 mg PO ONETIME ONE Stop: 05/01/17 10:01 Last Admin: 05/01/17 11:09 Dose: 50 mg Diphenhydramine HCl (Benadryl) 50 mg PO ONETIME ONE Stop: 05/01/17 15:01 Last Admin: 05/01/17 14:02 Dose: 50 mg Furosemide (Lasix) 20 mg IVPUSH ONETIME ONE Stop: 05/01/17 15:01 Last Admin: 05/01/17 14:02 Dose: 20 mg Furosemide (Lasix) 20 mg IVPUSH ONETIME ONE Stop: 05/01/17 17:01 Last Admin: 05/01/17 17:22 Dose: 20 mg Azithromycin 500 mg/ Sodium (Chloride) 250 mls @ 250 mls/hr IV Q24H [facility] Last Admin: 04/29/17 22:36 Dose: 250 mls/hr Vancomycin HCl 1 gm/ Sodium (Chloride) 250 mls @ 166.667 mls/hr IV Q12H [facility] Last Admin: 05/03/17 10:23 Dose: Not Given Methylprednisolone Sodium Succinate (Solu-Medrol) 125 mg IVPUSH ONETIME ONE Stop: 04/29/17 19:55 Last Admin: 04/29/17 19:56 Dose: 125 mg Methylprednisolone Sodium Succinate (Solu-Medrol) Confirm Administered Dose 125 mg .ROUTE .STK-MED ONE Stop: 04/29/17 19:54 Last Admin: 04/29/17 19:56 Dose: Not Given Morphine Sulfate (Morphine) 2 mg IVPUSH Q4H PRN PRN Reason: Pain (severe 7-10) - Exam General: Alert, Oriented, Cooperative, Mild Distress Lungs: Decreased Breath Sounds (diminished to L, more clear to R), Wheezing (to R lung aviles) Cardiovascular: Regular Rhythm, No Murmurs, Tachycardia GI/Abdominal Exam: Normal Bowel Sounds, Soft, Non-Tender, No Organomegaly, No Distention, No Abnormal Bruit, No Mass, Pelvis Stable Neurological: No New Focal Deficit Psy/Mental Status: Anxious (when able to settle down, breathing is less labored. Was anxious about not knowing how to answer phone and she become very tachypneic and flustered, then easily calmed after the incident.) - Problem List & Annotations (1) Acute and chronic respiratory failure ([id number]) SNOMED Code(s): 66292543 Code(s): J96.20 - ACUTE AND CHR RESP FAILURE, UNSP W HYPOXIA OR HYPERCAPNIA Status: Acute Priority: High Current Visit: Yes Qualifiers: Respiratory failure complication: hypoxia Qualified Code(s): J96.21 - Acute and chronic respiratory failure with hypoxia (2) Dyspnea SNOMED Code(s): 568449065 Code(s): R06.00 - DYSPNEA, UNSPECIFIED Status: Acute Current Visit: Yes Qualifiers: Dyspnea type: shortness of breath Qualified Code(s): R06.02 - Shortness of breath; R06.00 - Dyspnea, unspecified; R06.01 - Orthopnea (3) Anemia SNOMED Code(s): 056604318 Code(s): D64.9 - ANEMIA, UNSPECIFIED Status: Chronic Priority: High Current Visit: Yes Qualifiers: Anemia type: iron deficiency Iron deficiency anemia type: inadequate dietary iron intake Qualified Code(s): D50.8 - Other iron deficiency anemias (4) Anxiety SNOMED Code(s): 05614437 Code(s): F41.9 - ANXIETY DISORDER, UNSPECIFIED Status: Chronic Priority: High Current Visit: Yes (5) COPD (chronic obstructive pulmonary disease) SNOMED Code(s): 18087877 Code(s): J44.9 - CHRONIC OBSTRUCTIVE PULMONARY DISEASE, UNSPECIFIED Status : Chronic Priority: High Current Visit: Yes Qualifiers: COPD type: COPD with acute exacerbation Qualified Code(s): J44.1 - Chronic obstructive pulmonary disease with (acute) exacerbation (6) History of pneumonia SNOMED Code(s): 690642774 Code(s): Z87.01 - PERSONAL HISTORY OF PNEUMONIA (RECURRENT) Status: Chronic Priority: High Current Visit: Yes (7) Oxygen dependent SNOMED Code(s): 092826554111 Code(s): Z99.81 - DEPENDENCE ON SUPPLEMENTAL OXYGEN Status: Chronic Priority: High Current Visit: Yes (8) Hypercarbia SNOMED Code(s): 92690208 Code(s): R06.89 - OTHER ABNORMALITIES OF BREATHING Status: Acute Current Visit: No (9) HTN (hypertension) SNOMED Code(s): 95811144 Code(s): I10 - ESSENTIAL (PRIMARY) HYPERTENSION Status: Chronic Current Visit: Yes Qualifiers: Hypertension type: essential hypertension Qualified Code(s): I10 - Essential (primary) hypertension - Problem List Review Problem List Initiated/Reviewed/Updated: Yes - My Orders Last 24 Hours: My Active Orders 05/04/17 09:15 Acidophilus/Pectin, [place] 1 tab PO BID - Plan Plan:: This 76 year old female admitted for COPD exacerbation, and acute on chronic respiratory failure. 1. COPD exacerbation, with acute on chronic respiratory failure: Continue Oxygen. Solumedrol 125 mg IV Q8 hr. Duonebs and albuterol nebulizers ordered. Continue Spiriva and Advair. 2. Hx HCAP: BC contaminated, no bacteremia. Spoke with Dr. Matthews, he would like to keep Vancomycin and Zosyn at this time. Continue to monitor. Leukocytosis improved and normal. Afebrile. 3. Cdiff: Flagyl added Q6 hr. Will also add Probiotics. Scant amount of stools. WIll monitor closely. 4. Anxiety: Lorazepam PRN ordered. Some improvement with this. Will monitor. 5. HTN: Continue Cozaar 6. Anemia: hgb 11.0 today. Monitor closely. VTE prophylaxis: SCDs due to anemia Dispo: 1-2 days
[2017-05-04] MEDS: Acidophilus with Citrus Pectin Tab PO SCH ×2 (10:16→21:57)
[2017-05-05] MEDS: Albuterol/Ipratropium 3.0-0.5 MG/3 ML Neb Soln NEB SCH ×3 (02:03→09:28)
[2017-05-05] MEDS: Piperacillin/Tazobactam 4.5 GM in Sodium Chloride 0.9% 100 ML IV SCH ×2 (02:04→08:32)
[2017-05-05] MEDS: metroNIDAZOLE/Normal Saline 500 MG in Premix Bag 1 BAG IV SCH ×2 (03:21→07:17)
[2017-05-05] MEDS: methylPREDNISolone Sodium Succinate 125 MG/2 ML SDV IVPUSH SCH (04:34)
[2017-05-05 05:25] LABS: CHLORIDE,CL 91 mmol/L (98-110); SODIUM,NA 139 mmol/L (136-146)
[2017-05-05] MEDS: Pantoprazole 40 MG Tab.CR PO SCH (08:34)
[2017-05-05] MEDS: Pravastatin 40 MG Tab PO SCH (08:34)
[2017-05-05] MEDS: Acidophilus with Citrus Pectin Tab PO SCH (08:34)
[2017-05-05] MEDS: Escitalopram 10 MG Tab PO SCH (08:35)
[2017-05-05] MEDS: Losartan 50 MG Tab PO SCH (08:35)
[2017-05-05 08:36] VITALS: BP 140/90
[2017-05-05] MEDS: Fluticasone/Salmeterol 500-50 MCG Inhalation Powder 14/Diskus INH SCH (09:28)
[2017-05-05] MEDS: Tiotropium Bromide [Spiriva Respimat] 2 PUFF INH SCH (09:28)
[2017-05-05] MEDS: LORazepam 0.5 MG Tab PO PRN (09:35)
[2017-05-05] MEDS ORDERED: Levofloxacin 500 MG Tab PO SCH (10:15)
--- NOTE | 2017-05-05 10:15 | PCM.DCSUM1 ---
Discharge Summary - Hospital Course Brief History: This 76-year-old female with pmh of severe end stage COPD, chronic hypoxic respiratory failure, severe anxiety, and HTN presented to the ED with complaints of severe shortness of breath. Prior to admission, she was admitted and treated at [facility] for treatment for pneumonia. She was discharged less than a week ago. Patient was at home and she started to develop increasing shortness of breath as well as demand increase of her oxygen. The patient reports that she had to increase her oxygen consumption to 3 -1/2 L. The patient also had been participating in pulmonary rehabilitation. The patient is also very anxious and she does have a history of anemia. The patient's primary concern is her shortness of breath presently. She has had no increasing cough or sputum production. The patient also has denied any fever or chills. The patient has been in declining health over the past year. The patient also has denied any chest pain. No abdominal pain. She has had some dizziness and lightheadedness. In the ED WBC 10,050, Hgb 8.4, Ua negative, Bicarb 40 and CL 90, which is near baseline for patient. ABG 7.4 PCO2, O2 96, HCO3 44. CXR revealed pulmonary vasculature appeared plump and ill defined, suggesting pulmonary venous congestion, and new small right pleural effusion. She was admitted and treated for COPD exacerbation. - Discharge Data Discharge Date: 05/05/17 Discharge Disposition: Home, W Home Health Agency 06 Condition: Good - Discharge Diagnosis/Problem(s) (1) Acute and chronic respiratory failure ([id number]) SNOMED Code(s): 28354923 ICD Code: J96.20 - ACUTE AND CHR RESP FAILURE, UNSP W HYPOXIA OR HYPERCAPNIA Status: Acute Priority: High Qualifiers: Respiratory failure complication: hypoxia Qualified Code(s): J96.21 - Acute and chronic respiratory failure with hypoxia (2) Dyspnea SNOMED Code(s): 241342818 ICD Code: R06.00 - DYSPNEA, UNSPECIFIED Status: Acute Qualifiers: Dyspnea type: shortness of breath Qualified Code(s): R06.02 - Shortness of breath; R06.00 - Dyspnea, unspecified; R06.01 - Orthopnea (3) Anemia SNOMED Code(s): 471482875 ICD Code: D64.9 - ANEMIA, UNSPECIFIED Status: Chronic Priority: High Qualifiers: Anemia type: iron deficiency Iron deficiency anemia type: inadequate dietary iron intake Qualified Code(s): D50.8 - Other iron deficiency anemias (4) Anxiety SNOMED Code(s): 70852673 ICD Code: F41.9 - ANXIETY DISORDER, UNSPECIFIED Status: Chronic Priority : High (5) COPD (chronic obstructive pulmonary disease) SNOMED Code(s): 77977696 ICD Code: J44.9 - CHRONIC OBSTRUCTIVE PULMONARY DISEASE, UNSPECIFIED Status : Chronic Priority: High Qualifiers: COPD type: COPD with acute exacerbation Qualified Code(s): J44.1 - Chronic obstructive pulmonary disease with (acute) exacerbation (6) History of pneumonia SNOMED Code(s): 519730516 ICD Code: Z87.01 - PERSONAL HISTORY OF PNEUMONIA (RECURRENT) Status: Chronic Priority: High (7) Oxygen dependent SNOMED Code(s): 085200063728 ICD Code: Z99.81 - DEPENDENCE ON SUPPLEMENTAL OXYGEN Status: Chronic Priority: High (8) Hypercarbia SNOMED Code(s): 73986035 ICD Code: R06.89 - OTHER ABNORMALITIES OF BREATHING Status: Acute (9) HTN (hypertension) SNOMED Code(s): 92603216 ICD Code: I10 - ESSENTIAL (PRIMARY) HYPERTENSION Status: Chronic Qualifiers: Hypertension type: essential hypertension Qualified Code(s): I10 - Essential (primary) hypertension - Patient Summary/Data Consults: Consultations 05/05/17 09:33 Consult to Physical Therapy [PT Evaluation and Treatment] [CONS] Routine - Patient Instructions Diet: Heart Healthy Diet Activity: Cough & Deep Breathe, No Strenuous Activities, Rest and Relax Today Showering/Bathing: May Shower Notify Provider of: Fever, Increased Pain, Swelling and Redness, Drainage, Nausea and/or Vomiting - Discharge Plan Prescriptions/Med Rec: Albuterol/Ipratropium [DuoNeb 3.0-0.5 MG/3 ML] 3 ml NEB Q4HRRT #1 box Albuterol/Ipratropium [DuoNeb 3.0-0.5 MG/3 ML] 3 ml NEB Q4HRRT #1 box Levofloxacin [Levaquin] 750 mg PO DAILY #5 tablet metroNIDAZOLE [Flagyl] 500 mg PO Q8H #24 tablet predniSONE [Prednisone] 10 - 60 mg PO DAILY #26 tablet Tiotropium [place] [Spiriva Respimat] 2 puff IH DAILY #1 mist.inhal Home Medications: Home Meds Aspirin 81 mg PO DAILY 03/20/17 [History] Cetirizine [ZyrTEC] 0 mg PO ASDIRECTED PRN 03/20/17 [History] Cholecalciferol (Vitamin D3) [Vitamin D] 2,000 unit PO DAILY 03/20/17 [History] LORazepam 0.5 mg PO QID PRN 03/20/17 [History] Lactobacillus Combo No.11 [Probiotic] 1 each PO DAILY 03/20/17 [History] Losartan Potassium 25 mg PO DAILY 03/20/17 [History] Pantoprazole Sodium [Protonix] 40 mg PO DAILY 03/20/17 [History] Pravastatin Sodium 20 mg PO DAILY 03/20/17 [History] Roflumilast [Daliresp] 500 mcg PO DAILY 03/20/17 [History] Ubidecarenone/Vitamin E Mixed [Zjp21-Qlb E 200 mg-20 Unit Sfg] 1 tab PO DAILY [History] Escitalopram [Lexapro] 10 mg PO DAILY 03/21/17 [History] Ondansetron [Zofran] 4 mg PO Q4H PRN #14 tab 03/22/17 [Rx] Fluticasone/Salmeterol [Advair Diskus 500-50] 1 puff INH BID diskus 03/29/17 [ Rx] Iron Polysaccharides Complex [Ferrex 150] 150 mg PO DAILY cap 03/29/17 [Rx] Albuterol/Ipratropium [DuoNeb 3.0-0.5 MG/3 ML] 3 ml NEB Q4HRRT #1 box 05/05/17 [ Rx] Albuterol/Ipratropium [DuoNeb 3.0-0.5 MG/3 ML] 3 ml NEB Q4HRRT #1 box 05/05/17 [ Rx] Levofloxacin [Levaquin] 750 mg PO DAILY #5 tablet 05/05/17 [Rx] Tiotropium [place] [Spiriva Respimat] 2 puff IH DAILY #1 mist.inhal 05/05/17 [Rx ] metroNIDAZOLE [Flagyl] 500 mg PO Q8H #24 tablet 09/13/17 [Rx] predniSONE [Prednisone] 10 - 60 mg PO DAILY #26 tablet 05/05/17 [Rx] Patient Handouts: Tiotropium respiratory inhalation spray (Spiriva Respimat), Levofloxacin tablets, Albuterol; Ipratropium inhalation aerosol, Prednisone tablets, Metronidazole tablets or capsules Referrals: [facility] [Outside] Gus Matthews DO [Physician] - 05/10/17 9:30 am - Discharge Summary/Plan Comment DC Time >30 min.: No Discharge Summary/Plan Comment: Discharge Diagnoses Severe End stage COPD Chronic hypoxic respiratory failure Tachycardia Severe Anxiety Anemia HTN Neema was admitted and treated for COPD exacerbation with Duonebs, Solumedrol and oxygen. She was placed on antibiotics due to recent hospitalization. Throughout stay she was noted to be tachycardic, this was discussed with Dr. Matthews and reported this was likely due to end stage COPD and severe anxiety. Tachycardia did improve Lorazepam administration. Patient very anxious regarding breathing status. During her stay, hgb did drop to 7.7 and she was transfused 2 units of PRBCs. She has done well and is back on her baseline O2 needs, she does have increased needs with ambulation, but she will need to continue with steroid taper, Levaquin, and Duonebs upon discharge. She will also be using Home Health upon discharge as well. She will benefit from [facility] with medications, frequent admission related to respiratory status. She would also need PT to help with exercise intolerance due to respiratory status. OT to evaluate home safety and ability to completed ADLs related to respiratory status. Her PCP, Dr. Matthews will follow through with plan of care. She will be discharged today, she is slightly anxious regarding this but feels ok with going. Daughter, Meli was updated and in agreeance with discharge. She will remain on Prednisone taper, Levaquin for 4 more days, and home inhalers as well. She was encouraged to return to ED or clinic if concerns should arise. Follow up appointment was arranged for early next week with Dr. Matthews. - General Info Date of Service: 05/05/17 Admission Dx/Problem (Free Text: COPD exacerbation, hypoxia, anxiety, history of pneumonia with recent hospitalization Subjective Update: Reports breathing is much better today, slept good, needed 2 doses of Ativan over night. No chest pain or palpitations. Anxious about going home. Functional Status: Reports: Pain Controlled, Tolerating Diet, Ambulating, Urinating - Review of Systems General: Reports: No Symptoms. Denies: Fever HEENT: Reports: No Symptoms. Denies: Sinus Congestion, Sore Throat, Visual Changes Pulmonary: Reports: Shortness of Breath (nera baseline.). Denies: Cough, Sputum Cardiovascular: Reports: Dyspnea on Exertion. Denies: Chest Pain, Palpitations , Edema Gastrointestinal: Reports: No Symptoms. Denies: Abdominal Pain, Nausea, Vomiting Genitourinary: Reports: No Symptoms. Denies: Dysuria, Frequency, Burning Musculoskeletal: Reports: No Symptoms Skin: Reports: No Symptoms Neurological: Reports: No Symptoms Psychiatric: Reports: No Symptoms - Patient Data Vitals - Most Recent: Last Vital Signs Temp 97.0 F 05/05/17 08:00 Pulse 97 05/05/17 08:00 Resp 20 05/05/17 08:00 BP 140/90 05/05/17 08:35 Pulse Ox 97 05/05/17 08:00 Weight - Most Recent: 83.5 kg I&O - Last 24 hours: Intake & Output 05/04/17 05/05/17 05/05/17 22:59 06:59 14:59 Intake Total 870 1550 Output Total 1250 1300 Balance -380 250 Lab Results - Last 24 hrs: Laboratory Results - last 24 hr 05/05/17 05/05/17 Range/Units 04:31 04:31 WBC 10.20 (4.0-11.0) K/uL RBC 3.79 L (4.30-5.90) M/uL Hgb 11.3 L (12.0-16.0) g/dL Hct 36.7 (36.0-46.0) % MCV 96.8 (80.0-98.0) fL MCH 29.8 (27.0-32.0) pg MCHC 30.8 L (31.0-37.0) g/dL RDW Std Deviation 50.2 (28.0-62.0) fl RDW Coeff of Marck 14 (11.0-15.0) % Plt Count 267 (150-400) K/uL MPV 9.50 (7.40-12.00) fL Neut % (Auto) 92.3 H (48.0-80.0) % Lymph % (Auto) 3.3 L (16.0-40.0) % [place] % (Auto) 4.4 (0.0-15.0) % Eos % (Auto) 0.0 (0.0-7.0) % Baso % (Auto) 0.0 (0.0-1.5) % Neut # (Auto) 9.4 H (1.4-5.7) K/uL Lymph # (Auto) 0.3 L (0.6-2.4) K/uL [place] # (Auto) 0.5 (0.0-0.8) K/uL Eos # (Auto) 0.0 (0.0-0.7) K/uL Baso # (Auto) 0.0 (0.0-0.1) K/uL Nucleated RBC % 0.0 /100WBC Nucleated RBCs # 0 K/uL Sodium 139 (136-146) mmol/L Potassium 3.7 (3.5-5.1) mmol/L Chloride 91 L (98-110) mmol/L Carbon Dioxide 39 H (21-31) mmol/L BUN 13 (6.0-23.0) mg/dL Creatinine 0.8 (0.6-1.5) mg/dL Est Cr Clr Drug Dosing 55.43 mL/min Estimated GFR (MDRD) > 60.0 ml/min Glucose 160 H (60-110) mg/dL Calcium 8.9 (8.8-10.8) mg/dL Med Orders - Current: Current Medications Acetaminophen (Tylenol) 650 mg PO Q6H PRN PRN Reason: Pain (mild 1-3) Acidophilus/Pectin (Acidophilus/Pectin, [place]) 1 tab PO BID [facility] Last Admin: 05/05/17 08:34 Dose: 1 tab Albuterol/Ipratropium (Duoneb 3.0-0.5 Mg/3 Ml) 3 ml NEB Q4HRRT PRN PRN Reason: Shortness of Breath Albuterol/Ipratropium (Duoneb 3.0-0.5 Mg/3 Ml) 3 ml NEB Q4HRRT [facility] Last Admin: 05/05/17 09:28 Dose: 3 ml Escitalopram Oxalate (Lexapro) 10 mg PO DAILY [facility] Last Admin: 05/05/17 08:35 Dose: 10 mg Metronidazole 500 mg/ Premix 100 mls @ 100 mls/hr IV Q6H [facility] Last Admin: 05/05/17 07:17 Dose: 100 mls/hr Levofloxacin (Levaquin) 750 mg PO Q24H [place] Lorazepam (Ativan) 0.5 mg PO QID PRN PRN Reason: Anxiety Last Admin: 05/05/17 09:35 Dose: 0.5 mg Losartan Potassium (Cozaar) 25 mg PO DAILY [facility] Last Admin: 05/05/17 08:35 Dose: 25 mg Methylprednisolone Sodium Succinate (Solu-Medrol) 125 mg IVPUSH Q8H [place] Last Admin: 05/05/17 04:34 Dose: 125 mg Ondansetron HCl (Zofran) 4 mg PO Q6H PRN PRN Reason: Nausea/Vomiting Last Admin: 05/03/17 15:01 Dose: 4 mg Pantoprazole Sodium (Protonix) 40 mg PO DAILY [facility] Last Admin: 05/05/17 08:34 Dose: 40 mg Roflumilast 500 Mcg 1 each PO DAILY [facility] Last Admin: 05/05/17 08:38 Dose: 1 each Tiotropium [place] [ Spiriva Respimat] 2 Puff 1 each INH DAILY [facility] Last Admin: 05/05/17 09:28 Dose: 1 each Pravastatin Sodium (Pravachol) 20 mg PO DAILY [facility] Last Admin: 05/05/17 08:34 Dose: 20 mg Fluticasone/Salmeterol (Advair Diskus 500-50) 1 puff INH BID [facility] Last Admin: 05/05/17 09:28 Dose: 1 inhalation Discontinued Medications Acetaminophen (Tylenol) 650 mg PO ONETIME ONE Stop: 05/01/17 09:26 Last Admin: 05/01/17 11:09 Dose: 650 mg Acetaminophen (Tylenol) 650 mg PO NOW ONE Stop: 05/01/17 14:51 Last Admin: 05/01/17 14:01 Dose: 650 mg Albuterol/Ipratropium (Duoneb 3.0-0.5 Mg/3 Ml) 3 ml NEB ONETIME ONE Stop: 04/29/17 19:55 Last Admin: 04/29/17 19:58 Dose: 3 ml Diphenhydramine HCl (Benadryl) 50 mg PO ONETIME ONE Stop: 05/01/17 10:01 Last Admin: 05/01/17 11:09 Dose: 50 mg Diphenhydramine HCl (Benadryl) 50 mg PO ONETIME ONE Stop: 05/01/17 15:01 Last Admin: 05/01/17 14:02 Dose: 50 mg Furosemide (Lasix) 20 mg IVPUSH ONETIME ONE Stop: 05/01/17 15:01 Last Admin: 05/01/17 14:02 Dose: 20 mg Furosemide (Lasix) 20 mg IVPUSH ONETIME ONE Stop: 05/01/17 17:01 Last Admin: 05/01/17 17:22 Dose: 20 mg Azithromycin 500 mg/ Sodium (Chloride) 250 mls @ 250 mls/hr IV Q24H [facility] Last Admin: 04/29/17 22:36 Dose: 250 mls/hr Piperacillin Sod/Tazobactam (Sod 4.5 gm/ Sodium Chloride) 100 mls @ 100 mls/hr IV Q6H [facility] Last Admin: 05/05/17 08:32 Dose: 100 mls/hr Vancomycin HCl 1 gm/ Sodium (Chloride) 250 mls @ 166.667 mls/hr IV Q12H [facility] Last Admin: 05/03/17 10:23 Dose: Not Given Vancomycin HCl 1 gm/ Sodium (Chloride) 250 mls @ 166.667 mls/hr IV Q12H [facility] Last Admin: 05/04/17 23:48 Dose: 166.667 mls/hr Methylprednisolone Sodium Succinate (Solu-Medrol) 125 mg IVPUSH ONETIME ONE Stop: 04/29/17 19:55 Last Admin: 04/29/17 19:56 Dose: 125 mg Methylprednisolone Sodium Succinate (Solu-Medrol) Confirm Administered Dose 125 mg .ROUTE .STK-MED ONE Stop: 04/29/17 19:54 Last Admin: 04/29/17 19:56 Dose: Not Given Morphine Sulfate (Morphine) 2 mg IVPUSH Q4H PRN PRN Reason: Pain (severe 7-10) Vancomycin HCl (Pharmacy To Dose - Vancomycin) 1 dose .XX ASDIRECTED [place] - Exam General: Reports: Alert, Oriented, Cooperative, No Acute Distress Neck: Reports: Supple Lungs: Reports: Normal Respiratory Effort, Decreased Breath Sounds (near bases, but much better air exchange compared to previous exams). Denies: Crackles Cardiovascular: Reports: Regular Rhythm, Tachycardia. Denies: Murmurs GI/Abdominal Exam: Normal Bowel Sounds, Soft, Non-Tender, No Organomegaly, No Distention, No Abnormal Bruit, No Mass, Pelvis Stable Extremities: Normal Inspection, Normal Range of Motion, Non-Tender, No Pedal Edema, Normal Capillary Refill Skin: Reports: Warm, Dry Wound/Incisions: Reports: Healing Well Neurological: Reports: No New Focal Deficit Psy/Mental Status: Reports: Alert, Normal Affect, Normal Mood *Q Meaningful Use (DIS) - VTE *Q VTE Criteria *Q: VTE Mechanical Contraindications *Q: At Risk for Falls - Stroke *Q Stroke Criteria *Q: - AMI *Q AMI Criteria *Q:
== END 2017-05-05 12:25 | disposition home health service (06) | DRG 190 ==
LOC: MW.ED 19:39 → MW.MS 21:02 → MW.ED 21:26 → MW.MS 21:30 → OBSVTOIN 05-01 09:48 → INTOOBSV 05-01 09:48
PROVIDERS: ADMIT Internal Medicine; ATTEND Internal Medicine
PROC: 30233N1 Transfusion of Nonautologous Red Blood Cells into Peripheral Vein, Percutaneous Approach (ICD-10-PCS; principal; 2017-05-01)
DX: R06.00 Dyspnea, unspecified (principal); J44.9 Chronic obstructive pulmonary disease, unspecified; J44.1 Chronic obstructive pulmonary disease with (acute) exacerbation; J96.21 Acute and chronic respiratory failure with hypoxia; F41.9 Anxiety disorder, unspecified; F41.8 Other specified anxiety disorders; F17.200 Nicotine dependence, unspecified, uncomplicated; Z99.81 Dependence on supplemental oxygen; Z87.01 Personal history of pneumonia (recurrent); E78.00 Pure hypercholesterolemia, unspecified; I10 Essential (primary) hypertension; K21.9 Gastro-esophageal reflux disease without esophagitis; K44.9 Diaphragmatic hernia without obstruction or gangrene; M13.861 Other specified arthritis, right knee; H54.7 Unspecified visual loss; F32.9 Major depressive disorder, single episode, unspecified; D64.9 Anemia, unspecified; L30.9 Dermatitis, unspecified; Z87.891 Personal history of nicotine dependence; Z88.5 Allergy status to narcotic agent; Z88.6 Allergy status to analgesic agent; Z88.2 Allergy status to sulfonamides; Z88.8 Allergy status to other drugs, medicaments and biological substances; Z79.82 Long term (current) use of aspirin; Z79.899 Other long term (current) drug therapy; Z66 Do not resuscitate; Y95 Nosocomial condition; D50.8 Other iron deficiency anemias
CPT/HCPCS: 36415 ×3; 36600; 71010; 80048; 80053 ×2; 81001; 82550; 82803; 83615; 83880; 84484; 85025 ×3; 86850; 86900; 86901; 86920; 86921; 86922; 87040 ×2; 93005; 94640 ×7; 94664; 96365; 96366 ×2; 96367; 96375; 96376 ×2; 99285; A9270 ×15; G0378 ×2; J0456; J2543 ×5; J2930 ×5; J3370 ×3; J7030 ×5; J7050 ×4; 36430; 80202; 87077; 87324; 96374; 97161-GP; 99283; P9016

== ENCOUNTER 2017-05-22 15:01 | Inpatient (IN) | payer MEDICARE ==
[2017-05-22] MEDS ORDERED: Levalbuterol HCl 0.63 MG/3 ML Neb NEB ONE (15:24)
[2017-05-22] MEDS ORDERED: Sodium Chloride 0.9% 2.5 ML Syringe FLUSH PRN (15:24)
[2017-05-22] MEDS ORDERED: methylPREDNISolone Sodium Succinate 125 MG/2 ML SDV IVPUSH ONE (15:24)
[2017-05-22] MEDS ORDERED: Sodium Chloride 0.9% 10 ML Syringe FLUSH PRN (15:24)
[2017-05-22] MEDS ORDERED: Sodium Chloride 0.9% 500 ML IV SCH (15:30)
--- NOTE | 2017-05-22 15:31 | EDM.PDOC ---
ED HPI GENERAL MEDICAL PROBLEM - General Chief Complaint: Respiratory Problem Stated Complaint: SHORTNESS OF BREATH Time Seen by Provider: 05/22/17 15:13 - History of Present Illness INITIAL COMMENTS - FREE TEXT/NARRATIVE: HISTORY AND PHYSICAL: History of present illness: The patient is a 76-year-old female who is well known to our hospital due to her frequent admissions and hospitalizations for end-stage COPD and hypoxic respiratory distress as well as hypertension and anxiety. The patient was admitted here the end of February and discharged on March 22 and then readmitted March 23 through March 29 as well as May 01 through May 05 all for COPD exacerbation and possible pneumonia. On her last admission in April she is noted to have a low hemoglobin of 7.7 and was transfused 2 units of blood as well as treated aggressively with nebulizer treatments steroids antibiotics, Levaquin, and was discharged home and has nebulizer treatments that she uses at home every 8 hours that she says is a new 1 because of her tachycardia with albuterol. The patient here in the ED says that symptoms started at 3 AM when she feel more short of breath and had a dry hacking cough. She does not feel like the cough is productive and she's not had a fever chest pain abdominal pain vomiting or diarrhea. She has had some nausea and feels short of breath typical of her exacerbations. Patient also has inhalers that she uses but she did not give a rescue albuterol at home due to the tachycardia concerns. Patient says she is eating and drinking normally and has no complaints of any discomfort at this time. She has no sore throat runny nose or sinus congestion. Patient normally uses 2-1/2 L of oxygen at home and has had increased demands with any activity over the last 12 hours. Review of systems: As per history of present illness and below otherwise all systems reviewed and negative. Past medical history: As per history of present illness and as reviewed below otherwise noncontributory. Surgical history: As per history of present illness and as reviewed below otherwise noncontributory. Social history: No reported history of drug or alcohol abuse. Family history: As per history of present illness and as reviewed below otherwise noncontributory. Physical exam: Gen.: Well-developed well-nourished female who has some visible abdominal muscle use with breathing and some pursed lip breathing but is able to speak in sentences as long as she is not doing any activities. Vital signs of the note by me. HEENT: Atraumatic, normocephalic, pupils reactive, negative for conjunctival pallor or scleral icterus, mucous membranes tacky, throat clear, neck supple, nontender, trachea midline. Lungs: Diminished breath sounds bilaterally with all aviles and some abdominal muscle use with breathing but no intercostal muscle use and no nasal flaring, breath sounds equal bilaterally, chest nontender. Dry hacking cough was appreciated on my evaluation Heart: S1S2, regular rhythm and tachycardic rate on my evaluation no overt murmurs could be appreciated Abdomen: Soft, nondistended, nontender. Negative for masses or hepatosplenomegaly. NABS Pelvis: Stable nontender. Genitourinary: Deferred. Rectal: Deferred. Extremities: Atraumatic, negative for cords or calf pain. Neurovascular unremarkable. Trace pedal edema but no leg asymmetry Neuro: Awake, alert, oriented. Cranial nerves II through XII unremarkable. Cerebellum unremarkable. Motor and sensory unremarkable throughout. Exam nonfocal. Skin: No evidence of any rashes or lesions and the patient is not diaphoretic Diagnostics: EKG CBC CMP troponin chest x-ray Therapeutics: IV O2 monitor gentle IV fluids Solu-Medrol Xopenex Ativan Patient and his daughter are aware of testing results and the medicine resident is here in the ED to see the patient. He is aware of the chest x-ray results and I will discuss the case with him as well as Dr. Mosley for admission. The patient says she initially felt a little better but now does not feel better. Patient's initial O2 sat on 2-1/[address] L was [address]%. Dr. Mosley was contacted about this patient at 1650 6 PM and agrees with admission. Dr Reed would like to start with an observation at this time. They' re both aware of the WBC count and the chest x-ray results and that we have not even antibiotics which they are comfortable with. The patient is also aware of the need for admission and is agreeable. Impression: Dyspnea/COPD exacerbation with history of end-stage COPD Definitive disposition and diagnosis as appropriate pending reevaluation and review of above. - Related Data Allergies Allergy/AdvReac Type Severity Reaction Status Date / Time aspirin [From Percodan] Allergy Vomiting Verified 05/22/17 16:45 codeine Allergy Rash Verified 05/22/17 16:45 morphine Allergy Rash Verified 05/22/17 16:45 oxycodone [From Percodan] Allergy Vomiting Verified 05/22/17 16:45 Sulfa (Sulfonamide Allergy Rash Verified 05/22/17 16:45 Antibiotics) lisinopril Allergy Cough Uncoded 05/22/17 16:45 Home Meds: Home Meds Aspirin 81 mg PO DAILY 03/20/17 [History] Cetirizine [ZyrTEC] 0 mg PO ASDIRECTED PRN 03/20/17 [History] Cholecalciferol (Vitamin D3) [Vitamin D] 2,000 unit PO DAILY 03/20/17 [History] LORazepam 0.5 mg PO QID PRN 03/20/17 [History] Lactobacillus Combo No.11 [Probiotic] 1 each PO DAILY 03/20/17 [History] Losartan Potassium 25 mg PO DAILY 03/20/17 [History] Pantoprazole Sodium [Protonix] 40 mg PO DAILY 03/20/17 [History] Pravastatin Sodium 20 mg PO DAILY 03/20/17 [History] Roflumilast [Daliresp] 500 mcg PO DAILY 03/20/17 [History] Ubidecarenone/Vitamin E Mixed [[id number] E 200 mg-20 Unit Sfg] 1 tab PO DAILY [History] Escitalopram [Lexapro] 10 mg PO DAILY 03/21/17 [History] Ondansetron [Zofran] 4 mg PO Q4H PRN #14 tab 03/22/17 [Rx] Fluticasone/Salmeterol [Advair Diskus 500-50] 1 puff INH BID diskus 03/29/17 [ Rx] Tiotropium [place] [Spiriva Respimat] 2 puff IH DAILY #1 mist.inhal 05/05/17 [Rx ] Past Medical History HEENT History: Reports: Impaired Vision Other HEENT History: wears glasses Cardiovascular History: Reports: High Cholesterol, Hypertension Respiratory History: Reports: Bronchitis, Recurrent, COPD, Pneumonia, Recurrent , Other (See Below) Other Respiratory History: empysema Gastrointestinal History: Reports: GERD, Hiatal Hernia Other Gastrointestinal History: Hiatal hernia since X "2-3 years ago" Genitourinary History: Reports: UTI, Recurrent 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: Musculoskeletal History: Reports: Arthritis Other Musculoskeletal History: Right knee arthritis Psychiatric History: Reports: Anxiety, Depression Hematologic History: Reports: Anemia Other Hematologic History: Blood transfusion X one year ago Dermatologic History: Reports: Eczema - Past Surgical History Cardiovascular Surgical History: Reports: Carotid Endarterectomy Other Cardiovascular Surgeries/Procedures: Femoral artery stent placed to left Respiratory Surgical History: Reports: None GI Surgical History: Reports: Hernia, Inguinal Musculoskeletal Surgical History: Reports: None Social & Family History - Family History Family Medical History: Noncontributory - Tobacco Use Smoking Status *Q: Former Smoker Years of Tobacco use: 40 Packs/Tins Daily: 1.5 Used Tobacco, but Quit: Yes Month Tobacco Last Used: 08/2006 Second Hand Smoke Exposure: No - Caffeine Use Caffeine Use: Reports: None Caffeine Use Comment: 2 cups daily - Recreational Drug Use Recreational Drug Use: No ED ROS GENERAL - Review of Systems Review Of Systems: ROS reveals no pertinent complaints other than HPI. ED EXAM, GENERAL - Physical Exam Exam: See Below (See dictation) Course - Vital Signs Last Recorded V/S: Last Vital Signs Temp 37.1 C 05/22/17 16:41 Pulse 130 H 05/22/17 16:41 Resp 28 H 05/22/17 16:41 BP 117/80 05/22/17 16:41 Pulse Ox 92 L 05/22/17 16:41 - Orders/Labs/Meds Orders: Active Orders 24 hr Category Date Time Status Patient Status [ADT] Stat ADT 05/22/17 16:58 Ordered Cardiac Monitoring [RC] . DIRECTED Care 05/22/17 15:24 Active EKG Documentation Completion [RC] STAT Care 05/22/17 15:03 Active Oxygen Therapy, ED [RC] ASDIRECTED Care 05/22/17 15:24 Active Pulse Oximetry [RC] ASDIRECTED Care 05/22/17 15:24 Active RT Aerosol Therapy [RC] ASDIRECTED Care 05/22/17 15:25 Active Chest 1V Frontal [CR] Stat Exams 05/22/17 15:24 Taken Sodium Chloride 0.9% [Normal Saline] 500 ml Med 05/22/17 15:30 Active IV STAT Sodium Chloride 0.9% [Saline Flush] Med 05/22/17 15:24 Active 10 ml FLUSH ASDIRECTED PRN Sodium Chloride 0.9% [Saline Flush] Med 05/22/17 15:24 Active 2.5 ml FLUSH ASDIRECTED PRN Saline Lock Insert [OM.PC] Stat Oth 05/22/17 15:24 Ordered Medication Orders Sodium Chloride (Normal Saline) 500 mls @ 999 mls/hr IV STAT [place] Last Admin: 05/22/17 15:44 Dose: 999 mls/hr Sodium Chloride (Saline Flush) 10 ml FLUSH ASDIRECTED PRN PRN Reason: Keep Vein Open Sodium Chloride (Saline Flush) 2.5 ml FLUSH ASDIRECTED PRN PRN Reason: Keep Vein Open Labs: Laboratory Tests 05/22/17 05/22/17 05/22/17 Range/Units 15:20 15:20 15:20 WBC 15.49 H (4.0-11.0) K/uL RBC 3.19 L (4.30-5.90) M/uL Hgb 9.8 L (12.0-16.0) g/dL Hct 30.9 L (36.0-46.0) % MCV 96.9 (80.0-98.0) fL MCH 30.7 (27.0-32.0) pg MCHC 31.7 (31.0-37.0) g/dL RDW Std Deviation 55.4 (28.0-62.0) fl RDW Coeff of Marck 16 H (11.0-15.0) % Plt Count 172 (150-400) K/uL MPV 9.80 (7.40-12.00) fL Neut % (Auto) 81.3 H (48.0-80.0) % Lymph % (Auto) 8.8 L (16.0-40.0) % [place] % (Auto) 9.3 (0.0-15.0) % Eos % (Auto) 0.5 (0.0-7.0) % Baso % (Auto) 0.1 (0.0-1.5) % Neut # (Auto) 12.6 H (1.4-5.7) K/uL Lymph # (Auto) 1.4 (0.6-2.4) K/uL [place] # (Auto) 1.4 H (0.0-0.8) K/uL Eos # (Auto) 0.1 (0.0-0.7) K/uL Baso # (Auto) 0.0 (0.0-0.1) K/uL Nucleated RBC % 0.0 /100WBC Nucleated RBCs # 0 K/uL Sodium 137 (136-146) mmol/L Potassium 3.8 (3.5-5.1) mmol/L Chloride 89 L (98-110) mmol/L Carbon Dioxide 38 H (21-31) mmol/L BUN 15 (6.0-23.0) mg/dL Creatinine 0.7 (0.6-1.5) mg/dL Est Cr Clr Drug Dosing TNP Estimated GFR (MDRD) > 60.0 ml/min Glucose 130 H (60-110) mg/dL Calcium 9.7 (8.8-10.8) mg/dL Total Bilirubin 0.9 (0.1-1.5) mg/dL AST 19 (5-40) IU/L ALT 19 (8-54) IU/L Alkaline Phosphatase 56 (40-150) Troponin I < 0.10 (0.0-0.29) NG/ML Total Protein 6.6 (6.0-8.0) g/dL Albumin 3.3 L (3.4-4.8) g/dL Globulin 3.3 (2.0-3.5) g/dL Albumin/Globulin Ratio 1.0 L (1.3-2.8) Meds: Medications Generic Name Dose Route Start Last Admin Trade Name Fidencioq PRN Reason Stop Dose Admin Sodium Chloride 500 mls @ 999 mls/hr 05/22/17 15:30 05/22/17 15:44 Normal Saline IV 999 mls/hr STAT [place] Administration Sodium Chloride 10 ml 05/22/17 15:24 Saline Flush FLUSH ASDIRECTED PRN Keep Vein Open Sodium Chloride 2.5 ml 05/22/17 15:24 Saline Flush FLUSH ASDIRECTED PRN Keep Vein Open Discontinued Medications Generic Name Dose Route Start Last Admin Trade Name Freq PRN Reason Stop Dose Admin Levalbuterol HCl 0.63 mg 05/22/17 15:24 05/22/17 15:33 Xopenex NEB 05/22/17 15:25 0.63 mg ONETIME ONE Administration Lorazepam 0.5 mg 05/22/17 16:42 05/22/17 16:47 Ativan PO 05/22/17 16:43 0.5 mg ONETIME ONE Administration Methylprednisolone Sodium Succinate 125 mg 05/22/17 15:24 05/22/17 15:43 Solu-Medrol IVPUSH 05/22/17 15:25 125 mg ONETIME ONE Administration Departure - Departure Time of Disposition: 17:00 Disposition: Refer to Observation Condition: Fair Clinical Impression: COPD exacerbation - Discharge Information Referrals: PCP,None [Primary Care Provider] - Forms: ED Department Discharge - My Orders Last 24 Hours: My Active Orders 05/22/17 15:03 EKG Documentation Completion [RC] STAT 05/22/17 15:24 Cardiac Monitoring [RC] . DIRECTED Oxygen Therapy, ED [RC] ASDIRECTED Pulse Oximetry [RC] ASDIRECTED Chest 1V Frontal [CR] Stat Sodium Chloride 0.9% [Saline Flush] 10 ml FLUSH ASDIRECTED PRN Sodium Chloride 0.9% [Saline Flush] 2.5 ml FLUSH ASDIRECTED PRN Saline Lock Insert [OM.PC] Stat 05/22/17 15:25 RT Aerosol Therapy [RC] ASDIRECTED 05/22/17 15:30 Sodium Chloride 0.9% [Normal Saline] 500 ml IV STAT 05/22/17 16:58 Patient Status [ADT] Stat - Assessment/Plan Last 24 Hours: My Active Orders 05/22/17 15:03 EKG Documentation Completion [RC] STAT 05/22/17 15:24 Cardiac Monitoring [RC] . DIRECTED Oxygen Therapy, ED [RC] ASDIRECTED Pulse Oximetry [RC] ASDIRECTED Chest 1V Frontal [CR] Stat Sodium Chloride 0.9% [Saline Flush] 10 ml FLUSH ASDIRECTED PRN Sodium Chloride 0.9% [Saline Flush] 2.5 ml FLUSH ASDIRECTED PRN Saline Lock Insert [OM.PC] Stat 05/22/17 15:25 RT Aerosol Therapy [RC] ASDIRECTED 05/22/17 15:30 Sodium Chloride 0.9% [Normal Saline] 500 ml IV STAT 05/22/17 16:58 Patient Status [ADT] Stat
[2017-05-22 15:54] LABS: CHLORIDE,CL 89 mmol/L (98-110); SODIUM,NA 137 mmol/L (136-146)
[2017-05-22] MEDS ORDERED: LORazepam 0.5 MG Tab PO ONE (16:42)
--- NOTE | 2017-05-22 17:41 | PCM.HP ---
H&P History of Present Illness - General Date of Service: 05/22/17 Admit Problem/Dx: Admission Diagnosis/Problem Admission Diagnosis/Problem COPD, Severe chronic obstructive pulmonary disease - History of Present Illness Initial Comments - Free Text/Narative: 76 year old fm with history of COPD on home O2, HTN & anxiety admitted for hypoxia. She has had multiple admissions for COPD exacerbation since March. Daughter is present today. Patient states she has not been doing well for the past 3-4 days feeling more sob. She woke up today and the SOB got worst all of a sudden. She was on her home O2 at 2.5L and Daughter noticed that her O2 sat was 81%. They then decided to come into the ED. She was given O2 at 4L which improved her hypoxia. She received Solumedrol, Xopenex, Ativan and IVF. She was still having difficulty breathing and was therefore admitted to the floor for observation. She denies any hemoptysis, LE swelling, calf pain or recent surgery. ED Course: -testing: EKG, CBC, CMP, troponin, CXR 1 view -therapy: IVF, 4L O2, Solu-Medrol 125 mg IV, Xopenex, Ativan 0.5 mg PO Upper Mid-Posterior Back Pain Score (Numeric/FACES): 5 - Related Data Allergies/Adverse Reactions: Allergies Allergy/AdvReac Type Severity Reaction Status Date / Time codeine Allergy Rash Verified 05/22/17 16:45 morphine Allergy Rash Verified 05/22/17 16:45 Sulfa (Sulfonamide Allergy Rash Verified 05/22/17 16:45 Antibiotics) lisinopril Allergy Cough Uncoded 05/22/17 16:45 Home Medications: Home Meds Aspirin 81 mg PO DAILY 03/20/17 [History] Cetirizine [ZyrTEC] 0 mg PO ASDIRECTED PRN 03/20/17 [History] Cholecalciferol (Vitamin D3) [Vitamin D] 2,000 unit PO DAILY 03/20/17 [History] LORazepam 0.5 mg PO DAILY PRN 03/20/17 [History] Lactobacillus Combo No.11 [Probiotic] 1 each PO DAILY 03/20/17 [History] Losartan Potassium 50 mg PO DAILY 03/20/17 [History] Pantoprazole Sodium [Protonix] 40 mg PO DAILY 03/20/17 [History] Pravastatin Sodium 20 mg PO DAILY 03/20/17 [History] Roflumilast [Daliresp] 500 mcg PO DAILY 03/20/17 [History] Ubidecarenone/Vitamin E Mixed [[id number]-Bea E 200 mg-20 Unit Sfg] 1 tab PO DAILY [History] Escitalopram [Lexapro] 10 mg PO DAILY 03/21/17 [History] Ondansetron [Zofran] 4 mg PO Q4H PRN #14 tab 03/22/17 [Rx] Fluticasone/Salmeterol [Advair Diskus 500-50] 1 puff INH BID diskus 03/29/17 [ Rx] Tiotropium [place] [Spiriva Respimat] 2 puff IH DAILY #1 mist.inhal 05/05/17 [Rx ] Past Medical History HEENT History: Reports: Impaired Vision Other HEENT History: wears glasses Cardiovascular History: Reports: High Cholesterol, Hypertension Respiratory History: Reports: Bronchitis, Recurrent, COPD, Pneumonia, Recurrent , Other (See Below) Other Respiratory History: empysema Gastrointestinal History: Reports: GERD, Hiatal Hernia Other Gastrointestinal History: Hiatal hernia since X "2-3 years ago" Genitourinary History: Reports: UTI, Recurrent [employer]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: Musculoskeletal History: Reports: Arthritis Other Musculoskeletal History: Right knee arthritis Psychiatric History: Reports: Anxiety, Depression Hematologic History: Reports: Anemia Other Hematologic History: Blood transfusion X one year ago Dermatologic History: Reports: Eczema - Past Surgical History Cardiovascular Surgical History: Reports: Carotid Endarterectomy Other Cardiovascular Surgeries/Procedures: Femoral artery stent placed to left Respiratory Surgical History: Reports: None GI Surgical History: Reports: Hernia, Inguinal Musculoskeletal Surgical History: Reports: None Social & Family History - Family History Family Medical History: Noncontributory - Tobacco Use Smoking Status *Q: Former Smoker Years of Tobacco use: 40 Packs/Tins Daily: 1.5 Used Tobacco, but Quit: Yes Month Tobacco Last Used: 08/2006 Second Hand Smoke Exposure: No - Caffeine Use Caffeine Use: Reports: None Caffeine Use Comment: 2 cups daily - Recreational Drug Use Recreational Drug Use: No H&P Review of Systems - Review of Systems: Review Of Systems: See Below General: Reports: Malaise, Weakness HEENT: Reports: Sore Throat Pulmonary: Reports: Shortness of Breath, Wheezing, Cough. Denies: Pleuritic Chest Pain, Hemoptysis Cardiovascular: Reports: Dyspnea on Exertion, Lightheadedness. Denies: Chest Pain, Palpitations, Syncope Gastrointestinal: Reports: No Symptoms Genitourinary: Reports: No Symptoms Musculoskeletal: Reports: Back Pain Skin: Reports: Dryness Psychiatric: Reports: No Symptoms Neurological: Reports: No Symptoms Exam - Exam Exam: See Below - Vital Signs Vital Signs: Last Vital Signs Temp 37.1 C 05/22/17 16:41 Pulse 130 H 05/22/17 16:41 Resp 28 H 05/22/17 16:41 BP 117/80 05/22/17 16:41 Pulse Ox 92 L 05/22/17 16:41 Weight: 83.5 kg - Exam General: Alert, Oriented, Cooperative, Mild Distress, Moderate Distress HEENT: Conjunctiva Clear, EACs Clear, Nares Patent, Normal Nasal Septum, Posterior Pharynx Clear, Pupils Equal Neck: Supple, +2 Carotid Pulse wo Bruit. No: JVD Lungs: Decreased Breath Sounds (Poor air movement to all aviles ), Crackles Cardiovascular: Tachycardia GI/Abdominal Exam: Non-Tender Extremities: Normal Inspection, No Pedal Edema, Other (No calf tenderness. No LE swelling BL. ) Peripheral Pulses: 2+: Dorsalis Pedis (L), Dorsalis Pedis (R) - Patient Data Result Diagrams: 05/22/17 15:20 05/22/17 15:20 *Q Meaningful Use (ADM) - VTE *Q VTE Criteria *Q: - Stroke *Q Stroke Criteria *Q: - AMI *Q AMI Criteria *Q: Problem List Initiated/Reviewed/Updated: Yes Orders Last 24hrs: Medication Orders Sodium Chloride (Normal Saline) 500 mls @ 999 mls/hr IV STAT [place] Last Admin: 05/22/17 15:44 Dose: 999 mls/hr Sodium Chloride (Saline Flush) 10 ml FLUSH ASDIRECTED PRN PRN Reason: Keep Vein Open Sodium Chloride (Saline Flush) 2.5 ml FLUSH ASDIRECTED PRN PRN Reason: Keep Vein Open Assessment/Plan Comment:: Assessment: 76 year old fm with history of Chronic Respiratory Failure on home 2.5L O2, HTN & anxiety admitted for hypoxia. O2 Sat improved with 4L O2. ED Workup included EKG, CBC, CMP, Troponin & CXR. It revealed Sinus Tachycardia, Leukocytosis, Hypercapnea, Anemia and CXR with multiple nonspecific finding for which 2 view CXR is recommended. 1. Chronic Respiratory Failure: pulse oximetry. Solumedrol 125 mg IV [id number]. Duonebs. resume home daliresp 2. Hypercapnea: as per #1 3. Leukocytosis: CXR 2 view to r/o infection. monitor. 4. Sinus Tachycardia: Telemetry. Wells score 1.5 therefore will hold off on CTA and obtain D-Dimer first. 5. Anxiety: resume Lexapro. Ativan 0.5 mg PO BID PRN 6. Anemia: monitor 7. HTN: hold medications for now and monitor 8. Hyperlipidemia: resume Pravastatin
[2017-05-22] MEDS ORDERED: LORazepam 0.5 MG Tab PO PRN (18:11)
[2017-05-22] MEDS ORDERED: Acetaminophen 325 MG Tab PO PRN (18:11)
[2017-05-22] MEDS ORDERED: methylPREDNISolone Sodium Succinate 1,000 MG/8 ML SDV IV SCH (18:30)
[2017-05-22] MEDS ORDERED: Iopamidol 755 MG/ML 500 ML Multipack Bottle IVPUSH STA (20:12)
[2017-05-22] MEDS: Albuterol/Ipratropium 3.0-0.5 MG/3 ML Neb Soln NEB SCH ×2 (20:55→22:21)
[2017-05-22] MEDS: Piperacillin/Tazobactam 3.375 GM in Sodium Chloride 0.9% 50 ML IV SCH (22:36)
[2017-05-22] MEDS: Levofloxacin/Dextrose 5%-Water 750 MG in Premix Bag 1 BAG IV SCH (23:20)
[2017-05-23] MEDS ORDERED: methylPREDNISolone Sodium Succinate 1,000 MG/8 ML SDV IV SCH
[2017-05-23] MEDS: methylPREDNISolone Sodium Succinate 125 MG/2 ML SDV IVPUSH SCH ×4 (00:20→18:04)
[2017-05-23] MEDS: Albuterol/Ipratropium 3.0-0.5 MG/3 ML Neb Soln NEB SCH ×6 (02:04→21:24)
[2017-05-23] MEDS: Piperacillin/Tazobactam 3.375 GM in Sodium Chloride 0.9% 50 ML IV SCH ×3 (05:05→16:15)
[2017-05-23] MEDS: Pantoprazole 40 MG Tab.CR PO SCH (06:31)
[2017-05-23 06:36] LABS: CHLORIDE,CL 91 mmol/L (98-110); SODIUM,NA 137 mmol/L (136-146)
--- NOTE | 2017-05-23 09:11 | PCM.PN ---
- General Info Date of Service: 05/23/17 Admission Dx/Problem (Free Text): Admission Diagnosis/Problem Admission Diagnosis/Problem COPD, Severe chronic obstructive pulmonary disease Subjective Update: Patient with chronic respiratory failure admitted for hypoxia. CTA revealed pneumonia. Patient still having some trouble breathing and productive cough. - Review of Systems General: Reports: Weakness, Malaise HEENT: Reports: Sore Throat Pulmonary: Reports: Shortness of Breath, Cough, Wheezing Cardiovascular: Reports: Palpitations, Dyspnea on Exertion Gastrointestinal: Reports: No Symptoms Genitourinary: Reports: No Symptoms Musculoskeletal: Reports: Back Pain Skin: Reports: No Symptoms Neurological: Reports: No Symptoms Psychiatric: Reports: No Symptoms - Patient Data Vitals - Most Recent: Last Vital Signs Temp 36.3 C 05/23/17 07:38 Pulse 117 H 05/23/17 07:38 Resp 20 05/23/17 07:38 BP 111/55 L 05/23/17 07:38 Pulse Ox 92 L 05/23/17 07:38 Weight - Most Recent: 78.8 kg I&O - Last 24 Hours: Intake & Output 05/22/17 05/23/17 05/23/17 22:59 06:59 14:59 Intake Total 940 Output Total 200 Balance 740 Lab Results Last 24 Hours: Laboratory Results - last 24 hr 05/23/17 05/23/17 Range/Units 05:15 05:15 WBC 10.20 (4.0-11.0) K/uL RBC 2.83 L (4.30-5.90) M/uL Hgb 8.5 L (12.0-16.0) g/dL Hct 27.1 L (36.0-46.0) % MCV 95.8 (80.0-98.0) fL MCH 30.0 (27.0-32.0) pg MCHC 31.4 (31.0-37.0) g/dL RDW Std Deviation 54.1 (28.0-62.0) fl RDW Coeff of Marck 15 (11.0-15.0) % Plt Count 161 (150-400) K/uL MPV 9.70 (7.40-12.00) fL Neut % (Auto) 91.9 H (48.0-80.0) % Lymph % (Auto) 5.3 L (16.0-40.0) % [place] % (Auto) 2.8 (0.0-15.0) % Eos % (Auto) 0.0 (0.0-7.0) % Baso % (Auto) 0.0 (0.0-1.5) % Neut # (Auto) 9.4 H (1.4-5.7) K/uL Lymph # (Auto) 0.5 L (0.6-2.4) K/uL [place] # (Auto) 0.3 (0.0-0.8) K/uL Eos # (Auto) 0.0 (0.0-0.7) K/uL Baso # (Auto) 0.0 (0.0-0.1) K/uL Nucleated RBC % 0.0 /100WBC Nucleated RBCs # 0 K/uL Sodium 137 (136-146) mmol/L Potassium 3.9 (3.5-5.1) mmol/L Chloride 91 L (98-110) mmol/L Carbon Dioxide 39 H (21-31) mmol/L BUN 17 (6.0-23.0) mg/dL Creatinine 0.7 (0.6-1.5) mg/dL Est Cr Clr Drug Dosing 63.01 mL/min Estimated GFR (MDRD) > 60.0 ml/min Glucose 168 H (60-110) mg/dL Calcium 9.3 (8.8-10.8) mg/dL Magnesium 1.1 L (1.5-2.3) mEq/L Med Orders - Current: Current Medications Acetaminophen (Tylenol) 650 mg PO Q4H PRN PRN Reason: Pain (Mild 1-3)/fever Albuterol/Ipratropium (Duoneb 3.0-0.5 Mg/3 Ml) 3 ml NEB Q4HRRT [facility] Last Admin: 05/23/17 05:53 Dose: 3 ml Aspirin (Aspirin) 81 mg PO DAILY [facility] Enoxaparin Sodium (Lovenox) 40 mg SUBCUT DAILY [facility] Escitalopram Oxalate (Lexapro) 10 mg PO DAILY [facility] Sodium Chloride (Normal Saline) 500 mls @ 999 mls/hr IV STAT [facility] Last Admin: 05/22/17 15:44 Dose: 999 mls/hr Piperacillin Sod/Tazobactam (Sod 3.375 gm/ Sodium Chloride) 50 mls @ 100 mls/ hr IV Q6H [facility] Last Admin: 05/23/17 05:05 Dose: 100 mls/hr Levofloxacin/Dextrose 750 mg/ (Premix) 150 mls @ 100 mls/hr IV Q24H [facility] Last Admin: 05/22/17 23:20 Dose: 100 mls/hr Vancomycin HCl 1,250 mg/ (Sodium Chloride) 250 mls @ 166.667 mls/hr IV Q12H [facility] Lorazepam (Ativan) 0.5 mg PO BID PRN PRN Reason: Anxiety Last Admin: 05/23/17 08:12 Dose: 0.5 mg Methylprednisolone Sodium Succinate (Solu-Medrol) 125 mg IVPUSH Q6HR [facility] Last Admin: 05/23/17 06:31 Dose: 125 mg (Roflumilast 500 Mcg ()Own Med) 500 mcg PO DAILY [facility] Pantoprazole Sodium (Protonix) 40 mg PO ACBREAKFAST [facility] Last Admin: 05/23/17 06:31 Dose: 40 mg Pravastatin Sodium (Pravachol) 20 mg PO DAILY [facility] Sodium Chloride (Saline Flush) 10 ml FLUSH ASDIRECTED PRN PRN Reason: Keep Vein Open Sodium Chloride (Saline Flush) 2.5 ml FLUSH ASDIRECTED PRN PRN Reason: Keep Vein Open Vancomycin HCl (Pharmacy To Dose - Vancomycin) 1 dose .XX ASDIRECTED [facility] Discontinued Medications Vancomycin HCl 1 gm/ Sodium (Chloride) 250 mls @ 166 mls/hr IV Q24H [facility] Vancomycin HCl 1,250 mg/ (Dextrose/Water) 250 mls @ 166.667 mls/hr IV Q24H [facility] Last Admin: 05/23/17 00:58 Dose: 166.667 mls/hr Iopamidol (Isovue Multipack-370 (76%)) 50 ml IVPUSH ONETIME STA Stop: 05/22/17 20:13 Last Admin: 05/22/17 20:12 Dose: 50 ml Levalbuterol HCl (Xopenex) 0.63 mg NEB ONETIME ONE Stop: 05/22/17 15:25 Last Admin: 05/22/17 15:33 Dose: 0.63 mg Lorazepam (Ativan) 0.5 mg PO ONETIME ONE Stop: 05/22/17 16:43 Last Admin: 05/22/17 16:47 Dose: 0.5 mg Methylprednisolone Sodium Succinate (Solu-Medrol) 125 mg IVPUSH ONETIME ONE Stop: 05/22/17 15:25 Last Admin: 05/22/17 15:43 Dose: 125 mg - Exam Quality Assessment: Supplemental Oxygen General: Alert, Oriented, Mild Distress, Moderate Distress Lungs: Decreased Breath Sounds (poor air entry ) Cardiovascular: Tachycardia Back Exam: Normal Inspection (No spinal tenderness ) Extremities: Normal Inspection Neurological: No New Focal Deficit - Problem List Review Problem List Initiated/Reviewed/Updated: Yes - Plan Plan:: Assessment: 76 year old fm with history of Chronic Respiratory Failure on home 2.5L O2, HTN & anxiety admitted for hypoxia, Leukocytosis & Sinus Tachycardia. CTA done revealed Pneumonia but no PE. 1. Chronic Respiratory Failure: pulse oximetry. Solumedrol 125 mg IV [id number]. Duonebs. resume home daliresp 2. Hypercapnea: as per #1 3. Leukocytosis, secondary to Pneumonia: obtain Blood and sputum cultures. Treat empirically with Zosyn/Levaquin/Vancomycin 4. Sinus Tachycardia: likely secondary to anxiety. Telemetry. 5. Anxiety: resume Lexapro. Ativan 0.5 mg PO BID PRN 6. Anemia: monitor 7. HTN: hold medications for now due to low bp and monitor 8. Hyperlipidemia: resume Pravastatin
[2017-05-23] MEDS ORDERED: Magnesium Sulfate/Water 4 GM in Premix Bag 1 BAG IV ONE (09:46)
[2017-05-23] MEDS: Pravastatin 40 MG Tab PO SCH (09:57)
[2017-05-23] MEDS: Aspirin 81 MG Tab.Chew PO SCH (09:59)
[2017-05-23] MEDS: Escitalopram 10 MG Tab PO SCH (10:00)
[2017-05-23] MEDS: Enoxaparin 40 MG/0.4 ML Syringe SUBCUT SCH (10:03)
[2017-05-23] MEDS: Fluticasone/Salmeterol 500-50 MCG Inhalation Powder 14/Diskus INH SCH ×2 (11:22→21:25)
[2017-05-23] MEDS: LORazepam 0.5 MG Tab PO PRN (15:06)
[2017-05-23] MEDS: Levofloxacin/Dextrose 5%-Water 750 MG in Premix Bag 1 BAG IV SCH (22:32)
[2017-05-24] MEDS: LORazepam 0.5 MG Tab PO PRN ×3 (00:10→21:08)
[2017-05-24] MEDS: methylPREDNISolone Sodium Succinate 125 MG/2 ML SDV IVPUSH SCH ×4 (00:11→23:16)
[2017-05-24] MEDS: Piperacillin/Tazobactam 3.375 GM in Sodium Chloride 0.9% 50 ML IV SCH ×3 (00:14→11:11)
[2017-05-24] MEDS: Albuterol/Ipratropium 3.0-0.5 MG/3 ML Neb Soln NEB SCH ×6 (02:05→21:18)
[2017-05-24 06:12] LABS: CHLORIDE,CL 90 mmol/L (98-110); SODIUM,NA 136 mmol/L (136-146)
[2017-05-24] MEDS: Pantoprazole 40 MG Tab.CR PO SCH ×2 (06:22→06:31)
[2017-05-24] MEDS: Enoxaparin 40 MG/0.4 ML Syringe SUBCUT SCH (08:38)
[2017-05-24] MEDS: Escitalopram 10 MG Tab PO SCH (08:38)
[2017-05-24] MEDS: Ferrous Sulfate 325 MG Tab PO SCH (08:38)
[2017-05-24] MEDS: Pravastatin 40 MG Tab PO SCH (08:38)
[2017-05-24] MEDS: Aspirin 81 MG Tab.Chew PO SCH (08:39)
[2017-05-24] MEDS: Fluticasone/Salmeterol 500-50 MCG Inhalation Powder 14/Diskus INH SCH ×2 (09:22→21:18)
--- NOTE | 2017-05-24 11:04 | PCM.PN ---
- General Info Date of Service: 05/24/17 - Review of Systems Systems Review Comment:: patient reports shortness of breath, minimal improvement since yesterday - Patient Data Vitals - Most Recent: Last Vital Signs Temp 36.4 C 05/24/17 08:00 Pulse 125 H 05/24/17 08:00 Resp 22 H 05/24/17 08:00 BP 130/62 05/24/17 08:00 Pulse Ox 95 05/24/17 08:00 Weight - Most Recent: 79.469 kg I&O - Last 24 Hours: Intake & Output 05/23/17 05/24/17 05/24/17 22:59 06:59 14:59 Intake Total 1460 1090 Output Total 700 950 Balance 760 140 Lab Results Last 24 Hours: Laboratory Results - last 24 hr 05/24/17 05/24/17 Range/Units 05:31 05:31 WBC 8.07 (4.0-11.0) K/uL RBC 2.86 L (4.30-5.90) M/uL Hgb 8.4 L (12.0-16.0) g/dL Hct 27.2 L (36.0-46.0) % MCV 95.1 (80.0-98.0) fL MCH 29.4 (27.0-32.0) pg MCHC 30.9 L (31.0-37.0) g/dL RDW Std Deviation 53.4 (28.0-62.0) fl RDW Coeff of Marck 15 (11.0-15.0) % Plt Count 158 (150-400) K/uL MPV 9.70 (7.40-12.00) fL Neut % (Auto) 92.5 H (48.0-80.0) % Lymph % (Auto) 3.5 L (16.0-40.0) % [place] % (Auto) 4.0 (0.0-15.0) % Eos % (Auto) 0.0 (0.0-7.0) % Baso % (Auto) 0.0 (0.0-1.5) % Neut # (Auto) 7.5 H (1.4-5.7) K/uL Lymph # (Auto) 0.3 L (0.6-2.4) K/uL [place] # (Auto) 0.3 (0.0-0.8) K/uL Eos # (Auto) 0.0 (0.0-0.7) K/uL Baso # (Auto) 0.0 (0.0-0.1) K/uL Nucleated RBC % 0.0 /100WBC Nucleated RBCs # 0 K/uL Sodium 136 (136-146) mmol/L Potassium 4.0 (3.5-5.1) mmol/L Chloride 90 L (98-110) mmol/L Carbon Dioxide 38 H (21-31) mmol/L BUN 13 (6.0-23.0) mg/dL Creatinine 0.7 (0.6-1.5) mg/dL Est Cr Clr Drug Dosing 63.01 mL/min Estimated GFR (MDRD) > 60.0 ml/min Glucose 155 H (60-110) mg/dL Calcium 9.1 (8.8-10.8) mg/dL [place] Results Last 24 Hours: Microbiology 05/24/17 08:00 Clostridium difficile Toxin A&B (M) - Final Stool / Feces Negative for C.Diff Toxin/AG 05/22/17 22:17 Aerobic Blood Culture - Preliminary Blood - Venous - Lab Draw NO GROWTH AFTER 1 DAY Anaerobic Blood Culture - Preliminary NO GROWTH AFTER 1 DAY 05/22/17 22:17 Aerobic Blood Culture - Preliminary Blood - Venous NO GROWTH AFTER 1 DAY Anaerobic Blood Culture - Preliminary NO GROWTH AFTER 1 DAY 05/23/17 04:45 Gram Stain - Preliminary Sputum - Expectorated Med Orders - Current: Current Medications Acetaminophen (Tylenol) 650 mg PO Q4H PRN PRN Reason: Pain (Mild 1-3)/fever Last Admin: 05/23/17 19:00 Dose: 650 mg Albuterol/Ipratropium (Duoneb 3.0-0.5 Mg/3 Ml) 3 ml NEB Q4HRRT [facility] Last Admin: 05/24/17 09:28 Dose: 3 ml Aspirin (Aspirin) 81 mg PO DAILY [facility] Last Admin: 05/24/17 08:39 Dose: 81 mg Enoxaparin Sodium (Lovenox) 40 mg SUBCUT DAILY [facility] Last Admin: 05/24/17 08:38 Dose: 40 mg Escitalopram Oxalate (Lexapro) 10 mg PO DAILY [facility] Last Admin: 05/24/17 08:38 Dose: 10 mg Ferrous Sulfate (Ferrous Sulfate) 325 mg PO DAILY [facility] Last Admin: 05/24/17 08:38 Dose: 325 mg Sodium Chloride (Normal Saline) 500 mls @ 999 mls/hr IV STAT [facility] Last Admin: 05/22/17 15:44 Dose: 999 mls/hr Piperacillin Sod/Tazobactam (Sod 3.375 gm/ Sodium Chloride) 50 mls @ 100 mls/ hr IV Q6H [facility] Last Admin: 05/24/17 05:45 Dose: 100 mls/hr Levofloxacin/Dextrose 750 mg/ (Premix) 150 mls @ 100 mls/hr IV Q24H [facility] Last Admin: 05/23/17 22:32 Dose: 100 mls/hr Vancomycin HCl 1,250 mg/ (Sodium Chloride) 250 mls @ 166.667 mls/hr IV Q12H [facility] Last Admin: 05/24/17 00:51 Dose: 166.667 mls/hr Lorazepam (Ativan) 0.5 mg PO Q6H PRN PRN Reason: Anxiety Last Admin: 05/24/17 09:59 Dose: 0.5 mg Methylprednisolone Sodium Succinate (Solu-Medrol) 125 mg IVPUSH Q6HR [facility] Last Admin: 05/24/17 05:42 Dose: 125 mg (Roflumilast 500 Mcg ()Own Med) 500 mcg PO DAILY [facility] Last Admin: 05/24/17 08:55 Dose: 500 mcg Pantoprazole Sodium (Protonix) 40 mg PO ACBREAKFAST [facility] Last Admin: 05/24/17 06:31 Dose: Not Given Pravastatin Sodium (Pravachol) 20 mg PO DAILY [facility] Last Admin: 05/24/17 08:38 Dose: 20 mg Fluticasone/Salmeterol (Advair Diskus 500-50) 1 puff INH BID [facility] Last Admin: 05/24/17 09:22 Dose: 1 disk Sodium Chloride (Saline Flush) 10 ml FLUSH ASDIRECTED PRN PRN Reason: Keep Vein Open Sodium Chloride (Saline Flush) 2.5 ml FLUSH ASDIRECTED PRN PRN Reason: Keep Vein Open Vancomycin HCl (Pharmacy To Dose - Vancomycin) 1 dose .XX ASDIRECTED [facility] Discontinued Medications Vancomycin HCl 1 gm/ Sodium (Chloride) 250 mls @ 166 mls/hr IV Q24H [place] Vancomycin HCl 1,250 mg/ (Dextrose/Water) 250 mls @ 166.667 mls/hr IV Q24H [facility] Last Admin: 05/23/17 00:58 Dose: 166.667 mls/hr Magnesium Sulfate 4 gm/ Premix 100 mls @ 50 mls/hr IV ONETIME ONE Stop: 05/23/17 11:45 Last Admin: 05/23/17 10:09 Dose: 50 mls/hr Iopamidol (Isovue Multipack-370 (76%)) 50 ml IVPUSH ONETIME STA Stop: 05/22/17 20:13 Last Admin: 05/22/17 20:12 Dose: 50 ml Levalbuterol HCl (Xopenex) 0.63 mg NEB ONETIME ONE Stop: 05/22/17 15:25 Last Admin: 05/22/17 15:33 Dose: 0.63 mg Lorazepam (Ativan) 0.5 mg PO ONETIME ONE Stop: 05/22/17 16:43 Last Admin: 05/22/17 16:47 Dose: 0.5 mg Lorazepam (Ativan) 0.5 mg PO BID PRN PRN Reason: Anxiety Last Admin: 05/23/17 08:12 Dose: 0.5 mg Methylprednisolone Sodium Succinate (Solu-Medrol) 125 mg IVPUSH ONETIME ONE Stop: 05/22/17 15:25 Last Admin: 05/22/17 15:43 Dose: 125 mg - Exam General: Alert, Oriented HEENT: Pupils Equal Lungs: Rhonchi, Wheezing Cardiovascular: Regular Rate, Regular Rhythm Extremities: No Pedal Edema Skin: Warm, Dry, Intact Neurological: No New Focal Deficit - Problem List Review Problem List Initiated/Reviewed/Updated: Yes - My Orders Last 24 Hours: My Active Orders 05/23/17 13:00 Vancomycin 1,250 mg Sodium Chloride 0.9% [Normal Saline] 250 ml IV Q12H - Plan Plan:: Assessment: 76 year old admitted with COPD exacerbation and pneumonia Chronic Respiratory Failure: pulse oximetry. will decreaseSolumedrol frequency and continue Duonebs. resume home daliresp Pneumonia: will d/c zosyn continue vancomycin and levaquin Anxiety: resume Lexapro. Ativan 0.5 mg PO BID PRN
--- NOTE | 2017-05-24 13:51 | CR ---
EXAM DATE: 05/22/17 PATIENT'S AGE: 76 Patient: GRACIELA SHIN Facility: [place], [place] Site . Site : 1940 Study: XRay Chest [id number]/[id number] 3:45:51 PM Ordering Physician: María Elena Rios Final Report: INDICATION: Shortness of breath. Technique: AP portable chest x-ray. Comparison : Chest x-ray 04/29/2017 Findings : Increased opacity in the upper chest bilaterally especially in the medial upper lungs greater on the right could be in part related to overlapping shadows and including the 1st anterior ribs but is more prominent. Cannot exclude some component of infiltrate or other opacity in these regions right greater than left. It would be worthwhile obtaining a followup PA and lateral chest x-ray to reassess. Mild pulmonary venous congestion. Mild interstitial prominence in the lungs. Small right pleural effusion may be slightly smaller. Lungs are hyperinflated. Remainder negative. Dictated by Lakhwinder Pollock MD @ May 22 2017 4:07PM (Electronic Signature) Report Signed by Proxy. ROGERS
--- NOTE | 2017-05-24 14:01 | CT ---
EXAM DATE: 05/22/17 PATIENT'S AGE: 76 Patient: GRACIELA SHIN Facility: [place], [place] Site . Site : 1940 Study: CT Chest Angio [id number] PE-05/22/2017 8:14:49 PM Ordering Physician: Dimitri Ma Final Report: INDICATION: Multiple chest radiograph abnormalities. TECHNIQUE: CT chest pulmonary angiogram acquired with 50 mL of Isovue 370 IV contrast. COMPARISON: Chest radiograph 05/22/2017. CT pulmonary angiogram, 03/20/2017. FINDINGS: Cardiovascular structures: No evidence of pulmonary embolus. Aortic atherosclerosis. Thoracic aorta is otherwise normal in caliber. Heart size is within normal limits. Coronary artery calcifications. Mediastinum and casandra: Borderline mediastinal lymphadenopathy. Moderate hiatal hernia. Lungs: No pneumothorax. Secretions are present in the trachea. Mild bilateral lower lobe bronchial wall thickening and bronchiectasis. Moderate emphysema. New dense irregular opacities in the medial left upper lobe. Additional new irregular nodular opacities are present in the right upper lobe as well. Pleura and pericardium: Small bilateral pleural effusions. Chest wall and axilla: No mass or adenopathy. Bones: No significant findings. Upper abdomen: Unremarkable. IMPRESSION: No evidence of pulmonary embolus. New bilateral upper lobe opacities left greater than right, worrisome for pneumonia. Given the moderate emphysema, CT followup to document resolution is required. Secretions in the trachea. Small bilateral pleural effusions. Dictated by Rashid Carver MD @ 05/22/2017 8:34:12 PM Dictated by: Rashid Carver MD @ 05/22/2017 20:34:32 (Electronic Signature) Report Signed by Proxy. [facility]
[2017-05-24] MEDS: Levofloxacin/Dextrose 5%-Water 750 MG in Premix Bag 1 BAG IV SCH (21:08)
[2017-05-25] MEDS: Albuterol/Ipratropium 3.0-0.5 MG/3 ML Neb Soln NEB SCH ×6 (01:09→21:19)
[2017-05-25 06:33] LABS: CHLORIDE,CL 91 mmol/L (98-110); SODIUM,NA 137 mmol/L (136-146)
[2017-05-25] MEDS: Pantoprazole 40 MG Tab.CR PO SCH (06:35)
[2017-05-25] MEDS: LORazepam 0.5 MG Tab PO PRN ×3 (07:27→20:13)
[2017-05-25] MEDS: Enoxaparin 40 MG/0.4 ML Syringe SUBCUT SCH (08:05)
[2017-05-25] MEDS: Ferrous Sulfate 325 MG Tab PO SCH (08:06)
[2017-05-25] MEDS: Aspirin 81 MG Tab.Chew PO SCH (08:06)
[2017-05-25] MEDS: Escitalopram 10 MG Tab PO SCH (08:06)
[2017-05-25] MEDS: Fluticasone/Salmeterol 500-50 MCG Inhalation Powder 14/Diskus INH SCH ×2 (10:21→21:19)
[2017-05-25] MEDS: methylPREDNISolone Sodium Succinate 125 MG/2 ML SDV IVPUSH SCH ×2 (10:48→23:15)
--- NOTE | 2017-05-25 11:04 | PCM.PN ---
- General Info Date of Service: 05/25/17 Admission Dx/Problem (Free Text): Admission Diagnosis/Problem Admission Diagnosis/Problem COPD, Severe chronic obstructive pulmonary disease Subjective Update: No changes from yesterday. Patient still having some trouble breathing and productive cough. Functional Status: Reports: Pain Controlled, Tolerating Diet, Ambulating, Urinating - Review of Systems General: Reports: Weakness Pulmonary: Reports: Shortness of Breath, Cough Cardiovascular: Reports: Dyspnea on Exertion Psychiatric: Reports: Anxiety - Patient Data Vitals - Most Recent: Last Vital Signs Temp 36.9 C 05/25/17 08:00 Pulse 133 H 05/25/17 08:00 Resp 22 H 05/25/17 08:00 BP 182/86 H 05/25/17 08:00 Pulse Ox 93 L 05/25/17 08:00 Weight - Most Recent: 80.467 kg I&O - Last 24 Hours: Intake & Output 05/24/17 05/25/17 05/25/17 22:59 06:59 14:59 Intake Total 1500 800 Output Total 950 800 Balance 550 0 Lab Results Last 24 Hours: Laboratory Results - last 24 hr 05/24/17 05/24/17 05/25/17 Range/Units 12:31 19:32 05:45 WBC 7.56 (4.0-11.0) K/uL RBC 3.05 L (4.30-5.90) M/uL Hgb 9.1 L (12.0-16.0) g/dL Hct 29.7 L (36.0-46.0) % MCV 97.4 (80.0-98.0) fL MCH 29.8 (27.0-32.0) pg MCHC 30.6 L (31.0-37.0) g/dL RDW Std Deviation 55.0 (28.0-62.0) fl RDW Coeff of Marck 15 (11.0-15.0) % Plt Count 226 (150-400) K/uL MPV 9.90 (7.40-12.00) fL Neut % (Auto) 93.9 H (48.0-80.0) % Lymph % (Auto) 3.2 L (16.0-40.0) % [place] % (Auto) 2.9 (0.0-15.0) % Eos % (Auto) 0.0 (0.0-7.0) % Baso % (Auto) 0.0 (0.0-1.5) % Neut # (Auto) 7.1 H (1.4-5.7) K/uL Lymph # (Auto) 0.2 L (0.6-2.4) K/uL [place] # (Auto) 0.2 (0.0-0.8) K/uL Eos # (Auto) 0.0 (0.0-0.7) K/uL Baso # (Auto) 0.0 (0.0-0.1) K/uL Nucleated RBC % 0.0 /100WBC Nucleated RBCs # 0 K/uL Sodium (136-146) mmol/L Potassium (3.5-5.1) mmol/L Chloride (98-110) mmol/L Carbon Dioxide (21-31) mmol/L BUN (6.0-23.0) mg/dL Creatinine (0.6-1.5) mg/dL Est Cr Clr Drug Dosing Estimated GFR (MDRD) ml/min Glucose (60-110) mg/dL Calcium (8.8-10.8) mg/dL Magnesium 1.8 (1.5-2.3) mEq/L Vancomycin Trough 15.0 (5-15) ug/mL 05/25/17 Range/Units 05:45 WBC (4.0-11.0) K/uL RBC (4.30-5.90) M/uL Hgb (12.0-16.0) g/dL Hct (36.0-46.0) % MCV (80.0-98.0) fL MCH (27.0-32.0) pg MCHC (31.0-37.0) g/dL RDW Std Deviation (28.0-62.0) fl RDW Coeff of Marck (11.0-15.0) % Plt Count (150-400) K/uL MPV (7.40-12.00) fL Neut % (Auto) (48.0-80.0) % Lymph % (Auto) (16.0-40.0) % [place] % (Auto) (0.0-15.0) % Eos % (Auto) (0.0-7.0) % Baso % (Auto) (0.0-1.5) % Neut # (Auto) (1.4-5.7) K/uL Lymph # (Auto) (0.6-2.4) K/uL [place] # (Auto) (0.0-0.8) K/uL Eos # (Auto) (0.0-0.7) K/uL Baso # (Auto) (0.0-0.1) K/uL Nucleated RBC % /100WBC Nucleated RBCs # K/uL Sodium 137 (136-146) mmol/L Potassium 4.3 (3.5-5.1) mmol/L Chloride 91 L (98-110) mmol/L Carbon Dioxide 39 H (21-31) mmol/L BUN 11 (6.0-23.0) mg/dL Creatinine 0.7 (0.6-1.5) mg/dL Est Cr Clr Drug Dosing TNP Estimated GFR (MDRD) > 60.0 ml/min Glucose 175 H (60-110) mg/dL Calcium 9.6 (8.8-10.8) mg/dL Magnesium (1.5-2.3) mEq/L Vancomycin Trough (5-15) ug/mL [facility] Results Last 24 Hours: Microbiology 05/23/17 04:45 Gram Stain - Final Sputum - Expectorated 05/22/17 22:17 Aerobic Blood Culture - Preliminary Blood - Venous - Lab Draw NO GROWTH AFTER 2 DAYS Anaerobic Blood Culture - Preliminary NO GROWTH AFTER 2 DAYS 05/22/17 22:17 Aerobic Blood Culture - Preliminary Blood - Venous NO GROWTH AFTER 2 DAYS Anaerobic Blood Culture - Preliminary NO GROWTH AFTER 2 DAYS 05/24/17 08:00 Clostridium difficile Toxin A&B (M) - Final Stool / Feces Negative for C.Diff Toxin/AG Med Orders - Current: Current Medications Acetaminophen (Tylenol) 650 mg PO Q4H PRN PRN Reason: Pain (Mild 1-3)/fever Last Admin: 05/23/17 19:00 Dose: 650 mg Albuterol/Ipratropium (Duoneb 3.0-0.5 Mg/3 Ml) 3 ml NEB Q4HRRT [facility] Last Admin: 05/25/17 10:21 Dose: 3 ml Aspirin (Aspirin) 81 mg PO DAILY [facility] Last Admin: 05/25/17 08:06 Dose: 81 mg Enoxaparin Sodium (Lovenox) 40 mg SUBCUT DAILY [facility] Last Admin: 05/25/17 08:05 Dose: 40 mg Escitalopram Oxalate (Lexapro) 10 mg PO DAILY [facility] Last Admin: 05/25/17 08:06 Dose: 10 mg Ferrous Sulfate (Ferrous Sulfate) 325 mg PO DAILY [facility] Last Admin: 05/25/17 08:06 Dose: 325 mg Levofloxacin/Dextrose 750 mg/ (Premix) 150 mls @ 100 mls/hr IV Q24H [facility] Last Admin: 05/24/17 21:08 Dose: 100 mls/hr Vancomycin HCl 1,250 mg/ (Sodium Chloride) 250 mls @ 166.667 mls/hr IV Q12H [facility] Last Admin: 05/25/17 01:05 Dose: 166.667 mls/hr Lorazepam (Ativan) 0.5 mg PO Q6H PRN PRN Reason: Anxiety Last Admin: 05/25/17 07:27 Dose: 0.5 mg Methylprednisolone Sodium Succinate (Solu-Medrol) 125 mg IVPUSH Q12H [facility] Last Admin: 05/25/17 10:48 Dose: 125 mg Pantoprazole Sodium (Protonix) 40 mg PO ACBREAKFAST [facility] Last Admin: 05/25/17 06:35 Dose: 40 mg (Roflumilast 500 Mcg ()Daliresp) 1 each PO DAILY [facility] Last Admin: 05/25/17 08:06 Dose: 1 each Pravastatin Sodium (Pravachol) 20 mg PO BEDTIME [facility] Fluticasone/Salmeterol (Advair Diskus 500-50) 1 puff INH BID [facility] Last Admin: 05/25/17 10:21 Dose: 1 disk Sodium Chloride (Saline Flush) 10 ml FLUSH ASDIRECTED PRN PRN Reason: Keep Vein Open Sodium Chloride (Saline Flush) 2.5 ml FLUSH ASDIRECTED PRN PRN Reason: Keep Vein Open Vancomycin HCl (Pharmacy To Dose - Vancomycin) 1 dose .XX ASDIRECTED [facility] Discontinued Medications Sodium Chloride (Normal Saline) 500 mls @ 999 mls/hr IV STAT [facility] Last Admin: 05/22/17 15:44 Dose: 999 mls/hr Piperacillin Sod/Tazobactam (Sod 3.375 gm/ Sodium Chloride) 50 mls @ 100 mls/ hr IV Q6H [facility] Last Admin: 05/24/17 11:11 Dose: Not Given Vancomycin HCl 1 gm/ Sodium (Chloride) 250 mls @ 166 mls/hr IV Q24H [facility] Vancomycin HCl 1,250 mg/ (Dextrose/Water) 250 mls @ 166.667 mls/hr IV Q24H [facility] Last Admin: 05/23/17 00:58 Dose: 166.667 mls/hr Magnesium Sulfate 4 gm/ Premix 100 mls @ 50 mls/hr IV ONETIME ONE Stop: 05/23/17 11:45 Last Admin: 05/23/17 10:09 Dose: 50 mls/hr Iopamidol (Isovue Multipack-370 (76%)) 50 ml IVPUSH ONETIME STA Stop: 05/22/17 20:13 Last Admin: 05/22/17 20:12 Dose: 50 ml Levalbuterol HCl (Xopenex) 0.63 mg NEB ONETIME ONE Stop: 05/22/17 15:25 Last Admin: 05/22/17 15:33 Dose: 0.63 mg Lorazepam (Ativan) 0.5 mg PO ONETIME ONE Stop: 05/22/17 16:43 Last Admin: 05/22/17 16:47 Dose: 0.5 mg Lorazepam (Ativan) 0.5 mg PO BID PRN PRN Reason: Anxiety Last Admin: 05/23/17 08:12 Dose: 0.5 mg Methylprednisolone Sodium Succinate (Solu-Medrol) 125 mg IVPUSH ONETIME ONE Stop: 05/22/17 15:25 Last Admin: 05/22/17 15:43 Dose: 125 mg Methylprednisolone Sodium Succinate (Solu-Medrol) 125 mg IVPUSH Q6HR [facility] Last Admin: 05/24/17 05:42 Dose: 125 mg (Roflumilast 500 Mcg ()Own Med) 500 mcg PO DAILY [facility] Last Admin: 05/24/17 08:55 Dose: 500 mcg Pravastatin Sodium (Pravachol) 20 mg PO DAILY [facility] Last Admin: 05/24/17 08:38 Dose: 20 mg - Exam Quality Assessment: Supplemental Oxygen General: Cooperative, Mild Distress, Moderate Distress HEENT: Pupils Equal, Pupils Reactive Neck: Supple, No JVD Lungs: Decreased Breath Sounds (Poor air entry), Crackles Cardiovascular: Regular Rhythm, Tachycardia Neurological: No New Focal Deficit Psy/Mental Status: Alert, Anxious - Problem List Review Problem List Initiated/Reviewed/Updated: Yes - My Orders Last 24 Hours: My Active Orders 05/25/17 09:00 Patient's Own Medication [Ptom] 1 each PO DAILY 05/25/17 21:00 Pravastatin [Pravachol] 20 mg PO BEDTIME - Plan Plan:: Assessment: 76 year old admitted with COPD exacerbation and pneumonia Chronic Respiratory Failure: pulse oximetry. Duonebs. daliresp home dose. Solu- Medrol 125 mg q12 hours. Pneumonia: gram negative cocci on sputum gram stain. continue Levaquin and Vancomycin. f/u blood cultures Anxiety: continue Lexapro. Ativan 0.5 mg PO BID PRN Chronic ZAIRA: improving, Hb 9.1. Continue Iron. monitor
[2017-05-25] MEDS ORDERED: Diltiazem 25 MG/5 ML SDV IVPUSH ONE (13:57)
[2017-05-25] MEDS ORDERED: Magnesium Sulfate/Water 2 GM in Premix Bag 1 BAG IV ONE (14:46)
[2017-05-25] MEDS ORDERED: Diltiazem 25 MG/5 ML SDV IVPUSH PRN ×2 (14:48→15:03)
--- NOTE | 2017-05-25 14:57 | PCM.SN ---
- Free Text/Narrative Note: Patient did have episode of acute worsening of breath, HR was 170s, O2 sat 90% on 2.5L. EKG report SVT with heart rate in the 150s. Patient reported anxiety. She received ativan and 10mg of diltiazem IV. Her heart rate improved to 120- 140s. Her anxiety and dyspnea did improve. Her exam remains the same as this morning with diminished lung sounds. I spoke with her at length regarding her end stage COPD and lack of response to current therapies. We discussed goals of care. She would like us to give more focus on comfort. She remains a DNR. She has a lot of anxiety regarding discharge. I mentioned consulting hospice if she does not improve over the next several days. Due to elevated blood pressure and tachycardia will start diltiazem PO. Patient is receiving ativan for her anxiety but it is becoming less effective. I will add morphine to help with her air hunger. The reported allergy is due to an incident where she became confused after she received morphine following a surgery but she would still like to try morphine.
[2017-05-25] MEDS: Morphine 2 MG/ML Syringe IVPUSH PRN ×3 (15:08→21:31)
[2017-05-25] MEDS: Diltiazem IR 30 MG Tab PO SCH ×3 (15:08→23:15)
[2017-05-25] MEDS: Pravastatin 40 MG Tab PO SCH (20:37)
[2017-05-25] MEDS: Levofloxacin/Dextrose 5%-Water 750 MG in Premix Bag 1 BAG IV SCH (21:36)
[2017-05-26] MEDS: Albuterol/Ipratropium 3.0-0.5 MG/3 ML Neb Soln NEB SCH ×6 (01:58→21:42)
[2017-05-26] MEDS: Morphine 2 MG/ML Syringe IVPUSH PRN ×3 (02:14→10:06)
[2017-05-26 05:25] LABS: CHLORIDE,CL 93 mmol/L (98-110); SODIUM,NA 139 mmol/L (136-146)
[2017-05-26] MEDS: LORazepam 0.5 MG Tab PO PRN ×3 (06:05→20:36)
[2017-05-26] MEDS: Diltiazem IR 30 MG Tab PO SCH ×4 (06:06→23:46)
[2017-05-26] MEDS: Pantoprazole 40 MG Tab.CR PO SCH (07:28)
[2017-05-26] MEDS: Escitalopram 10 MG Tab PO SCH (08:25)
[2017-05-26] MEDS: Ferrous Sulfate 325 MG Tab PO SCH (08:26)
[2017-05-26] MEDS: Aspirin 81 MG Tab.Chew PO SCH (08:26)
[2017-05-26] MEDS: Enoxaparin 40 MG/0.4 ML Syringe SUBCUT SCH (08:26)
--- NOTE | 2017-05-26 09:25 | PCM.PN ---
- General Info Date of Service: 05/26/17 Admission Dx/Problem (Free Text): Admission Diagnosis/Problem Admission Diagnosis/Problem COPD, Severe chronic obstructive pulmonary disease Subjective Update: Patients HR and anxiety have started to improve with Cardizem and Morphine. She is anxious about switching to PO morphine. Patient and daughter are worried that if she has another panic attack then she will end up back in the hospital. Patient has decided she would like to go on hospice. - Review of Systems Pulmonary: Reports: Shortness of Breath, Cough, Sputum Cardiovascular: Reports: Palpitations Psychiatric: Reports: Anxiety - Patient Data Vitals - Most Recent: Last Vital Signs Temp 36.0 C 05/26/17 04:00 Pulse 107 H 05/26/17 04:00 Resp 18 05/26/17 04:00 BP 129/73 05/26/17 04:00 Pulse Ox 99 05/26/17 06:00 Weight - Most Recent: 80.966 kg I&O - Last 24 Hours: Intake & Output 05/25/17 05/26/17 05/26/17 22:59 06:59 14:59 Intake Total 1200 400 Output Total 1050 400 Balance 150 0 Lab Results Last 24 Hours: Laboratory Results - last 24 hr 05/25/17 05/26/17 05/26/17 Range/Units 05:45 04:43 04:43 WBC 4.16 (4.0-11.0) K/uL RBC 2.85 L (4.30-5.90) M/uL Hgb 8.5 L (12.0-16.0) g/dL Hct 27.7 L (36.0-46.0) % MCV 97.2 (80.0-98.0) fL MCH 29.8 (27.0-32.0) pg MCHC 30.7 L (31.0-37.0) g/dL RDW Std Deviation 54.3 (28.0-62.0) fl RDW Coeff of Marck 15 (11.0-15.0) % Plt Count 204 (150-400) K/uL MPV 9.70 (7.40-12.00) fL Neut % (Auto) 90.4 H (48.0-80.0) % Lymph % (Auto) 4.8 L (16.0-40.0) % [place] % (Auto) 4.8 (0.0-15.0) % Eos % (Auto) 0.0 (0.0-7.0) % Baso % (Auto) 0.0 (0.0-1.5) % Neut # (Auto) 3.8 (1.4-5.7) K/uL Lymph # (Auto) 0.2 L (0.6-2.4) K/uL [place] # (Auto) 0.2 (0.0-0.8) K/uL Eos # (Auto) 0.0 (0.0-0.7) K/uL Baso # (Auto) 0.0 (0.0-0.1) K/uL Nucleated RBC % 0.0 /100WBC Nucleated RBCs # 0 K/uL Sodium 139 (136-146) mmol/L Potassium 4.5 (3.5-5.1) mmol/L Chloride 93 L (98-110) mmol/L Carbon Dioxide 39 H (21-31) mmol/L BUN 15 (6.0-23.0) mg/dL Creatinine 0.7 (0.6-1.5) mg/dL Est Cr Clr Drug Dosing TNP Estimated GFR (MDRD) > 60.0 ml/min Glucose 172 H (60-110) mg/dL Calcium 9.0 (8.8-10.8) mg/dL Magnesium 1.6 (1.5-2.3) mEq/L [place] Results Last 24 Hours: Microbiology 05/22/17 22:17 Aerobic Blood Culture - Preliminary Blood - Venous - Lab Draw NO GROWTH AFTER 3 DAYS Anaerobic Blood Culture - Preliminary NO GROWTH AFTER 3 DAYS 05/22/17 22:17 Aerobic Blood Culture - Preliminary Blood - Venous NO GROWTH AFTER 3 DAYS Anaerobic Blood Culture - Preliminary NO GROWTH AFTER 3 DAYS 05/23/17 04:45 Gram Stain - Final Sputum - Expectorated Sputum Culture - Final Haemophilus Influenzae Iii Normal Respiratory [place]oda Med Orders - Current: Current Medications Acetaminophen (Tylenol) 650 mg PO Q4H PRN PRN Reason: Pain (Mild 1-3)/fever Last Admin: 05/23/17 19:00 Dose: 650 mg Albuterol/Ipratropium (Duoneb 3.0-0.5 Mg/3 Ml) 3 ml NEB Q4HRRT [place] Last Admin: 05/26/17 06:06 Dose: 3 ml Aspirin (Aspirin) 81 mg PO DAILY [facility] Last Admin: 05/26/17 08:26 Dose: 81 mg Diltiazem HCl (Cardizem) 30 mg PO Q6HR [facility] Last Admin: 05/26/17 06:06 Dose: 30 mg Diltiazem HCl (Diltiazem) 10 mg IVPUSH Q3H PRN PRN Reason: HR above 120 Enoxaparin Sodium (Lovenox) 40 mg SUBCUT DAILY [facility] Last Admin: 05/26/17 08:26 Dose: 40 mg Escitalopram Oxalate (Lexapro) 10 mg PO DAILY [facility] Last Admin: 05/26/17 08:25 Dose: 10 mg Ferrous Sulfate (Ferrous Sulfate) 325 mg PO DAILY [facility] Last Admin: 05/26/17 08:26 Dose: 325 mg Levofloxacin/Dextrose 750 mg/ (Premix) 150 mls @ 100 mls/hr IV Q24H [facility] Last Admin: 05/25/17 21:36 Dose: 100 mls/hr Lorazepam (Ativan) 0.5 mg PO Q6H PRN PRN Reason: Anxiety Last Admin: 05/26/17 06:05 Dose: 0.5 mg Methylprednisolone Sodium Succinate (Solu-Medrol) 125 mg IVPUSH Q12H [facility] Last Admin: 05/25/17 23:15 Dose: 125 mg Morphine Sulfate (Morphine) 2 mg IVPUSH Q2H PRN PRN Reason: pain or air hunger Last Admin: 05/26/17 06:23 Dose: 2 mg Pantoprazole Sodium (Protonix) 40 mg PO ACBREAKFAST [facility] Last Admin: 05/26/17 07:28 Dose: 40 mg (Roflumilast 500 Mcg ()Daliresp) 1 each PO DAILY [facility] Last Admin: 05/26/17 08:29 Dose: 1 each Pravastatin Sodium (Pravachol) 20 mg PO BEDTIME [facility] Last Admin: 05/25/17 20:37 Dose: 20 mg Fluticasone/Salmeterol (Advair Diskus 500-50) 1 puff INH BID [facility] Last Admin: 05/25/17 21:19 Dose: 1 disk Sodium Chloride (Saline Flush) 10 ml FLUSH ASDIRECTED PRN PRN Reason: Keep Vein Open Sodium Chloride (Saline Flush) 2.5 ml FLUSH ASDIRECTED PRN PRN Reason: Keep Vein Open Discontinued Medications Diltiazem HCl (Diltiazem) 10 mg IVPUSH ONETIME ONE Stop: 05/25/17 13:58 Last Admin: 05/25/17 14:04 Dose: 10 mg Diltiazem HCl (Diltiazem) 10 mg IVPUSH ONETIME PRN PRN Reason: HR above 120 Sodium Chloride (Normal Saline) 500 mls @ 999 mls/hr IV STAT [place] Last Admin: 05/22/17 15:44 Dose: 999 mls/hr Piperacillin Sod/Tazobactam (Sod 3.375 gm/ Sodium Chloride) 50 mls @ 100 mls/ hr IV Q6H [facility] Last Admin: 05/24/17 11:11 Dose: Not Given Vancomycin HCl 1 gm/ Sodium (Chloride) 250 mls @ 166 mls/hr IV Q24H [place] Vancomycin HCl 1,250 mg/ (Dextrose/Water) 250 mls @ 166.667 mls/hr IV Q24H [facility] Last Admin: 05/23/17 00:58 Dose: 166.667 mls/hr Vancomycin HCl 1,250 mg/ (Sodium Chloride) 250 mls @ 166.667 mls/hr IV Q12H [facility] Last Admin: 05/25/17 13:35 Dose: 166.667 mls/hr Magnesium Sulfate 4 gm/ Premix 100 mls @ 50 mls/hr IV ONETIME ONE Stop: 05/23/17 11:45 Last Admin: 05/23/17 10:09 Dose: 50 mls/hr Magnesium Sulfate 2 gm/ Premix 50 mls @ 50 mls/hr IV ONETIME ONE Stop: 05/25/17 15:45 Last Admin: 05/25/17 15:54 Dose: 50 mls/hr Iopamidol (Isovue Multipack-370 (76%)) 50 ml IVPUSH ONETIME STA Stop: 05/22/17 20:13 Last Admin: 05/22/17 20:12 Dose: 50 ml Levalbuterol HCl (Xopenex) 0.63 mg NEB ONETIME ONE Stop: 05/22/17 15:25 Last Admin: 05/22/17 15:33 Dose: 0.63 mg Lorazepam (Ativan) 0.5 mg PO ONETIME ONE Stop: 05/22/17 16:43 Last Admin: 05/22/17 16:47 Dose: 0.5 mg Lorazepam (Ativan) 0.5 mg PO BID PRN PRN Reason: Anxiety Last Admin: 05/23/17 08:12 Dose: 0.5 mg Methylprednisolone Sodium Succinate (Solu-Medrol) 125 mg IVPUSH ONETIME ONE Stop: 05/22/17 15:25 Last Admin: 05/22/17 15:43 Dose: 125 mg Methylprednisolone Sodium Succinate (Solu-Medrol) 125 mg IVPUSH Q6HR [facility] Last Admin: 05/24/17 05:42 Dose: 125 mg (Roflumilast 500 Mcg ()Own Med) 500 mcg PO DAILY [facility] Last Admin: 05/24/17 08:55 Dose: 500 mcg Pravastatin Sodium (Pravachol) 20 mg PO DAILY [facility] Last Admin: 05/24/17 08:38 Dose: 20 mg Vancomycin HCl (Pharmacy To Dose - Vancomycin) 1 dose .XX ASDIRECTED [facility] - Exam General: Alert, Oriented, Cooperative, Mild Distress HEENT: Pupils Equal, Pupils Reactive Neck: Supple, No JVD Lungs: Decreased Breath Sounds (poor air entry ) Cardiovascular: Regular Rhythm, Tachycardia Psy/Mental Status: Anxious - Problem List Review Problem List Initiated/Reviewed/Updated: Yes - My Orders Last 24 Hours: My Active Orders 05/25/17 09:00 Patient's Own Medication [Ptom] 1 each PO DAILY 05/25/17 21:00 Pravastatin [Pravachol] 20 mg PO BEDTIME 05/26/17 09:18 Consult to Hospice [CONS] Routine - Plan Plan:: Assessment: 76 year old admitted with COPD exacerbation and pneumonia. Treated with Levaquin and Vancomycin. Sputum cultures grew Haemophillis Influenza. She had panic attack yesterday for which she was started on Cardizem 30 mg [id number] and Morphine IV [id number]. Patient and family have both decided they would like to pursue hospice. Chronic Respiratory Failure: pulse oximetry. Duonebs. daliresp home dose. Solu- Medrol 125 mg q12 hours. Pneumonia: DC Vancomycin. Transition Levaquin to PO. f/u blood cultures Anxiety: on Lexapro home dose & Ativan 0.5 mg PO BID PRN. transition Morphine to PO in anticipation for discharge tomorrow Sinus Tachycardia: likely secondary to Anxiety. continue Cardizem 30 mg PO [id number] HTN: BP stable. Hold Losartan due to patient receiving Cardizem. Chronic ZAIRA: Hb 8.5. Continue Iron. monitor DVT Prophylaxis: on Lovenox Dispo: anticipate for tomorrow. Consult to Hospice.
[2017-05-26] MEDS: Fluticasone/Salmeterol 500-50 MCG Inhalation Powder 14/Diskus INH SCH ×2 (09:46→21:42)
[2017-05-26] MEDS: Morphine 15 MG Tab PO PRN ×2 (12:03→16:20)
[2017-05-26] MEDS: methylPREDNISolone Sodium Succinate 125 MG/2 ML SDV IVPUSH SCH ×2 (12:03→23:46)
[2017-05-26] MEDS: Pravastatin 40 MG Tab PO SCH (20:36)
[2017-05-26] MEDS ORDERED: Levofloxacin 250 MG Tab PO SCH (21:00)
[2017-05-27] MEDS: Morphine 15 MG Tab PO PRN ×2 (03:33→08:57)
[2017-05-27] MEDS: Albuterol/Ipratropium 3.0-0.5 MG/3 ML Neb Soln NEB SCH ×3 (03:33→10:26)
[2017-05-27] MEDS: Diltiazem IR 30 MG Tab PO SCH ×2 (06:34→12:24)
[2017-05-27] MEDS: LORazepam 0.5 MG Tab PO PRN ×2 (06:34→12:34)
[2017-05-27] MEDS: Pantoprazole 40 MG Tab.CR PO SCH (06:34)
[2017-05-27] MEDS: Ferrous Sulfate 325 MG Tab PO SCH (09:00)
[2017-05-27] MEDS: Aspirin 81 MG Tab.Chew PO SCH (09:00)
[2017-05-27] MEDS: Escitalopram 10 MG Tab PO SCH (09:00)
[2017-05-27] MEDS: Enoxaparin 40 MG/0.4 ML Syringe SUBCUT SCH (09:01)
[2017-05-27] MEDS: Fluticasone/Salmeterol 500-50 MCG Inhalation Powder 14/Diskus INH SCH (10:28)
--- NOTE | 2017-05-27 10:51 | PCM.DCSUM1 ---
Discharge Summary - Hospital Course Free Text/Narrative:: 76 year old fm with history of COPD on home O2, HTN & anxiety admitted for CAP and hypoxia. She was treated with Levaquin IV and Solumedrol. She has had multiple admissions due to poor lung function. Discussion was had with family regarding Hospice and they decided to pursue it. Hospice was consulted and they accepted her into the program. During hospitalization she had persistent sinus tachycardia secondary to anxiety. Anxiety was not responding to Ativan. She was then started on Morphine and Cardizem which helped improve symptoms. She was discherged home on 05/28 under hospice. She was prescribed Levaquin PO for 4 days. She was also given 1 week of Morphine at discharge. She will resume her home O2 at 2.5 L. - Discharge Data Discharge Date: 05/27/17 Discharge Disposition: DC/Tfer to Hospice-Med Fac 51 Condition: Stable - Patient Summary/Data Consults: Consultations 05/26/17 09:18 Consult to Hospice [CONS] Routine - Patient Instructions Diet: Usual Diet as Tolerated Activity: As Tolerated - Discharge Plan Prescriptions/Med Rec: Levofloxacin [IJD: Levofloxacin] 750 mg PO DAILY 4 Days #4 tab Morphine 7.5 mg PO Q4H PRN 7 Days #21 tablet PRN Reason: Anxiety Home Medications: Home Meds Aspirin 81 mg PO DAILY 03/20/17 [History] Cetirizine [ZyrTEC] 0 mg PO ASDIRECTED PRN 03/20/17 [History] Cholecalciferol (Vitamin D3) [Vitamin D] 2,000 unit PO DAILY 03/20/17 [History] LORazepam 0.5 mg PO DAILY PRN 03/20/17 [History] Lactobacillus Combo No.11 [Probiotic] 1 each PO DAILY 03/20/17 [History] Losartan Potassium 50 mg PO DAILY 03/20/17 [History] Pantoprazole Sodium [Protonix] 40 mg PO DAILY 03/20/17 [History] Pravastatin Sodium 20 mg PO DAILY 03/20/17 [History] Roflumilast [Daliresp] 500 mcg PO DAILY 03/20/17 [History] Ubidecarenone/Vitamin E Mixed [Agq19-Tzl E 200 mg-20 Unit Sfg] 1 tab PO DAILY [History] Escitalopram [Lexapro] 10 mg PO DAILY 03/21/17 [History] Ondansetron [Zofran] 4 mg PO Q4H PRN #14 tab 03/22/17 [Rx] Fluticasone/Salmeterol [Advair Diskus 500-50] 1 puff INH BID diskus 03/29/17 [ Rx] Tiotropium [place] [Spiriva Respimat] 2 puff IH DAILY #1 mist.inhal 05/05/17 [Rx ] Ferrous Fumarate [Ferrocite] 324 mg PO DAILY 05/23/17 [History] Levofloxacin [IJD: Levofloxacin] 750 mg PO DAILY 4 Days #4 tab 05/27/17 [Rx] Morphine 7.5 mg PO Q4H PRN 7 Days #21 tablet 05/27/17 [Rx] Forms: ED Department Discharge Referrals: PCP,None [Primary Care Provider] - - Patient Data Vitals - Most Recent: Last Vital Signs Temp 36.0 C 05/27/17 08:00 Pulse 110 H 05/27/17 08:00 Resp 20 05/27/17 08:00 BP 142/68 H 05/27/17 08:00 Pulse Ox 98 05/27/17 08:00 Weight - Most Recent: 79.968 kg I&O - Last 24 hours: Intake & Output 05/26/17 05/27/17 05/27/17 22:59 06:59 14:59 Intake Total 550 1070 Output Total 500 650 Balance 50 420 REX Results - Last 24 hrs: Microbiology 05/22/17 22:17 Aerobic Blood Culture - Preliminary Blood - Venous - Lab Draw NO GROWTH AFTER 4 DAYS Anaerobic Blood Culture - Preliminary NO GROWTH AFTER 4 DAYS 05/22/17 22:17 Aerobic Blood Culture - Preliminary Blood - Venous NO GROWTH AFTER 4 DAYS Anaerobic Blood Culture - Preliminary NO GROWTH AFTER 4 DAYS Med Orders - Current: Current Medications Acetaminophen (Tylenol) 650 mg PO Q4H PRN PRN Reason: Pain (Mild 1-3)/fever Last Admin: 05/23/17 19:00 Dose: 650 mg Albuterol/Ipratropium (Duoneb 3.0-0.5 Mg/3 Ml) 3 ml NEB Q4HRRT [facility] Last Admin: 05/27/17 10:26 Dose: 3 ml Aspirin (Aspirin) 81 mg PO DAILY [facility] Last Admin: 05/27/17 09:00 Dose: 81 mg Diltiazem HCl (Cardizem) 30 mg PO Q6HR [facility] Last Admin: 05/27/17 06:34 Dose: 30 mg Diltiazem HCl (Diltiazem) 10 mg IVPUSH Q3H PRN PRN Reason: HR above 120 Enoxaparin Sodium (Lovenox) 40 mg SUBCUT DAILY [facility] Last Admin: 05/27/17 09:01 Dose: 40 mg Escitalopram Oxalate (Lexapro) 10 mg PO DAILY [facility] Last Admin: 05/27/17 09:00 Dose: 10 mg Ferrous Sulfate (Ferrous Sulfate) 325 mg PO DAILY [facility] Last Admin: 05/27/17 09:00 Dose: 325 mg Levofloxacin (Levaquin) 750 mg PO Q24H [facility] Last Admin: 05/26/17 20:36 Dose: 750 mg Lorazepam (Ativan) 0.5 mg PO Q6H PRN PRN Reason: Anxiety Last Admin: 05/27/17 06:34 Dose: 0.5 mg Methylprednisolone Sodium Succinate (Solu-Medrol) 125 mg IVPUSH Q12H [facility] Last Admin: 05/26/17 23:46 Dose: 125 mg Morphine Sulfate (Morphine) 7.5 mg PO Q4H PRN PRN Reason: air hunger Last Admin: 05/27/17 08:57 Dose: 7.5 mg Pantoprazole Sodium (Protonix) 40 mg PO ACBREAKFAST [facility] Last Admin: 05/27/17 06:34 Dose: 40 mg (Roflumilast 500 Mcg ()Daliresp) 1 each PO DAILY [facility] Last Admin: 05/27/17 09:01 Dose: 1 each Pravastatin Sodium (Pravachol) 20 mg PO BEDTIME [facility] Last Admin: 05/26/17 20:36 Dose: 20 mg Fluticasone/Salmeterol (Advair Diskus 500-50) 1 puff INH BID [facility] Last Admin: 05/27/17 10:28 Dose: 1 disk Sodium Chloride (Saline Flush) 10 ml FLUSH ASDIRECTED PRN PRN Reason: Keep Vein Open Sodium Chloride (Saline Flush) 2.5 ml FLUSH ASDIRECTED PRN PRN Reason: Keep Vein Open Discontinued Medications Diltiazem HCl (Diltiazem) 10 mg IVPUSH ONETIME ONE Stop: 05/25/17 13:58 Last Admin: 05/25/17 14:04 Dose: 10 mg Diltiazem HCl (Diltiazem) 10 mg IVPUSH ONETIME PRN PRN Reason: HR above 120 Sodium Chloride (Normal Saline) 500 mls @ 999 mls/hr IV STAT [facility] Last Admin: 05/22/17 15:44 Dose: 999 mls/hr Piperacillin Sod/Tazobactam (Sod 3.375 gm/ Sodium Chloride) 50 mls @ 100 mls/ hr IV Q6H [facility] Last Admin: 05/24/17 11:11 Dose: Not Given Levofloxacin/Dextrose 750 mg/ (Premix) 150 mls @ 100 mls/hr IV Q24H [facility] Last Admin: 05/25/17 21:36 Dose: 100 mls/hr Vancomycin HCl 1 gm/ Sodium (Chloride) 250 mls @ 166 mls/hr IV Q24H [place] Vancomycin HCl 1,250 mg/ (Dextrose/Water) 250 mls @ 166.667 mls/hr IV Q24H [facility] Last Admin: 05/23/17 00:58 Dose: 166.667 mls/hr Vancomycin HCl 1,250 mg/ (Sodium Chloride) 250 mls @ 166.667 mls/hr IV Q12H [facility] Last Admin: 05/25/17 13:35 Dose: 166.667 mls/hr Magnesium Sulfate 4 gm/ Premix 100 mls @ 50 mls/hr IV ONETIME ONE Stop: 05/23/17 11:45 Last Admin: 05/23/17 10:09 Dose: 50 mls/hr Magnesium Sulfate 2 gm/ Premix 50 mls @ 50 mls/hr IV ONETIME ONE Stop: 05/25/17 15:45 Last Admin: 05/25/17 15:54 Dose: 50 mls/hr Iopamidol (Isovue Multipack-370 (76%)) 50 ml IVPUSH ONETIME STA Stop: 05/22/17 20:13 Last Admin: 05/22/17 20:12 Dose: 50 ml Levalbuterol HCl (Xopenex) 0.63 mg NEB ONETIME ONE Stop: 05/22/17 15:25 Last Admin: 05/22/17 15:33 Dose: 0.63 mg Lorazepam (Ativan) 0.5 mg PO ONETIME ONE Stop: 05/22/17 16:43 Last Admin: 05/22/17 16:47 Dose: 0.5 mg Lorazepam (Ativan) 0.5 mg PO BID PRN PRN Reason: Anxiety Last Admin: 05/23/17 08:12 Dose: 0.5 mg Methylprednisolone Sodium Succinate (Solu-Medrol) 125 mg IVPUSH ONETIME ONE Stop: 05/22/17 15:25 Last Admin: 05/22/17 15:43 Dose: 125 mg Methylprednisolone Sodium Succinate (Solu-Medrol) 125 mg IVPUSH Q6HR [facility] Last Admin: 05/24/17 05:42 Dose: 125 mg Morphine Sulfate (Morphine) 2 mg IVPUSH Q2H PRN PRN Reason: pain or air hunger Last Admin: 05/26/17 10:06 Dose: 2 mg (Roflumilast 500 Mcg ()Own Med) 500 mcg PO DAILY [facility] Last Admin: 05/24/17 08:55 Dose: 500 mcg Pravastatin Sodium (Pravachol) 20 mg PO DAILY [facility] Last Admin: 05/24/17 08:38 Dose: 20 mg Vancomycin HCl (Pharmacy To Dose - Vancomycin) 1 dose .XX ASDIRECTED [facility] *Q Meaningful Use (DIS) - VTE *Q VTE Criteria *Q: - Stroke *Q Stroke Criteria *Q: - AMI *Q AMI Criteria *Q:
[2017-05-27] MEDS: methylPREDNISolone Sodium Succinate 125 MG/2 ML SDV IVPUSH SCH (12:15)
[2017-05-27 12:24] VITALS: BP 170/75
== END 2017-05-27 13:30 | disposition hospice, inpatient (51) | DRG 190 ==
LOC: MW.ED 15:01 → MW.MS 16:58 → OBSVTOIN 21:48 → MW.MS 21:48
PROVIDERS: ADMIT Internal Medicine; ATTEND Internal Medicine
DX: J44.0 Chronic obstructive pulmonary disease with (acute) lower respiratory infection (principal); E78.00 Pure hypercholesterolemia, unspecified; J18.9 Pneumonia, unspecified organism; J96.11 Chronic respiratory failure with hypoxia; J44.1 Chronic obstructive pulmonary disease with (acute) exacerbation; I10 Essential (primary) hypertension; R00.0 Tachycardia, unspecified; F41.8 Other specified anxiety disorders; K21.9 Gastro-esophageal reflux disease without esophagitis; D64.9 Anemia, unspecified; E78.5 Hyperlipidemia, unspecified; D72.829 Elevated white blood cell count, unspecified; Z88.8 Allergy status to other drugs, medicaments and biological substances; Z79.899 Other long term (current) drug therapy; Z51.5 Encounter for palliative care; Z87.891 Personal history of nicotine dependence
CPT/HCPCS: 71010; 71275; 80053; 84484; 85025; 85379; 93005; 94640; 96361; 96374; 99285; A9270; J2930; J7040; Q9967; 36415; 80048; 80202; 83735; 87040; 87070; 87077; 87205; 87324; 99284; J1650; J1956; J2270; J2543; J3370; J3475; J3490; J7050; J7060